=== PATIENT | male | born 1955 | race Caucasian/White ===

== ENCOUNTER 2024-08-22 19:17 | Emergency (ER) | payer MEDICARE, SELFPAY ==
[2024-08-22 19:36] VITALS: BP 161/87; PULSE 110; TEMP 36.7; O2SAT 93; BMI 28.8
--- NOTE | 2024-08-22 19:44 | CT_ITS ---
The [address] [address] Patient Name: FREDDY PANCHAL MRN: [id number] date: 1955 Sex: M Assigned Patient Location: ED.MAIN Current Patient Location: ED.MAIN Accession/Order Number: [id number] Exam Date: 08/22/2024 20:30 Report Date: 08/22/2024 21:44 At the request of: SIMIN STUBBS Procedure: CT lumbar spine wo con EXAM: CT lumbar spine wo con TECHNIQUE: Axial CT images were obtained through the lumbar spine along with sagittal and coronal reformatted images. Dose reduction techniques were achieved by using automated exposure control and/or adjustment of mA and/or kV according to patient size and/or use of iterative reconstruction technique. HISTORY: lumbar radiculopathy COMPARISON: None. FINDINGS: Bones: Foci of gas and heterogeneous lucency involving the superior half of the L5 vertebral body and inferior portion of the L4 vertebral body. No acute fracture. Alignment: The alignment is anatomic. No acute subluxation. Arthritic changes: Moderate degenerative endplate change at L5-S1. Mild degenerative endplate change throughout the remainder of the lumbar spine. Mild degenerative facet changes at L4-L5 and L5-S1. Disc spaces: No gross disc herniation given limitation of CT scan. Foci of gas within the L4-L5 disc space Soft tissues: Epidural soft tissue thickening within the anterior epidural space dorsal to the L3, L4 and L5 vertebrae with foci of gas within the soft tissue thickening.1 the paravertebral soft tissues are unremarkable. CT/CT lumbar spine wo con IMPRESSION: 1. Epidural soft tissue thickening and foci of gas within the anterior epidural space of the lower lumbar spine. Epidural abscess is not excluded. Pre and postcontrast MRI of lumbar spine is recommended for additional evaluation. 2. Foci of gas within the L4-L5 disc space and with foci of gas involving the inferior L4 endplate and superior L5 endplate. Discitis and osteomyelitis is possible. This can also be further evaluated with MRI. A critical result was communicated to Simin Stubbs at 08/22/2024 9:41 PM EDT by Jan Salamanca MD. Electronically authenticated by: JAN SALAMANCA Date: 08/22/2024 21:44
--- NOTE | 2024-08-22 19:46 | ED_ITS ---
HPI HPI - General Adult General Chief complaint: Back Pain/Injury Stated complaint: BACK PAIN Time Seen by Provider: 08/22/24 19:37 Source: patient Mode of arrival: Wheelchair Limitations: no limitations History of Present Illness HPI narrative: Patient is a 68-year-old male with a history of chronic back pain who presents to the emergency department after a spinal injection of steroids, he states he is continuing to have worsened pain and pain radiating down the back of his legs. He states he called his pain management doctor and was told to come to the emergency department for a morphine drip. He denies any fevers, vomiting, there has been no redness at the injection site. He reports most of his pain at the base of the spine, to the left and right of the spine above the hips. He states yesterday the pain was on the left and today it is worse on the right. He has no flank pain, abdominal pain or urinary symptoms. He is on Percocet and Belbuca chronically. No new falls or injuries. Related Data Home Medications ?Medication ?Instructions ?Recorded ?Confirmed amlodipine 2.5 mg tablet 2.5 mg PO DAILY 08/22/24 08/22/24 atorvastatin 40 mg tablet 40 mg PO DAILY 08/22/24 08/22/24 baclofen 10 mg oral granules in 10 mg PO DAILY 08/22/24 08/22/24 packet buprenorphine HCl 900 mcg buccal 900 mcg buccal .Q 12 08/22/24 08/22/24 film (Belbuca) famotidine 20 mg tablet 20 mg PO DAILY 08/22/24 08/22/24 hydroxyzine pamoate 25 mg capsule 25 mg PO BID PRN itching 08/22/24 08/22/24 lidocaine 5 % topical patch 1 patch topical Q24H 08/22/24 08/22/24 losartan 100 1 tab PO DAILY 08/22/24 08/22/24 mg-hydrochlorothiazide 12.5 mg tablet nitroglycerin 0.4 mg sublingual 0.4 mg sublingual Q5M PRN chest 08/22/24 08/22/24 tablet pain oxycodone-acetaminophen 5 mg-325 2 tab PO BID 08/22/24 08/22/24 mg tablet trazodone 50 mg tablet 50 mg PO DAILY 08/22/24 08/22/24 Allergies Allergy/AdvReac Type Severity Reaction Status Date / Time acetaminophen (From Tylenol) AdvReac sweating Verified 08/22/24 19:43 codeine AdvReac Nausea Verified 08/22/24 19:43 Opioid HPI Opioid Management Most Recent Opioid Data: Last MAR Pain Assessment 08/23/24 01:23 Review of Systems ROS Constitutional Denies: fever or chills Ears, nose, mouth, and throat Denies: throat pain or nasal congestion Respiratory Denies: shortness of breath Gastrointestinal Denies: nausea or vomiting Musculoskeletal Reports: back pain and extremity pain; Denies: neck pain Neurological Denies: numbness in extremities or weakness in extremities Hematologic/Lymphatic Denies: easy bruising or easy bleeding PFSH PFSH Social History Little interest or pleasure in doing things: not at all Feeling down, depressed, or hopeless: not at all Exam Narrative Exam Narrative: Gen.: Awake, alert, in no distress Head: Normocephalic, atraumatic ENT: Moist mucous membranes Respiratory: No respiratory distress Back: No bony point tenderness of the midline lumbar spine. No obvious deformity or step-off. No pain out of proportion on exam. Diffuse mild tenderness of the paraspinal muscles at the base of the right lumbar spine above the hip. No flank tenderness or CVA tenderness Extremities: Moves extremities equally, normal dorsiflexion and plantarflexion of the lower extremities with normal hip flexion bilaterally, positive straight leg raise with hip flexion on the right lower extremity. No decrease in sensation to the medial thighs Psych: Normal mood and affect Neuro: No focal neuro deficit Skin: Warm, dry, intact Constitutional Vital Signs, click to edit/add: Last Vital Signs Temp 98.0 F 08/22/24 19:36 Pulse 97 H 08/23/24 01:54 Resp 20 08/23/24 01:54 BP 179/99 H 08/23/24 01:54 Pulse Ox 96 08/23/24 01:54 O2 Del Method Nasal Cannula 08/23/24 01:54 O2 Flow Rate 2 08/23/24 01:54 Course Vital Signs Vital signs: Vital Signs Temperature 98.0 F 08/22/24 19:36 Pulse Rate 110 H 08/22/24 19:36 Respiratory Rate 18 08/22/24 19:36 Blood Pressure 161/87 H 08/22/24 19:36 Pulse Oximetry 93 L 08/22/24 19:36 Oxygen Delivery Method Room Air 08/22/24 19:36 Temperature 98.0 F 08/22/24 19:36 Pulse Rate 97 H 08/23/24 01:54 Respiratory Rate 20 08/23/24 01:54 Blood Pressure 179/99 H 08/23/24 01:54 Pulse Oximetry 96 08/23/24 01:54 Oxygen Delivery Method Nasal Cannula 08/23/24 01:54 Oxygen Delivery Flow Rate 2 08/23/24 01:54 Medical Decision Making MDM Narrative Medical decision making narrative: Patient was initially medicated with IV Dilaudid, Solu-Medrol, Norflex, Zofran. He reported no improvement in his pain and was given additional morphine and Toradol. He was not noted to have any focal neurodeficits in the ER. 2200: CT of the lumbar spine was ordered, the radiologist called and feels that the patient has findings suspicious for epidural abscess and discitis. MRI is recommended. We are not able to emergently get an MRI for the patient and we have no neurosurgery coverage at this facility. Patient and are aware agreeable to transfer to the [facility] [place]. [facility] transfer line was contacted, they do not have any beds available at [facility] but they do have neurosurgery coverage and bed availability at [place]. We are awaiting acceptance from this facility at this time. 2249: I spoke with Dr. Lawler for neurosurgery and he requested that the patient be sent to the emergency department at [facility] for evaluation. Patient was accepted by ER doctor, Dr. Johnson. Neurosurgery requested blood cultures and no antibiotics until the patient is evaluated. Patient with minimal leukocytosis, white blood cell count 12.5, no bandemia. Sed rate is greater than 130 and CRP is 22.6. Patient was found to have elevated glucose although he is not known to be diabetic, possibly reactive to recent steroids. Patient is hemodynamically stable at this time, pending transfer to emergency department at [facility]. Critical care time 35 minutes SUPERVISED APC VISIT, PHYSICIAN ATTESTATION: Based on the medical record the care appears appropriate. ? Medical Records Medical records reviewed: Yes I reviewed the patient's medical records Lab Data Lab results reviewed: Yes I reviewed the patient's lab results Labs: Lab Results 08/22/24 Range/Units 19:50 WBC 12.6 H (4.0-11.0) 10^3/uL RBC 4.45 L (4.70-6.10) 10^6/uL Hgb 14.3 (14.0-18.0) g/dL Hct 41.8 L (42.0-54.0) % MCV 93.9 (80.0-94.0) fL MCH 32.1 (25.9-34.0) pg MCHC 34.2 (29.9-35.2) g/dL RDW 13.0 (11.0-15.0) % Plt Count 41 L (150-450) 10^3/uL MPV 10.4 (9.5-13.5) fL Seg Neuts % (Manual) 95.0 H (43.0-75.0) Lymphocytes % (Manual) 2.0 L (20.5-60.0) % Monocytes % (Manual) 3.0 (1.7-12.0) % Eosinophils % (Manual) 0.0 L (0.9-7.0) % Basophils % (Manual) 0.0 L (0.2-2.0) % Neutrophils # (Manual) 11.97 H (1.4-6.5) 10^3/uL Lymphocytes # (Manual) 0.25 L (1.20-3.80) 10^3/uL Monocytes # (Manual) 0.37 (0.30-0.80) 10^3/uL Eosinophils # (Manual) 0.00 (0.00-0.70) 10^3/uL Basophils # (Manual) 0.00 (0.00-0.10) 10^3/uL ESR >130 H (<=20) mm/hr Sodium 132 L (136-145) mmol/L Potassium 4.5 (3.5-5.1) mmol/L Chloride 95 L (98-107) mmol/L Carbon Dioxide 29.0 (21.0-32.0) mmol/L Anion Gap 12.5 BUN 23.0 H (7.0-18.0) mg/dL Creatinine 1.26 (0.70-1.30) mg/dL Est GFR ( Amer) >60 (>=60 mL/min/1.73m^2) Est GFR (Non-Af Amer) 57 L (>=60 mL/min/1.73m^2) BUN/Creatinine Ratio 18.3 Glucose 297 H (74-106) mg/dL Lactate 1.3 (0.4-2.0) mmol/L Calcium 9.5 (8.5-10.1) mg/dL Total Bilirubin 0.7 (0.2-1.0) mg/dL AST 28 (15-37) U/L ALT 44 (16-63) U/L Alkaline Phosphatase 136 H (46-116) U/L C-Reactive Protein 22.67 H (<=0.50) mg/dL Total Protein 7.1 (6.4-8.2) g/dL Albumin 2.8 L (3.4-5.0) g/dL Globulin 4.3 g/dL Albumin/Globulin Ratio 0.[address] spine: Attestation: I have reviewed the pertinent imaging results. Radiologist's impression: ITS Impressions Lumbar Spine CT 08/22/24 19:44 IMPRESSION: 1. Epidural soft tissue thickening and foci of gas within the anterior epidural space of the lower lumbar spine. Epidural abscess is not excluded. Pre and postcontrast MRI of lumbar spine is recommended for additional evaluation. 2. Foci of gas within the L4-L5 disc space and with foci of gas involving the inferior L4 endplate and superior L5 endplate. Discitis and osteomyelitis is possible. This can also be further evaluated with MRI. A critical result was communicated to Esther Alvarez at 08/22/2024 9:41 PM EDT by Cory Salamanca MD. Electronically authenticated by: CORY SALAMANCA Date: 08/22/2024 21:44 Critical Care Time Critical Care Time Critical Care Time: Yes Total Critical Care Time: 35 Attestation: Critical care time 35 minutes for evaluation of possible epidural abscess, transfer to tertiary care Discharge Plan Discharge Chief Complaint: Back Pain/Injury Clinical Impression: Epidural abscess, Discitis Patient Disposition: General Acute Hospital Time of Disposition Decision: 22:51 Discharge Location: [facility] [address] Condition: Good Mode of Transportation: EMS Discharge Date/Time: 08/23/24 01:45
[2024-08-22] MEDS: HYDROMORPHONE HCL 1 MG/ML CARTRIDGE IV (19:59)
[2024-08-22] MEDS: METHYLPREDNISOLONE SOD SUCC PF 125 MG/2 ML VIAL IVP (19:59)
[2024-08-22] MEDS: ONDANSETRON PF 4 MG/2 ML VIAL IV (19:59)
[2024-08-22] MEDS: ORPHENADRINE 60 MG/ 2 ML VIAL IV (19:59)
[2024-08-22] MEDS: MORPHINE SULFATE 4 MG/ML VIAL IV (20:44)
[2024-08-22] MEDS: KETOROLAC TROMETHAMINE 30 MG/ML VIAL IVP (20:44)
[2024-08-22 22:14] LABS: Alanine Aminotransferase 44 U/L (16-63); Albumin Globulin Ratio 0.7; Albumin Level 2.8 g/dL (3.4-5.0); Alkaline Phosphatase 136 U/L (46-116); Anion Gap 12.5; Aspartate Amino Transferase 28 U/L (15-37); BUN Creatinine Ratio 18.3; Bilirubin Total 0.7 mg/dL (0.2-1.0); C Reactive Protein 22.67 mg/dL (<=0.50); Calcium 9.5 mg/dL (8.5-10.1); Chloride 95 mmol/L (98-107); Estimated GFR (African America >60 (>=60 mL/min/1.73m^2); Estimated GFR (Non-African Ame 57 (>=60 mL/min/1.73m^2); Globulin 4.3 g/dL; Glucose 297 mg/dL (74-106); Potassium 4.5 mmol/L (3.5-5.1); Sodium 132 mmol/L (136-145); Total Protein 7.1 g/dL (6.4-8.2)
[2024-08-22 22:17] LABS: Hematocrit 41.8 % (42.0-54.0); Hemoglobin 14.3 g/dL (14.0-18.0); Lactate/Lactic Acid 1.3 mmol/L (0.4-2.0); Mean Corpuscular HGB Conc 34.2 g/dL (29.9-35.2); Mean Corpuscular Hemoglobin 32.1 pg (25.9-34.0); Mean Corpuscular Volume 93.9 fL (80.0-94.0); Mean Platelet Volume 10.4 fL (9.5-13.5); Platelet Count 41 10^3/uL (150-450); Red Blood Count 4.45 10^6/uL (4.70-6.10); White Blood Count 12.6 10^3/uL (4.0-11.0)
[2024-08-22 22:35] LABS: Erythrocyte Sedimentation Rate >130 mm/hr (<=20)
--- NOTE | 2024-08-22 22:49 | PC.NURSE ---
Pt and family updated on pt transfer to [place]. Jennifer Akers family wishes to be called with update when pt is transferred. Number provided [phone]. Pt hand picker [phone] by [facility].
[2024-08-22 23:04] LABS: Lymphocytes Absolute Manual 0.25 10^3/uL (1.20-3.80); Monocytes Absolute Manual 0.37 10^3/uL (0.30-0.80); Segmented Neut Absolute Manual 11.97 10^3/uL (1.4-6.5)
--- NOTE | 2024-08-23 00:15 | PC.NURSE ---
Pt family Jennifer Akers updated on pt status. This nurse will pass along Ms. Akers's contact info to [facility] along with report to contact her when it is decided where and when pt will be admitted.
--- NOTE | 2024-08-23 00:40 | PC.NURSE ---
Provider ordered pain medication to help manage pt pain upon transfer. 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 Medication to be administered when EMS arrives for transport.
[2024-08-23] MEDS: MORPHINE SULFATE 4 MG/ML VIAL IV (01:23)
--- NOTE | 2024-08-23 01:53 | PC.NURSE ---
Report called to [facility]
[2024-08-23 01:54] VITALS: BP 179/99; PULSE 97; O2SAT 96
[2024-08-23 10:04] LABS: A. calcoaceticus-baumannii Cpx NOT DETECTED (NOT DETECTE); Bacteroides fragilis NOT DETECTED (NOT DETECTE); Enterococcus faecalis NOT DETECTED (NOT DETECTE); Enterococcus faecium NOT DETECTED (NOT DETECTE); Listeria monocytogenes NOT DETECTED (NOT DETECTE); Staphylococcus epidermidis NOT DETECTED (NOT DETECTE); Staphylococcus lugdunensis NOT DETECTED (NOT DETECTE); Staphylococcus spp. NOT DETECTED (NOT DETECTE); Streptococcus agalactiae NOT DETECTED (NOT DETECTE); Streptococcus pneumoniae NOT DETECTED (NOT DETECTE); Streptococcus pyogenes NOT DETECTED (NOT DETECTE); Streptococcus spp. NOT DETECTED (NOT DETECTE)
[2024-08-23 10:05] LABS: Candida albicans NOT DETECTED (NOT DETECTE); Candida auris NOT DETECTED (NOT DETECTE); Candida glabrata NOT DETECTED (NOT DETECTE); Candida krusei NOT DETECTED (NOT DETECTE); Candida parapsilosis NOT DETECTED (NOT DETECTE); Candida tropicalis NOT DETECTED (NOT DETECTE); Cryptococcus neoformans/gattii NOT DETECTED (NOT DETECTE); Enterobacter cloacae complex NOT DETECTED (NOT DETECTE); Haemophilus influenzae NOT DETECTED (NOT DETECTE); Klebsiella aerogenes NOT DETECTED (NOT DETECTE); Klebsiella pneumoniae group NOT DETECTED (NOT DETECTE); Neisseria meningitidis NOT DETECTED (NOT DETECTE); Proteus spp. NOT DETECTED (NOT DETECTE); Pseudomonas aeruginosa NOT DETECTED (NOT DETECTE); Salmonella spp. NOT DETECTED (NOT DETECTE); Serratia marcescens NOT DETECTED (NOT DETECTE); Stenotrophomonas maltophilia NOT DETECTED (NOT DETECTE)
[2024-08-23 11:24] LABS: CTX-M NOT DETECTED (NOT DETECTE); IMP NOT DETECTED (NOT DETECTE); KPC NOT DETECTED (NOT DETECTE); NDM NOT DETECTED (NOT DETECTE); OXA-48-like NOT DETECTED (NOT DETECTE); VIM NOT DETECTED (NOT DETECTE); mcr-1 NOT DETECTED (NOT DETECTE)
[2024-08-23 11:25] LABS: Source Blood
[2024-08-23 11:27] LABS: Enterobacterales DETECTED (NOT DETECTE)
--- NOTE | 2024-08-23 11:30 | PC.NURSE ---
This RN called [facility] ER, spoke with DOMINICK Kuo on the phone about positive blood cultures. Fax number received and faxed blood culture results to [facility]. This RN attempted to discuss what culture resulted as but the RN at [facility] hung up the phone on this RN. This RN was unable to discuss all results with DOMINICK Kuo.
== END 2024-08-23 01:45 | disposition short-term general hospital (02) ==
PROVIDERS: Physician Assistant; Emergency Provider Internal Medicine
DX: G06.2 Extradural and subdural abscess, unspecified (principal); M46.40 Discitis, unspecified, site unspecified
CPT/HCPCS: 36415; 72131; 80053; 83605; 85007; 85027; 85652; 86140; 87040; 87150; 87186; 96374; 96375; 99285; J1171; J1885; J2270; J2360; J2405; J2919

== ENCOUNTER 2024-09-18 17:18 | Emergency (ER) | payer MEDICARE, SELFPAY ==
--- OUTSIDE RECORDS SUMMARY | 2024-09-18 17:36 | XMS_ITS | CCD ---
Author Organization [facility] Care Team Providers Care Market Consultant Name Role Phone Leti Cespedes PA-C Primary Care Provider [phone] LETI CESPEDES Referring Unavailable LETI CESPEDES Primary Care Unavailable LETI CESPEDES Referring Unavailable LETI CESPEDES Primary Care Unavailable OSIRIS BANEGAS Attending Unavailable LETI CESPEDES Referring Unavailable LETI CESPEDES Primary Care Unavailable SIDRAOSIRIS MARTINES Referring Unavailable PCP, NOT IN SYSTEM Primary Care Unavailable SIDRAOSIRIS MARTINES Referring Unavailable PCP, NOT IN SYSTEM Primary Care Unavailable OSIRIS BANEGAS Attending Unavailable OSIRIS BANEGAS Referring Unavailable PCP, NOT IN SYSTEM Primary Care Unavailable Unavailable Primary Care Provider UnavailELVIA Jung Referring Unavailable PACO LYN Attending Unavailable PACO LYN Referring Unavailable PIO SHIELDS Admitting Unavailable GENA WILSON Attending Unavailable WILDA SAMANIEGO Consulting Unavailable ELIZABETH ZAVALA Consulting Unavailable EMILIO LYNNDERMMAXIMILIAN Consulting Unavailable CHONG ARVIZU Consulting Unavailable Allergies Allergy Classification Reported Allergen(s) Allergy Type Date of Onset Reaction(s) Facility (5 sources) Acetaminophen; Translations: [ACETAMINOPHEN] Drug Allergy 02-09-2019 Other (See Comments) [facility] (7 sources) Codeine; Translations: [CODEINE] Drug Allergy 02-09-2019 GI Disturbance, Rash [facility] Medications Current Medications Medication Drug Class(es) Dates Sig (Normalized) Sig (Original) Acetaminophen (1 source) Start: 08-23-2024 acetaminophen (TYLENOL) tablet 650 mg acetaminophen 325 mg / oxyCODONE hydrochloride 5 mg oral tablet (7 sources) Opioid Agonist Start: 08-30-2024 End: 09-01-2024 oxyCODONE-acetaminop hen (PERCOCET) 5-325 MG per tablet Indications: Epidural abscess Take 1 tablet by mouth every 6 hours as needed for Pain for up to 2 days. Max Daily Amount: 4 tablets 8 tablet 08/30/2024 09/01/2024 Active Start: 08-23-2024 Start: 08-23-2024 2 tablet, Oral , EVERY 4 HOURS PRN, Starting on Coco 08/23/24 at 2004, Until Discontinued, Pain Severe (7-10), Maximum dose of acetaminophen is 4000 mg from all sources in 24 hours. take 1 tablet by jerome th four times daily PERCOCET 5-325 mg per tablet Take 1 tablet by mouth 4 (four) times a day. 0 Active aspirin 81 mg delayed release oral tablet (4 sources) Platelet Aggregation Inhibitor, Nonsteroidal Anti-inflammatory Drug Start: 12-15-2023 take 1 tablet by mouth once daily aspirin 81 MG EC tablet Take 1 tablet by mouth daily 12/15/2023 Active buprenorphine 0.9 mg buccal film (7 sources) Partial Opioid Agonist Buprenorp chapo HCl (BELBUCA) [address] 900 mcg inside cheek 2 times daily. Max Daily Amount: 1,800 mcg Active buprenorphine HC l (BELBUCA) 300 mcg film Apply 3 Film (900 mcg total) to cheek in the morning and 3 Film (900 mcg total) before bedtime. 0 Active BELBUCA 900 mcg film 1 film to the gum Bucally every 12 hrs 0 Active buprenorphine HC l (BELBUCA) 300 mcg film Apply 300 mcg to cheek 2 (two) times a day. 0 Active carvedilol 6.25 mg oral tablet (2 sources) alpha-Adrenergic Halie, beta-Adrenergic Halie Start: 08-30-2024 take 1 tablet by mouth twice daily at mealtime carvedilol (COREG) 6.25 MG tablet Take 1 tablet by mouth 2 times daily (with meals) 60 tablet 3 08/30/2024 Active Start: 08-24-2024 take 6.25 mg by mout h twice daily at mealtime 6.25 mg, Oral, 2 TIMES DAILY WITH MEALS, First dose on Tue08/24/24 at 1700, Until Discontinued, Administer with food to minimize the risk of orthostatic hypotension cefTRIAXone (ROCEPHIN) 2,000 mg in sterile water 20 mL IV syringe (1 source) Start: 08-25-2024 take 100 mg intravenously every twenty-four hours 2,000 mg, IntraVENous, EVERY 24 HOURS, First dose on Tue08/25/24 at 1015, Until Discontinued, Antimicrobial Indications: Bone and Joint Infection, Bloodstream Infection, Administer as slow IV Push over 5 mins Reconstitute 2 g vials with 19.2 mL of designated diluent to produce a 100mg/mL solution 0.4 ml enoxaparin sodium 100 mg/ml prefilled syringe (1 source) Low Molecular Weight Heparin Start: 08-24-2024 inject 40 mg by subcutaneous injection once daily 40 mg, SubCUTAneous, DAILY, First dose on Tue08/24/24 at 0900, Until Discontinued, Indication of Use: Prophylaxis-DVT/PE , Administer by deep subCUTAneous injection with pt lying down. Alternate injection sites on abdominal wall. Do not rub site after injection. Check with provider prior to any invasive procedure., On hold since Tue08/25/2024 at 1609 until manually unheld furosemide 40 mg oral tablet (3 sources) Loop Diuretic Start: 08-30-2024 take 1 tablet by mouth once daily furosemide (LASIX) 40 MG tablet Take 1 tablet by mouth daily 60 tablet 3 08/30/2024 Active Start: 08-28-2024 take 40 mg by mouth once daily 40 mg, Oral, DAILY, First dose on Tue08/28/24 at 1000, Until Discontinued Start: 08-24-2024 End: 08-28-2024 40 mg, IntraVENous, DAILY, F irst dose on Tue08/24/24 at 1730, Until Discontinued Glucose (3 sources) Start: 08-24-2024 IntraVENous, a t 100 mL/hr, CONTINUOUS PRN, if blood glucose remains LESS THAN 70 mg/dL after 2 dextrose 10% intravenous boluses or administration of glucagon, Starting on Tue08/24/24 at 1707, If blood glucose fails to stabilize after 2 dextrose 10% intravenous boluses or glucagon administration, start dextrose 10% infusion at 100 mL/hour and repeat blood glucose at 30 and 60 minutes. If blood glucose is GREATER THAN 70 mg/dL after 60 minutes, discontinue dextrose 10% infusion. Start: 08-24-2024 dextrose bolus 10% 125 mL Start: 08-24-2024 16 g (4 tablet ), Oral, PRN, Starting on Tue08/24/24 at 1707, Until Discontinued, Low blood sugar, If blood glucose is LESS THAN 70 mg/dL and patient is alert and tolerating oral. Give 4 tablets (16g) Repeat blood glucose in 15 minutes. If blood glucose is LESS THAN 70 mg/dL, repeat treatment and recheck blood glucose in 15 minutes x 2. If blood glucose remains LESS THAN 70 mg/dL, notify provider. hydrOXYzine pamoate 25 mg oral capsule (4 sources) Antihistamine Start: 10-06-2023 take 1 capsule by mouth twice daily as needed hydrOXYzine pamoate (VISTARIL) 25 MG capsule Take 1 capsule by mouth 2 times daily as needed 10/06/2023 Active levoFLOXacin 750 mg oral tablet (1 source) Quinolone Antimicrobial Start: 08-30-2024 End: 10-11-2024 take 1 tablet by mouth once daily levoFLOXacin (LEVAQUIN) 750 MG tablet Take 1 tablet by mouth daily 42 tablet 08/30/2024 10/11/2024 Active LORazepam (1 source) Benzodiazepine Start: 08-23-2024 LORazepam (ATIVAN) tablet 1 mg 100 ml magnesium sulfate 10 mg/ml injection (1 source) Start: 08-23-2024 metoprolol tartrate 50 mg oral tablet (2 sources) beta-Adrenergic Halie Start: 12-15-2023 metoprolol tartrate (LOPRESSOR) 50 mg tablet Take 1 tablet (50 mg total) by mouth as needed (As instructed for CTA coronary test). 4 tablet 0 12/15/2023 Active nitroglycerin 0.4 mg sublingual tablet (2 sources) Nitrate Vasodilator Start: 12-15-2023 nitroglycerin (NITROSTAT) 0.4 MG SL tablet 1 under the tongue as needed for angina, may repeat q5mins for up three doses 100 tablet 11 12/15/2023 Active ondansetron (ZOFRAN-ODT) disintegrating tablet 4 mg (1 source) Start: 08-23-2024 ondansetron (ZOFRAN-ODT) disintegrating tablet 4 mg OZEMPIC 0.25 mg or 0.5 mg (2 mg/3 mL) pen injector (2 sources) Start: 11-30-2023 OZEMPIC 0.25 mg or 0.5 mg (2 mg/3 mL) pen injector Potassium Chloride (1 source) Start: 08-23-2024 potassium chloride (KLOR-CON M) extended release tablet 40 mEq Semaglutide (OZEMPIC, 1 MG/DOSE, SC) (2 sources) Semaglutide (OZEMPIC, 1 MG/DOSE, SC) Inject 1 mg into the skin once a week Active Completed/Discontinued Medications Medication Drug Class(es) Dates Sig (Normalized) Sig (Original) albuterol 0.83 mg/ml inhalation solution (1 source) beta2-Adrenergic Agonist Start: 08-26-2024 2.5 mg, Nebulization, EVERY 6 HOURS PRN, Starting on 08/26/24 at 1111, Until Discontinued, Wheezing, Shortness of Breath, Initiate RT Bronchodilator Protocol: No amitriptyline hydrochloride 50 mg oral tablet (2 sources) Tricyclic Antidepressant End: 12-15-2023 take 1 tablet by mouth once daily amitriptyline (ELAVIL) 50 mg tablet Take 1 tablet (50 mg total) by mouth nightly. 0 12/15/2023 Discontinued (Therapy completed) amLODIPine 2.5 mg oral tablet (5 sources) Dihydropyridine Calcium Channel Halie Start: 12-15-2023 End: 08-25-2024 take 1 tablet by mouth once daily amLODIPine (NORVASC) 2.5 MG tablet Take 1 tablet by mouth daily 12/15/2023 08/25/2024 Discontinued (LIST CLEANUP) End: 08-30-2024 take 1 tablet by mouth once daily amLODIPine (NORVASC) 10 MG tablet Take 1 tablet by mouth daily 08/30/2024 Discontinued (Stop Taking at Discharge) atorvastatin 20 mg oral tablet (6 sources) HMG-CoA Reductase Inhibitor Start: 08-25-2024 take 20 mg by mouth once daily 20 mg, Oral, NIGHTLY, First dose on Tue08/25/24 at 2100, Until Discontinued take 1 tablet by mouth once belia y atorvastatin (LIPITOR) 40 MG tablet Take 1 tablet by mouth daily Active baclofen 10 mg oral tablet (5 sources) gamma-Aminobutyric Acid-ergic Agonist Start: 08-28-2024 take 10 mg by mouth once daily 10 mg, Oral, Nightly, First dose on Tu08/28/24 at 2100, Until Discontinued benzocaine 140 mg/ml / butamben 20 mg/ml / tetracaine 20 mg/ml mucosal spray (1 source) Lillian Local Anesthetic, Standardized Chemical Allergen Start: 08-29-2024 End: 08-29-2024 PRN, Starting on Tue08/29/24 at 1300, Until Tue08/29/24 at 1300, Intra-procedur e(Cath) bisacodyl 10 mg rectal suppository (1 source) Stimulant Laxative Start: 08-27-2024 take 10 mg rectal route once daily as needed 10 mg, Rectal, DAILY PRN, Starting on Tue08/27/24 at 1813, Until Discontinued, Constipation ceFEPIme (MAXIPIME) 2,000 mg in sodium chloride 0.9 % 100 mL IVPB (mini-bag) (1 source) Start: 08-24-2024 End: 08-25-2024 2,000 mg, IntraVENous, at 25 mL/hr, Administer over 240 Minutes, EVERY 8 HOURS, First dose (after last reorder) on Tue08/24/24 at 1830, For 28 days cetirizine hydrochloride 10 mg oral tablet (4 sources) Histamine-1 Receptor Antagonist End: 08-25-2024 take 1 tablet by mouth once daily cetirizine (ZYRTEC) 10 MG tablet Take 1 tablet by mouth daily 08/25/2024 Discontinued (LIST CLEANUP) cyclobenzaprine hydrochloride 10 mg oral tablet (1 source) Muscle Relaxant Start: 08-24-2024 End: 08-28-2024 take 10 mg by mouth three times daily 10 mg, Oral, 3 TIMES DAILY, First dose on Tue08/24/24 at 0900, Until Discontinued diclofenac sodium 0.01 mg/mg topical gel (1 source) Nonsteroidal Anti-inflammatory Drug Start: 08-28-2024 4 g, Topical, 2 TIMES DAILY, First dose on Tue08/28/24 at 1200, Until Discontinued, Apply to affected areas. docusate sodium 100 mg oral capsule (1 source) Start: 08-28-2024 take 100 mg by mouth three times daily 100 mg, Oral, 3 TIMES DAILY, First dose on Tue08/28/24 at 1400, Until Discontinued Levxi-Hmeucwrmz-Vmagv- Caff (BELCOMP-PB RE) (1 source) End: 08-25-2024 Ergot-Pentobar w-Napoj-Tgfl (BELCOMP-PB RE) Place rectally 08/25/2024 Discontinued (LIST CLEANUP) famotidine 20 mg oral tablet (3 sources) Histamine-2 Receptor Antagonist End: 08-25-2024 take 1 tablet by mouth twice daily as needed famotidine (PEPCID) 20 MG tablet Take 1 tablet by mouth 2 times daily as needed 08/25/2024 Discontinued (LIST CLEANUP) 2 ml fentaNYL 0.05 mg/ml injection (1 source) Opioid Agonist Start: 08-29-2024 End: 08-29-2024 IntraVENous, PRN, Starting on Tue08/29/24 at 1302, Until Tue08/29/24 at 1302, Intra-op gabapentin 300 mg oral capsule (2 sources) Anti-epileptic Agent End: 12-15-2023 take 1 capsule by mouth three times daily gabapentin (NEURONTIN) 300 mg capsule Take 1 capsule (300 mg total) by mouth 3 (three) times a day. 0 12/15/2023 Discontinued (Therapy completed) gadoteridol (PROHANCE) injection 16 mL (1 source) Start: 08-23-2024 End: 08-23-2024 take 1 dose intravenously once 16 mL, IntraVENous, IMG ONCE PRN, 1 dose, Starting on Tue08/23/24 at 1038, Until Tue08/23/24 at 1122, Other glucagon (rdna) 1 mg injection (1 source) Antihypoglycemic Agent Start: 08-24-2024 1 mg, SubCUTAneous, PRN, Starting on Tue08/24/24 at 1707, Until Discontinued, Low blood sugar, Blood glucose LESS THAN 70 mg/dL and patient NOT ALERT or NPO and does not have IV access., After administration , attempt intravenous access and start dextrose 10% at 100 mL/hr. Repeat blood glucose in 15 minutes x 2 and notify provider. hydroCHLOROthiazide 12.5 mg / lisinopril 20 mg oral tablet (2 sources) Thiazide Diuretic, Angiotensin Converting Enzyme Inhibitor End: 12-15-2023 take 1 tablet by mouth once in the morning lisinopril-hyd roCHLOROthiazi de (PRINZIDE,ZEST ORETIC) 20-12.5 mg per tablet Take 1 tablet by mouth in the morning. 0 12/15/2023 Discontinued (Dose adjustment) take 1 tablet by jerome th once daily lisinopril-hydroCHLOROthiazide (PRINZIDE ,ZESTORETIC) 20-12.5 mg per tablet Take 1 tablet by mouth daily. 0 Active hydroCHLOROthiazide 12.5 mg / losartan potassium 100 mg oral tablet (4 sources) Thiazide Diuretic, Angiotensin 2 Receptor Halie End: 08-30-2024 take 1 tablet by mouth once daily losartan-hydroCHLOROthiazide (HYZAAR) 100-12.5 MG per tablet Take 1 tablet by mouth daily 08/30/2024 Discontinued (Stop Taking at Discharge) take 1 tablet by jerome th once in the morning losartan-hydroCHLOROthiazide (HYZAAR) 10 0-12.5 mg per tablet Take 1 tablet by mouth in the morning. 0 Active insulin glargine 100 unt/ml injectable solution (1 source) Insulin Analog Start: 08-24-2024 inject 13 [IU] by subcutaneous injection once daily 13 Units, SubCUTAneous, DAILY, First dose (after last modification) on Tue08/24/24 at 1730, Until Discontinued, Do not hold without physician order. insulin lispro 100 unt/ml injectable solution (1 source) Insulin Analog Start: 08-24-2024 0-8 Units, SubCUTAneous, 4 TIMES DAILY BEFORE MEALS & NIGHTLY, First dose on Tue08/24/24 at 2100, Until Discontinued, Medium Dose Corrective Algorithm Glucose: Dose: 70-179 No Insulin 180-249 2 Units 250-299 4 Units 300-349 6 Units Over 349 8 Units and notify physician Administer as soon as possible within 60 minutes of last blood glucose check iopamidol (ISOVUE-370) 76 % injection 75 mL (1 source) Start: 08-23-2024 End: 08-23-2024 take 1 dose intravenously once 75 mL, IntraVENous, IMG ONCE PRN, 1 dose, Starting on Tue08/23/24 at 0411, Until Tue08/23/24 at 0433, Other 1 ml ketorolac tromethamine 30 mg/ml cartridge (1 source) Nonsteroidal Anti-inflammatory Drug, Cyclooxygenase Inhibitor Start: 08-23-2024 End: 08-23-2024 30 mg, IntraVENous, EVERY 6 HOURS PRN, Starting on Tue08/23/24 at 1029, Until Coco 08/23/24 at 2004, Pain Severe (7-10), Do not administer for more than 5 days. lactulose 667 mg/ml oral solution (1 source) Osmotic Laxative Start: 08-28-2024 End: 08-28-2024 20 g, Oral, 2 TIMES DAILY, 2 doses, First dose on Tue08/28/24 at 1145, Last dose on Tue08/28/24 at 2100 lidocaine hydrochloride 20 mg/ml mucous membrane topical solution (6 sources) Antiarrhythmic, Amide Local Anesthetic Start: 08-29-2024 End: 08-29-2024 PRN, Starting on Tue08/29/24 at 1300, Until Tue08/29/24 at 1300, Intra-procedure(C ath) Start: 08-27-2024 apply 1 dose transde rmal route once daily, then apply 1 dose transdermal route every twelve hours 1 patch, TransDERmal, Administer over 12 Hours, DAILY, First dose on Tue08/27/24 at 1515, Apply patch to back. Patch may remain in place for up to 12 hours in any 24 hour period. Start: 11-30-2023 apply 1 dose transde rmal route once daily lidocaine (LIDODERM) 5 % Place 1 patch on the skin daily. 0 11/30/2023 Active lidocaine (LIDOD ERM) 5 % Place 3 patches onto the skin daily 12 hours on, 12 hours off. Active metFORMIN hydrochloride 1000 mg oral tablet (2 sources) Biguanide End: 12-15-2023 take 1 tablet by mouth in the morning, then take 1 tablet by mouth at mealtime metFORMIN (GLUCOPHAGE) 1000 mg tablet Take 1 tablet (1,000 mg total) by mouth in the morning and 1 tablet (1,000 mg total) in the evening. Take with meals. 0 12/15/2023 Discontinued (Therapy completed) 2 ml midazolam 1 mg/ml injection (1 source) Benzodiazepine Start: 08-29-2024 End: 08-29-2024 IntraVENous, PRN, Starting on Tue08/29/24 at 1302, Until Tue08/29/24 at 1306, Intra-procedure(Ca th) 1 ml morphine sulfate 2 mg/ml cartridge (2 sources) Opioid Agonist Start: 08-29-2024 2 mg, IntraVEN ous, EVERY 4 HOURS PRN, Starting on Tue08/29/24 at 1641, Until Discontinued, Allowed for higher pain score per patient request, breakthrough pain, If oral and IV narcotics ordered, use oral first and only use IV if oral is ineffective or cannot take oral. Do Not give oral and IV within 1 hour of each other unless specifically ordered. Start: 08-23-2024 End: 08-29-2024 2 mg, IntraVENous, EVERY 4 H OURS PRN, Starting on Coco 08/23/24 at 1029, Until 08/29/24 at 1643, Allowed for higher pain score per patient request, breakthrough pain, If oral and IV narcotics ordered, use oral first and only use IV if oral is ineffective or cannot take oral. Do Not give oral and IV within 1 hour of each other unless specifically ordered. omeprazole 20 mg delayed release oral capsule (2 sources) Proton Pump Inhibitor End: 08-30-2024 take 1 capsule by mouth once daily omeprazole (PRILOSEC) 20 MG delayed release capsule Take 1 capsule by mouth daily 08/30/2024 Discontinued (Stop Taking at Discharge) piperacillin-tazoba ctam (ZOSYN) 4,500 mg in sodium chloride 0.9 % 100 mL IVPB (mini-bag) (1 source) Start: 08-23-2024 End: 08-24-2024 4,500 mg, IntraVENous, EVERY 8 HOURS, First dose on Coco 08/23/24 at 0530, Until Discontinued, Antimicrobial Indications: Other, Bone and Joint Infection, Other Abx Indication: epidural absces polyethylene glycol 3350 [id number] mg powder for oral solution (1 source) Osmotic Laxative Start: 08-23-2024 17 g, Oral, D AILY PRN, Starting on Coco 08/23/24 at 0537, Until Discontinued, Constipation, First line therapy for constipation 5 ml sodium chloride 9 mg/ml injection (7 sources) Start: 08-23-2024 10 mL, IntraVE Nous, PRN, Starting on Coco 08/23/24 at 1038, Until Discontinued, Line Care Start: 08-23-2024 5-40 mL, Intra VENous, EVERY 12 HOURS SCHEDULED (2 times per day), First dose on Coco 08/23/24 at 0900, Until Discontinued, For Line Patency: Peripheral IV = 5 mL; Midline or Central Line = 10 mL/lumen. If following IV push medication, administer flush at same rate as the IV push. Flush volume is determined by type of infusion therapy being given. For non-viscous solutions use: Peripheral IV = 5 mL Midline or Central Line = 10 mL/lumen For viscous solutions (i.e. blood components, parenteral nutrition, contrast media, or after obtaining blood sample) use: Peripheral IV = 10 mL Midline or Central Line = 20 mL/lumen Start: 08-23-2024 Start: 08-23-2024 IntraVENous, a t 5-250 mL/hr, PRN, if patient receiving piggyback infusions and maintenance fluids are not ordered, Starting on Coco 08/23/24 at 0343, For piggyback infusion, administer at same rate as piggyback for a total of 25 mL. Enter 25 mL into dose field and piggyback rate into rate field of order. If piggyback is infusing at a rate less than 100 mL/hr, enter 25 mL into dose field and 100 mL/hr into rate field of order. Start: 08-23-2024 take 10 mL intraveno usly once as needed 10 mL, IntraVENous, PRN, Starting on Coco 08/23/24 at 0537, Until Discontinued, Line Care, After every IV line use thiamine 100 mg oral tablet (1 source) Start: 08-23-2024 take 100 mg by mouth once daily 100 mg, Oral, DAILY, First dose (after last modification) on Coco 08/23/24 at 0345, Until Discontinued tiZANidine 2 mg oral tablet (2 sources) Central alpha-2 Adrenergic Agonist End: 12-15-2023 take 1 tablet by mouth in the morning, then take 1 tablet by mouth at bedtime tiZANidine (ZANAFLEX) 2 mg tablet Take 1 tablet (2 mg total) by mouth in the morning and 1 tablet (2 mg total) before bedtime. 0 12/15/2023 Discontinued (Therapy completed) traZODone hydrochloride 50 mg oral tablet (6 sources) Serotonin Reuptake Inhibitor Start: 08-26-2024 take 50 mg by mouth once daily as needed 50 mg, Oral, NIGHTLY PRN, Starting on 08/26/24 at 0919, Until Discontinued, Sleep take 1 tablet by jerome th twice daily as needed traZODone (DESYREL) 50 MG tablet Take 1 tablet by mouth 2 times daily as needed Active take 1 tablet by mouth once belia y traZODone (DESYREL) 50 mg tablet Take 1 tablet (50 mg total) by mouth nightly. 0 Active vancomycin (VANCOCIN) 1,000 mg in sodium chloride 0.9 % 250 mL IVPB ([id number]) (1 source) Start: 08-23-2024 End: 08-24-2024 1,000 mg (11.3 mg/kg), IntraVENous, at 250 mL/hr, Administer over 60 Minutes, EVERY 12 HOURS, First dose on Coco 08/23/24 at 1800, Use 20mm (Blue) [id number] adapter. Preparation Instructions: Attach medication vial to one 20mm (Blue) [id number] adapter. Andrew fluid bag with adaptor, mix, and administer per order. vancomycin (VANCOCIN) 1,250 mg in sodium chloride 0.9 % 250 mL IVPB ([id number]) (1 source) Start: 08-23-2024 End: 08-23-2024 1,250 mg (14.1 mg/kg), IntraVENous, at 166.7 mL/hr, Administer over 90 Minutes, ONCE, On Coco 08/23/24 at 0530, For 1 dose, Use 20mm (Blue) [id number] adapter. Preparation Instructions: Attach medication vial to one 20mm (Blue) [id number] adapter. Andrew fluid bag with adaptor, mix, and administer per order. Problems Problem Classification Problem Date Documented Date Episodic/Chronic Alcohol-related disorders (3 sources) Alcohol dependence; Translations: [Alcohol dependence with withdrawal, unspecified] Onset: 4 08-24-2024 Chronic Cardiac dysrhythmias (2 sources) Tachycardia; Translations: [Tachycardia, unspecified] Onset: 4 08-23-2024 Episodic Congestive heart failure; nonhypertensive (2 sources) Acute congestive heart failure; Translations: [Heart failure, unspecified] Onset: 4 08-25-2024 Chronic Diseases of white blood cells (3 sources) Band neutrophil count above reference range; Translations: [Bandemia] Onset: 4 08-25-2024 Chronic Disorders of lipid metabolism (2 sources) Mixed hyperlipidemia; Translations: [Mixed hyperlipidemia] Onset: 4 12-14-2023 Chronic Heart valve disorders (2 sources) 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; 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] Onset: 4 08-28-2024 Chronic Nonspecific chest pain (4 sources) Chest discomfort; Translations: [Other chest pain] Onset: 4 12-15-2023 Episodic Other and ill-defined heart disease (1 source) Left ventricular hypertrophy; Translations: [Cardiomegaly] 12-14-2023 Chronic Other and ill-defined heart disease (1 source) Diastolic dysfunction; Translations: [Other ill-defined heart diseases] 12-14-2023 Chronic Other and ill-defined heart disease (1 source) Cardiomegaly; Translations: [Cardiomegaly] Onset: 4 Chronic Other and ill-defined heart disease (1 source) Other ill-defined heart diseases; Translations: [Other ill-defined heart diseases] Onset: 4 Chronic Other ANIMAL CARE TECHNICIAN infection and poliomyelitis (11 sources) Epidural abscess; Translations: [Extradural and subdural abscess, unspecified] Onset: 4 08-23-2024 Episodic Other lower respiratory disease (1 source) Other forms of dyspnea; Translations: [Other forms of dyspnea] Onset: 3 Episodic Other screening for suspected conditions (not mental disorders or infectious disease) (7 sources) Cardiovascular stress test abnormal; Translations: [Abnormal electrocardiogram [ECG] [EKG]] Onset: 4 12-14-2023 Episodic Septicemia (except in labor) (8 sources) Sepsis due to Gram negative bacteria ; Translations: [Gram-negative sepsis, unspecified] Onset: 4 08-24-2024 Episodic Spondylosis; intervertebral disc disorders; other back problems (4 sources) Other intervertebral disc displacement, lumbar region; Translations: [Lumbar discitis] Onset: 3 08-23-2024 Chronic Unclassified (1 source) New Patient Onset: 4 Results Test Name Value Interpretation Reference Range Facility US ABDOMEN LIMITED 10-31-2 024 US ABDOMEN LIMITED EXAMINATION: RIGHT UPPER QUADRANT ULTRASOUND 08/25/2024 7:07 pm COMPARISON: None HISTORY: ORDERING SYSTEM PROVIDED HISTORY: splenomegaly? cirrhosis? TECHNOLOGIST PROVIDED HISTORY: Splenomegaly? cirrhosis? Specify organ?->LIVER Specify organ?->SPLEEN FINDINGS: LIVER: The liver demonstrates increased echogenicity without evidence of intrahepatic biliary ductal dilatation. BILIARY SYSTEM: Gallbladder is unremarkable without evidence of pericholecystic fluid, wall thickening or stones. Negative sonographic Aparicio's sign. Common bile duct is within normal limits measuring 8 mm. RIGHT KIDNEY: The right kidney is grossly unremarkable without evidence of hydronephrosis. PANCREAS: Visualized portions of the pancreas are unremarkable. OTHER: No evidence of right upper quadrant ascites. IMPRESSION: Suspected hepatic steatosis. Interpreted by: Rod Abrams MD Signed by: Rod Abrams MD 09/06/24 Final result Normal [facility] Basic Metabolic Panelon 08-08 Anion gap [Moles/Vol] 9 mmol/L 9 - 16 mmol/L [facility] Calcium [Mass/Vol] 8.9 mg/dL 8.6 - 10. 4 mg/dL [facility] Chloride [Moles/Vol] 96 mmol/L Low 98 - 10 7 mmol/L [facility] CO2 [Moles/Vol] 24 mmol/L 20 - 31 mmol/L [facility] Creatinine [Mass/Vol] 0.8 mg/dL 0.70 - 1.20 mg/dL [facility] Est, Glom Filt Rate - PINF [facility] Comment on above: These results are not intended for use in patients <18 years of age. eGFR results are calculated without a race factor using the 2020 CKD-EPI equation. Careful clinical correlation is recommended, particularly when comparing to results calculated using previous equations. The CKD-EPI equation is less accurate in patients with extremes of muscle mass, extra-renal metabolism of creatine, excessive creatine ingestion, or following therapy that affects renal tubular secretion. Glucose [Mass/Vol] 173 mg/dL High 74 - 99 mg/dL [facility] Interpretation and review of laboratory results Abnormal [facility] Potassium [Moles/Vol] 4.0 mmol/L 3.7 - 5.3 mmol/L [facility] Sodium [Moles/Vol] 129 mmol/L Low 136 - 145 mmol/L [facility] Urea nitrogen [Mass/Vol] 15 mg/dL 8 - 23 mg/dL [facility] Basic Metabolic Profon 08-30 Anion gap [Moles/Vol] 9 mmol/L Normal 9-16 [facility] Comment on above: Performed By: #### C DP, BMP, MG, ADIA #### [facility] [address] [place] [phone] Vp Informatics: Aden Tran MD Calcium [Mass/Vol] 8.9 mg/dL Normal 8.6-10.4 [facility] Comment on above: Performed By: #### C DP, BMP, MG, ADIA #### [facility] [address] [place] [address] 64031 Vp Informatics: Aden Tran MD Chloride [Moles/Vol] 96 mmol/L Low 98-107 [facility] Comment on above: Performed By: #### C DP, BMP, MG, ADIA #### [facility] [address] [place] [address] [phone] Vp Informatics: Aden Tran MD CO2 [Moles/Vol] 24 mmol/L Normal 20-31 [facility] Comment on above: Performed By: #### C DP, BMP, MG, ADIA #### [facility] [address] [place] [address] [phone] Vp Informatics: Aden Tran MD Creatinine [Mass/Vol] 0.8 mg/dL Normal 0.70-1.20 [facility] Comment on above: Performed By: #### C DP, BMP, MG, ADIA #### [address] [address] Vp Informatics: Aden Tran MD GFR/1.73 sq M.predicted among non-blacks MDRD (S/P/Bld) [Vol rate/Area] mL/min/{1.73_m2} Normal >60 [facility] Comment on above: Result Comment: These results are not intended for use in patients <18 years of age. eGFR results are calculated without a race factor using the 2020 CKD-EPI equation. Careful clinical correlation is recommended, particularly when comparing to results calculated using previous equations. The CKD-EPI equation is less accurate in patients with extremes of muscle mass, extra-renal metabolism of creatine, excessive creatine ingestion, or following therapy that affects renal tubular secretion. Performed By: #### C DP, BMP, MG, ADIA #### [facility] [address] [place] [phone] Vp Informatics: Aden Tran MD Glucose [Mass/Vol] 173 mg/dL High 74-99 [facility] Comment on above: Performed By: #### C DP, BMP, MG, ADIA #### [facility] [address] [place] [phone] Vp Informatics: Aden Tran MD Potassium [Moles/Vol] 4.0 mmol/L Normal 3.7-5.3 [facility] Comment on above: Performed By: #### C DP, BMP, MG, ADIA #### [facility] [address] [place] [address] 51088 Vp Informatics: Aden Tran MD Sodium [Moles/Vol] 129 mmol/L Low 136-145 [facility] Comment on above: Performed By: #### C DP, BMP, MG, ADIA #### [facility] [address] [place] [address] Vp Informatics: Aden Tran MD Urea nitrogen [Mass/Vol] 15 mg/dL Normal 8-23 [facility] Comment on above: Performed By: #### C DP, BMP, MG, ADIA #### [facility] [address] [place] [address] Vp Informatics: Aden Tran MD CBC with Auto Differentialon 08-30-2024 Basophils (Bld) [#/Vol] 0.06 10*3/uL [facility] Basophils/100 WBC (Bld) 1 % 0 - 2 % [facility] Eosinophils (Bld) [#/Vol] 0.14 10*3/uL [facility] Eosinophils/100 WBC (Bld) 1 % 1 - 4 % [facility] Erythrocyte distribution width (RBC) [Ratio] 12.5 % 11.8 - 14.4 % [facility] Hematocrit (Bld) [Volume fraction] 34.4 % Low 40.7 - 50.3 % [facility] Hemoglobin (Bld) [Mass/Vol] 11.5 g/dL Low 13.0 - 17.0 g/dL [facility] Immature granulocytes (Bld) [#/Vol] 0.09 10*3/uL [facility] Immature granulocytes/100 WBC (Bld) 1 % High 0 [facility] Interpretation and review of laboratory results Abnormal [facility] Lymphocytes/100 WBC (Bld) 17 % Low 24 - 43 % [facility] Lymphocytes/100 WBC (Bld) 1.66 % [facility] MCH (RBC) [Entitic mass] 31.6 pg 25.2 - 33.5 pg [facility] MCHC (RBC) [Mass/Vol] 33.4 g/dL 28.4 - 34.8 g/dL [facility] MCV (RBC) [Entitic vol] 94.5 fL 82.6 - 102.9 fL [facility] Monocytes/100 WBC (Bld) 7 % 3 - 12 % [facility] Monocytes/100 WBC (Bld) 0.69 % [facility] Neutrophils/100 WBC (Bld) 73 % High 36 - 65 % [facility] Nucleated RBC/100 WBC (Bld) [Ratio] 0.0 % 0.0 per 100 WBC [facility] Platelet mean volume (Bld) [Entitic vol] 10.3 fL 8.1 - 13.5 fL [facility] Platelets (Bld) [#/Vol] 285 10*3/uL [facility] RBC (Bld) [#/Vol] 3.64 10*6/uL Low 4.21 - 5.7 7 m/uL [facility] Segmented neutrophils/100 WBC (Bld) 7.12 % [facility] WBC other (Bld) [#/Vol] 9.8 [facility] CBC with Diffon 08-30-2024 Abs. Basophil 0.06 k/uL Normal 0.00-0.20 [facility] Comment on above: Performed By: #### C DP, BMP, MG, ADIA #### [facility] [address] [place] [address] Vp Informatics: Aden Tran MD Abs.Imm.Granulocyte 0.09 k/uL Normal 0.00-0.30 [facility] Comment on above: Performed By: #### C DP, BMP, MG, ADIA #### [facility] [address] [place] [address] Vp Informatics: Aden Tran MD Abs.Neutrophil (Seg) 7.12 k/uL Normal 1.50-8.10 [facility] Comment on above: Performed By: #### C DP, BMP, MG, ADIA #### [facility] [address] [place] [address] Vp Informatics: Aden Tran MD Basophils/100 WBC (Bld) 1 % Normal 0-2 [facility] Comment on above: Performed By: #### C DP, BMP, MG, ADIA #### [facility] [address] [place] [address] Vp Informatics: Aden Tran MD Eosinophils (Bld) [#/Vol] 0.14 10*3/uL Normal 0.00-0.44 [facility] Comment on above: Performed By: #### C DP, BMP, MG, ADIA #### [facility] [address] [place] [address] 26576 Vp Informatics: Aden Tran MD Eosinophils/100 WBC (Bld) 1 % Normal 1-4 [facility] Comment on above: Performed By: #### C DP, BMP, MG, ADIA #### [facility] [address] [place] [address] 50916 Vp Informatics: Aden Tran MD Erythrocyte distribution width (RBC) [Ratio] 12.5 % Normal 11.8-14.4 [facility] Comment on above: Performed By: #### C DP, BMP, MG, ADIA #### [address] [address] Vp Informatics: Aden Tran MD Hematocrit (Bld) [Volume fraction] 34.4 % Low 40.7-50.3 [facility] Comment on above: Performed By: #### C DP, BMP, MG, ADIA #### [place] [address] Vp Informatics: Aden Tran MD Hemoglobin (Bld) [Mass/Vol] 11.5 g/dL Low 13.0-17.0 [facility] Comment on above: Performed By: #### C DP, BMP, MG, ADIA #### [address] [address] Vp Informatics: Aden Tran MD Immature granulocytes/100 WBC (Bld) 1 % High 0 [facility] Comment on above: Performed By: #### C DP, BMP, MG, ADIA #### [place] [address] Vp Informatics: Aden Tran MD Lymphocytes (Bld) [#/Vol] 1.66 10*3/uL Normal 1.10-3.70 [facility] Comment on above: Performed By: #### C DP, BMP, MG, ADIA #### [address] [address] Vp Informatics: Aden Tran MD Lymphocytes/100 WBC (Bld) 17 % Low 24-43 [facility] Comment on above: Performed By: #### C DP, BMP, MG, ADIA #### [address] [address] Vp Informatics: Aden Tran MD MCH (RBC) [Entitic mass] 31.6 pg Normal 25.2-33.5 [facility] Comment on above: Performed By: #### C DP, BMP, MG, ADIA #### [address] [address] Vp Informatics: Aden Tran MD MCHC (RBC) [Mass/Vol] 33.4 g/dL Normal 28.4-34.8 [facility] Comment on above: Performed By: #### C DP, BMP, MG, ADIA #### [place] [address] Vp Informatics: Aden Tran MD MCV (RBC) [Entitic vol] 94.5 fL Normal 82.6-102.9 [facility] Comment on above: Performed By: #### C DP, BMP, MG, ADIA #### [place] [address] Vp Informatics: Aden Tran MD Monocytes (Bld) [#/Vol] 0.69 10*3/uL Normal 0.10-1.20 [facility] Comment on above: Performed By: #### C DP, BMP, MG, ADIA #### [place] [address] Vp Informatics: Aden Tran MD Monocytes/100 WBC (Bld) 7 % Normal 3-12 [facility] Comment on above: Performed By: #### C DP, BMP, MG, ADIA #### [place] [address] Vp Informatics: Aden Tran MD Neutrophil (Seg) 73 % High 36-65 [facility] Comment on above: Performed By: #### C DP, BMP, MG, ADIA #### [place] [address] Vp Informatics: Aden Tran MD NRBC Automated 0.0 per 100 WBC Normal 0.0 [facility] Comment on above: Performed By: #### C DP, BMP, MG, ADIA #### [address] [address] Vp Informatics: Aden Tran MD Platelet mean volume (Bld) [Entitic vol] 10.3 fL Normal 8.1-13.5 [facility] Comment on above: Performed By: #### C DP, BMP, MG, ADIA #### [address] [address] Vp Informatics: Aden Tran MD Platelets (Bld) [#/Vol] 285 10*3/uL Normal 138-453 [facility] Comment on above: Performed By: #### C DP, BMP, MG, ADIA #### [facility] [address] [place] [address] Vp Informatics: Aden Tran MD RBC (Bld) [#/Vol] 3.64 10*6/uL Low 4.21-5.77 [facility] Comment on above: Performed By: #### C DP, BMP, MG, ADIA #### [address] [address] Vp Informatics: Aden Tran MD WBC (Bld) [#/Vol] 9.8 10*3/uL Normal 3.5-11.3 [facility] Comment on above: Performed By: #### C DP, BMP, MG, ADIA #### [address] [address] Vp Informatics: Aden Tran MD Glucose,Whole Bloodon 2023 Glucose [Mass/Vol] 146 mg/dL High 75-110 [facility] Magnesiumon 08-30-2024 Magnesium [Mass/Vol] 2.0 mg/dL 1.6 - 2 .4 mg/dL [facility] Magnesium [Mass/Vol] 2.0 mg/dL Normal 1.6-2.4 [facility] Comment on above: Performed By: #### C DP, BMP, MG, ADIA #### [facility] [address] [place] [address] [phone] Vp Informatics: Aden Tran MD No Panel Informationon 08-30 [facility] POC Glucose Fingerstickon Glucose [Mass/Vol] 146 mg/dL High 75 - 110 mg/dL [facility] Interpretation and review of laboratory results Abnormal [facility] Phosphoruson 08-30-2024 Phosphate [Mass/Vol] 2.8 mg/dL 2.5 - 4 .5 mg/dL [facility] Phosphorus, Inorg.on 024 Phosphorus, Inorg. 2.8 mg/dL Normal 2.5-4.5 [facility] Comment on above: Performed By: #### C DP, BMP, MG, ADIA #### [facility] [address] [place] [address] [phone] Vp Informatics: Aden Tran MD Basic Metabolic Panelon 08-08 Anion gap [Moles/Vol] 8 mmol/L Low 9 - 16 mmol/L [facility] Calcium [Mass/Vol] 8.4 mg/dL Low 8.6 - 10. 4 mg/dL [facility] Chloride [Moles/Vol] 98 mmol/L 98 - 10 7 mmol/L [facility] CO2 [Moles/Vol] 27 mmol/L 20 - 31 mmol/L [facility] Creatinine [Mass/Vol] 0.7 mg/dL 0.70 - 1.20 mg/dL [facility] Est, Glojennifer Torres Rate - PINF [facility] Comment on above: These results are not intended for use in patients <18 years of age. eGFR results are calculated without a race factor using the 2020 CKD-EPI equation. Careful clinical correlation is recommended, particularly when comparing to results calculated using previous equations. The CKD-EPI equation is less accurate in patients with extremes of muscle mass, extra-renal metabolism of creatine, excessive creatine ingestion, or following therapy that affects renal tubular secretion. Glucose [Mass/Vol] 147 mg/dL High 74 - 99 mg/dL [facility] Interpretation and review of laboratory results Abnormal [facility] Potassium [Moles/Vol] 4.3 mmol/L 3.7 - 5.3 mmol/L [facility] Sodium [Moles/Vol] 133 mmol/L Low 136 - 145 mmol/L [facility] Urea nitrogen [Mass/Vol] 19 mg/dL 8 - 23 mg/dL [facility] Basic Metabolic Profon 08-29 Anion gap [Moles/Vol] 8 mmol/L Low 9-16 [facility] Comment on above: Performed By: #### C DP, BMP, MG, ADIA ####[facility] [address] [place] [address] Lab Director: Aden Tran MD Calcium [Mass/Vol] 8.4 mg/dL Low 8.6-10.4 [facility] Comment on above: Performed By: #### C DP, BMP, MG, ADIA ####[facility] [address] [place], [place] [phone] Director: Aden Tran MD Chloride [Moles/Vol] 98 mmol/L Normal 98-107 [facility] Comment on above: Performed By: #### C DP, BMP, MG, ADIA ####[facility] [address] [place] [address] Lab Director: Aden Tran MD CO2 [Moles/Vol] 27 mmol/L Normal 20-31 [facility] Comment on above: Performed By: #### C DP, BMP, MG, ADIA ####[facility] [address] [place], [place] [id number])[phone] Director: Aden Tran MD Creatinine [Mass/Vol] 0.7 mg/dL Normal 0.70-1.20 [facility] Comment on above: Performed By: #### C DP, BMP, MG, ADIA ####[facility] [address] [place] [address] Lab Director: Aden Tran MD GFR/1.73 sq M.predicted among non-blacks MDRD (S/P/Bld) [Vol rate/Area] mL/min/{1.73_m2} Normal >60 [facility] Comment on above: Result Comment: These results are not intended for use in patients <18 years of age. eGFR results are calculated without a race factor using the 2020 CKD-EPI equation. Careful clinical correlation is recommended, particularly when comparing to results calculated using previous equations. The CKD-EPI equation is less accurate in patients with extremes of muscle mass, extra-renal metabolism of creatine, excessive creatine ingestion, or following therapy that affects renal tubular secretion. Performed By: #### C DP, BMP, MG, ADIA ####[facility] [address] [place], [place] [address])[phone] Director: Aden Tran MD Glucose [Mass/Vol] 147 mg/dL High 74-99 [facility] Comment on above: Performed By: #### C DP, BMP, MG, ADIA ####[facility] [address] [place] [address])[phone] Director: Aden Tran MD Potassium [Moles/Vol] 4.3 mmol/L Normal 3.7-5.3 [facility] Comment on above: Performed By: #### C DP, BMP, MG, ADIA ####[facility] [address] [place] [address] [phone] Director: Aden Tran MD Sodium [Moles/Vol] 133 mmol/L Low 136-145 [facility] Comment on above: Performed By: #### C DP, BMP, MG, ADIA ####[facility] [address] [place] [address] Lab Director: Aden Tran MD Urea nitrogen [Mass/Vol] 19 mg/dL Normal 8-23 [facility] Comment on above: Performed By: #### C DP, BMP, MG, ADIA ####[facility] [address] [place] [address])[phone] Director: Aden Tran MD CBC with Auto Differentialon 08-29-2024 Basophils (Bld) [#/Vol] 0.04 10*3/uL [facility] Basophils/100 WBC (Bld) 0 % 0 - 2 % [facility] Eosinophils (Bld) [#/Vol] 0.16 10*3/uL [facility] Eosinophils/100 WBC (Bld) 2 % 1 - 4 % [facility] Erythrocyte distribution width (RBC) [Ratio] 12.7 % 11.8 - 14.4 % [facility] Hematocrit (Bld) [Volume fraction] 34.8 % Low 40.7 - 50.3 % [facility] Hemoglobin (Bld) [Mass/Vol] 11.4 g/dL Low 13.0 - 17.0 g/dL [facility] Immature granulocytes (Bld) [#/Vol] 0.09 10*3/uL [facility] Immature granulocytes/100 WBC (Bld) 1 % High 0 [facility] Interpretation and review of laboratory results Abnormal [facility] Lymphocytes/100 WBC (Bld) 15 % Low 24 - 43 % [facility] Lymphocytes/100 WBC (Bld) 1.43 % [facility] MCH (RBC) [Entitic mass] 31.2 pg 25.2 - 33.5 pg [facility] MCHC (RBC) [Mass/Vol] 32.8 g/dL 28.4 - 34.8 g/dL [facility] MCV (RBC) [Entitic vol] 95.3 fL 82.6 - 102.9 fL [facility] Monocytes/100 WBC (Bld) 7 % 3 - 12 % [facility] Monocytes/100 WBC (Bld) 0.69 % [facility] Neutrophils/100 WBC (Bld) 75 % High 36 - 65 % [facility] Nucleated RBC/100 WBC (Bld) [Ratio] 0.0 % 0.0 per 100 WBC [facility] Platelet mean volume (Bld) [Entitic vol] 10.5 fL 8.1 - 13.5 fL [facility] Platelets (Bld) [#/Vol] 200 10*3/uL [facility] RBC (Bld) [#/Vol] 3.65 10*6/uL Low 4.21 - 5.7 7 m/uL [facility] Segmented neutrophils/100 WBC (Bld) 7.25 % [facility] WBC other (Bld) [#/Vol] 9.7 [facility] CBC with Diffon 08-29-2024 Abs. Basophil 0.04 k/uL Normal 0.00-0.20 [facility] Comment on above: Performed By: #### C DP, BMP, MG, ADIA ####[facility] [address] [place], [place] [address])[phone] Director: Aden Tran MD Abs.Imm.Granulocyte 0.09 k/uL Normal 0.00-0.30 [facility] Comment on above: Performed By: #### C DP, BMP, MG, ADIA ####[facility] [address] [place], [place] [address])[phone] Director: Aden Tran MD Abs.Neutrophil (Seg) 7.25 k/uL Normal 1.50-8.10 [facility] Comment on above: Performed By: #### C DP, BMP, MG, ADIA ####[facility] [address] [place], [place] [address])[phone] Director: Aden Tran MD Basophils/100 WBC (Bld) 0 % Normal 0-2 [facility] Comment on above: Performed By: #### C DP, BMP, MG, ADIA ####[facility] [address] [place], [place] [address])[phone] Director: Aden Tran MD Eosinophils (Bld) [#/Vol] 0.16 10*3/uL Normal 0.00-0.44 [facility] Comment on above: Performed By: #### C DP, BMP, MG, ADIA ####[facility] [address] [place], [place] [address])[phone] Director: Aden Tran MD Eosinophils/100 WBC (Bld) 2 % Normal 1-4 [facility] Comment on above: Performed By: #### C DP, BMP, MG, ADIA ####[facility] [address] [place], [place] [address])[phone] Director: Aden Tran MD Erythrocyte distribution width (RBC) [Ratio] 12.7 % Normal 11.8-14.4 [facility] Comment on above: Performed By: #### C DP, BMP, MG, ADIA ####[facility] [address] [place], [place] [address])[phone] Director: Aden Tran MD Hematocrit (Bld) [Volume fraction] 34.8 % Low 40.7-50.3 [facility] Comment on above: Performed By: #### C DP, BMP, MG, ADIA ####[facility] [address] [place], [place] [address])[phone] Director: Aden Tran MD Hemoglobin (Bld) [Mass/Vol] 11.4 g/dL Low 13.0-17.0 [facility] Comment on above: Performed By: #### C DP, BMP, MG, ADIA ####[facility] [address] [place] [address])[phone] Director: Aden Tran MD Immature granulocytes/100 WBC (Bld) 1 % High 0 [facility] Comment on above: Performed By: #### C DP, BMP, MG, ADIA ####[facility] [address] [place], [place] [address])[phone] Director: Aden Tran MD Lymphocytes (Bld) [#/Vol] 1.43 10*3/uL Normal 1.10-3.70 [facility] Comment on above: Performed By: #### C DP, BMP, MG, ADIA ####[facility] [address] [place], [place] [address])[phone] Director: Aden Tran MD Lymphocytes/100 WBC (Bld) 15 % Low 24-43 [facility] Comment on above: Performed By: #### C DP, BMP, MG, ADIA ####[facility] [address] [place], [place] [id number])[phone] Director: Aden Tran MD MCH (RBC) [Entitic mass] 31.2 pg Normal 25.2-33.5 [facility] Comment on above: Performed By: #### C DP, BMP, MG, ADIA ####[facility] [address] [place], [place] [address])[phone] Director: Aden Tran MD MCHC (RBC) [Mass/Vol] 32.8 g/dL Normal 28.4-34.8 [facility] Comment on above: Performed By: #### C DP, BMP, MG, ADIA ####[facility] [address] [place], [place] [address])[phone] Director: Aden Tran MD MCV (RBC) [Entitic vol] 95.3 fL Normal 82.6-102.9 [facility] Comment on above: Performed By: #### C DP, BMP, MG, ADIA ####[facility] [address] [place], [place] [address])[phone] Director: Aden Tran MD Monocytes (Bld) [#/Vol] 0.69 10*3/uL Normal 0.10-1.20 [facility] Comment on above: Performed By: #### C DP, BMP, MG, ADIA ####[facility] [address] [place], [place] [address])[phone] Director: Aden Tran MD Monocytes/100 WBC (Bld) 7 % Normal 3-12 [facility] Comment on above: Performed By: #### C DP, BMP, MG, ADIA ####[facility] [address] [place] [address] Lab Director: Aden Tran MD Neutrophil (Seg) 75 % High 36-65 [facility] Comment on above: Performed By: #### C DP, BMP, MG, ADIA ####[facility] [address] [place], [place] [phone] Director: Aden Tran MD NRBC Automated 0.0 per 100 WBC Normal 0.0 [facility] Comment on above: Performed By: #### C DP, BMP, MG, ADIA ####[facility] [address] [place], [place] [phone] Director: Aden Tran MD Platelet mean volume (Bld) [Entitic vol] 10.5 fL Normal 8.1-13.5 [facility] Comment on above: Performed By: #### C DP, BMP, MG, ADIA ####[facility] [address] [place] [address] Lab Director: Aden Tran MD Platelets (Bld) [#/Vol] 200 10*3/uL Normal 138-453 [facility] Comment on above: Performed By: #### C DP, BMP, MG, ADIA ####[facility] [address] [place] [address] Lab Director: Aden Tran MD RBC (Bld) [#/Vol] 3.65 10*6/uL Low 4.21-5.77 [facility] Comment on above: Performed By: #### C DP, BMP, MG, ADIA ####[facility] [address] [place] [address] Lab Director: Aden Tran MD WBC (Bld) [#/Vol] 9.7 10*3/uL Normal 3.5-11.3 [facility] Comment on above: Performed By: #### C DP, BMP, MG, ADIA ####[facility] [address] [place] [address] Lab Director: Aden Tran MD Cath hemo interfaceon 2023 Body surface area Derived from formula 2.1 m2 [facility] [employer] Glucose,Whole Bloodon 2023 Glucose [Mass/Vol] 133 mg/dL High 75-110 [facility] Glucose [Mass/Vol] 227 mg/dL High 75-110 [facility] Glucose [Mass/Vol] 126 mg/dL High 75-110 [facility] Glucose [Mass/Vol] 118 mg/dL High 75-110 [facility] Magnesiumon 08-29-2024 Magnesium [Mass/Vol] 2.1 mg/dL 1.6 - 2 .4 mg/dL [facility] Magnesium [Mass/Vol] 2.1 mg/dL Normal 1.6-2.4 [facility] Comment on above: Performed By: #### C DP, BMP, MG, ADIA ####[facility] [address] [place] [address] lab Director: Aden Tran MD No Panel Informationon 08-29 [facility] [employer] POC Glucose Fingerstickon Glucose [Mass/Vol] 133 mg/dL High 75 - 110 mg/dL [facility] [employer] Interpretation and review of laboratory results Abnormal [facility] [employer] Glucose [Mass/Vol] 227 mg/dL High 75 - 110 mg/dL [facility] [employer] Interpretation and review of laboratory results Abnormal [facility] [employer] Glucose [Mass/Vol] 126 mg/dL High 75 - 110 mg/dL [facility] Interpretation and review of laboratory results Abnormal [facility] [employer] Glucose [Mass/Vol] 118 mg/dL High 75 - 110 mg/dL [facility] [employer] Interpretation and review of laboratory results Abnormal [facility] [employer] Phosphoruson 08-29-2024 Phosphate [Mass/Vol] 3.0 mg/dL 2.5 - 4 .5 mg/dL [facility] Phosphorus, Inorg.on 10-23-2 024 Phosphorus, Inorg. 3.0 mg/dL Normal 2.5-4.5 [facility] Comment on above: Performed By: #### C DP, BMP, MG, ADIA ####[id number] [place] [address] lab Director: Aden Tran MD Basic Metabolic Panelon 08-08 Anion gap [Moles/Vol] 10 mmol/L 9 - 16 mmol/L [facility] Calcium [Mass/Vol] 8.5 mg/dL Low 8.6 - 10. 4 mg/dL [facility] Chloride [Moles/Vol] 95 mmol/L Low 98 - 10 7 mmol/L [facility] CO2 [Moles/Vol] 24 mmol/L 20 - 31 mmol/L [facility] Creatinine [Mass/Vol] 0.6 mg/dL Low 0.70 - 1.20 mg/dL [facility] [employer] Anton, See Torres Rate - PINF [facility] Comment on above: These results are not intended for use in patients <18 years of age. eGFR results are calculated without a race factor using the 2020 CKD-EPI equation. Careful clinical correlation is recommended, particularly when comparing to results calculated using previous equations. The CKD-EPI equation is less accurate in patients with extremes of muscle mass, extra-renal metabolism of creatine, excessive creatine ingestion, or following therapy that affects renal tubular secretion. Glucose [Mass/Vol] 143 mg/dL High 74 - 99 mg/dL [facility] Interpretation and review of laboratory results Abnormal [facility] Potassium [Moles/Vol] 3.5 mmol/L Low 3.7 - 5.3 mmol/L [facility] Comment on above: SPECIMEN SLIGHTLY HE MOLYZED, RESULTS MAY BE ADVERSELY AFFECTED. Sodium [Moles/Vol] 129 mmol/L Low 136 - 145 mmol/L [facility] Urea nitrogen [Mass/Vol] 22 mg/dL 8 - 23 mg/dL [facility] Basic Metabolic Profon 08-28 Anion gap [Moles/Vol] 10 mmol/L Normal 9-16 [facility] Comment on above: Performed By: #### C DP, BMP, MG, ADIA #### [facility] [address] [place] [address] [employer]: Aden Tran MD Calcium [Mass/Vol] 8.5 mg/dL Low 8.6-10.4 [facility] Comment on above: Performed By: #### C DP, BMP, MG, ADIA #### [address] [address] [employer]: Aden Tran MD Chloride [Moles/Vol] 95 mmol/L Low 98-107 [facility] Comment on above: Performed By: #### C DP, BMP, MG, ADIA #### [facility] [address] [place] [address] [employer]: Aden Tran MD CO2 [Moles/Vol] 24 mmol/L Normal 20-31 [facility] Comment on above: Performed By: #### C DP, BMP, MG, ADIA #### [address] [address] [employer]: Aden Tran MD Creatinine [Mass/Vol] 0.6 mg/dL Low 0.70-1.20 [facility] Comment on above: Performed By: #### C DP, BMP, MG, ADIA #### [address] [address] [employer]: Aden Tran MD GFR/1.73 sq M.predicted among non-blacks MDRD (S/P/Bld) [Vol rate/Area] mL/min/{1.73_m2} Normal >60 [facility] Comment on above: Result Comment: These results are not intended for use in patients <18 years of age. eGFR results are calculated without a race factor using the 2020 CKD-EPI equation. Careful clinical correlation is recommended, particularly when comparing to results calculated using previous equations. The CKD-EPI equation is less accurate in patients with extremes of muscle mass, extra-renal metabolism of creatine, excessive creatine ingestion, or following therapy that affects renal tubular secretion. Performed By: #### C DP, BMP, MG, ADIA #### [facility] [address] [place] [address] [employer]: Aden Tran MD Glucose [Mass/Vol] 143 mg/dL High 74-99 [facility] Comment on above: Performed By: #### C DP, BMP, MG, ADIA #### [facility] [address] [place] [address] [employer]: Aden Tran MD Potassium [Moles/Vol] 3.5 mmol/L Low 3.7-5.3 [facility] Comment on above: Result Comment: SPEC IMEN SLIGHTLY HEMOLYZED, RESULTS MAY BE ADVERSELY AFFECTED. Performed By: #### C DP, BMP, MG, ADIA #### [facility] [address] [place] [address] [employer]: Aden Tran MD Sodium [Moles/Vol] 129 mmol/L Low 136-145 [facility] Comment on above: Performed By: #### C DP, BMP, MG, ADIA #### [facility] [address] [place] [address] [employer]: Aden Tran MD Urea nitrogen [Mass/Vol] 22 mg/dL Normal 8-23 [facility] Comment on above: Performed By: #### C DP, BMP, MG, ADIA #### [facility] [address] [place] [address] [employer]: Aden Tran MD CBC with Auto Differentialon 08-28-2024 Basophils (Bld) [#/Vol] 0.06 10*3/uL [facility] [employer] Basophils/100 WBC (Bld) 1 % 0 - 2 % [facility] Eosinophils (Bld) [#/Vol] 0.15 10*3/uL [facility] [employer] Eosinophils/100 WBC (Bld) 2 % 1 - 4 % [facility] Erythrocyte distribution width (RBC) [Ratio] 13.2 % 11.8 - 14.4 % [facility] Hematocrit (Bld) [Volume fraction] 38.3 % Low 40.7 - 50.3 % [facility] Hemoglobin (Bld) [Mass/Vol] 12.1 g/dL Low 13.0 - 17.0 g/dL [facility] Immature granulocytes (Bld) [#/Vol] 0.08 10*3/uL [facility] Immature granulocytes/100 WBC (Bld) 1 % High 0 [facility] Interpretation and review of laboratory results Abnormal [facility] Lymphocytes/100 WBC (Bld) 19 % Low 24 - 43 % [facility] Lymphocytes/100 WBC (Bld) 1.71 % [facility] MCH (RBC) [Entitic mass] 31.3 pg 25.2 - 33.5 pg [facility] MCHC (RBC) [Mass/Vol] 31.6 g/dL 28.4 - 34.8 g/dL [facility] MCV (RBC) [Entitic vol] 99.2 fL 82.6 - 102.9 fL [facility] Monocytes/100 WBC (Bld) 8 % 3 - 12 % [facility] Monocytes/100 WBC (Bld) 0.78 % [facility] Neutrophils/100 WBC (Bld) 69 % High 36 - 65 % [facility] Nucleated RBC/100 WBC (Bld) [Ratio] 0.0 % 0.0 per 100 WBC [facility] Platelet mean volume (Bld) [Entitic vol] 10.8 fL 8.1 - 13.5 fL [facility] Platelets (Bld) [#/Vol] 143 10*3/uL [facility] RBC (Bld) [#/Vol] 3.86 10*6/uL Low 4.21 - 5.7 7 m/uL [facility] Segmented neutrophils/100 WBC (Bld) 6.46 % [facility] WBC other (Bld) [#/Vol] 9.2 [facility] CBC with Diffon 08-28-2024 Abs. Basophil 0.06 k/uL Normal 0.00-0.20 [facility] Comment on above: Performed By: #### C DP, BMP, MG, ADIA #### [facility] [address] [place] [address] [employer]: Aden Tran MD Abs.Imm.Granulocyte 0.08 k/uL Normal 0.00-0.30 [facility] Comment on above: Performed By: #### C DP, BMP, MG, ADIA #### [facility] [address] [place] [address] [employer]: Aden Tran MD Abs.Neutrophil (Seg) 6.46 k/uL Normal 1.50-8.10 [facility] Comment on above: Performed By: #### C DP, BMP, MG, ADIA #### [place] [address] [employer]: Aden Tran MD Basophils/100 WBC (Bld) 1 % Normal 0-2 [facility] Comment on above: Performed By: #### C DP, BMP, MG, ADIA #### [place] [address] [employer]: Aden Tran MD Eosinophils (Bld) [#/Vol] 0.15 10*3/uL Normal 0.00-0.44 [facility] Comment on above: Performed By: #### C DP, BMP, MG, ADIA #### [facility] [address] [place] [address] [employer]: dAen Tran MD Eosinophils/100 WBC (Bld) 2 % Normal 1-4 [facility] Comment on above: Performed By: #### C DP, BMP, MG, ADIA #### [facility] [address] [place] [address] [employer]: Aden Tran MD Erythrocyte distribution width (RBC) [Ratio] 13.2 % Normal 11.8-14.4 [facility] Comment on above: Performed By: #### C DP, BMP, MG, ADIA #### [address] [address] [employer]: Aden Tran MD Hematocrit (Bld) [Volume fraction] 38.3 % Low 40.7-50.3 [facility] Comment on above: Performed By: #### C DP, BMP, MG, ADIA #### [address] [address] [employer]: Aden Tran MD Hemoglobin (Bld) [Mass/Vol] 12.1 g/dL Low 13.0-17.0 [facility] Comment on above: Performed By: #### C DP, BMP, MG, ADIA #### [address] [address] [employer]: Aden Tran MD Immature granulocytes/100 WBC (Bld) 1 % High 0 [facility] Comment on above: Performed By: #### C DP, BMP, MG, ADIA #### [address] [address] [employer]: Aden Tran MD Lymphocytes (Bld) [#/Vol] 1.71 10*3/uL Normal 1.10-3.70 [facility] Comment on above: Performed By: #### C DP, BMP, MG, ADIA #### [address] [address] [employer]: Aden Tran MD Lymphocytes/100 WBC (Bld) 19 % Low 24-43 [facility] Comment on above: Performed By: #### C DP, BMP, MG, ADIA #### [address] [address] [employer]: Aden Tran MD MCH (RBC) [Entitic mass] 31.3 pg Normal 25.2-33.5 [facility] Comment on above: Performed By: #### C DP, BMP, MG, ADIA #### [place] [address] [employer]: Aden Tran MD MCHC (RBC) [Mass/Vol] 31.6 g/dL Normal 28.4-34.8 [facility] Comment on above: Performed By: #### C DP, BMP, MG, ADIA #### [place] [address] [employer]: Aden Tran MD MCV (RBC) [Entitic vol] 99.2 fL Normal 82.6-102.9 [facility] Comment on above: Performed By: #### C DP, BMP, MG, ADIA #### [place] [address] [employer]: Aden Tran MD Monocytes (Bld) [#/Vol] 0.78 10*3/uL Normal 0.10-1.20 [facility] Comment on above: Performed By: #### C DP, BMP, MG, ADIA #### [place] [address] [employer]: Aden Tran MD Monocytes/100 WBC (Bld) 8 % Normal 3-12 [facility] Comment on above: Performed By: #### C DP, BMP, MG, ADIA #### [place] [address] [employer]: Aden Tran MD Neutrophil (Seg) 69 % High 36-65 [facility] Comment on above: Performed By: #### C DP, BMP, MG, AIDA #### [address] [address] [employer]: Aden Tran MD NRBC Automated 0.0 per 100 WBC Normal 0.0 [facility] Comment on above: Performed By: #### C DP, BMP, MG, ADIA #### [facility] [address] [place] [address] [employer]: Aden Tran MD Platelet mean volume (Bld) [Entitic vol] 10.8 fL Normal 8.1-13.5 [facility] Comment on above: Performed By: #### C DP, BMP, MG, ADIA #### [facility] [address] [place] [address] [employer]: Aden Tran MD Platelets (Bld) [#/Vol] 143 10*3/uL Normal 138-453 [facility] Comment on above: Performed By: #### C DP, BMP, MG, ADIA #### [facility] [address] [place] [address] [employer]: Aden Tran MD RBC (Bld) [#/Vol] 3.86 10*6/uL Low 4.21-5.77 [facility] Comment on above: Performed By: #### C DP, BMP, MG, ADIA #### [address] [address] [employer]: Aden Tran MD WBC (Bld) [#/Vol] 9.2 10*3/uL Normal 3.5-11.3 [facility] Comment on above: Performed By: #### C DP, BMP, MG, ADIA #### [address] [address] [employer]: Aden Tran MD Glucose,Whole Bloodon 2023 Glucose [Mass/Vol] 122 mg/dL High 75-110 [facility] Glucose [Mass/Vol] 187 mg/dL High 75-110 [facility] Glucose [Mass/Vol] 201 mg/dL High 75-110 [facility] Glucose [Mass/Vol] 137 mg/dL High 75-110 [facility] Magnesiumon 08-28-2024 Magnesium [Mass/Vol] 2.3 mg/dL 1.6 - 2 .4 mg/dL [facility] Magnesium [Mass/Vol] 2.3 mg/dL Normal 1.6-2.4 [facility] Comment on above: Performed By: #### C DP, BMP, MG, ADIA #### [facility] [address] [place] [address] [employer]: Aden Tran MD No Panel Informationon 08-28 [facility] POC Glucose Fingerstickon Glucose [Mass/Vol] 122 mg/dL High 75 - 110 mg/dL [facility] Interpretation and review of laboratory results Abnormal [facility] Glucose [Mass/Vol] 187 mg/dL High 75 - 110 mg/dL [facility] Interpretation and review of laboratory results Abnormal [facility] Glucose [Mass/Vol] 201 mg/dL High 75 - 110 mg/dL [facility] Interpretation and review of laboratory results Abnormal [facility] Glucose [Mass/Vol] 137 mg/dL High 75 - 110 mg/dL [facility] Interpretation and review of laboratory results Abnormal [facility] Phosphoruson 08-28-2024 Phosphate [Mass/Vol] 3.1 mg/dL 2.5 - 4 .5 mg/dL [facility] Phosphorus, Inorg.on 024 Phosphorus, Inorg. 3.1 mg/dL Normal 2.5-4.5 [facility] Comment on above: Performed By: #### C DP, BMP, MG, ADIA #### [facility] [address] [place] [address] [employer]: Aden Tran MD Basic Metabolic Panelon 08-08 Anion gap [Moles/Vol] 11 mmol/L 9 - 16 mmol/L [facility] Calcium [Mass/Vol] 8.5 mg/dL Low 8.6 - 10. 4 mg/dL [facility] Chloride [Moles/Vol] 96 mmol/L Low 98 - 10 7 mmol/L [facility] CO2 [Moles/Vol] 25 mmol/L 20 - 31 mmol/L [facility] Creatinine [Mass/Vol] 0.7 mg/dL 0.70 - 1.20 mg/dL [facility] See [place] Rate - PINF [facility] [place] [facility] Comment on above: These results are not intended for use in patients <18 years of age. eGFR results are calculated without a race factor using the 2020 CKD-EPI equation. Careful clinical correlation is recommended, particularly when comparing to results calculated using previous equations. The CKD-EPI equation is less accurate in patients with extremes of muscle mass, extra-renal metabolism of creatine, excessive creatine ingestion, or following therapy that affects renal tubular secretion. Glucose [Mass/Vol] 200 mg/dL High 74 - 99 mg/dL [facility] Interpretation and review of laboratory results Abnormal [facility] Potassium [Moles/Vol] 3.4 mmol/L Low 3.7 - 5.3 mmol/L [facility] Comment on above: SPECIMEN SLIGHTLY HE MOLYZED, RESULTS MAY BE ADVERSELY AFFECTED. Sodium [Moles/Vol] 132 mmol/L Low 136 - 145 mmol/L [facility] Urea nitrogen [Mass/Vol] 26 mg/dL High 8 - 23 mg/dL [facility] Basic Metabolic Profon 08-27 Anion gap [Moles/Vol] 11 mmol/L Normal 9-16 [facility] Comment on above: Performed By: #### C DP, BMP, MG, ADIA #### [facility] [address] [place], [place] [id number] [employer]: Aden Tran MD Calcium [Mass/Vol] 8.5 mg/dL Low 8.6-10.4 [facility] Comment on above: Performed By: #### C DP, BMP, MG, ADIA #### [facility] [address] [place], [place] [phone] [employer]: Aden Tran MD Chloride [Moles/Vol] 96 mmol/L Low 98-107 [facility] Comment on above: Performed By: #### C DP, BMP, MG, ADIA #### [facility] [address] [place] [address] [employer]: Aden Tran MD CO2 [Moles/Vol] 25 mmol/L Normal 20-31 [facility] Comment on above: Performed By: #### C DP, BMP, MG, ADIA #### [facility] [address] [place] [address] [employer]: Aden Tran MD Creatinine [Mass/Vol] 0.7 mg/dL Normal 0.70-1.20 [facility] Comment on above: Performed By: #### C DP, BMP, MG, ADIA #### [address] [address] [employer]: Aden Tran MD GFR/1.73 sq M.predicted among non-blacks MDRD (S/P/Bld) [Vol rate/Area] mL/min/{1.73_m2} Normal >60 [facility] Comment on above: Result Comment: These results are not intended for use in patients <18 years of age. eGFR results are calculated without a race factor using the 2020 CKD-EPI equation. Careful clinical correlation is recommended, particularly when comparing to results calculated using previous equations. The CKD-EPI equation is less accurate in patients with extremes of muscle mass, extra-renal metabolism of creatine, excessive creatine ingestion, or following therapy that affects renal tubular secretion. Performed By: #### C DP, BMP, MG, ADIA #### [facility] [address] [place] [address] [employer]: Aden Tran MD Glucose [Mass/Vol] 200 mg/dL High 74-99 [facility] Comment on above: Performed By: #### C DP, BMP, MG, ADIA #### [facility] [address] [place] [address] [employer]: Aden Tran MD Potassium [Moles/Vol] 3.4 mmol/L Low 3.7-5.3 [facility] Comment on above: Result Comment: SPEC IMEN SLIGHTLY HEMOLYZED, RESULTS MAY BE ADVERSELY AFFECTED. Performed By: #### C DP, BMP, MG, ADIA #### [facility] [address] [place], [place] [phone] [employer]: Aden Tran MD Sodium [Moles/Vol] 132 mmol/L Low 136-145 [facility] Comment on above: Performed By: #### C DP, BMP, MG, ADIA #### [facility] [address] [place], [place] [phone] [employer]: Aden Tran MD Urea nitrogen [Mass/Vol] 26 mg/dL High 8-23 [facility] Comment on above: Performed By: #### C DP, BMP, MG, ADIA #### [facility] [address] [place], [place] [phone] [employer]: Aden Tran MD CBC with Auto Differentialon 08-27-2024 Basophils (Bld) [#/Vol] 0.05 10*3/uL [facility] Basophils/100 WBC (Bld) 0 % 0 - 2 % [facility] Eosinophils (Bld) [#/Vol] 0.14 10*3/uL [facility] Eosinophils/100 WBC (Bld) 1 % 1 - 4 % [facility] Erythrocyte distribution width (RBC) [Ratio] 13.1 % 11.8 - 14.4 % [facility] Hematocrit (Bld) [Volume fraction] 40.0 % Low 40.7 - 50.3 % [facility] Hemoglobin (Bld) [Mass/Vol] 13.0 g/dL 13.0 - 17.0 g/dL [facility] Immature granulocytes (Bld) [#/Vol] 0.11 10*3/uL [facility] Immature granulocytes/100 WBC (Bld) 1 % High 0 [facility] Interpretation and review of laboratory results Abnormal [facility] Lymphocytes/100 WBC (Bld) 13 % Low 24 - 43 % [facility] Lymphocytes/100 WBC (Bld) 1.44 % [facility] MCH (RBC) [Entitic mass] 31.8 pg 25.2 - 33.5 pg [facility] MCHC (RBC) [Mass/Vol] 32.5 g/dL 28.4 - 34.8 g/dL [facility] MCV (RBC) [Entitic vol] 97.8 fL 82.6 - 102.9 fL [facility] Monocytes/100 WBC (Bld) 8 % 3 - 12 % [facility] Monocytes/100 WBC (Bld) 0.87 % [facility] Neutrophils/100 WBC (Bld) 77 % High 36 - 65 % [facility] Nucleated RBC/100 WBC (Bld) [Ratio] 0.0 % 0.0 per 100 WBC [facility] Platelet mean volume (Bld) [Entitic vol] 11.1 fL 8.1 - 13.5 fL [facility] Platelets (Bld) [#/Vol] 122 10*3/uL Low [facility] RBC (Bld) [#/Vol] 4.09 10*6/uL Low 4.21 - 5.7 7 m/uL [facility] Segmented neutrophils/100 WBC (Bld) 8.62 % High [facility] WBC other (Bld) [#/Vol] 11.2 [facility] CBC with Diffon 08-27-2024 Abs. Basophil 0.05 k/uL Normal 0.00-0.20 [facility] Comment on above: Performed By: #### C DP, BMP, MG, ADIA #### [facility] [address] [place] [address] [employer]: Aden Tran MD Abs.Imm.Granulocyte 0.11 k/uL Normal 0.00-0.30 [facility] Comment on above: Performed By: #### C DP, BMP, MG, ADIA #### [facility] [address] [place], [place] [phone] [facility] Informatics: Aden Tran MD Abs.Neutrophil (Seg) 8.62 k/uL High 1.50-8.10 [facility] Comment on above: Performed By: #### C DP, BMP, MG, ADIA #### [facility] [address] [place] [phone] Vp Informatics: Aden Tran MD Basophils/100 WBC (Bld) 0 % Normal 0-2 [facility] Comment on above: Performed By: #### C DP, BMP, MG, ADIA #### [facility] [address] [place] [address] Vp Informatics: Aden Tran MD Eosinophils (Bld) [#/Vol] 0.14 10*3/uL Normal 0.00-0.44 [facility] Comment on above: Performed By: #### C DP, BMP, MG, ADIA #### [facility] [address] [place] [address] Vp Informatics: Aden Tran MD Eosinophils/100 WBC (Bld) 1 % Normal 1-4 [facility] Comment on above: Performed By: #### C DP, BMP, MG, ADIA #### [facility] [address] [place] [address] Vp Informatics: Aden Tran MD Erythrocyte distribution width (RBC) [Ratio] 13.1 % Normal 11.8-14.4 [facility] Comment on above: Performed By: #### C DP, BMP, MG, ADIA #### [facility] [address] [place] [address] Vp Informatics: Aden Tran MD Hematocrit (Bld) [Volume fraction] 40.0 % Low 40.7-50.3 [facility] Comment on above: Performed By: #### C DP, BMP, MG, ADIA #### [facility] [address] [place] [address] Vp Informatics: Aden Tran MD Hemoglobin (Bld) [Mass/Vol] 13.0 g/dL Normal 13.0-17.0 [facility] Comment on above: Performed By: #### C DP, BMP, MG, ADIA #### [address] [address] Vp Informatics: Aden Tran MD Immature granulocytes/100 WBC (Bld) 1 % High 0 [facility] Comment on above: Performed By: #### C DP, BMP, MG, ADIA #### [address] [address] Vp Informatics: Aden Tran MD Lymphocytes (Bld) [#/Vol] 1.44 10*3/uL Normal 1.10-3.70 [facility] Comment on above: Performed By: #### C DP, BMP, MG, ADIA #### [address] [address] Vp Informatics: Aden Tran MD Lymphocytes/100 WBC (Bld) 13 % Low 24-43 [facility] Comment on above: Performed By: #### C DP, BMP, MG, ADIA #### [address] [address] Vp Informatics: Aden Tran MD MCH (RBC) [Entitic mass] 31.8 pg Normal 25.2-33.5 [facility] Comment on above: Performed By: #### C DP, BMP, MG, ADIA #### [facility] [address] [place] [address] Vp Informatics: Aden Tran MD MCHC (RBC) [Mass/Vol] 32.5 g/dL Normal 28.4-34.8 [facility] Comment on above: Performed By: #### C DP, BMP, MG, ADIA #### [address] [address] Vp Informatics: Aden Tran MD MCV (RBC) [Entitic vol] 97.8 fL Normal 82.6-102.9 [facility] Comment on above: Performed By: #### C DP, BMP, MG, ADIA #### [address] [address] Vp Informatics: Aden Tran MD Monocytes (Bld) [#/Vol] 0.87 10*3/uL Normal 0.10-1.20 [facility] Comment on above: Performed By: #### C DP, BMP, MG, ADIA #### [address] [address] Vp Informatics: Aden Tran MD Monocytes/100 WBC (Bld) 8 % Normal 3-12 [facility] Comment on above: Performed By: #### C DP, BMP, MG, ADIA #### [address] [address] Vp Informatics: Aden Tran MD Neutrophil (Seg) 77 % High 36-65 [facility] Comment on above: Performed By: #### C DP, BMP, MG, ADIA #### [address] [address] Vp Informatics: Aden Tran MD NRBC Automated 0.0 per 100 WBC Normal 0.0 [facility] Comment on above: Performed By: #### C DP, BMP, MG, ADIA #### [facility] [address] [place] [address] Vp Informatics: Aden Tran MD Platelet mean volume (Bld) [Entitic vol] 11.1 fL Normal 8.1-13.5 [facility] Comment on above: Performed By: #### C DP, BMP, MG, ADIA #### [facility] [address] [place] [address] Vp Informatics: Aden Tran MD Platelets (Bld) [#/Vol] 122 10*3/uL Low 138-453 [facility] Comment on above: Performed By: #### C DP, BMP, MG, ADIA #### [facility] [address] [place] [address] Vp Informatics: Aden Tran MD RBC (Bld) [#/Vol] 4.09 10*6/uL Low 4.21-5.77 [facility] Comment on above: Performed By: #### C DP, BMP, MG, ADIA #### [facility] [address] [place] [address] Vp Informatics: Aden Tran MD WBC (Bld) [#/Vol] 11.2 10*3/uL Normal 3.5-11.3 [facility] Comment on above: Performed By: #### C DP, BMP, MG, ADIA #### [facility] [address] [place] [address] Vp Informatics: Aden Tran MD Cardiac echo study Procedure Ordered By: Tee Nielson on 08-27-2024 Body surface area Derived from formula 2.1 m2 [employer] Phone: EF 3D 66 % [employer] Phone: EF BP 56 % 55 - 100 % [employer] Phone: LV EDV 3D 117 mL Bon [employer] Work Phone: LV EDV A2C 36 mL [employer] Work Phone: LV EDV A4C 50 mL [employer] Work Phone: LV EDV Index 3D 56 mL/m2 [facility] [employer] Work Phone: LV EDV Index A2C 17 mL/m2 [facility] [employer] Work Phone: LV EDV Index A4C 24 mL/m2 [facility] [employer] Work Phone: LV Ejection Fraction A2C 51 % Bon Pem[employer] Work Phone: LV Ejection Fraction A4C 58 % [employer] Work Phone: LV ESV 3D 40 mL [employer] Work Phone: LV ESV A2C 18 mL [employer] Work Phone: LV ESV A4C 21 mL [employer] Work Phone: LV ESV Index 3D 19 mL/m2 [facility] [employer] Work Phone: LV ESV Index A2C 9 mL/m2 [facility] [employer] Work Phone: LV ESV Index A4C 10 mL/m2 [facility] [employer] Work Phone: LV Mass 3D 167.0 g Enrike Pembe [employer] Work Phone: LV Mass Index 3D 79.9 g/m2 [employer] Work Phone: Enrike Pembe [employer] Work Phone: Cardiac echo study Procedure on 08-27-2024 Left Ventricle: Normal left ventricular systolic function. EF 3D is 66%. Left ventricle size is normal. Normal wall motion. Aortic Valve: Trileaflet valve. Mild regurgitation. Mitral Valve: prominent calcification/mass on anterior leaflet, correlate clinically, consider [place] when indicated. Mild regurgitation. Image quality is good. Left Ventricle Normal left ventricular systolic function. EF 3D is 66%. Left ventricle size is normal. Normal wall motion. Right Ventricle Right ventricle size is normal. Normal systolic function. Right Atrium Right atrium size is normal. Mitral Valve prominent calcification/mass on anterior leaflet, correlate clinically, consider [place] when indicated. Mild regurgitation. Tricuspid Valve Trace regurgitation. Aortic Valve Trileaflet valve. Mild regurgitation. Pulmonic Valve Valve structure is normal. No regurgitation. Ascending Aorta Normal sized aortic root. Pericardium There is evidence of epicardial fat. No pericardial effusion. Study Details Image quality: good. The view(s) performed were parasternal, apical and subcostal. Color flow Doppler was performed. No contrast was given. Wall Scoring Baseline Score Index: 1.00 The left ventricular wall motion is normal. BS CV CPACS Radiology Study observation (narrative) [facility] [employer] Glucose,Whole Bloodon 2023 Glucose [Mass/Vol] 192 mg/dL High 75-110 [facility] Glucose [Mass/Vol] 161 mg/dL High 75-110 [facility] Glucose [Mass/Vol] 189 mg/dL High 75-110 [facility] Glucose [Mass/Vol] 201 mg/dL High 75-110 [facility] Inf Dis Interventionon 08-27 Intervention: De-escalation Normal [facility] Comment on above: Performed By: #### C DP, BMP, MG, ADIA #### [facility] [address] [place] [address] Vp Informatics: Aden Tran MD Infectious Disease Intervent ionon 08-27-2024 Intervention De-escalation [facility] Magnesiumon 08-27-2024 Magnesium [Mass/Vol] 2.1 mg/dL 1.6 - 2 .4 mg/dL [facility] Magnesium [Mass/Vol] 2.1 mg/dL Normal 1.6-2.4 [facility] Comment on above: Performed By: #### C DP, BMP, MG, ADIA #### [facility] [address] [place] [address] Vp Informatics: Aden Tran MD No Panel Informationon 08-27 [facility] POC Glucose Fingerstickon Glucose [Mass/Vol] 192 mg/dL High 75 - 110 mg/dL [facility] Interpretation and review of laboratory results Abnormal [facility] Glucose [Mass/Vol] 161 mg/dL High 75 - 110 mg/dL [facility] Interpretation and review of laboratory results Abnormal [facility] Glucose [Mass/Vol] 189 mg/dL High 75 - 110 mg/dL [facility] Interpretation and review of laboratory results Abnormal [facility] Glucose [Mass/Vol] 201 mg/dL High 75 - 110 mg/dL [facility] Interpretation and review of laboratory results Abnormal [facility] Phosphoruson 08-27-2024 Phosphate [Mass/Vol] 2.5 mg/dL 2.5 - 4 .5 mg/dL [facility] Phosphorus, Inorg.on 08-27- 024 Phosphorus, Inorg. 2.5 mg/dL Normal 2.5-4.5 [facility] Comment on above: Performed By: #### C DP, BMP, MG, ADIA #### [facility] [place] [id number] Vp Informatics: Aden Tran MD CBC with Auto Differentialon 08-26-2024 Basophils (Bld) [#/Vol] 0.04 10*3/uL [facility] Basophils/100 WBC (Bld) 0 % 0 - 2 % [facility] Eosinophils (Bld) [#/Vol] 0.09 10*3/uL [facility] Eosinophils/100 WBC (Bld) 1 % 1 - 4 % [facility] Erythrocyte distribution width (RBC) [Ratio] 13.7 % 11.8 - 14.4 % [facility] Hematocrit (Bld) [Volume fraction] 38.9 % Low 40.7 - 50.3 % [facility] Hemoglobin (Bld) [Mass/Vol] 12.3 g/dL Low 13.0 - 17.0 g/dL [facility] Immature granulocytes (Bld) [#/Vol] 0.11 10*3/uL [facility] Immature granulocytes/100 WBC (Bld) 1 % High 0 [facility] Interpretation and review of laboratory results Abnormal [facility] Lymphocytes/100 WBC (Bld) 10 % Low 24 - 43 % [facility] Lymphocytes/100 WBC (Bld) 1.29 % [facility] MCH (RBC) [Entitic mass] 31.6 pg 25.2 - 33.5 pg [facility] MCHC (RBC) [Mass/Vol] 31.6 g/dL 28.4 - 34.8 g/dL [facility] MCV (RBC) [Entitic vol] 100.0 fL 82.6 - 102.9 fL [facility] Monocytes/100 WBC (Bld) 9 % 3 - 12 % [facility] Monocytes/100 WBC (Bld) 1.15 % [facility] Neutrophils/100 WBC (Bld) 79 % High 36 - 65 % [facility] Nucleated RBC/100 WBC (Bld) [Ratio] 0.0 % 0.0 per 100 WBC [facility] Platelet mean volume (Bld) [Entitic vol] 11.4 fL 8.1 - 13.5 fL [facility] Platelets (Bld) [#/Vol] 76 10*3/uL Low [facility] RBC (Bld) [#/Vol] 3.89 10*6/uL Low 4.21 - 5.7 7 m/uL [facility] Segmented neutrophils/100 WBC (Bld) 10.62 % High [facility] WBC other (Bld) [#/Vol] 13.3 High [facility] CBC with Diffon 08-26-2024 Abs. Basophil 0.04 k/uL Normal 0.00-0.20 [facility] Comment on above: Performed By: #### C DP ####[facility] [address] [place] [address] Lab Director: Aden Tran MD Abs.Imm.Granulocyte 0.11 k/uL Normal 0.00-0.30 [facility] Comment on above: Performed By: #### C DP ####[facility] [address] [place] [address] Lab Director: Aden Tran MD Abs.Neutrophil (Seg) 10.62 k/uL High 1.50-8.10 [facility] Comment on above: Performed By: #### C DP ####[facility] [address] [place] [address] Lab Director: Aden Tran MD Basophils/100 WBC (Bld) 0 % Normal 0-2 [facility] Comment on above: Performed By: #### C DP ####[address] [address] Lab Director: Aden Tran MD Eosinophils (Bld) [#/Vol] 0.09 10*3/uL Normal 0.00-0.44 [facility] Comment on above: Performed By: #### C DP ####[address] [phone] Director: Aden Tran MD Eosinophils/100 WBC (Bld) 1 % Normal 1-4 [facility] Comment on above: Performed By: #### C DP ####[address] [address])[phone] Director: Aden Tran MD Erythrocyte distribution width (RBC) [Ratio] 13.7 % Normal 11.8-14.4 [facility] Comment on above: Performed By: #### C DP ####[address] [address] Lab Director: Aden Tran MD Hematocrit (Bld) [Volume fraction] 38.9 % Low 40.7-50.3 [facility] Comment on above: Performed By: #### C DP ####[address] [address])[phone] Director: Aden Tran MD Hemoglobin (Bld) [Mass/Vol] 12.3 g/dL Low 13.0-17.0 [facility] Comment on above: Performed By: #### C DP ####[address] [address] Lab Director: Aden Tran MD Immature granulocytes/100 WBC (Bld) 1 % High 0 [facility] Comment on above: Performed By: #### C DP ####[address] [address] Lab Director: Aden Tran MD Lymphocytes (Bld) [#/Vol] 1.29 10*3/uL Normal 1.10-3.70 [facility] Comment on above: Performed By: #### C DP ####[place], [place] [address])[phone] Director: Aden Tran MD Lymphocytes/100 WBC (Bld) 10 % Low 24-43 [facility] Comment on above: Performed By: #### C DP ####[place], [place] [address])[phone] Director: Aden Tran MD MCH (RBC) [Entitic mass] 31.6 pg Normal 25.2-33.5 [facility] Comment on above: Performed By: #### C DP ####[place], [place] [address])[phone] Director: Aden Tran MD MCHC (RBC) [Mass/Vol] 31.6 g/dL Normal 28.4-34.8 [facility] Comment on above: Performed By: #### C DP ####[place], [place] [address])[phone] Director: Aden Tran MD MCV (RBC) [Entitic vol] 100.0 fL Normal 82.6-102.9 [facility] Comment on above: Performed By: #### C DP ####[place], [place] [address])[phone] Director: Aden Tran MD Monocytes (Bld) [#/Vol] 1.15 10*3/uL Normal 0.10-1.20 [facility] Comment on above: Performed By: #### C DP ####[place], [place] [address])[phone] Director: Aden Tran MD Monocytes/100 WBC (Bld) 9 % Normal 3-12 [facility] Comment on above: Performed By: #### C DP ####[address] [phone] Director: Aden Tran MD Neutrophil (Seg) 79 % High 36-65 [facility] Comment on above: Performed By: #### C DP ####[address] [phone] Director: Aden Tran MD NRBC Automated 0.0 per 100 WBC Normal 0.0 [facility] Comment on above: Performed By: #### C DP ####[address] [phone] Director: Aden Tran MD Platelet mean volume (Bld) [Entitic vol] 11.4 fL Normal 8.1-13.5 [facility] Comment on above: Performed By: #### C DP ####[address] [phone] Director: Aden Tran MD Platelets (Bld) [#/Vol] 76 10*3/uL Low 138-453 [facility] Comment on above: Performed By: #### C DP ####[address] [phone] Director: Aden Tran MD RBC (Bld) [#/Vol] 3.89 10*6/uL Low 4.21-5.77 [facility] Comment on above: Performed By: #### C DP ####[address] [phone] Director: Aden Tran MD WBC (Bld) [#/Vol] 13.3 10*3/uL High 3.5-11.3 [facility] Comment on above: Performed By: #### C DP ####[facility] [address] [place] [address] [facility] Director: Aden Tran MD Glucose,Whole Bloodon 2023 Glucose [Mass/Vol] 169 mg/dL High 75-110 [facility] Glucose [Mass/Vol] 259 mg/dL High 75-110 [facility] Glucose [Mass/Vol] 154 mg/dL High 75-110 [facility] Glucose [Mass/Vol] 154 mg/dL High 75-110 [facility] MRI LUMBAR SPINE W WO CONTRA STon 08-26-2024 MRI LUMBAR SPINE W WO CONTRAST ADDENDUM: Prior studies are now available for comparison which included MRI lumbar spine without contrast dated 11/01/2023, and CT lumbar spine dated 08/22/2024. The findings in the impression is new when compared to the prior MRI. Multiple locules of air noted within the anterior epidural space from L3-S1 on prior CT, likely was postprocedural in nature. Electronically Signed by: MICHELLE DE SOUZA V on Sun Aug 26, 2024 10:52:36 PM EDT EXAMINATION: MRI OF THE LUMBAR SPINE WITHOUT AND WITH CONTRAST 08/23/2024 9:23 am TECHNIQUE: Multiplanar multisequence MRI of the lumbar spine was performed without and with the administration of intravenous contrast. COMPARISON: None. HISTORY: ORDERING SYSTEM PROVIDED HISTORY: Concern for epidural abscess, recent steroid injection to back TECHNOLOGIST PROVIDED HISTORY: Concern for epidural abscess, recent steroid injection to back Decision Support Exception - unselect if not a suspected or confirmed emergency medical condition->Emergenc y Medical Condition (MA) Reason for Exam: Concern for epidural abscess, recent steroid injection to back FINDINGS: BONES/ALIGNMENT: There is normal alignment of the spine. The vertebral body heights are maintained. The bone marrow signal appears unremarkable. SPINAL CORD: The conus terminates normally. SOFT TISSUES: No abnormal enhancement is seen of the lumbar spine. No paraspinal mass identified. L1-L2: There is no significant disc protrusion, spinal canal stenosis or neural foraminal narrowing. L2-L3: There is no significant disc protrusion, spinal canal stenosis or neural foraminal narrowing. L3-L4: There is no significant disc protrusion, spinal canal stenosis or neural foraminal narrowing. L4-L5: Within the ventral epidural space, there is a T1 and T2 heterogenous collection which is 6 mm in thickness causing more red spinal canal narrowing and crowding of the cauda equina nerve roots. Mild bilateral neural foraminal narrowing. This collection demonstrates heterogeneous enhancement. L5-S1: There is no significant disc protrusion, spinal canal stenosis or neural foraminal narrowing. IMPRESSION: A 6 mm thickness T1 and T2 heterogeneous lesion extending from superior endplate of the L4 to the inferior endplate of the L5 causing moderate spinal canal narrowing and crowding of the cauda equina roots without compression. The lesion demonstrate heterogenous enhancement. Differential diagnosis include granulation tissue or phlegmon. If clinical symptoms persists, one-week follow-up study can be obtained for further evaluation. Interpreted by: Michelle De Souza MD Signed by: Michelle De Souza MD 08/26/24 Edited Result - FINAL Normal [facility] POC Glucose Fingerstickon Glucose [Mass/Vol] 169 mg/dL High 75 - 110 mg/dL [facility] Interpretation and review of laboratory results Abnormal [facility] Glucose [Mass/Vol] 259 mg/dL High 75 - 110 mg/dL [facility] Interpretation and review of laboratory results Abnormal [facility] Glucose [Mass/Vol] 154 mg/dL High 75 - 110 mg/dL [facility] Interpretation and review of laboratory results Abnormal [facility] Glucose [Mass/Vol] 154 mg/dL High 75 - 110 mg/dL [facility] Interpretation and review of laboratory results Abnormal [facility] Basic Metab w/rfx MGon 08-25 Anion gap [Moles/Vol] 11 mmol/L Normal 9-16 [facility] Comment on above: Performed By: #### C DP, BMPX, GLYHGB ####[place] [id number] [place] [address] [facility] Director: Aden Tran MD Calcium [Mass/Vol] 8.6 mg/dL Normal 8.6-10.4 [facility] Comment on above: Performed By: #### C DP, BMPX, GLYHGB ####[facility] [address] [place] [address] Lab Director: Aden Tran MD Chloride [Moles/Vol] 100 mmol/L Normal 98-107 [facility] Comment on above: Performed By: #### C DP, BMPX, GLYHGB ####[facility] [address] [place] [address] Lab Director: Aden Tran MD CO2 [Moles/Vol] 26 mmol/L Normal 20-31 [facility] Comment on above: Performed By: #### C DP, BMPX, GLYHGB ####[address] [address] Lab Director: Aden Tran MD Creatinine [Mass/Vol] 0.6 mg/dL Low 0.70-1.20 [facility] Comment on above: Performed By: #### C DP, BMPX, GLYHGB ####[address] [address])[phone] Director: Aden Tran MD GFR/1.73 sq M.predicted among non-blacks MDRD (S/P/Bld) [Vol rate/Area] mL/min/{1.73_m2} Normal >60 [facility] Comment on above: Result Comment: These results are not intended for use in patients <18 years of age. eGFR results are calculated without a race factor using the 2020 CKD-EPI equation. Careful clinical correlation is recommended, particularly when comparing to results calculated using previous equations. The CKD-EPI equation is less accurate in patients with extremes of muscle mass, extra-renal metabolism of creatine, excessive creatine ingestion, or following therapy that affects renal tubular secretion. Performed By: #### C DP, BMPX, GLYHGB ####[facility] [address] [place] [address] Lab Director: Aden Tran MD Glucose [Mass/Vol] 178 mg/dL High 74-99 [facility] Comment on above: Performed By: #### C DP, BMPX, GLYHGB ####[facility] [address] [place] [address] Lab Director: Aden Tran MD Potassium [Moles/Vol] 3.9 mmol/L Normal 3.7-5.3 [facility] Comment on above: Performed By: #### C DP, BMPX, GLYHGB ####[facility] [address] [place] [address] lab Director: Aden Tran MD Sodium [Moles/Vol] 137 mmol/L Normal 136-145 [facility] Comment on above: Performed By: #### C DP, BMPX, GLYHGB ####[facility] [address] [place] [address] Lab Director: Aden Tran MD Urea nitrogen [Mass/Vol] 27 mg/dL High 8-23 [facility] Comment on above: Performed By: #### C DP, BMPX, GLYHGB ####[facility] [address] [place] [address] Lab Director: Aden Tran MD Basic Metabolic Panel w/ Ref adelso to MGon 08-25-2024 Anion gap [Moles/Vol] 11 mmol/L 9 - 16 mmol/L [facility] Calcium [Mass/Vol] 8.6 mg/dL 8.6 - 10. 4 mg/dL [facility] Chloride [Moles/Vol] 100 mmol/L 98 - 10 7 mmol/L [facility] CO2 [Moles/Vol] 26 mmol/L 20 - 31 mmol/L [facility] Creatinine [Mass/Vol] 0.6 mg/dL Low 0.70 - 1.20 mg/dL [facility] Est, Glom Filt Rate - PINF [facility] Comment on above: These results are not intended for use in patients <18 years of age. eGFR results are calculated without a race factor using the 2020 CKD-EPI equation. Careful clinical correlation is recommended, particularly when comparing to results calculated using previous equations. The CKD-EPI equation is less accurate in patients with extremes of muscle mass, extra-renal metabolism of creatine, excessive creatine ingestion, or following therapy that affects renal tubular secretion. Glucose [Mass/Vol] 178 mg/dL High 74 - 99 mg/dL [facility] Interpretation and review of laboratory results Abnormal [facility] Potassium [Moles/Vol] 3.9 mmol/L 3.7 - 5.3 mmol/L [facility] Sodium [Moles/Vol] 137 mmol/L 136 - 145 mmol/L [facility] Urea nitrogen [Mass/Vol] 27 mg/dL High 8 - 23 mg/dL [facility] CBC with Auto Differentialon 08-25-2024 Basophils (Bld) [#/Vol] 0.05 10*3/uL [facility] [facility] Bas[facility]/100 WBC (Bld) 0 % 0 - 2 % [facility] Eosinophils (Bld) [#/Vol] 0.03 10*3/uL [facility] Eosinophils/100 WBC (Bld) 0 % Low 1 - 4 % [facility] Erythrocyte distribution width (RBC) [Ratio] 13.8 % 11.8 - 14.4 % [facility] Hematocrit (Bld) [Volume fraction] 38.8 % Low 40.7 - 50.3 % [facility] Hemoglobin (Bld) [Mass/Vol] 12.8 g/dL Low 13.0 - 17.0 g/dL [facility] Immature granulocytes (Bld) [#/Vol] 0.10 10*3/uL [facility] Immature granulocytes/100 WBC (Bld) 1 % High 0 [facility] Interpretation and review of laboratory results Abnormal [facility] Lymphocytes/100 WBC (Bld) 8 % Low 24 - 43 % [facility] Lymphocytes/100 WBC (Bld) 1.01 % Low [facility] MCH (RBC) [Entitic mass] 31.9 pg 25.2 - 33.5 pg [facility] MCHC (RBC) [Mass/Vol] 33.0 g/dL 28.4 - 34.8 g/dL [facility] MCV (RBC) [Entitic vol] 96.8 fL 82.6 - 102.9 fL [facility] Monocytes/100 WBC (Bld) 9 % 3 - 12 % [facility] Monocytes/100 WBC (Bld) 1.13 % [facility] Neutrophils/100 WBC (Bld) 82 % High 36 - 65 % [facility] Nucleated RBC/100 WBC (Bld) [Ratio] 0.0 % 0.0 per 100 WBC [facility] Platelet mean volume (Bld) [Entitic vol] 11.3 fL 8.1 - 13.5 fL [facility] Platelets (Bld) [#/Vol] 57 10*3/uL Low [facility] RBC (Bld) [#/Vol] 4.01 10*6/uL Low 4.21 - 5.7 7 m/uL [facility] Segmented neutrophils/100 WBC (Bld) 10.25 % High [facility] WBC other (Bld) [#/Vol] 12.6 High [facility] CBC with Diffon 08-25-2024 Abs. Basophil 0.05 k/uL Normal 0.00-0.20 [facility] Comment on above: Performed By: #### C DP, BMPX, GLYHGB ####[facility] [address] [place] [address] Lab Director: Aden Tran MD Abs.Imm.Granulocyte 0.10 k/uL Normal 0.00-0.30 [facility] Comment on above: Performed By: #### C DP, BMPX, GLYHGB ####[facility] [address]75[address] [place] [address] Lab Director: Aden Tran MD Abs.Neutrophil (Seg) 10.25 k/uL High 1.50-8.10 [facility] Comment on above: Performed By: #### C DP, BMPX, GLYHGB ####[facility] [address]qv[address]lhniyor8885 [place] [address] Lab Director: Aden Tran MD Basophils/100 WBC (Bld) 0 % Normal 0-2 [facility] Comment on above: Performed By: #### C DP, BMPX, GLYHGB ####[facility] [address] [place] [address] Lab Director: Aden Tran MD Eosinophils (Bld) [#/Vol] 0.03 10*3/uL Normal 0.00-0.44 [facility] Comment on above: Performed By: #### C DP, BMPX, GLYHGB ####[facility] [address] [place] [address])[phone] Director: Aden Tran MD Eosinophils/100 WBC (Bld) 0 % Low 1-4 [facility] Comment on above: Performed By: #### C DP, BMPX, GLYHGB ####[facility] [address] [place] [address] Lab Director: Aden Tran MD Erythrocyte distribution width (RBC) [Ratio] 13.8 % Normal 11.8-14.4 [facility] Comment on above: Performed By: #### C DP, BMPX, GLYHGB ####[facility] [address] [place] [address] Lab Director: Aden Tran MD Hematocrit (Bld) [Volume fraction] 38.8 % Low 40.7-50.3 [facility] Comment on above: Performed By: #### C DP, BMPX, GLYHGB ####[facility] [address] [place] [address] Lab Director: Aden Tran MD Hemoglobin (Bld) [Mass/Vol] 12.8 g/dL Low 13.0-17.0 [facility] Comment on above: Performed By: #### C DP, BMPX, GLYHGB ####[facility] Ismolxgvxfjp5922 [place], [place] [address])[phone] Director: Aden Tran MD Immature granulocytes/100 WBC (Bld) 1 % High 0 [facility] Comment on above: Performed By: #### C DP, BMPX, GLYHGB ####[facility] [address] [place], [place] [address])[phone] Director: Aden Tran MD Lymphocytes (Bld) [#/Vol] 1.01 10*3/uL Low 1.10-3.70 [facility] Comment on above: Performed By: #### C DP, BMPX, GLYHGB ####[facility] [address] [place], [place] [address])[phone] Director: Aden Tran MD Lymphocytes/100 WBC (Bld) 8 % Low 24-43 [facility] Comment on above: Performed By: #### C DP, BMPX, GLYHGB ####[facility] [address]feam[address] [place], [place] [address])[phone] Director: Aden Tran MD MCH (RBC) [Entitic mass] 31.9 pg Normal 25.2-33.5 [facility] Comment on above: Performed By: #### C DP, BMPX, GLYHGB ####[facility] [address]sslacsn7[address] [place], [place] [address])[phone] Director: Aden Tran MD MCHC (RBC) [Mass/Vol] 33.0 g/dL Normal 28.4-34.8 [facility] Comment on above: Performed By: #### C DP, BMPX, GLYHGB ####[facility] [address] [place], [place] [address])[phone] Director: Aden Tran MD MCV (RBC) [Entitic vol] 96.8 fL Normal 82.6-102.9 [facility] Comment on above: Performed By: #### C DP, BMPX, GLYHGB ####[facility] [address]lems[address] [place] [address] Lab Director: Aden Tran MD Monocytes (Bld) [#/Vol] 1.13 10*3/uL Normal 0.10-1.20 [facility] Comment on above: Performed By: #### C DP, BMPX, GLYHGB ####[facility] [address] [place] [address] [phone] Director: Aden Tran MD Monocytes/100 WBC (Bld) 9 % Normal 3-12 [facility] Comment on above: Performed By: #### C DP, BMPX, GLYHGB ####[address] [address])[phone] Director: Aden Tran MD Neutrophil (Seg) 82 % High 36-65 [facility] Comment on above: Performed By: #### C DP, BMPX, GLYHGB ####[facility] [address] [place], [place] [address])[phone] Director: Aden Tran MD NRBC Automated 0.0 per 100 WBC Normal 0.0 [facility] Comment on above: Performed By: #### C DP, BMPX, GLYHGB ####[facility] [address] [place] [address]([facility])[phone] Director: Aden Tran MD Platelet mean volume (Bld) [Entitic vol] 11.3 fL Normal 8.1-13.5 [facility] Comment on above: Performed By: #### C DP, BMPX, GLYHGB ####[facility] [address]wh[address] [place] [address] Lab Director: Aden Tran MD Platelets (Bld) [#/Vol] 57 10*3/uL Low 138-453 [facility] Comment on above: Performed By: #### C DP, BMPX, GLYHGB ####[facility] [address]xefaue79[address] [place] [address] Lab Director: Aden Tran MD RBC (Bld) [#/Vol] 4.01 10*6/uL Low 4.21-5.77 [facility] Comment on above: Performed By: #### C DP, BMPX, GLYHGB ####[facility] Ofhtvuvasebr5050 [place], [place] [phone])[phone] Director: Aden Tran MD WBC (Bld) [#/Vol] 12.6 10*3/uL High 3.5-11.3 [facility] Comment on above: Performed By: #### C DP, BMPX, GLYHGB ####[facility] [address]64[address] [place], [place] [phone] Director: Aden Tran MD Cult,Aerobe/Anaerobeon 08-25 Cult,Aerobe/Anaerobe Specimen Description .SPINE Direct Exam NO NEUTROPHILS SEEN NO BACTERIA SEEN Culture KLEBSIELLA OXYTOCA RARE GROWTH Identification by MALDI-TOF No anaerobic organisms isolated at 5 days. Report Status FINAL 08/28/2024 SUSCEPTIBILITY Organism KLEBSIELLA OXYTOCA Method LETHA Ampicillin 16 RESISTANT Cefazolin <=4 SUSCEPTIBLE Ceftriaxone <=0.25 SUSCEPTIBLE ESBL NEGATIVE Gentamicin <=1 SUSCEPTIBLE Levofloxacin <=0.12 SUSCEPTIBLE Piperacillin/Tazoba ctam <=4 SUSCEPTIBLE Tobramycin <=1 SUSCEPTIBLE Trimethoprim/Sulfa <=20 SUSCEPTIBLE Susceptible [facility] Comment on above: Performed By: #### A ANC ####[facility] [address] [place] [address] [phone] Director: Aden Tran MD Cult,Bloodon 08-25-2024 Cult,Blood Specimen Description .BLOOD Special Requests LEFT AC 10ML Culture POSITIVE Blood Culture DIRECT GRAM STAIN FROM BOTTLE: GRAM NEGATIVE RODS KLEBSIELLA OXYTOCA Identification by MALDI-TOF For susceptibility, refer to previous culture. (NOTE) Direct Gram Stain from bottle result called to and read back by: DOMINICK Baker on 08/23/24 at 1409 Report Status FINAL 08/25/2024 Normal [facility] Comment on above: Performed By: #### B C ####[facility] [address] [place] [address] lab Director: Aden Tran MD Cult,Blood Specimen Description .BLOOD Special Requests RIGHT FOREARM 10ML Culture POSITIVE Blood Culture DIRECT GRAM STAIN FROM BOTTLE: GRAM NEGATIVE RODS Klebsiella oxytoca Detected: Methodology- Polymerase Chain Reaction (PCR) KLEBSIELLA OXYTOCA (NOTE) Direct Gram Stain from bottle result called to and read back by: DOMINICK Otoole on 08/23/24 at 12:35 Report Status FINAL 08/25/2024 SUSCEPTIBILITY Organism KLEBSIELLA OXYTOCA Method LETHA Ampicillin 16 RESISTANT Cefazolin <=4 SUSCEPTIBLE Ceftriaxone <=0.25 SUSCEPTIBLE ESBL NEGATIVE Gentamicin <=1 SUSCEPTIBLE Levofloxacin <=0.12 SUSCEPTIBLE Piperacillin/Tazoba ctam <=4 SUSCEPTIBLE Tobramycin <=1 SUSCEPTIBLE Trimethoprim/Sulfa <=20 SUSCEPTIBLE Susceptible [facility] Comment on above: Performed By: #### B C ####[facility] [place] [address] lab Director: Aden Tran MD Culture, Anaerobic and Aerob icon 08-25-2024 Interpretation and review of laboratory results Abnormal [employer]otec AMD Microorganism identified Cx Nom (Unsp spec) KLEBSIELLA OXYTOCA RARE GROWTH Identification by MALDI-TOF Abnormal Inotec AMD Microorganism identified Cx Nom (Unsp spec) No anaerobic organisms isolated at 5 days. [employer]otec AMD Microorganism or agent identified Nom (Unsp spec) NO NEUTROPHILS SEEN Inotec AMD Microorganism or agent identified Nom (Unsp spec) NO BACTERIA SEEN [facility] [place] [facility]jur Specimen Description .SPINE [employer] [facility] Culture, Blood 1on Interpretation and review of laboratory results Abnormal Inotec AMD Microorganism identified Cx Nom (Unsp spec) Positive Abnormal Inotec AMD Microorganism identified Cx Nom (Unsp spec) Negative Inotec AMD Microorganism identified Cx Nom (Unsp spec) KLEBSIELLA OXYTOCA Identification by MALDI-TOF For susceptibility, refer to previous culture. Abnormal Inotec AMD Microorganism identified Cx Nom (Unsp spec) (NOTE) Direct Gram Stain from bottle result called to and read back by: DOMINICK Baker on 08/23/24 at 1409 [facility] Service comment (Unsp spec) [Interp] LEFT AC 10ML [facility] Specimen Description .BLOOD [facility] Interpretation and review of laboratory results Abnormal [facility] Microorganism identified Cx Nom (Unsp spec) Positive Abnormal [facility] Microorganism identified Cx Nom (Unsp spec) Negative [facility] Microorganism identified Cx Nom (Unsp spec) Klebsiella oxytoca Detected: Methodology- Polymerase Chain Reaction (PCR) [facility] Microorganism identified Cx Nom (Unsp spec) KLEBSIELLA OXYTOCA Abnormal [facility] Microorganism identified Cx Nom (Unsp spec) (NOTE) Direct Gram Stain from bottle result called to and read back by: DOMINICK Otoole on 08/23/24 at 12:35 [facility] Service comment (Unsp spec) [Interp] RIGHT FOREARM 10ML [facility] Specimen Description .BLOOD [facility] EKG 12 Leadon 08-25-2024 Atrial Rate 91 BPM [facility] P [place] 3 degrees [facility] P-R Interval 164 ms [facility] Q-T Interval 360 ms [facility] QRS Duration 74 ms [facility] QTc Calculation (Bazett) 442 ms [facility] R [place] -23 degrees [facility] T [place] 32 degrees [facility] Ventricular Rate 91 BPM [facility] Normal sinus rhythm Moderate voltage criteria for LVH, may be normal variant Borderline ECG When compared with ECG of 23-AUG-2024 03:00, No significant change was found [facility]PN STV John Mera MD - 08/25/2024 Normal sinus rhythm Moderate voltage criteria for LVH, may be normal variant Borderline ECG When compared with ECG of 23-AUG-2024 03:00, No significant change was found [facility] Glucose,Whole Bloodon 2023 Glucose [Mass/Vol] 137 mg/dL High 75-110 [facility] Glucose [Mass/Vol] 192 mg/dL High 75-110 [facility] Glucose [Mass/Vol] 164 mg/dL High 75-110 [facility] Glucose [Mass/Vol] 182 mg/dL High 75-110 [facility] Hemoglobin A1Con 08-25-2024 Glucose [Mass/Vol] 177 mg/dL Normal [facility] Comment on above: Result Comment: The ADA and AACC recommend providing the estimated average glucose result to permit better patient understanding of their HBA1c result. Performed By: #### C DP, BMPX, GLYHGB ####[facility] [address] [place], [place] [id number] Lab Director: Aden Tran MD HbA1c (Bld) [Mass fraction] 7.8 % High 4.0-6.0 [facility] [employer] Comment on above: Performed By: #### C DP, BMPX, GLYHGB ####[facility] [address] [place] [id number] lab Director: Aden Tran MD Hemoglobin A1con 08-25-2024 Average glucose Estimated from glycated hemoglobin (Bld) [Mass/Vol] 177 mg/dL [facility] Comment on above: The ADA and AACC rec ommend providing the estimated average glucose result to permit better patient understanding of their HBA1c result. Interpretation and review of laboratory results Abnormal [facility] [employer] [facility] POC Glucose Fingerstickon Glucose [Mass/Vol] 137 mg/dL High 75 - 110 mg/dL [facility] Interpretation and review of laboratory results Abnormal [facility] Glucose [Mass/Vol] 192 mg/dL High 75 - 110 mg/dL [facility] Interpretation and review of laboratory results Abnormal [facility] Glucose [Mass/Vol] 164 mg/dL High 75 - 110 mg/dL [facility] Interpretation and review of laboratory results Abnormal [facility] Glucose [Mass/Vol] 182 mg/dL High 75 - 110 mg/dL [facility] Interpretation and review of laboratory results Abnormal [facility] Basic Metab w/rfx MGon 08-24 Anion gap [Moles/Vol] 10 mmol/L Normal 9-16 [facility] Comment on above: Performed By: #### P T, CDP, BMPX ####[facility] [address]myncn[address] [place] [address] Lab Director: Aden Tran MD Calcium [Mass/Vol] 8.6 mg/dL Normal 8.6-10.4 [facility] Comment on above: Performed By: #### P T, CDP, BMPX ####[facility] [address]cip[address] [place] [address] Lab Director: Aden Tran MD Chloride [Moles/Vol] 103 mmol/L Normal 98-107 [facility] Comment on above: Performed By: #### P T, CDP, BMPX ####[facility] [address] [place] [address] Lab Director: Aden Tran MD CO2 [Moles/Vol] 26 mmol/L Normal 20-31 [facility] Comment on above: Performed By: #### P T, CDP, BMPX ####[facility] [address]jsog4200 [place] [address] Lab Director: Aden Tran MD Creatinine [Mass/Vol] 0.8 mg/dL Normal 0.70-1.20 [facility] Comment on above: Performed By: #### P T, CDP, BMPX ####[facility] [address]oumlinldl4633 [place] [address] Lab Director: Aden Tran MD GFR/1.73 sq M.predicted among non-blacks MDRD (S/P/Bld) [Vol rate/Area] mL/min/{1.73_m2} Normal >60 [facility] Comment on above: Result Comment: These results are not intended for use in patients <18 years of age. eGFR results are calculated without a race factor using the 2020 CKD-EPI equation. Careful clinical correlation is recommended, particularly when comparing to results calculated using previous equations. The CKD-EPI equation is less accurate in patients with extremes of muscle mass, extra-renal metabolism of creatine, excessive creatine ingestion, or following therapy that affects renal tubular secretion. Performed By: #### P T, CDP, BMPX ####[facility] [address] [place], [place] [address])[phone] Director: Aden Tran MD Glucose [Mass/Vol] 257 mg/dL High 74-99 [facility] Comment on above: Performed By: #### P T, CDP, BMPX ####[facility] [address] [place], [place] [address])[phone] Director: Aden Tran MD Potassium [Moles/Vol] 4.7 mmol/L Normal 3.7-5.3 [facility] Comment on above: Performed By: #### P T, CDP, BMPX ####[facility] [address] [place], [place] [id number])[phone] Director: Aden Tran MD Sodium [Moles/Vol] 139 mmol/L Normal 136-145 [facility] Comment on above: Performed By: #### P T, CDP, BMPX ####[facility] [address] [place], [place] [id number])[phone] Director: Aden Tran MD Urea nitrogen [Mass/Vol] 29 mg/dL High 8-23 [facility] Comment on above: Performed By: #### P T, CDP, BMPX ####[facility] [address] [place], [place] [address])[phone] Director: Aden Tran MD Basic Metabolic Panel w/ Ref adelso to MGon 08-24-2024 Anion gap [Moles/Vol] 10 mmol/L 9 - 16 mmol/L [facility] Calcium [Mass/Vol] 8.6 mg/dL 8.6 - 10. 4 mg/dL [facility] Chloride [Moles/Vol] 103 mmol/L 98 - 10 7 mmol/L [facility] CO2 [Moles/Vol] 26 mmol/L 20 - 31 mmol/L [facility] Creatinine [Mass/Vol] 0.8 mg/dL 0.70 - 1.20 mg/dL [facility] See [place] Rate - PINF [facility] Comment on above: These results are not intended for use in patients <18 years of age. eGFR results are calculated without a race factor using the 2020 CKD-EPI equation. Careful clinical correlation is recommended, particularly when comparing to results calculated using previous equations. The CKD-EPI equation is less accurate in patients with extremes of muscle mass, extra-renal metabolism of creatine, excessive creatine ingestion, or following therapy that affects renal tubular secretion. Glucose [Mass/Vol] 257 mg/dL High 74 - 99 mg/dL [facility] Interpretation and review of laboratory results Abnormal [facility] Potassium [Moles/Vol] 4.7 mmol/L 3.7 - 5.3 mmol/L [facility] Sodium [Moles/Vol] 139 mmol/L 136 - 145 mmol/L [facility] Urea nitrogen [Mass/Vol] 29 mg/dL High 8 - 23 mg/dL [facility] CBC with Auto Differentialon 08-24-2024 Basophils (Bld) [#/Vol] 0.03 10*3/uL [facility] Basophils/100 WBC (Bld) 0 % 0 - 2 % [facility] Eosinophils (Bld) [#/Vol] [facility] Eosinophils/100 WBC (Bld) 0 % Low 1 - 4 % [facility] Erythrocyte distribution width (RBC) [Ratio] 13.7 % 11.8 - 14.4 % [facility] Hematocrit (Bld) [Volume fraction] 39.4 % Low 40.7 - 50.3 % [facility] Hemoglobin (Bld) [Mass/Vol] 13.3 g/dL 13.0 - 17.0 g/dL [facility] Immature granulocytes (Bld) [#/Vol] 0.19 10*3/uL [facility] Immature granulocytes/100 WBC (Bld) 1 % High 0 [facility] Interpretation and review of laboratory results Abnormal [facility] Lymphocytes/100 WBC (Bld) 6 % Low 24 - 43 % [facility] Lymphocytes/100 WBC (Bld) 0.92 % Low [facility] MCH (RBC) [Entitic mass] 31.7 pg 25.2 - 33.5 pg [facility] MCHC (RBC) [Mass/Vol] 33.8 g/dL 28.4 - 34.8 g/dL [facility] MCV (RBC) [Entitic vol] 93.8 fL 82.6 - 102.9 fL [facility] Monocytes/100 WBC (Bld) 6 % 3 - 12 % [facility] Monocytes/100 WBC (Bld) 0.85 % [facility] Neutrophils/100 WBC (Bld) 87 % High 36 - 65 % [facility] Nucleated RBC/100 WBC (Bld) [Ratio] 0.0 % 0.0 per 100 WBC [facility] Platelet mean volume (Bld) [Entitic vol] 11.5 fL 8.1 - 13.5 fL [facility] Platelets (Bld) [#/Vol] 54 10*3/uL Low [facility] RBC (Bld) [#/Vol] 4.20 10*6/uL Low 4.21 - 5.7 7 m/uL [facility] Segmented neutrophils/100 WBC (Bld) 13.52 % High [facility] WBC other (Bld) [#/Vol] 15.5 High [facility] CBC with Diffon 08-24-2024 Abs. Basophil 0.03 k/uL Normal 0.00-0.20 [facility] Comment on above: Performed By: #### P T, CDP, BMPX ####[facility] [address] [place] [address] [facility] Director: Aden Tran MD Abs. Eosinophil <0.03 Normal 0.00-0.44 [facility] Comment on above: Performed By: #### P T, CDP, BMPX ####[facility] [address]uelontldef3554 [place] [address] Lab Director: Aden Tran MD Abs.Imm.Granulocyte 0.19 k/uL Normal 0.00-0.30 [facility] Comment on above: Performed By: #### P T, CDP, BMPX ####[facility] [address] [place] [address])[phone] Director: Aden Tran MD Abs.Neutrophil (Seg) 13.52 k/uL High 1.50-8.10 [facility] Comment on above: Performed By: #### P T, CDP, BMPX ####[facility] [address]dtfcposyqnf4598 [place], [place] [address])[phone] Director: Aden Tran MD Basophils/100 WBC (Bld) 0 % Normal 0-2 [facility] Comment on above: Performed By: #### P T, CDP, BMPX ####[facility] [address] [place] [address])[phone] Director: Aden Tran MD Eosinophils/100 WBC (Bld) 0 % Low 1-4 [facility] Comment on above: Performed By: #### P T, CDP, BMPX ####[facility] [address]fgxrvqe29[address] [place], [place] [address])[phone] Director: Aden Tran MD Erythrocyte distribution width (RBC) [Ratio] 13.7 % Normal 11.8-14.4 [facility] Comment on above: Performed By: #### P T, CDP, BMPX ####[facility] [address]juovqhg1422 [place], [place] [address])[phone] Director: Aden Tran MD Hematocrit (Bld) [Volume fraction] 39.4 % Low 40.7-50.3 [facility] Comment on above: Performed By: #### P T, CDP, BMPX ####[facility] [address] [place], [place] [id number])[phone] Director: Aden Tran MD Hemoglobin (Bld) [Mass/Vol] 13.3 g/dL Normal 13.0-17.0 [facility] Comment on above: Performed By: #### P T, CDP, BMPX ####[facility] [address] [place] [address] [phone] Director: Aden Tran MD Immature granulocytes/100 WBC (Bld) 1 % High 0 [facility] Comment on above: Performed By: #### P T, CDP, BMPX ####[place], [place] [address])[phone] Director: Aden Tran MD Lymphocytes (Bld) [#/Vol] 0.92 10*3/uL Low 1.10-3.70 [facility] Comment on above: Performed By: #### P T, CDP, BMPX ####[place], [place] [address])[phone] Director: Aden Tran MD Lymphocytes/100 WBC (Bld) 6 % Low 24-43 [facility] Comment on above: Performed By: #### P T, CDP, BMPX ####[facility] [address] [place], [place] [address])[phone] Director: Aden Tran MD MCH (RBC) [Entitic mass] 31.7 pg Normal 25.2-33.5 [facility] Comment on above: Performed By: #### P T, CDP, BMPX ####[facility] [address] [place], [place] [address])[phone] Director: Aden Tran MD MCHC (RBC) [Mass/Vol] 33.8 g/dL Normal 28.4-34.8 [facility] Comment on above: Performed By: #### P T, CDP, BMPX ####[address] [phone] Director: Aden Tran MD MCV (RBC) [Entitic vol] 93.8 fL Normal 82.6-102.9 [facility] Comment on above: Performed By: #### P T, CDP, BMPX ####[address] [id number])[phone] Director: Aden Tran MD Monocytes (Bld) [#/Vol] 0.85 10*3/uL Normal 0.10-1.20 [facility] Comment on above: Performed By: #### P T, CDP, BMPX ####[address] [phone] Director: Aden Tran MD Monocytes/100 WBC (Bld) 6 % Normal 3-12 [facility] Comment on above: Performed By: #### P T, CDP, BMPX ####[address] [phone] Director: Aden Tran MD Neutrophil (Seg) 87 % High 36-65 [facility] Comment on above: Performed By: #### P T, CDP, BMPX ####[address] [phone] Director: Aden Tran MD NRBC Automated 0.0 per 100 WBC Normal 0.0 [facility] Comment on above: Performed By: #### P T, CDP, BMPX ####[address] [phone])[phone] Director: Aden Tran MD Platelet mean volume (Bld) [Entitic vol] 11.5 fL Normal 8.1-13.5 [facility] Comment on above: Performed By: #### P T, CDP, BMPX ####[address] [phone] Director: Aden Tran MD Platelets (Bld) [#/Vol] 54 10*3/uL Low 138-453 [facility] Comment on above: Performed By: #### P T, CDP, BMPX ####[facility] [address] [place] [address] Lab Director: Aden Tran MD RBC (Bld) [#/Vol] 4.20 10*6/uL Low 4.21-5.77 [facility] Comment on above: Performed By: #### P T, CDP, BMPX ####[facility] [address] [place] [address] Lab Director: Aden Tran MD WBC (Bld) [#/Vol] 15.5 10*3/uL High 3.5-11.3 [facility] Comment on above: Performed By: #### P T, CDP, BMPX ####[facility] [address] [place] [address] lab Director: Aden Tran MD EKG 12 LeadOrdered By: John Edmond on 08-24-2024 Atrial Rate 119 BPM [employer] Work Phone: P [place] 34 degrees [employer] Phone: P-R Interval 158 ms [employer] Phone: Q-T Interval 302 ms [employer] Work Phone: QRS Duration 76 ms [employer] Work Phone: QTc Calculation (Bazett) 424 ms [employer] Work Phone: R [place] -28 degrees [employer] Work Phone: T [place] 54 degrees [employer] Phone: Ventricular Rate 119 BPM [employer] Work Phone: [employer] Work Phone: EKG 12 Leadon 08-24-2024 Sinus tachycardia Minimal voltage criteria for LVH, may be normal variant Possible Anterior infarct , age undetermined Abnormal ECG No previous ECGs available [facility] John Kelley MD - 08/24/2024 Sinus tachycardia Minimal voltage criteria for LVH, may be normal variant Possible Anterior infarct , age undetermined Abnormal ECG No previous ECGs available [facility] [employer] Glucose,Whole Bloodon 2023 Glucose [Mass/Vol] 234 mg/dL High 75-110 [facility] Glucose [Mass/Vol] 238 mg/dL High 75-110 [facility] Glucose [Mass/Vol] 224 mg/dL High 75-110 [facility] POC Glucose Fingerstickon Glucose [Mass/Vol] 234 mg/dL High 75 - 110 mg/dL [facility] Interpretation and review of laboratory results Abnormal [facility] Glucose [Mass/Vol] 238 mg/dL High 75 - 110 mg/dL [facility] Interpretation and review of laboratory results Abnormal [facility] Glucose [Mass/Vol] 224 mg/dL High 75 - 110 mg/dL [facility] Interpretation and review of laboratory results Abnormal [facility] PTon 08-24-2024 INR Coag (PPP) [Relative time] 0.9 {INR} Normal [facility] Comment on above: Result Comment: Therapeutic Range: Moderate Anticoagulant Intensity: INR = 2.0-3.0 High Anticoagulant Intensity: INR = 2.5-3.5 Performed By: #### C DP, BMP, MG, ADIA #### [employer] [place], [place] [id number] [employer]: Aden Tran MD PT Coag (PPP) [Time] 11.8 s Normal 11.7-14.9 [facility] Comment on above: Performed By: #### C DP, BMP, MG, ADIA #### [employer] [address] [place] [address] [employer]: Aden Tran MD Portable XR Chest AP single viewon 08-24-2024 Improving pulmonary vascular congestion when compared to the prior exam [facility] EXAMINATION: ONE XRAY VIEW OF THE CHEST 08/24/2024 3:04 pm COMPARISON: 08/23/2024 HISTORY: ORDERING SYSTEM PROVIDED HISTORY: pulmonary edema TECHNOLOGIST PROVIDED HISTORY: pulmonary edema FINDINGS: Stable chronic elevation of the right hemidiaphragm.. Stable right basilar atelectasis.. Underlying pulmonary vascular congestion appears improved. No evidence of pneumothorax. No other significant changes are seen. [facility] Anjel Lopez MD - 08/24/2024 EXAMINATION: ONE XRAY VIEW OF THE CHEST 08/24/2024 3:04 pm COMPARISON: 08/23/2024 HISTORY: ORDERING SYSTEM PROVIDED HISTORY: pulmonary edema TECHNOLOGIST PROVIDED HISTORY: pulmonary edema FINDINGS: Stable chronic elevation of the right hemidiaphragm.. Stable right basilar atelectasis.. Underlying pulmonary vascular congestion appears improved. No evidence of pneumothorax. No other significant changes are seen. IMPRESSION: Improving pulmonary vascular congestion when compared to the prior exam [facility] Radiology Study observation (narrative) [facility] Portable XR Chest AP single viewOrdered By: Anjel Lopez on 08-24-2024 [facility] Work Phone: [employer] 08-24-2024 INR Coag (PPP) [Relative time] 0.9 {INR} [facility] Comment on above: Therapeutic Range: Moderate Anticoagulant Intensity: INR = 2.0-3.0 High Anticoagulant Intensity: INR = 2.5-3.5 PT Coag (PPP) [Time] 11.8 s [facility] XR CHEST PORTABLEon 08-24-20 24 XR CHEST PORTABLE EXAMINATION: ONE XRAY VIEW OF THE CHEST 08/24/2024 3:04 pm COMPARISON: 08/23/2024 HISTORY: ORDERING SYSTEM PROVIDED HISTORY: pulmonary edema TECHNOLOGIST PROVIDED HISTORY: pulmonary edema FINDINGS: Stable chronic elevation of the right hemidiaphragm.. Stable right basilar atelectasis.. Underlying pulmonary vascular congestion appears improved. No evidence of pneumothorax. No other significant changes are seen. IMPRESSION: Improving pulmonary vascular congestion when compared to the prior exam Interpreted by: Anjel Lopez MD Signed by: Anjel Lopez MD 08/24/24 Final result Normal [facility] APTTon 08-23-2024 aPTT Coag (Bld) [Time] 26.4 s [facility] Comment on above: IV Heparin Therapy Range: 66.0-92.0 sec aPTT Coag (Bld) [Time] 26.4 s Normal 23.0-36.5 [facility] Comment on above: Result Comment: IV Heparin Therapy Range: 66.0-92.0 sec Performed By: #### T SH, SED, CRP, EDTOX, PTT, LACDS, CDP, DIME, PT, CP, TROPI ####[address] [id number] Lab Director: Aden Tran MD Arterial Blood Gaseson 08-23 Hever Test INFORMATION NOT PROVIDED Normal [facility] Comment on above: Performed By: #### A BG, GLUO, WBK, WBNA, IOCAL, LACTIC, CVHH, WBCL ####[facility] [address] [place] [address] Lab Director: Aden Tran MD Body Temp. 37.0 Normal [facility] Comment on above: Performed By: #### A BG, GLUO, WBK, WBNA, IOCAL, LACTIC, CVHH, WBCL ####[facility] [address] [place] [address] Lab Director: Aden Tran MD Carboxy Hgb 0.0 % Normal 0-5 [facility] Comment on above: Result Comment: Reference Range: Non-Smokers 0-2% Average Smoker 2-4% Heavy Smoker <10% Performed By: #### A BG, GLUO, WBK, WBNA, IOCAL, LACTIC, CVHH, WBCL ####[facility] [address] [place] [address] Lab Director: Aden Tran MD FIO2 60 Normal [facility] Comment on above: Performed By: #### A BG, GLUO, WBK, WBNA, IOCAL, LACTIC, CVHH, WBCL ####[facility] [address] [place] [address] Lab Director: Aden Tran MD HCO3 (Bld) [Moles/Vol] 25.9 mmol/L Normal 22-27 [facility] Comment on above: Performed By: #### A BG, GLUO, WBK, WBNA, IOCAL, LACTIC, CVHH, WBCL ####[facility] [address] [place] [address] Lab Director: Aden Tran MD Oxygen (Bld) [Partial pressure] 211.0 mm[Hg] High 75-95 [facility] Comment on above: Performed By: #### A BG, GLUO, WBK, WBNA, IOCAL, LACTIC, CVHH, WBCL ####[facility] [address] [place] [address] Lab Director: Aden Tran MD Oxygen saturation in Blood 98.0 % Normal 94-100 [facility] Comment on above: Performed By: #### A BG, GLUO, WBK, WBNA, IOCAL, LACTIC, CVHH, WBCL ####[facility] [address] [place] [address] Lab Director: Aden Tran MD pCO2 41.2 mmHg Normal 32-45 [facility] Comment on above: Performed By: #### A BG, GLUO, WBK, WBNA, IOCAL, LACTIC, CVHH, WBCL ####[facility] [address] [place] [address] Lab Director: Aden Tran MD pH (Bld) 7.414 [pH] Normal 7.350-7.450 [facility] Comment on above: Performed By: #### A BG, GLUO, WBK, WBNA, IOCAL, LACTIC, CVHH, WBCL ####[facility] [address] [place] [address] Lab Director: Aden Tran MD Positive Base Excess 1.7 mmol/L Normal 0.0-2.0 [facility] Comment on above: Performed By: #### A BG, GLUO, WBK, WBNA, IOCAL, LACTIC, CVHH, WBCL ####[facility] [address] [place] [address] Lab Director: Aden Tran MD Basic Metab w/rfx MGon 08-23 Anion gap [Moles/Vol] 14 mmol/L Normal 9-16 [facility] Comment on above: Performed By: #### B MPX ####[facility] [address] [place], [place] [address])[phone] Director: Aden Tran MD Calcium [Mass/Vol] 8.3 mg/dL Low 8.6-10.4 [facility] Comment on above: Performed By: #### B MPX ####[facility] [address] [place], [place] [phone])[phone] Director: Aden Tran MD Chloride [Moles/Vol] 98 mmol/L Normal 98-107 [facility] Comment on above: Performed By: #### B MPX ####[facility] [address] [place], [place] [phone] Director: Aden Tran MD CO2 [Moles/Vol] 24 mmol/L Normal 20-31 [facility] Comment on above: Performed By: #### B MPX ####[facility] [address] [place] [address] Lab Director: Aden Tran MD Creatinine [Mass/Vol] 0.9 mg/dL Normal 0.70-1.20 [facility] Comment on above: Performed By: #### B MPX ####[address] [address])[phone] Director: Aden Tran MD GFR/1.73 sq M.predicted among non-blacks MDRD (S/P/Bld) [Vol rate/Area] mL/min/{1.73_m2} Normal >60 [facility] Comment on above: Result Comment: These results are not intended for use in patients <18 years of age. eGFR results are calculated without a race factor using the 2020 CKD-EPI equation. Careful clinical correlation is recommended, particularly when comparing to results calculated using previous equations. The CKD-EPI equation is less accurate in patients with extremes of muscle mass, extra-renal metabolism of creatine, excessive creatine ingestion, or following therapy that affects renal tubular secretion. Performed By: #### B MPX ####[address] [address])[phone] Director: Aden Tran MD Glucose [Mass/Vol] 307 mg/dL High 74-99 [facility] Comment on above: Performed By: #### B MPX ####[address] [address])[phone] Director: Aden Tran MD Potassium [Moles/Vol] 4.5 mmol/L Normal 3.7-5.3 [facility] Comment on above: Performed By: #### B MPX ####[facility] [address] [place] [address])[phone] Director: Aden Tran MD Sodium [Moles/Vol] 136 mmol/L Normal 136-145 [facility] Comment on above: Performed By: #### B MPX ####[facility] [address] [place] [address] Lab Director: Aden Tran MD Urea nitrogen [Mass/Vol] 27 mg/dL High 8-23 [facility] Comment on above: Performed By: #### B MPX ####[facility] [address] [place] [id number] [facility] Director: Aden Tran MD Basic Metabolic Panel w/ Ref adelso to MGon 08-23-2024 Anion gap [Moles/Vol] 14 mmol/L 9 - 16 mmol/L [facility] Calcium [Mass/Vol] 8.3 mg/dL Low 8.6 - 10. 4 mg/dL [facility] Chloride [Moles/Vol] 98 mmol/L 98 - 10 7 mmol/L [facility] CO2 [Moles/Vol] 24 mmol/L 20 - 31 mmol/L [facility] Creatinine [Mass/Vol] 0.9 mg/dL 0.70 - 1.20 mg/dL [facility] Gleam Est, See Torres Rate - PINF [facility] Comment on above: These results are not intended for use in patients <18 years of age. eGFR results are calculated without a race factor using the 2020 CKD-EPI equation. Careful clinical correlation is recommended, particularly when comparing to results calculated using previous equations. The CKD-EPI equation is less accurate in patients with extremes of muscle mass, extra-renal metabolism of creatine, excessive creatine ingestion, or following therapy that affects renal tubular secretion. Glucose [Mass/Vol] 307 mg/dL High 74 - 99 mg/dL [facility] Interpretation and review of laboratory results Abnormal [facility] Potassium [Moles/Vol] 4.5 mmol/L 3.7 - 5.3 mmol/L [facility] Sodium [Moles/Vol] 136 mmol/L 136 - 145 mmol/L [facility] [employer] Urea nitrogen [Mass/Vol] 27 mg/dL High 8 - 23 mg/dL [facility] Blood Gas, Arterialon 2023 Arterial patency Wrist artery --pre arterial puncture INFORMATION NOT PROVIDED [facility] Carboxyhemoglobin (Bld) [Mass fraction] 0.0 % 0 - 5 % [place] [employer] [facility] Comment on above: Reference Range: Non-Smokers 0-2% Average Smoker 2-4% Heavy Smoker <10% HCO3 (Bld) [Moles/Vol] 25.9 mmol/L 22 - 27 mmol/L [facility] Oxygen saturation in Blood 98.0 % 94 - 100 % [facility] Oxygen/Inspired gas Respiratory system --on ventilator 60 [facility] pCO2, Arterial 41.2 [place] s [facility] pH, Arterial 7.414 7.350 - 7.450 [facility] pO2, Arterial 211.0 High [facility] Positive Base Excess, Art 1.7 mmol/L 0.0 - 2.0 mmol/L [facility] C-Reactive Proteinon 024 CRP High sensitivity method [Mass/Vol] 412.0 mg/L High 0.0 - 5.0 mg/L [facility] Interpretation and review of laboratory results Abnormal [facility] CRP [Mass/Vol] 412.0 mg/L High 0.0-5.0 [facility] Comment on above: Performed By: #### T SH, SED, CRP, EDTOX, PTT, LACDS, CDP, DIME, PT, CP, TROPI ####[facility] [address] [place] [id number] [facility] Director: Aden Tran MD CBC with Auto Differentialon 08-23-2024 Basophils (Bld) [#/Vol] 0.00 10*3/uL [facility] Basophils/100 WBC (Bld) 0 % 0 - 2 % [facility] Eosinophils (Bld) [#/Vol] 0.00 10*3/uL [facility] Eosinophils/100 WBC (Bld) 0 % Low 1 - 4 % [facility] Erythrocyte distribution width (RBC) [Ratio] 13.2 % 11.8 - 14.4 % [facility] Hematocrit (Bld) [Volume fraction] 40.1 % Low 40.7 - 50.3 % [facility] Hemoglobin (Bld) [Mass/Vol] 13.5 g/dL 13.0 - 17.0 g/dL [facility] Immature granulocytes (Bld) [#/Vol] 0.12 10*3/uL [facility] Immature granulocytes/100 WBC (Bld) 1 % High 0 [facility] Interpretation and review of laboratory results Abnormal [facility] Lymphocytes/100 WBC (Bld) 6 % Low 24 - 44 % [facility] Lymphocytes/100 WBC (Bld) 0.73 % Low [facility] MCH (RBC) [Entitic mass] 31.9 pg 25.2 - 33.5 pg [facility] MCHC (RBC) [Mass/Vol] 33.7 g/dL 28.4 - 34.8 g/dL [facility] MCV (RBC) [Entitic vol] 94.8 fL 82.6 - 102.9 fL [facility] Monocytes/100 WBC (Bld) 3 % 1 - 7 % [facility] Monocytes/100 WBC (Bld) 0.36 % [facility] Morphology Avelino (Bld) [Interp] Normal [facility] Neutrophils/100 WBC (Bld) 90 % High 36 - 66 % [facility] Nucleated RBC/100 WBC (Bld) [Ratio] 0.0 % 0.0 per 100 WBC [facility] Platelet, Fluorescence 46 Low Rogelio n [facility] Platelets (Bld) [#/Vol] See Reflexed IPF Result [facility] Platelets reticulated/100 platelets Auto (Bld) 5.1 % 1.1 - 10.3 % [facility] RBC (Bld) [#/Vol] 4.23 10*6/uL 4.21 - 5.7 7 m/uL [facility] Segmented neutrophils/100 WBC (Bld) 10.89 % High [facility] WBC other (Bld) [#/Vol] 12.1 High [facility] CBC with Diffon 08-23-2024 Abs. Basophil 0.00 k/uL Normal 0.0-0.2 [facility] Comment on above: Performed By: #### T SH, SED, CRP, EDTOX, PTT, LACDS, CDP, DIME, PT, CP, TROPI ####[facility] [address] [place] [address])[phone] Director: Aden Tran MD Abs.Imm.Granulocyte 0.12 k/uL Normal 0.00-0.30 [facility] Comment on above: Performed By: #### T SH, SED, CRP, EDTOX, PTT, LACDS, CDP, DIME, PT, CP, TROPI ####[place], [place] [address])[phone] Director: Adne Tran MD Abs.Neutrophil (Seg) 10.89 k/uL High 1.8-7.7 [facility] Comment on above: Performed By: #### T SH, SED, CRP, EDTOX, PTT, LACDS, CDP, DIME, PT, CP, TROPI ####[place], [place] [address])[phone] Director: Aden Tran MD Basophils/100 WBC (Bld) 0 % Normal 0-2 [facility] Comment on above: Performed By: #### T SH, SED, CRP, EDTOX, PTT, LACDS, CDP, DIME, PT, CP, TROPI ####[place], [place] [address])[phone] Director: Aden Tran MD Eosinophils (Bld) [#/Vol] 0.00 10*3/uL Normal 0.0-0.4 [facility] Comment on above: Performed By: #### T SH, SED, CRP, EDTOX, PTT, LACDS, CDP, DIME, PT, CP, TROPI ####[facility] [address] [place], [place] [address])[phone] Director: Aden Tran MD Eosinophils/100 WBC (Bld) 0 % Low 1-4 [facility] Comment on above: Performed By: #### T SH, SED, CRP, EDTOX, PTT, LACDS, CDP, DIME, PT, CP, TROPI ####[address] [place] [address] Lab Director: Aden Tran MD Immature granulocytes/100 WBC (Bld) 1 % High 0 [facility] Comment on above: Performed By: #### T SH, SED, CRP, EDTOX, PTT, LACDS, CDP, DIME, PT, CP, TROPI ####[address] [address] Lab Director: Aden Tran MD Lymphocytes (Bld) [#/Vol] 0.73 10*3/uL Low 1.0-4.8 [facility] Comment on above: Performed By: #### T SH, SED, CRP, EDTOX, PTT, LACDS, CDP, DIME, PT, CP, TROPI ####[place], [place] [address])[phone] Director: Aden Tran MD Lymphocytes/100 WBC (Bld) 6 % Low 24-44 [facility] Comment on above: Performed By: #### T SH, SED, CRP, EDTOX, PTT, LACDS, CDP, DIME, PT, CP, TROPI ####[place] [address] Lab Director: Aden Tran MD Monocytes (Bld) [#/Vol] 0.36 10*3/uL Normal 0.1-0.8 [facility] Comment on above: Performed By: #### T SH, SED, CRP, EDTOX, PTT, LACDS, CDP, DIME, PT, CP, TROPI ####[address] [address] Lab Director: Aden Tran MD Monocytes/100 WBC (Bld) 3 % Normal 1-7 [facility] Comment on above: Performed By: #### T SH, SED, CRP, EDTOX, PTT, LACDS, CDP, DIME, PT, CP, TROPI ####[address] [address] Lab Director: Aden Tran MD Morphology Avelino (Bld) [Interp] Normal Normal [facility] Comment on above: Performed By: #### T SH, SED, CRP, EDTOX, PTT, LACDS, CDP, DIME, PT, CP, TROPI ####[address] [address] Lab Director: Aden Tran MD Neutrophil (Seg) 90 % High 36-66 [facility] Comment on above: Performed By: #### T SH, SED, CRP, EDTOX, PTT, LACDS, CDP, DIME, PT, CP, TROPI ####[address] [address] lab Director: Aden Tran MD Platelet, Fluoresc. 46 k/uL Low 138-453 [facility] Comment on above: Performed By: #### T SH, SED, CRP, EDTOX, PTT, LACDS, CDP, DIME, PT, CP, TROPI ####[address] [address] lab Director: Aden Tran MD PLT, Immature Fract. 5.1 % Normal 1.1-10.3 [facility] Comment on above: Performed By: #### T SH, SED, CRP, EDTOX, PTT, LACDS, CDP, DIME, PT, CP, TROPI ####[address] [address] Lab Director: Aden Tran MD Erythrocyte distribution width (RBC) [Ratio] 13.2 % Normal 11.8-14.4 [facility] Comment on above: Performed By: #### T SH, SED, CRP, EDTOX, PTT, LACDS, CDP, DIME, PT, CP, TROPI ####[address] [address] Lab Director: Aden Tran MD Hematocrit (Bld) [Volume fraction] 40.1 % Low 40.7-50.3 [facility] Comment on above: Performed By: #### T SH, SED, CRP, EDTOX, PTT, LACDS, CDP, DIME, PT, CP, TROPI ####[place] [id number] [facility] Director: Aden Tran MD Hemoglobin (Bld) [Mass/Vol] 13.5 g/dL Normal 13.0-17.0 [facility] Comment on above: Performed By: #### T SH, SED, CRP, EDTOX, PTT, LACDS, CDP, DIME, PT, CP, TROPI ####[place] [address] lab Director: Aden Tran MD MCH (RBC) [Entitic mass] 31.9 pg Normal 25.2-33.5 [facility] Comment on above: Performed By: #### T SH, SED, CRP, EDTOX, PTT, LACDS, CDP, DIME, PT, CP, TROPI ####[place] [address] lab Director: Aden Tran MD MCHC (RBC) [Mass/Vol] 33.7 g/dL Normal 28.4-34.8 [facility] Comment on above: Performed By: #### T SH, SED, CRP, EDTOX, PTT, LACDS, CDP, DIME, PT, CP, TROPI ####[facility] [address] [place] [address] Lab Director: Aden Tran MD MCV (RBC) [Entitic vol] 94.8 fL Normal 82.6-102.9 [facility] Comment on above: Performed By: #### T SH, SED, CRP, EDTOX, PTT, LACDS, CDP, DIME, PT, CP, TROPI ####[address] [place], [place] [id number])[phone] Director: Aden Tran MD NRBC Automated 0.0 per 100 WBC Normal 0.0 [facility] Comment on above: Performed By: #### T SH, SED, CRP, EDTOX, PTT, LACDS, CDP, DIME, PT, CP, TROPI ####[address] [place], [place] [address])[phone] Director: Aden Tran MD Platelet Count See Reflexed IPF Result Normal 138-453 [facility] Comment on above: Performed By: #### T SH, SED, CRP, EDTOX, PTT, LACDS, CDP, DIME, PT, CP, TROPI ####[address] [id number])[phone] Director: Aden Tran MD RBC (Bld) [#/Vol] 4.23 10*6/uL Normal 4.21-5.77 [facility] Comment on above: Performed By: #### T SH, SED, CRP, EDTOX, PTT, LACDS, CDP, DIME, PT, CP, TROPI ####[address] [address])[phone] Director: Aden Tran MD WBC (Bld) [#/Vol] 12.1 10*3/uL High 3.5-11.3 [facility] Comment on above: Performed By: #### T SH, SED, CRP, EDTOX, PTT, LACDS, CDP, DIME, PT, CP, TROPI ####[address] [place], [place] [address])[phone] Director: Aden Tran MD CT CHEST PULMONARY EMBOLISM W CONTRASTon 08-23-2024 CT CHEST PULMONARY EMBOLISM W CONTRAST EXAMINATION: CTA OF THE CHEST 08/23/2024 3:11 am TECHNIQUE: CTA of the chest was performed after the administration of intravenous contrast. Multiplanar reformatted images are provided for review. MIP images are provided for review. Automated exposure control, iterative reconstruction, and/or weight based adjustment of the mA/kV was utilized to reduce the radiation dose to as low as reasonably achievable. COMPARISON: None. HISTORY: ORDERING SYSTEM PROVIDED HISTORY: rule out PE TECHNOLOGIST PROVIDED HISTORY: rule out PE Additional Contrast?->1 FINDINGS: Pulmonary Arteries: Pulmonary arteries are adequately opacified for evaluation. No evidence of intraluminal filling defect to suggest pulmonary embolism. Main pulmonary artery is normal in caliber. Mediastinum: No evidence of mediastinal lymphadenopathy. The heart and pericardium demonstrate no acute abnormality. No evidence of thoracic aortic aneurysm or dissection. No evidence of pericardial effusion or pericardial thickening. Evidence of coronary artery calcifications noted. Lungs/pleura: Evidence of mild to moderate atelectasis, with or without mild infiltrates in the right pulmonary lower lobe. Minimal atelectasis at the base of right middle lobe. Minimal atelectasis at the posterior base of left pulmonary lower lobe. Mild pulmonary vascular congestion. No pleural effusion or pneumothorax. Upper Abdomen: No acute process in the visualized upper abdomen. No hiatal hernia. No pneumoperitoneum. Soft Tissues/Bones: No acute bone or soft tissue abnormality. Dsqw-va-khkkjvpz multilevel degenerative disc disease in the mid and lower portion of thoracic spine without spinal stenosis. IMPRESSION: 1. No evidence of pulmonary embolism or acute thoracic aortic abnormality. 2. Mild to moderate atelectasis, with or without mild infiltrates in the right pulmonary lower lobe. 3. Mild pulmonary vascular congestion. 4. Coronary artery calcifications. 5. Multilevel degenerative disc disease in the mid and lower portion of thoracic spine without spinal stenosis. Interpreted by: Ricki Estrella MD Signed by: Ricki Estrella MD 08/23/24 Final result Normal [facility] 1. No evidence of pulmonary embolism or acute thoracic aortic abnormality. 2. Mild to moderate atelectasis, with or without mild infiltrates in the right pulmonary lower lobe. 3. Mild pulmonary vascular congestion. 4. Coronary artery calcifications. 5. Multilevel degenerative disc disease in the mid and lower portion of thoracic spine without spinal stenosis. [facility] RIS CONSOLIDATED EXAMINATION: CTA OF THE CHEST 08/23/2024 3:11 am TECHNIQUE: CTA of the chest was performed after the administration of intravenous contrast. Multiplanar reformatted images are provided for review. MIP images are provided for review. Automated exposure control, iterative reconstruction, and/or weight based adjustment of the mA/kV was utilized to reduce the radiation dose to as low as reasonably achievable. COMPARISON: None. HISTORY: ORDERING SYSTEM PROVIDED HISTORY: rule out PE TECHNOLOGIST PROVIDED HISTORY: rule out PE Additional Contrast?->1 FINDINGS: Pulmonary Arteries: Pulmonary arteries are adequately opacified for evaluation. No evidence of intraluminal filling defect to suggest pulmonary embolism. Main pulmonary artery is normal in caliber. Mediastinum: No evidence of mediastinal lymphadenopathy. The heart and pericardium demonstrate no acute abnormality. No evidence of thoracic aortic aneurysm or dissection. No evidence of pericardial effusion or pericardial thickening. Evidence of coronary artery calcifications noted. Lungs/pleura: Evidence of mild to moderate atelectasis, with or without mild infiltrates in the right pulmonary lower lobe. Minimal atelectasis at the base of right middle lobe. Minimal atelectasis at the posterior base of left pulmonary lower lobe. Mild pulmonary vascular congestion. No pleural effusion or pneumothorax. Upper Abdomen: No acute process in the visualized upper abdomen. No hiatal hernia. No pneumoperitoneum. Soft Tissues/Bones: No acute bone or soft tissue abnormality. Ycbl-no-cwpfsyhy multilevel degenerative disc disease in the mid and lower portion of thoracic spine without spinal stenosis. [facility] RIS Ricki Lockwood MD - 08/23/2024 EXAMINATION: CTA OF THE CHEST 08/23/2024 3:11 am TECHNIQUE: CTA of the chest was performed after the administration of intravenous contrast. Multiplanar reformatted images are provided for review. MIP images are provided for review. Automated exposure control, iterative reconstruction, and/or weight based adjustment of the mA/kV was utilized to reduce the radiation dose to as low as reasonably achievable. COMPARISON: None. HISTORY: ORDERING SYSTEM PROVIDED HISTORY: rule out PE TECHNOLOGIST PROVIDED HISTORY: rule out PE Additional Contrast?->1 FINDINGS: Pulmonary Arteries: Pulmonary arteries are adequately opacified for evaluation. No evidence of intraluminal filling defect to suggest pulmonary embolism. Main pulmonary artery is normal in caliber. Mediastinum: No evidence of mediastinal lymphadenopathy. The heart and pericardium demonstrate no acute abnormality. No evidence of thoracic aortic aneurysm or dissection. No evidence of pericardial effusion or pericardial thickening. Evidence of coronary artery calcifications noted. Lungs/pleura: Evidence of mild to moderate atelectasis, with or without mild infiltrates in the right pulmonary lower lobe. Minimal atelectasis at the base of right middle lobe. Minimal atelectasis at the posterior base of left pulmonary lower lobe. Mild pulmonary vascular congestion. No pleural effusion or pneumothorax. Upper Abdomen: No acute process in the visualized upper abdomen. No hiatal hernia. No pneumoperitoneum. Soft Tissues/Bones: No acute bone or soft tissue abnormality. Oxqw-zw-jvrvancw multilevel degenerative disc disease in the mid and lower portion of thoracic spine without spinal stenosis. IMPRESSION: 1. No evidence of pulmonary embolism or acute thoracic aortic abnormality. 2. Mild to moderate atelectasis, with or without mild infiltrates in the right pulmonary lower lobe. 3. Mild pulmonary vascular congestion. 4. Coronary artery calcifications. 5. Multilevel degenerative disc disease in the mid and lower portion of thoracic spine without spinal stenosis. [facility] Radiology Study observation (narrative) [facility] CT CHEST PULMONARY EMBOLISM W CONTRASTOrdered By: Ricki Estrella on 08-23-2024 [facility] Work Phone: CV Hgb/Hcton 08-23-2024 Hematocrit (Bld) [Volume fraction] 35.8 % Low 40.7-50.3 [facility] Comment on above: Performed By: #### A BG, GLUO, WBK, WBNA, IOCAL, LACTIC, CVHH, WBCL ####[facility] [address] [place] [address] [id number] lab Director: Aden Tran MD Hemoglobin (Bld) [Mass/Vol] 11.6 g/dL Low 13.0-17.0 [facility] Comment on above: Performed By: #### A BG, GLUO, WBK, WBNA, IOCAL, LACTIC, CVHH, WBCL ####[facility] [address] [place], [place] [id number] Lab Director: Aden Tran MD Calcium, Ionicon 08-23-2024 Calcium [Moles/Vol] 1.21 mmol/L Normal 1.13-1.33 [facility] Comment on above: Performed By: #### A BG, GLUO, WBK, WBNA, IOCAL, LACTIC, CVHH, WBCL ####[address] [place], [place] [id number] Lab Director: Aden Tran MD Calcium, Ionizedon Calcium.ionized (Bld) [Moles/Vol] 1.21 mmol/L 1.13 - 1.33 mmol/L [facility] Chloride - Whole Blon 2023 Chloride [Moles/Vol] 105 mmol/L Normal 98-110 [facility] Comment on above: Performed By: #### A BG, GLUO, WBK, WBNA, IOCAL, LACTIC, CVHH, WBCL ####[address] [id number] Lab Director: Aden Tran MD Chloride, Whole Bloodon 08-07 Chloride [Moles/Vol] 105 mmol/L 98 - 11 0 mmol/L [facility] Comp Metabolic Profon 2023 Albumin [Mass/Vol] 3.4 g/dL Low 3.5-5.2 [facility] Comment on above: Performed By: #### T SH, SED, CRP, EDTOX, PTT, LACDS, CDP, DIME, PT, CP, TROPI ####[address] [id number] Lab Director: Aden Tran MD ALT [Catalytic activity/Vol] 34 U/L Normal 10-50 [facility] Comment on above: Performed By: #### T SH, SED, CRP, EDTOX, PTT, LACDS, CDP, DIME, PT, CP, TROPI ####[address] [id number] Lab Director: Aden Tran MD Anion gap [Moles/Vol] 13 mmol/L Normal 9-16 [facility] Comment on above: Performed By: #### T SH, SED, CRP, EDTOX, PTT, LACDS, CDP, DIME, PT, CP, TROPI ####[facility] [address] [place] [address] Lab Director: Aden Tran MD AST [Catalytic activity/Vol] 32 U/L Normal 10-50 [facility] Comment on above: Performed By: #### T SH, SED, CRP, EDTOX, PTT, LACDS, CDP, DIME, PT, CP, TROPI ####[facility] [address] [place] [address] Lab Director: Aden Tran MD Bilirubin [Mass/Vol] 0.6 mg/dL Normal 0.00-1.20 [facility] Comment on above: Performed By: #### T SH, SED, CRP, EDTOX, PTT, LACDS, CDP, DIME, PT, CP, TROPI ####[facility] [address] [place] [address] [id number] Lab Director: Aden Tran MD Calcium [Mass/Vol] 9.0 mg/dL Normal 8.6-10.4 [facility] Comment on above: Performed By: #### T SH, SED, CRP, EDTOX, PTT, LACDS, CDP, DIME, PT, CP, TROPI ####[facility] [address] [place] [address] Lab Director: Aden Tran MD Chloride [Moles/Vol] 95 mmol/L Low 98-107 [facility] Comment on above: Performed By: #### T SH, SED, CRP, EDTOX, PTT, LACDS, CDP, DIME, PT, CP, TROPI ####[facility] [address] [place] [address] Lab Director: Aden Tran MD CO2 [Moles/Vol] 24 mmol/L Normal 20-31 [facility] Comment on above: Performed By: #### T SH, SED, CRP, EDTOX, PTT, LACDS, CDP, DIME, PT, CP, TROPI ####[address] [address] Lab Director: Aden Tran MD Creatinine [Mass/Vol] 0.9 mg/dL Normal 0.70-1.20 [facility] Comment on above: Performed By: #### T SH, SED, CRP, EDTOX, PTT, LACDS, CDP, DIME, PT, CP, TROPI ####[address] [address] Lab Director: Aden Tran MD Glucose [Mass/Vol] 332 mg/dL High 74-99 [facility] Comment on above: Performed By: #### T SH, SED, CRP, EDTOX, PTT, LACDS, CDP, DIME, PT, CP, TROPI ####[address] [address] lab Director: Aden Tran MD Potassium [Moles/Vol] 5.1 mmol/L Normal 3.7-5.3 [facility] Comment on above: Performed By: #### T SH, SED, CRP, EDTOX, PTT, LACDS, CDP, DIME, PT, CP, TROPI ####[address] [address] Lab Director: Aden Tran MD Protein [Mass/Vol] 6.8 g/dL Normal 6.6-8.7 [facility] Comment on above: Performed By: #### T SH, SED, CRP, EDTOX, PTT, LACDS, CDP, DIME, PT, CP, TROPI ####[address] [address] Lab Director: Aden Tran MD Sodium [Moles/Vol] 132 mmol/L Low 136-145 [facility] Comment on above: Performed By: #### T SH, SED, CRP, EDTOX, PTT, LACDS, CDP, DIME, PT, CP, TROPI ####[address] [address] Lab Director: Aden Tran MD Urea nitrogen [Mass/Vol] 25 mg/dL High 8-23 [facility] Comment on above: Performed By: #### T SH, SED, CRP, EDTOX, PTT, LACDS, CDP, DIME, PT, CP, TROPI ####[facility] [place] [address] Lab Director: Aden Tran MD Albumin/Glob Ratio 1.0 Normal 1.0-2.5 [facility] Comment on above: Performed By: #### T SH, SED, CRP, EDTOX, PTT, LACDS, CDP, DIME, PT, CP, TROPI ####[address] [address] lab Director: Aden Tran MD Alkaline Phos 140 U/L High 40-129 [facility] Comment on above: Performed By: #### T SH, SED, CRP, EDTOX, PTT, LACDS, CDP, DIME, PT, CP, TROPI ####[address] [address] Lab Director: Aden Tran MD GFR/1.73 sq M.predicted among non-blacks MDRD (S/P/Bld) [Vol rate/Area] 89 mL/min/{1.73_m2} Normal >60 [facility] Comment on above: Result Comment: These results are not intended for use in patients <18 years of age. eGFR results are calculated without a race factor using the 2020 CKD-EPI equation. Careful clinical correlation is recommended, particularly when comparing to results calculated using previous equations. The CKD-EPI equation is less accurate in patients with extremes of muscle mass, extra-renal metabolism of creatine, excessive creatine ingestion, or following therapy that affects renal tubular secretion. Performed By: #### T SH, SED, CRP, EDTOX, PTT, LACDS, CDP, DIME, PT, CP, TROPI ####[address] [address] Lab Director: Aden Tran MD Comprehensive Metabolic Pane niels 08-23-2024 Albumin/Globulin [Mass ratio] 1.0 {ratio} 1.0 - 2.5 [facility] ALP [Catalytic activity/Vol] 140 U/L High 40 - 129 U/L [facility] Est, Glojennifer Filt Rate 89 - PINF [facility] Comment on above: These results are not intended for use in patients <18 years of age. eGFR results are calculated without a race factor using the 2020 CKD-EPI equation. Careful clinical correlation is recommended, particularly when comparing to results calculated using previous equations. The CKD-EPI equation is less accurate in patients with extremes of muscle mass, extra-renal metabolism of creatine, excessive creatine ingestion, or following therapy that affects renal tubular secretion. Interpretation and review of laboratory results Abnormal [facility] D-Dimer Teston 08-23-2024 D-Dimer Test 2.12 ug/mL FEU High 0.00-0.57 [facility] Comment on above: Result Comment: When combined with a low clinical probability, a D dimer value of <0.50 ug/mL FEU is considered negative for DVT and PE (negative predictive value of 98%, sensitivity of 97%). If this test is not being used to help rule out DVT and PE, then the following reference range should be utilized: 0.00 - 0.57 ug/mL FEU. The D-Dimer assay is intended for use as an aid in the diagnosis of venous thromboembolism (DVT and PE) and the results should be interpreted in conjunction with the patient's medical history, clinical presentation, and other findings. Elevated levels of D-dimer activity can be seen in any state of coagulation activation and is not recommended in patients with therapeutic dose anticoagulant therapy for >24 hours, fibrinolytic therapy within the previous 7 days, trauma or surgery within the previous 4 weeks, disseminated malignancies, aortic aneurysm, sepsis, severe infections, pneumonia, severe skin infections, liver cirrhosis, advanced age, coronary disease, diabetes, and . A very low percentage of patients with DVT may yield D-dimer results below the cutoff of 0.5 ug/mL FEU. This is known to be more prevalent in patients with distal DVT. Performed By: #### T SH, SED, CRP, EDTOX, PTT, LACDS, CDP, DIME, PT, CP, TROPI ####[facility] [place] [address] Lab Director: Aden Tran MD D-Dimer, Quantitativeon 08-07 Fibrin D-dimer FEU (PPP) [Mass/Vol] 2.12 High [facility] Comment on above: When combined with a low clinical probability, a D dimer value of <0.50 ug/mL FEU is considered negative for DVT and PE (negative predictive value of 98%, sensitivity of 97%). If this test is not being used to help rule out DVT and PE, then the following reference range should be utilized: 0.00 - 0.57 ug/mL FEU. The D-Dimer assay is intended for use as an aid in the diagnosis of venous thromboembolism (DVT and PE) and the results should be interpreted in conjunction with the patient's medical history, clinical presentation, and other findings. Elevated levels of D-dimer activity can be seen in any state of coagulation activation and is not recommended in patients with therapeutic dose anticoagulant therapy for >24 hours, fibrinolytic therapy within the previous 7 days, trauma or surgery within the previous 4 weeks, disseminated malignancies, aortic aneurysm, sepsis, severe infections, pneumonia, severe skin infections, liver cirrhosis, advanced age, coronary disease, diabetes, and . A very low percentage of patients with DVT may yield D-dimer results below the cutoff of 0.5 ug/mL FEU. This is known to be more prevalent in patients with distal DVT. Interpretation and review of laboratory results Abnormal [facility] Drug Scr, Abuse, Uron 2023 Cannabinoid(s),Ur Positive Abnormal [facility] Comment on above: Result Comment: Cuto ff: 50 ng/ml Performed By: #### U MICAO, UAX, ADRY ####[facility] [place] [address] lab Director: Aden Tran MD Interpretive Info Assay provides rapid clinical screening only. Presumptive positive results for Normal [facility] Comment on above: Result Comment: lega l purposes should be confirmed by another method. To request confirmation, please call the lab within 7 days of sample submission. Performed By: #### U MICAO, UAX, ADRY ####[facility] [address] [place] [address] Lab Director: Aden Tran MD Opiate(s), Ur Positive Abnormal [facility] Comment on above: Result Comment: Cuto ff: 300 ng/ml Performed By: #### U MICAO, UAX, ADRY ####[facility] [address] [place] [address] Lab Director: Aden Tran MD Oxycodone, Urine Positive Abnormal [facility] Comment on above: Result Comment: Cuto ff: 100 ng/ml Performed By: #### U MICAO, UAX, ADRY ####[facility] [address] [place] [address] Lab Director: Aden Tran MD Amphetamine(s),Ur Negative Normal [facility] Comment on above: Result Comment: Cuto ff: 1000 ng/mL Performed By: #### U MICAO, UAX, ADRY ####[facility] [address] [place] [address] Lab Director: Aden Tran MD Barbiturate(s),Ur Negative Normal NE[facility] Comment on above: Result Comment: Cuto ff: 200 ng/ml Performed By: #### U MICAO, UAX, ADRY ####[facility] [address] [place] [address] Lab Director: Aden Tran MD Benzodiazepine(s) Negative Normal [facility] Comment on above: Result Comment: Cuto ff: 200 ng/ml Performed By: #### U MICAO, UAX, ADRY ####[facility] [address] [place] [address] Lab Director: Aden Tran MD Cocaine Metabolite Negative Normal NEG [facility] Comment on above: Result Comment: Cuto ff: 300 ng/ml Performed By: #### U MICAO, UAX, ADRY ####[facility] [address] [place] [address] Lab Director: Aden Tran MD Fentanyl, Urine Negative Normal NEG [facility] Comment on above: Result Comment: Cuto ff: 5 ng/ml Performed By: #### U MICAO, UAX, ADRY ####[facility] [address] [place] [address] Lab Director: Aden Tran MD Methadone Ql (U) Negative Normal [facility] Comment on above: Result Comment: Cuto ff: 300 ng/ml Performed By: #### U MICAO, UAX, ADRY ####[facility] [address] [place] [address] Lab Director: Aden Tran MD Phencyclidine, Ur Negative Normal NEG [facility] Comment on above: Result Comment: Cuto ff: 25 ng/ml Performed By: #### U MICAO, UAX, ADRY ####[facility] [address] [place] [address] Lab Director: Aden Tran MD FLUORO FOR SURGICAL PROCEDUR ESon 08-23-2024 FLUORO FOR SURGICAL PROCEDURES Radiology exam is complete. No Radiologist dictation. Please follow up with ordering provider. Final result Normal [facility] Glucose, Whole Bloodon 08-23 Glucose [Mass/Vol] 247 mg/dL High 75 - 110 mg/dL [facility] Glucose,Whole Bloodon 2023 Glucose [Mass/Vol] 247 mg/dL High 75-110 [facility] Comment on above: Performed By: #### A BG, GLUO, WBK, WBNA, IOCAL, LACTIC, CVHH, WBCL ####[facility] [address] [place] [address] Lab Director: Aden Tran MD Glucose [Mass/Vol] 282 mg/dL High 75-110 [facility] Guidance-- during surgeryon 08-23-2024 Radiology exam is complete. No Radiologist dictation. Please follow up with ordering provider. [facility] RIS CONSOLIDATED Lactate, Sepsison 08-23-2024 Lactic Acid, Sepsis, Whole Blood 1.5 mmol/L 0.5 - 1.9 mmol/L [facility] Lactic Acid,Sep Wbld 1.5 mmol/L Normal 0.5-1.9 [facility] Comment on above: Performed By: #### T SH, SED, CRP, EDTOX, PTT, LACDS, CDP, DIME, PT, CP, TROPI ####[facility] [address] [place] [address] lab Director: Aden Tran MD Lactic Acid, Sepsis, Whole Blood 1.1 mmol/L 0.5 - 1.9 mmol/L [facility] Lactic Acid,Sep Wbld 1.1 mmol/L Normal 0.5-1.9 [facility] Comment on above: Performed By: #### L ACDS ####[facility] [address] [place] [id number] Lab Director: Aden Tran MD Lactic Acidon 08-23-2024 Lactic Acid, Whole Blood 1.7 mmol/L 0.7 - 2.1 mmol/L [facility] Lactic Acid,Whole Bl 1.7 mmol/L Normal 0.7-2.1 [facility] Comment on above: Performed By: #### A BG, GLUO, WBK, WBNA, IOCAL, LACTIC, CVHH, WBCL ####[facility] [address] [place] [id number] Lab Director: Aden Tran MD MR Lumbar spine WO and W con trast June 08-23-2024 Addendum by Michelle De Souza MD on 08/26/2024 10:52 PM EDT ADDENDUM: Prior studies are now available for comparison which included MRI lumbar spine without contrast dated 11/01/2023, and CT lumbar spine dated 08/22/2024. The findings in the impression is new when compared to the prior MRI. Multiple locules of air noted within the anterior epidural space from L3-S1 on prior CT, likely was postprocedural in nature. [facility] A 6 mm thickness T1 and T2 heterogeneous lesion extending from superior endplate of the L4 to the inferior endplate of the L5 causing moderate spinal canal narrowing and crowding of the cauda equina roots without compression. The lesion demonstrate heterogenous enhancement. Differential diagnosis include granulation tissue or phlegmon. If clinical symptoms persists, one-week follow-up study can be obtained for further evaluation. [facility] CONSOLIDATED EXAMINATION: MRI OF THE LUMBAR SPINE WITHOUT AND WITH CONTRAST 08/23/2024 9:23 am TECHNIQUE: Multiplanar multisequence MRI of the lumbar spine was performed without and with the administration of intravenous contrast. COMPARISON: None. HISTORY: ORDERING SYSTEM PROVIDED HISTORY: Concern for epidural abscess, recent steroid injection to back TECHNOLOGIST PROVIDED HISTORY: Concern for epidural abscess, recent steroid injection to back Decision Support Exception - unselect if not a suspected or confirmed emergency medical condition->Emergenc y Medical Condition (MA) Reason for Exam: Concern for epidural abscess, recent steroid injection to back FINDINGS: BONES/ALIGNMENT: There is normal alignment of the spine. The vertebral body heights are maintained. The bone marrow signal appears unremarkable. SPINAL CORD: The conus terminates normally. SOFT TISSUES: No abnormal enhancement is seen of the lumbar spine. No paraspinal mass identified. L1-L2: There is no significant disc protrusion, spinal canal stenosis or neural foraminal narrowing. L2-L3: There is no significant disc protrusion, spinal canal stenosis or neural foraminal narrowing. L3-L4: There is no significant disc protrusion, spinal canal stenosis or neural foraminal narrowing. L4-L5: Within the ventral epidural space, there is a T1 and T2 heterogenous collection which is 6 mm in thickness causing more red spinal canal narrowing and crowding of the cauda equina nerve roots. Mild bilateral neural foraminal narrowing. This collection demonstrates heterogeneous enhancement. L5-S1: There is no significant disc protrusion, spinal canal stenosis or neural foraminal narrowing. [facility] Michelle De Souza MD - 08/23/2024 EXAMINATION: MRI OF THE LUMBAR SPINE WITHOUT AND WITH CONTRAST 08/23/2024 9:23 am TECHNIQUE: Multiplanar multisequence MRI of the lumbar spine was performed without and with the administration of intravenous contrast. COMPARISON: None. HISTORY: ORDERING SYSTEM PROVIDED HISTORY: Concern for epidural abscess, recent steroid injection to back TECHNOLOGIST PROVIDED HISTORY: Concern for epidural abscess, recent steroid injection to back Decision Support Exception - unselect if not a suspected or confirmed emergency medical condition->Emergenc y Medical Condition (MA) Reason for Exam: Concern for epidural abscess, recent steroid injection to back FINDINGS: BONES/ALIGNMENT: There is normal alignment of the spine. The vertebral body heights are maintained. The bone marrow signal appears unremarkable. SPINAL CORD: The conus terminates normally. SOFT TISSUES: No abnormal enhancement is seen of the lumbar spine. No paraspinal mass identified. L1-L2: There is no significant disc protrusion, spinal canal stenosis or neural foraminal narrowing. L2-L3: There is no significant disc protrusion, spinal canal stenosis or neural foraminal narrowing. L3-L4: There is no significant disc protrusion, spinal canal stenosis or neural foraminal narrowing. L4-L5: Within the ventral epidural space, there is a T1 and T2 heterogenous collection which is 6 mm in thickness causing more red spinal canal narrowing and crowding of the cauda equina nerve roots. Mild bilateral neural foraminal narrowing. This collection demonstrates heterogeneous enhancement. L5-S1: There is no significant disc protrusion, spinal canal stenosis or neural foraminal narrowing. IMPRESSION: A 6 mm thickness T1 and T2 heterogeneous lesion extending from superior endplate of the L4 to the inferior endplate of the L5 causing moderate spinal canal narrowing and crowding of the cauda equina roots without compression. The lesion demonstrate heterogenous enhancement. Differential diagnosis include granulation tissue or phlegmon. If clinical symptoms persists, one-week follow-up study can be obtained for further evaluation. [facility] Study observation (narrative) [facility] MR Lumbar spine WO and W con trast IVOrdered By: Michelle De Souza on 08-23-2024 [facility] Work Phone: Microscopic Urinalysison Bacteria LM Ql (Urine sed) None None [facility] Casts LM.LPF (Urine sed) [#/Area] 0 TO 2 HYALINE Reference range defined for non-centrifuged specimen. [facility] Epithelial cells LM.HPF (Urine sed) [#/Area] None [facility] RBC LM.HPF (Urine sed) [#/Area] 0 TO 2 [facility] Comment on above: Reference range defi marcellus for non-centrifuged specimen. WBC LM.HPF (Urine sed) [#/Area] None [facility] No Panel Informationon 08-23 Interpretation and review of laboratory results Abnormal [facility] [place] [place] Open Heart H&Hon 08-23-2024 Hematocrit (Bld) [Volume fraction] 35.8 % Low 40.7 - 50.3 % [facility] Hemoglobin (Bld) [Mass/Vol] 11.6 g/dL Low [facility] POC Glucose Fingerstickon Glucose [Mass/Vol] 282 mg/dL High 75 - 110 mg/dL [facility] Interpretation and review of laboratory results Abnormal [facility] PTon 08-23-2024 INR Coag (PPP) [Relative time] 0.9 {INR} Normal [facility] Comment on above: Result Comment: Therapeutic Range: Moderate Anticoagulant Intensity: INR = 2.0-3.0 High Anticoagulant Intensity: INR = 2.5-3.5 Performed By: #### T SH, SED, CRP, EDTOX, PTT, LACDS, CDP, DIME, PT, CP, TROPI ####[facility] [address] [place], [place] [address] Lab Director: Aden Tran MD PT Coag (PPP) [Time] 12.3 s Normal 11.7-14.9 [facility] Comment on above: Performed By: #### T SH, SED, CRP, EDTOX, PTT, LACDS, CDP, DIME, PT, CP, TROPI ####[facility] [address] [place] [id number] Lab Director: Aden Tran MD Portable XR Chest AP single viewon 08-23-2024 Bilateral interstitial and ground-glass opacities are noted, which may be due to pulmonary edema or atypical infection. [facility] EXAMINATION: ONE XRAY VIEW OF THE CHEST 08/23/2024 3:21 am COMPARISON: None. HISTORY: ORDERING SYSTEM PROVIDED HISTORY: tachy TECHNOLOGIST PROVIDED HISTORY: tachy Reason for Exam: port upright FINDINGS: Shallow inflation. Cardiac silhouette enlargement. Bilateral interstitial and ground-glass opacities are noted. No pneumothorax or effusion. No acute osseous abnormality identified. [facility] Haroon Berg MD - 08/23/2024 EXAMINATION: ONE XRAY VIEW OF THE CHEST 08/23/2024 3:21 am COMPARISON: None. HISTORY: ORDERING SYSTEM PROVIDED HISTORY: tachy TECHNOLOGIST PROVIDED HISTORY: tachy Reason for Exam: port upright FINDINGS: Shallow inflation. Cardiac silhouette enlargement. Bilateral interstitial and ground-glass opacities are noted. No pneumothorax or effusion. No acute osseous abnormality identified. IMPRESSION: Bilateral interstitial and ground-glass opacities are noted, which may be due to pulmonary edema or atypical infection. [facility] Radiology Study observation (narrative) [facility] Portable XR Chest AP single viewOrdered By: Haroon Berg on 08-23-2024 [facility] Work Phone: Potassium - Whole Blon 08-23 Potassium [Moles/Vol] 4.2 mmol/L Normal 3.6-5.0 [facility] Comment on above: Performed By: #### A BG, GLUO, WBK, WBNA, IOCAL, LACTIC, CVHH, WBCL ####[facility] [address] [place] [address] lab Director: Aden Tran MD Potassium, Whole Bloodon Potassium [Moles/Vol] 4.2 mmol/L 3.6 - 5.0 mmol/L [facility] HospitalMetabi[facility] Protime-INRon 08-23-2024 INR Coag (PPP) [Relative time] 0.9 {INR} [facility] Comment on above: Therapeutic Range: Moderate Anticoagulant Intensity: INR = 2.0-3.0 High Anticoagulant Intensity: INR = 2.5-3.5 PT Coag (PPP) [Time] 12.3 s [facility] Sedimentation Rateon 024 ESR Photometric method (Bld) [Velocity] 79 High [facility] Interpretation and review of laboratory results Abnormal [facility] Sedimentation Rate 79 mm/Hr High 0-20 [facility] Comment on above: Performed By: #### T SH, SED, CRP, EDTOX, PTT, LACDS, CDP, DIME, PT, CP, TROPI ####[facility] [address] [place], [place] [id number] lab Director: Aden Tran MD Sodium - Whole Bloodon 08-23 Sodium [Moles/Vol] 140 mmol/L Normal 136-145 [facility] Comment on above: Performed By: #### A BG, GLUO, WBK, WBNA, IOCAL, LACTIC, CVHH, WBCL ####[facility] [address] [place] [address] lab Director: Aden Tran MD Sodium, Whole Bloodon 2023 Sodium [Moles/Vol] 140 mmol/L 136 - 145 mmol/L [facility] TOX SCR, BLD, EDon 4 Acetaminophen [Mass/Vol] ug/mL Low 10 - 30 ug/mL [facility] Ethanol percent <0.010 NINF - 0.010 % [facility] Ethanolamine [Mass/Vol] <10 NINF - 10 mg/dL [facility] Interpretation and review of laboratory results Abnormal [facility] Salicylates [Mass/Vol] mg/dL 0.0 - 10.0 mg/dL [facility] TSHon 08-23-2024 TSH Qn 0.42 m[IU]/L [facility] Thyroid Stim. Horm.on 2023 Thyroid Stim. Horm. 0.42 uIU/mL Normal 0.27-4.20 [facility] Comment on above: Performed By: #### T SH, SED, CRP, EDTOX, PTT, LACDS, CDP, DIME, PT, CP, TROPI ####[facility] [address] [place] [address] Lab Director: Aden Tran MD Tox Scr, Bld, EDon Acetaminophen [Mass/Vol] ug/mL Low 10-30 [facility] Comment on above: Performed By: #### T SH, SED, CRP, EDTOX, PTT, LACDS, CDP, DIME, PT, CP, TROPI ####[place], [place] [address])[phone] Director: Aden Tran MD Ethanol [Mass/Vol] mg/dL Normal <10 [facility] Comment on above: Performed By: #### T SH, SED, CRP, EDTOX, PTT, LACDS, CDP, DIME, PT, CP, TROPI ####[facility] [address] [place], [place] [address])[phone] Director: Aden Tran MD Ethanol percent <0.010 Normal <0.010 [facility] Comment on above: Performed By: #### T SH, SED, CRP, EDTOX, PTT, LACDS, CDP, DIME, PT, CP, TROPI ####[facility] [address] [place], [place] [address])[phone] Director: Aden Tran MD Salicylate <0.5 Normal 0.0-10.0 [facility] Comment on above: Performed By: #### T SH, SED, CRP, EDTOX, PTT, LACDS, CDP, DIME, PT, CP, TROPI ####[place] [address] [place], [place] [address])[phone] Director: Aden Tran MD Troponinon 08-23-2024 Troponin I.cardiac High sensitivity method [Mass/Vol] 9 ng/L 0 - 22 ng/L [facility] Comment on above: High Sensitivity Tro ponin values cannot be compared with other Troponin methodologies. Troponin, High Sens 9 ng/L Normal 0-22 [facility] Comment on above: Result Comment: High Sensitivity Troponin values cannot be compared with other Troponin methodologies. Performed By: #### T SH, SED, CRP, EDTOX, PTT, LACDS, CDP, DIME, PT, CP, TROPI ####[facility] [address] [place] [address] Lab Director: Aden Tarn MD UA w/Reflex Cultureon 2023 Bilirubin, SemiQt,Ur Negative Normal NEG [facility] Comment on above: Performed By: #### U MICAO, UAX, ADRY ####[address] [address] Lab Director: Aden Tran MD Blood, Urine Negative Normal NEG [facility] Comment on above: Performed By: #### U MICAO, UAX, ADRY ####[facility] [address] [place] [address] Lab Director: Aden Tran MD Clarity (U) Clear Normal CLEAR [facility] Comment on above: Performed By: #### U MICAO, UAX, ADRY ####[address] [address] Lab Director: Aden Tran MD Color (U) Yellow Normal YEL [facility] Comment on above: Performed By: #### U MICAO, UAX, ADRY ####[facility] [address] [place] [address] Lab Director: Aden Tran MD Glucose Ql (U) 3+ mg/dL Abnormal NEG [facility] Comment on above: Performed By: #### U MICAO, UAX, ADRY ####[facility] [address] [place] [address] Lab Director: Aedn Tran MD Ketones Ql (U) MODERATE Abnormal NEG [facility] Comment on above: Performed By: #### U MICAO, UAX, ADRY ####[facility] [address] [place] [address] Lab Director: Aden Tran MD Leukocyte esterase Test strip Ql (U) Negative Normal NEG [facility] Comment on above: Performed By: #### U MICAO, UAX, ADRY ####[facility] [address] [place] [address] Lab Director: Aden Tran MD Nitrite,Ur Negative Normal NEG [facility] Comment on above: Performed By: #### U MICAO, UAX, ADRY ####[facility] [address] [place] [address] Lab Director: Aden Tran MD PH,Ur 5.5 Normal 5.0-8.0 [facility] Comment on above: Performed By: #### U MICAO, UAX, ADRY ####[facility] [address] [place] [address] Lab Director: Aden Tran MD Protein Ql (U) 1+ mg/dL Abnormal NEG [facility] Comment on above: Performed By: #### U MICAO, UAX, ADRY ####[facility] [address] [place] [address] Lab Director: Aden Tran MD Spec. [place],Ur 1.033 High 1.005-1.030 [facility] Comment on above: Performed By: #### U MICAO, UAX, ADRY ####[facility] [address] [place] [address] Lab Director: Aden Tran MD Urobilinogen,Ur Normal Normal 0.0-1.0 [facility] Comment on above: Performed By: #### U MICAO, UAX, ADRY ####[facility] [address] [place], [place] [id number] Lab Director: Aden Tran MD Urinalysis with Reflex to Cu ltureon 08-23-2024 Bilirubin Ql (U) Negative NEGATIVE [facility] Clarity (U) Clear Clear [facility] Color (U) Yellow Yellow [facility] Glucose Test strip (U) [Mass/Vol] 3+ Abnormal NEGATIVE mg/dL [facility] Hemoglobin Auto test strip Ql (U) Negative NEGATIVE [facility] Interpretation and review of laboratory results Abnormal [facility] Ketones (U) [Mass/Vol] MODERATE Abnormal NEGAT FANTA mg/dL [facility] Leukocyte esterase Test strip Ql (U) Negative NEGATIVE [facility] Nitrite Ql (U) Negative NEGATIVE [place] [facility] pH (U) 5.5 [pH] 5.0 - 8.0 [facility] Protein (U) [Mass/Vol] 1+ Abnormal NEGAT FANTA mg/dL [facility] Specific gravity (U) [Rel density] 1.033 High 1.005 - 1.030 [facility] Urobilinogen Qn (U) Normal 0.0 - 1. 0 EU/dL [facility] Urinalysis,Microon 4 Bacteria None Normal NONE [facility] Comment on above: Performed By: #### U SUMANO UAX, ADRY ####[facility] [address] [place], [place] [id number] Lab Director: Aden Tran MD Casts 0 TO 2 HYALINE Normal 0-8 [facility] Comment on above: Result Comment: Refe rence range defined for non-centrifuged specimen. Performed By: #### U MICAO, UAX, ADRY ####[facility] [address] [place], [place] [id number] Lab Director: Aden Tran MD Epithelial cells LM Ql (Urine sed) None Normal 0-5 [facility] Comment on above: Performed By: #### U MICAO, UAX, ADRY ####[facility] [address] [place] [address] Lab Director: Aden Tran MD Urine RBC's 0 TO 2 Normal 0-4 [facility] Comment on above: Result Comment: Refe rence range defined for non-centrifuged specimen. Performed By: #### U MICAO, UAX, ADRY ####[facility] [address] [place], [place] [id number] lab Director: Aden Tran MD Urine WBC's None Normal 0-5 [facility] Comment on above: Performed By: #### U MICAO, UAX, ADRY ####[facility] [address] [place], [place] [id number] lab Director: Aden Tran MD Urine Drug Screenon 08-23-20 24 Amphetamines Ql (U) Negative NEGATIVE [facility] Comment on above: Cutoff: 1000 ng/mL Barbiturates Screen Ql (U) Negative NEGATIVE [facility] Comment on above: Cutoff: 200 ng/ml Benzodiazepines Ql (U) Negative NEGATIVE [facility] Comment on above: Cutoff: 200 ng/ml Cannabinoids Screen Ql (U) Positive Abnormal NEGATIVE [facility] Comment on above: Cutoff: 50 ng/ml Cocaine Ql (U) Negative NEGATIVE [place] [facility] Comment on above: Cutoff: 300 ng/ml fentaNYL Ql (U) Negative NEGATIVE [facility] Comment on above: Cutoff: 5 ng/ml Interpretation and review of laboratory results Abnormal [facility] Methadone Ql (U) Negative NEGATIVE [facility] Comment on above: Cutoff: 300 ng/ml Opiates Screen Ql (U) Positive Abnormal NEGATIVE [facility] Comment on above: Cutoff: 300 ng/ml oxyCODONE Ql (U) Positive Abnormal NEGATIVE [facility] Comment on above: Cutoff: 100 ng/ml Phencyclidine Ql (U) Negative NEGATIVE [facility] Comment on above: Cutoff: 25 ng/ml Test Information Assay provides rapid clinical screening only. Presumptive positive results for legal purposes should be confirmed by another method. To request confirmation, please call the lab within 7 days of sample submission. [facility] Vascular duplex lower extrem ity venous bilateralon 08-23-2024 No evidence of deep vein or superficial vein thrombosis in the right lower extremity. Vessels demonstrate normal compressibility, color filling, and phasic and spontaneous flow. No evidence of deep vein or superficial vein thrombosis in the left lower extremity. Vessels demonstrate normal compressibility, color filling, and phasic and spontaneous flow. Right Lower Venous No evidence of deep vein or superficial vein thrombosis. The common femoral, saphenofemoral junction, femoral, popliteal, posterior tibial, greater saphenous, and small saphenous veins were imaged in the transverse view and showed normal compressibility. The common femoral, popliteal, and femoral veins were imaged in the longitudinal view and showed normal color filling and normal phasic and spontaneous flow. Left Lower Venous No evidence of deep vein or superficial vein thrombosis. The common femoral, saphenofemoral junction, femoral, popliteal, posterior tibial, greater saphenous, and small saphenous veins were imaged in the transverse view and showed normal compressibility. The common femoral, popliteal, and femoral veins were imaged in the longitudinal view and showed normal color filling and normal phasic and spontaneous flow. Stopper Maker Details A faye scale, color Doppler imaging and spectral Doppler analysis ultrasound was performed. During the study longitudinal and transverse views were obtained. Pulsed wave doppler was performed. Overall the study quality was adequate. [facility] CV CPACS Radiology Study observation (narrative) [facility] Vascular duplex lower extrem ity venous bilateralOrdered By: Osiris Camp on 08-23-2024 [facility] Work Phone: XR CHEST PORTABLEon 08-23-20 24 XR CHEST PORTABLE EXAMINATION: ONE XRAY VIEW OF THE CHEST 08/23/2024 3:21 am COMPARISON: None. HISTORY: ORDERING SYSTEM PROVIDED HISTORY: tachy TECHNOLOGIST PROVIDED HISTORY: tachy Reason for Exam: port upright FINDINGS: Shallow inflation. Cardiac silhouette enlargement. Bilateral interstitial and ground-glass opacities are noted. No pneumothorax or effusion. No acute osseous abnormality identified. IMPRESSION: Bilateral interstitial and ground-glass opacities are noted, which may be due to pulmonary edema or atypical infection. Interpreted by: Haroon Berg MD Signed by: Haroon Berg MD 08/23/24 Final result Normal [facility] CREATININEon 01-18-2024 Creatinine [Mass/Vol] 0.85 mg/dL Normal 0.60-1.30 [facility] Comment on above: Result Comment: METH OD TRACEABLE TO IDMS STANDARD Performed By: #### C RT #### [facility] ([id number]) [address] [place] [address] eGFR (CKD-EPI) NON-RACE DEPENDENT >90 Normal >59 [facility] Comment on above: Result Comment: Reported eGFR is based on the CKD-EPI 2020 equation that does not use a race coefficient. Performed By: #### C RT #### [facility] ([id number]) [address], [address] [place] [address] MR LUMBAR SPINE WO CONTon MR LUMBAR SPINE WO CONT MR LUMBAR SPINE WO CONT HISTORY: A 67-year-old male with the history of the chronic low back pain. Disc herniation is suspected. TECHNIQUE: Multiplanar and multisequence MRI examination of the lumbar spine is performed. COMPARISON: Comparison is made with CT scan of the abdomen and pelvis of 03/24/2021 and MRI examination of the lumbar spine of 03/15/2019. FINDINGS: Vertebral heights are normal. There are diffuse degenerative changes in the lower thoracic and lumbar spine. There is no evidence of spondylolisthesis. No marrow signal abnormality seen to suggest acute bony pathology. Both sacroiliac joints are intact. No significant paravertebral soft tissue abnormality is identified. At T12-L1, there is no evidence of disc herniation, spinal stenosis or narrowing of the neural foramina. At L1-L2, there is a disc bulging with mild degree of spinal stenosis but neural foramina are patent. At L2-L3, there is no evidence of gunner disc herniation. Mild degree of central canal narrowing is seen. Neural foramina are patent. At L3-L4, there is a broad-based disc bulging with mild degree of spinal stenosis but neural foramina are patent. At L4-L5, there is a broad-based disc bulging causing mild degree of spinal stenosis but neural foramina are patent. At L5-S1, there is no evidence of disc herniation, spinal stenosis or narrowing of the neural foramina. Conus is seen at the level of T12-L1. No intrathecal signal abnormality is identified. 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 Associated disc bulging is seen at a few levels. Mild degree of spinal stenosis is seen at a few levels. Neural foramina are patent. * No evidence of spondylolisthesis. 3 Finalized by Edgar Santamaria MD on 11/01/2023 9:40 AM Normal [facility] Glucose Poct Glucometerson 0 06-25-2021 Glucose [Mass/Vol] 127 mg/dL Normal [facility] Comment on above: Result Comment: [facility] Glucose Reference Range is dependent on time and content of last meal. Glucose of more than 200 mg/dL in a nonstressed, ambulatory subject supports the diagnosis of Diabetes Mellitus. PERFORMED BY: [facility] [address] [place] [address] PATHOLOGIST PICKER OPERATOR TERESA SCHMIDT M.D. Performed By: #### G KAVIN #### Point of Care testing , Niels 06-25-2021 L Specimen: [id number] Received: 06/25/21 Status: GHISLAINE Armstrong Num: [id number] Spec Type: Surgical Subm Dr: Rodriguez Levin Jr, DO Tissues: A Stomach - Biopsy/Polyp (ANTRUM BX) Procedures: HE Stain/2, Gross/Micro L4 Patient Age/Sex Location Account Attending Physician Freddy Panchal/Jennifer [id number] Rodriguez Levin Jr, DO SPEC NUM: [id number] RECD: 06/25/21 STATUS: GHISLAINE ARMSTRONG NUM: [id number] ALLEGRA: 06/25/21- [facility] DR: Rodriguez Levin Jr, DO ENTERED: 06/25/21-[address]: SHANIQUA TYPE: Surgical DEPT: S ORDERED: HE Stain/2, Gross/Micro L4 ORDERED: HE Stain/2, Gross/Micro L4 Pathological Diagnosis Stomach, antrum, biopsy: - Mild chronic inactive gastritis - No morphologic evidence of H. pylori microorganisms Clinical Information GERD, epigastric pain, dyspepsia Gross Description Received in formalin labeled with the patient's name, number and antrum biopsy rule out H. pylori by IHC are 2 laguna tissue fragments, 0.3 cm each. Entirely submitted in one cassette labeled A1. (SM/JS) Microscopic Description Two glass slides with H E stained material have been examined. The microscopic findings support the above pathologic diagnosis. [id number] Specimen: [id number] Received: 06/25/21 Status: GHISLAINE Anna Num: [id number] Spec Type: Surgical Subm Dr: Rodriguez Levin Jr, DO Tissues: A Stomach - Biopsy/Polyp (ANTRUM BX) Procedures: HE Stain/2, Gross/Micro L4 Patient: Freddy Panchal [id number] (Continued) Signed (signatur e on file) Teresa Schmidt MD 06/26/21 1559 [facility] COVID-19 [facility] 06-23-2021 SARS-CoV-2 (COVID-19) RNA JOSH+probe Ql (Unsp spec) Negative Normal Negative [facility] Comment on above: Order Comment: Healt hcare Worker?: N Result Comment: Testing for SARS-CoV-2 by RT-PCR This test was developed and its performance characteristics determined by [employer]) and validated at the [facility]. This test has not been FDA cleared or approved. This test has been authorized by FDA under an Emergency Use Authorization (EUA). This test has been validated in accordance with the FDA's Guidance Document (Policy for Diagnostics Testing in Laboratories Certified to Perform High Complexity Testing under CLIA prior to Emergency Use Authorization for Coronavirus Disease-2019 during the Public Health Emergency) issued on February 07, 2020. This test is only authorized for the duration of time the declaration that circumstances exist justifying the authorization of the emergency use of in vitro diagnostic tests for detection of SARS-CoV-2 virus and/or diagnosis of COVID-19 infection under section 564(b)(1) of the Act, 21 U.S.C. 360bbb-3(b)(1), unless the authorization is terminated or revoked sooner. PERFORMED BY: [place] [address] PATHOLOGIST PICKER OPERATOR TERESA SCHMIDT M.D. Performed By: #### C OVID 19 [facility] #### [address] Vital Signs Date Time Vital Sign Value Performing Clinician Facility 08-30-2024 08:00-0400 Body temperature 98.01 [degF] Gonzalo Butt DO Work Phone: [facility] [place] [facility] 08-30-2024 08:00-0400 Diastolic blood pressure 94 mm[Hg] Gonzalo Filomena DO Work Phone: [facility] 08-30-2024 08:00-0400 Heart rate 83 /min Gonzalo Filomena DO Work Phone: [facility] 08-30-2024 08:00-0400 Respiratory rate 18 /min Gonzalo Butt DO Work Phone: [facility] 08-30-2024 08:00-0400 SaO2% (BldA) [Mass fraction] 95 % Gonzalo Butt DO Work Phone: [facility] [place] [facility] 08-30-2024 08:00-0400 Systolic blood pressure 143 mm[Hg] Gonzalo Butt DO Work Phone: [facility] [place] [facility] 08-29-2024 13:11-0400 Diastolic blood pressure 86 mm[Hg] Stvz 3 [facility] [place] [facility] 08-29-2024 13:11-0400 Heart rate 85 /min Stvz 3 [facility] 08-29-2024 13:11-0400 SaO2% (BldA) [Mass fraction] 99 % Stvz 3 [facility] 08-29-2024 13:11-0400 Systolic blood pressure 156 mm[Hg] Stvz 3 [facility] 08-27-2024 16:15-0400 Body height 180.3 cm Gonzalo Butt DO Work Phone: [facility] 08-27-2024 16:15-0400 Body mass index (BMI) [Ratio] 27.21 kg/m2 Gonzalo Butt DO Work Phone: [facility] 08-27-2024 16:15-0400 Body weight 88.45 kg Gonzalo Butt DO Work Phone: [facility] 08-23-2024 17:47-0400 Body temperature 37.0 Gonzalo Butt DO Work Phone: [facility] 12-15-2023 10:26-0500 Body height 177.8 cm Osiris Banegas MD Work Phone: [facility] 12-15-2023 10:26-0500 Body mass index (BMI) [Ratio] 28.98 kg/m2 Osiris Banegas MD Work Phone: [facility] 12-15-2023 10:26-0500 Body weight 91.63 kg Osiris Banegas MD Work Phone: [facility] 12-15-2023 10:26-0500 Diastolic blood pressure 70 mm[Hg] Osiris Banegas MD Work Phone: [facility] 12-15-2023 10:26-0500 Heart rate 88 /min Osiris Banegas MD Work Phone: [facility] 12-15-2023 10:26-0500 SaO2% (BldA) [Mass fraction] 95 % Osiris Banegas MD Work Phone: [facility] 12-15-2023 10:26-0500 Systolic blood pressure 130 mm[Hg] Osiris Banegas MD Work Phone: [facility] Encounters Encounter Date Encounter Type Care Provider Facility Start: 08-29-2024 End: 08-31-2024 Evaluation and management of inpatient [facility] Service Worker 3 [facility] Cardiac Cath/EP Lab Comment on above: Sepsis due to Klebsi belinda (HCC) (Primary Dx); Abscess in epidural space of lumbar spine Start: 08-23-2024 End: 08-30-2024 Evaluation and management of inpatient Gonzalo Butt DO Work Phone: [facility] Comment on above: Epidural abscess (Pr imary Dx); Tachycardia; Abscess in epidural space of lumbar spine; Acute congestive heart failure, unspecified heart failure type (HCC); Mitral valve mass Start: 01-23-2024 End: 01-24-2024 ambulatory [facility] Start: 01-18-2024 End: 01-19-2024 [facility] Start: 12-15-2023 Telephone encounter Alexandria Sargent RN [facility] Start: 12-15-2023 End: 12-15-2023 [facility] Start: 12-15-2023 End: 12-15-2023 Office outpatient visit 25 minutes Osiris Banegas MD Work Phone: [facility] Comment on above: Abnormal ECG during exercise stress test (Primary Dx); LVH (left ventricular hypertrophy); Diastolic dysfunction; Mixed hyperlipidemia; Positive cardiac stress test; Chest discomfort; Chest pain, unspecified type Start: 12-14-2023 Telephone encounter [facility] Start: 11-01-2023 End: 11-02-2023 ambulatory LETI CESPEDES [facility] Procedures Date Procedure Procedure Detail Performing Clinician Start: 08-30-2024 End: 08-30-2024 Basic metabolic panel calcium total Pio Shields DO Work Phone: Start: 08-29-2024 Glucose blood reagen t strip Gena Wilson MD Work Phone: Start: 08-29-2024 Glucose blood reagen t strip Gena Wilson MD Work Phone: Start: 08-29-2024 Echo transesophag r- t 2d w/prb img acquisj i&r Elvia Nicolas LABEL REWINDER - MAGNETIC TESTER Work Phone: Start: 08-29-2024 CATH HEMO INTERFACE Hem adalberto Lyn MD Work Phone: Start: 08-29-2024 Glucose blood reagen t strip Gena Wilson MD Work Phone: Start: 08-29-2024 Glucose blood reagen t strip Gena Wilson MD Work Phone: Start: 08-29-2024 Basic metabolic pane l calcium total Pio Shields DO Work Phone: Start: 08-28-2024 Glucose blood reagen t strip Gena Wilson MD Work Phone: Start: 08-28-2024 Glucose blood reagen t strip Gena Wilson MD Work Phone: Start: 08-28-2024 End: 08-28-2024 Basic metabolic panel calcium total Pio Shields DO Work Phone: Start: 08-27-2024 Glucose blood reagen t strip Gena Wilson MD Work Phone: Start: 08-27-2024 Glucose blood reagen t strip Pio Shields DO Work Phone: Start: 08-27-2024 Echo transthorc r-t 2d w/wo m-mode rec f-up/lmtd Paco Lyn MD Work Phone: Start: 08-27-2024 Glucose blood reagen t strip Pio Shields DO Work Phone: Start: 08-27-2024 End: 08-27-2024 Basic metabolic panel calcium total Pio Shields DO Work Phone: Start: 08-26-2024 Glucose blood reagen t strip Pio Shields DO Work Phone: Start: 08-26-2024 Glucose blood reagen t strip Pio Shields DO Work Phone: Start: 08-26-2024 Glucose blood reagen t strip Pio Shields DO Work Phone: Start: 08-26-2024 Glucose blood reagen t strip Pio Shields DO Work Phone: Start: 08-26-2024 Blood count complete auto&auto difrntl wbc Maynor PATRICIA-C Work Phone: Start: 08-25-2024 Glucose blood reagen t strip Catherine Guaman MD Work Phone: Start: 08-25-2024 Us abdominal real ti me w/image limited Catherine Guaman MD Work Phone: Start: 08-25-2024 Glucose blood reagen t strip Catherine Guaman MD Work Phone: Start: 08-25-2024 Glucose blood reagen t strip Catherine Guaman MD Work Phone: Start: 08-25-2024 BASIC METABOLIC PANE L W/ REFLEX TO MG FOR LOW K Maynor Redding PABlossomC Work Phone: Start: 08-25-2024 End: 08-25-2024 Hemoglobin glycosylated a1c Catherine Guaman MD Work Phone: Start: 08-24-2024 Glucose blood reagen t strip Catherine Guaman MD Work Phone: Start: 08-24-2024 INFECTIOUS DISEASE INTERVENTION Chong Arvizu MD Work Phone: Start: 08-24-2024 Radiologic exam ches t single view Catherine Guaman MD Work Phone: Start: 08-24-2024 Glucose blood reagen t strip Catherine Guaman MD Work Phone: Start: 08-24-2024 BASIC METABOLIC PANE L W/ REFLEX TO MG FOR LOW K Maynor Redding PA-C Work Phone: Start: 08-24-2024 Prothrombin time Isidro Redding PA-C Work Phone: Start: 08-23-2024 Cul prsmptv pthgnc organism scrn w/colony estimj Hipolito Dacosta MD Work Phone: Start: 08-23-2024 Glucose blood reagen t strip Catherine Guaman MD Work Phone: Start: 08-23-2024 Fluoroscopy during operation Wilda Tapastreetd DO Work Phone: Start: 08-23-2024 BLOOD GAS, ARTERIAL Kayli Burnham MD Work Phone: Start: 08-23-2024 Calcium ionized Hipolito Dacosta MD Work Phone: Start: 08-23-2024 CHLORIDE, WHOLE BLOOD S catarino Dacosta MD Work Phone: Start: 08-23-2024 OPEN HEART H&H Hipolito belcher MD Work Phone: Start: 08-23-2024 SODIUM, WHOLE BLOOD Kayli Burnham MD Work Phone: Start: 08-23-2024 End: 08-23-2024 Egan exc/evac ispi lesion oth/thn alberto xdrl lumbar Wilda Ahammad DO Work Phone: Start: 08-23-2024 Mri spinal canal lum bar w/o & w/contr matrl Sawyer Tompkins MD Work Phone: Start: 08-23-2024 Ecg routine ecg w/le ast 12 lds w/i&r Paulina Braga LABEL REWINDER - MAGNETIC TESTER Work Phone: Start: 08-23-2024 Glucose blood reagen t strip Hipolito Dacosta MD Work Phone: Start: 08-23-2024 Dup-scan xtr veins complete bilateral study Sawyer Tompkins MD Work Phone: Start: 08-23-2024 BASIC METABOLIC PANE L W/ REFLEX TO MG FOR LOW K Maynor Redding PABlossomC Work Phone: Start: 08-23-2024 LACTATE, SEPSIS Enio gandhi MD Work Phone: Start: 08-23-2024 Ct thorax w/contrast material Enio Lyn MD Work Phone: Start: 08-23-2024 Drug tst prsmv instr mnt chem analyzers pr date Enio yLn MD Work Phone: Start: 08-23-2024 Urinalysis microscop ic only Enio Lyn MD Work Phone: Start: 08-23-2024 Urnls dip stick/tabl et rgnt auto w/o microscopy Sawyer Tompkins MD Work Phone: Start: 08-23-2024 Radiologic exam ches t single view Gonzalo Butt Work Phone: Start: 08-23-2024 End: 08-23-2024 CULTURE, BLOOD 1 Enio Lyn MD Work Phone: Start: 08-23-2024 C-reactive protein Taylor Lyn MD Work Phone: Start: 08-23-2024 Comprehensive metabo lic panel Enio Lyn MD Work Phone: Start: 08-23-2024 LACTATE, SEPSIS Enio gandhi MD Work Phone: Start: 08-23-2024 TOX SCR, BLD, ED Enio Lyn MD Work Phone: Start: 08-23-2024 Ecg routine ecg w/le ast 12 lds i&r only Catherine Guaman MD Work Phone: Plan of Treatment Date Care Activity Detail Author Start: 12-15-2024 Adult BMI Screening Adult BMI Screening [facility] Start: 12-15-2024 Tobacco Screening Tobacco Screening [facility] Start: 11-25-2024 Hemoglobin A1c measurement A1C test (Diabetic or Prediabetic) [facility] Start: 11-01-2024 Adult BMI Screening Adult BMI Screening [facility] Start: 11-01-2024 Tobacco Screening Tobacco Screening [facility] Start: 10-15-2024 End: 10-15-2024 Patient encounter procedure 10/15/2024 11:30 AM EST Office Visit [facility] [address] [place] [address] [address] Floor, [address] [phone] Wilda Samaniego, [address] [facility] [address] [place] [phone] 8 week post op [facility] Comment on above: 8 week post op Start: 09-06-2024 End: 09-06-2024 Patient encounter procedure 09/06/2024 10:00 AM EDT Office Visit [address] - Ground Floor, [address] [phone] Evi Foster, LABEL REWINDER - MAGNETIC TESTER [address] [place] [address] [phone] ( staff message Paulina Braga APRN ) [facility] Comment on above: ( staff message Paulina Braga APRN ) Start: 07-08-2024 COVID-19 Vaccine ( season) COVID-19 Vaccine ( season) [facility] Start: 06-07-2024 Influenza vaccination Flu vaccine (#1) [facility] Start: 01-23-2024 End: 01-23-2024 Patient encounter procedure 01/23/2024 2:00 PM EDT Appointment [facility] [address] [place] [phone] Osiris Banegas MD [address] [place] [address] [facility] Start: 01-18-2024 End: 01-18-2024 Patient encounter procedure 01/18/2024 1:00 PM EDT Appointment [facility] [address] [place] [address] [facility] Start: 12-15-2023 End: 12-15-2024 CTA Heart and Coronary arteries WO and W contrast IV CT angiogram coronary arteries with or without scoring Imaging Routine Abnormal ECG during exercise stress test Chest pain, unspecified type Expected: 12/15/2023, Expires: 12/15/2024 [facility] Comment on above: Expected: 12/15/2023, Expires: Start: 12-15-2023 End: 12-15-2024 Echo complete W/O contrast Echo complete W/O contrast Echocardiography Routine Abnormal ECG during exercise stress test LVH (left ventricular hypertrophy) Diastolic dysfunction Chest discomfort Expected: 12/15/2023, Expires: 12/15/2024 [facility] Comment on above: Expected: 12/15/2023, Expires: Start: 12-15-2023 End: 12-15-2023 Patient encounter procedure 12/15/2023 10:30 AM EST Office Visit [facility] [address] [place] [address] Osiris Banegas MD [address] [place] [address] [facility] Start: 11-07-2023 Annual Wellness Visit (Medicare Advantage) Annual Wellness Visit (Medicare Advantage) [facility] Start: 09-17-2023 Administration of varicella zoster vaccine Zoster (Shingles) Vaccine (2 of 2) [facility] Start: 09-17-2023 Shingles vaccine (2 of 2) Shingles vaccine (2 of 2) [facility] Start: 07-08-2023 COVID-19 Vaccine ( season) COVID-19 Vaccine ( season) [facility] Start: 2020 Fall Risk Screening Fall Risk Screening [facility] Start: 2015 Respiratory Syncytial Virus (RSV) or age 60 yrs+ (1 - 1-dose 60+ series) Respiratory Syncytial Virus (RSV) or age 60 yrs+ (1 - 1-dose 60+ series) [facility] Start: 2000 Screening for malignant neoplasm of colon [facility] Start: 1974 DTaP,Tdap and Td Vaccines (1 - Tdap) DTaP,Tdap and Td Vaccines (1 - Tdap) [facility] Start: 1974 DTaP/Tdap/Td vaccine (1 - Tdap) DTaP/Tdap/Td vaccine (1 - Tdap) [facility] Start: 1973 Adult BMI Follow Up Plan Adult BMI Follow Up Plan [facility] Start: 1973 Hepatitis C screening Hepatitis C screen [facility] Start: 1967 Depression Screen Depression Screen [facility] Start: 1967 Depression Screening Depression Screening [facility] Start: 1965 Lipid panel Lipids [facility] Start: 1955 Medicare Annual Wellness Visit Medicare Annual Wellness Visit [facility] End: 09-05-2024 Basic metabolic 2000 panel - Serum or Plasma Basic Metabolic Panel Lab Routine Daily for 10 Occurrences starting 08/27/2024 until 09/05/2024, 4 completed [facility] Comment on above: Daily for 10 Occurrences starting 2023 until 09/05/2024, 4 completed End: 09-05-2024 CBC W Auto Differential panel - Blood CBC with Auto Differential Lab Routine Daily for 10 Days starting 08/27/2024 until 09/05/2024, 4 completed [facility] Comment on above: Daily for 10 Days starting 08/27/2024 un til 09/05/2024, 4 completed End: 12-15-2024 Creatinine includes GFR, serum Creatinine includes GFR, serum Lab Routine Abnormal ECG during exercise stress test 1 Occurrences starting 12/15/2023 until 12/15/2024 [facility] Comment on above: 1 Occurrences starting 12/15/2023 until 12/15/2024 Culture, Anaerobic a nd Aerobic Culture, Anaerobic and Aerobic Microbiology Routine Abscess in epidural space of lumbar spine Release Upon Ordering for 1 Occurrences starting 08/23/2024 [facility] Comment on above: Release Upon Ordering for 1 Occurrences starting 08/23/2024 Glucose [Mass/volume ] in Serum or Plasma [facility] Comment on above: 4X Daily (AC & HS) until discontinued st arting 08/24/2024 As Needed until disc ontinued starting 08/24/2024 Intermittent pulse oximetry Pulse Oximetry Spot Check Respiratory Care Routine As Needed until discontinued starting 08/23/2024 [facility] Comment on above: As Needed until discontinued starting End: 08-23-2024 Lipid panel Lipid Panel Lab Routine One Time for 1 Occurrences starting 08/23/2024 until 08/23/2024 [facility] Comment on above: One Time for 1 Occurrences starting 08/07 until 08/23/2024 End: 09-05-2024 Magnesium [Mass/volume] in Serum or Plasma Magnesium Lab Routine Daily for 10 Days starting 08/27/2024 until 09/05/2024, 4 completed [facility] Comment on above: Daily for 10 Days starting 08/27/2024 un til 09/05/2024, 4 completed Nasal Cannula Oxygen Nasal Cannu la Oxygen Respiratory Care Routine Daily until discontinued starting 08/25/2024 [facility] Comment on above: Daily until discontinued starting 2023 Oxygen therapy [[facility] Data Set] Initiate Oxygen Therapy Protocol Respiratory Care Routine As Needed until discontinued starting 08/23/2024 [facility] Comment on above: As Needed until discontinued starting End: 09-05-2024 Phosphate [Mass/volume] in Serum or Plasma Phosphorus Lab Routine Daily for 10 Days starting 08/27/2024 until 09/05/2024, 4 completed [facility] Comment on above: Daily for 10 Days starting 08/27/2024 un til 09/05/2024, 4 completed US Abdomen limited US ABDOMEN LI MITED Specify organ? LIVER, SPLEEN Imaging Routine 08/25/2024 7:10 PM EDT [facility] End: 08-28-2024 US Heart Transesophageal [facility] Comment on above: One Time for 1 Occurrences starting 08/08 until 08/28/2024 Immunizations Immunization Date Immunization Notes Care Provider Tung santoyo 07-23-2023 zoster vaccine, unspecified formulation Iman Mccarty [facility] Payers Date Payer Category Payer Medicare HU[employer] MEDICARE [place] [id number] 2021-Present [phone] [address] [address] [place] [address] [id number] 2021 Medicare [id number] 1955 Unknown [id number] 1955 Unknown [id number] 1955 Unknown [id number] 1955 Unknown [id number] 1955 Unknown [id number] 1955 Unknown [id number] 1955 Unknown [id number] 1955 Unknown [id number] 1955 Unknown [id number] Social History Date Type Detail Facility Start: 11-01-2023 Tobacco smoking status NHIS Ex-smoker [facility] History of tobacco use Current smoker [facility] Start: 11-01-2023 End: 08-25-2024 Tobacco use and exposure Smokeless tobacco non-user [facility] Start: 12-08-2023 End: 12-15-2023 Alcohol intake Current drinker of alcohol (finding) [facility] Start: 11-01-2023 End: 08-23-2024 History of Social function [facility] Start: 11-01-2023 End: 08-23-2024 Tobacco use panel [facility] Childcare Unknown [facility] Start: 11-01-2023 Tobacco Comment quit at age 16 [facility] Start: 02-09-2019 Alcohol Comment occassional [facility] Start: 1955 Sex Assigned At Not on file [facility] Start: 08-25-2024 Tobacco smoking status NHIS Never smoked tobacco [facility] NEGATED: Highlighted rowStart: NINF History of tobacco use Passive smoker [facility] Medical Equipment Procedure Code Equipment Code Equipment Origin al Text Equipment Identifier Dates Dev Fx 5mm Absorbatack 30 Tack Rpl [id number] - Sna - [id number] Start: 02-19-2019 Mesh Pariten Ds Rnd 15cm X1 Rpl [id number] - Sna - [id number] Start: 02-19-2019 Goals Date Patient Goal Desired Activity /State Personal health goal Comment on above: Formatting of this n ote might be different from the original. Newly established goal Formatting of this n ote might be different from the original. Evaluation of progress towards goal: 60 grams total carb for breakfast and 75 grams total carb for lunch Clinical Notes 12-14-2023 to 08-30-2024 Gena Wilson MD - 08/30/2024 12:03 PM Gena Hernandez MD - 08/29/2024 10:12 AM Chong Chamorro MD - 08/29/2024 9:52 AM Sony Toussaint PTA - 08/28/2024 2:00 PM EDTDischarge Instructions Note Date & Type Note Facility 08-30-2024 Hospital course Narrative Images from the original note were not included. [facility] Office: [phone] Davion Hernández DO, Rod Phillisp DO, Sukhwinder Jacobson DO, Allen Gleason DO, Elvira Thakur MD, Cookie Simon MD, Annamarie Lawler MD, Gena Wilson MD, Regan Walsh MD, Meaghan Cuello MD, Brianna Wray MD, Morales Santoyo DO, Felix Rothman MD, Justin Vargas MD, Arie Hernández DO, Zoë Tong MD, Ricardo Hooker DO, Suzy Price MD, Catherine Guaman MD, Lisette Daomn MD, Angel Jain MD, Sunny Porter MD, Adina Grant MD, Diallo Rodriguez MD, Sharla Pickering MD, Oren Freed MD, Hipolito Dacosta MD, Pio Shields DO, Samuel Ramirez MD, Shirley Morrow CNP, Lissa Ramey CNP, Pio Neville CNP, Nori Lamar DNP, Anny Andrews, PUMA, Kaya Gallegos CNP, Elizabeth Zavala CNP, Fiordaliza Head CNP, Abiola Hoff PA-C, Mallorie Mireles PA-C, Rosaline Alvarez CNP, Evelin Mcintosh CNP, Jackie Dorantes, PUMA, Amira Escobar, PUMA, Jazzy Leary, PUMA, Joanne Phillips, PUMA [facility] IN-PATIENT SERVICE [facility] Discharge Summary Patient ID: Freddy Panchal : 1955 ACCOUNT: [id number] Patient's PCP: No primary care provider on file. Admit Date: 08/23/2024 Discharge Date: 08/30/2024 Length of Stay: 7 Code Status: Full Code Admitting Physician: Pio Shields DO Discharge Physician: Gena Wilson MD Active Discharge Diagnoses: Hospital Problem Lists: Principal Problem: Epidural abscess Active Problems: Discitis of lumbar region Gram-neg septicemia (HCC) Alcohol dependence with withdrawal with complication (HCC) Abscess in epidural space of lumbar spine Bandemia CRP elevated Sepsis due to Klebsiella (HCC) Resolved Problems: * No resolved hospital problems. * Admission Condition: poor Discharged Condition: fair Hospital Stay: Hospital Course: Per chart 68-year-old male with past medical history of chronic back pain with regular steroid injections, COPD, type 2 diabetes, CAD initially presented to [facility] with complaints of worsening lower back pain. CT and MRI lumbar spine were done which showed concern for lumbar discitis with possible abscess at L4-L5. He was started on Vanco and Zosyn and was transferred to [facility] for neurosurgery evaluation. He underwent L4-L5 laminectomy on 08/23. Blood cultures grew Klebsiella. ID was consulted for antibiotic management, started patient on cefepime, transitioned to ceftriaxone after blood culture results. Cardiology was consulted for perioperative risk assessment, ordered transthoracic echo. During the admission patient was managed as follow Lumbar spine epidural abscess status postlaminectomy 08/23 Klebsiella bacteremia -S/p laminectomy on 08/23, neurosurgery signed off -ID following for antibiotic recommendations. -S/P OH 08/29. No vegetation noted -Culture from laminectomy also growing Klebsiella -PT OT following HFpEF -Not in exacerbation -Cardiology following -Echo showing EF 66%, MV with mass on anterior leaflet, possible healed vegetation. -On Lasix 40 mg switched from IV to oral Type 2 diabetes -A1c 7.8 08/2024 -On semaglutide at home -Lantus 13 units daily and sliding scale while inpatient COPD -Not in exacerbation -As needed albuterol Alcohol use disorder -Continue to monitor on CIWA Constipation Bowel regimen Her ID can be just charged on Levaquin 750 mg for 6 weeks and follow-up with Dr. Arvizu Patient will need also to follow-up with neurosurgery Med rec done Scripts added 30+ minutes spent Significant therapeutic interventions: TTE 08/27 Left Ventricle: Normal left ventricular systolic function. EF 3D is 66%. Left ventricle size is normal. Normal wall motion. Aortic Valve: Trileaflet valve. Mild regurgitation. Mitral Valve: prominent calcification/mass on anterior leaflet, correlate clinically, consider OH when indicated. Mild regurgitation. Image quality is good. OH Findings: Structures: LA: Normal ISAAIH: No thrombus RA: Normal RV: Normal LV: Normal in size with normal systolic function Estimated LVEF: 55% Aorta: Mild atheromatous disease arch Percardium: No pericardial effusion Septum: No intracardiac shunt via color Doppler. Valves: Mitral Valve: Structurally normal. The anterior leaflet has degenerative changes with calcified nodule at the tip. Mild regurgitation is identified. No obvious vegetations or thrombus seen. Aortic Valve: The aortic valve is trileaflet and opens adequately. No regurgitiation is identified. No obvious vegetations or thrombus seen. Tricuspid valve: Structurally normal. No regurgitation is identified. No obvious vegetations or thrombus seen. Pulmonary valve: Normal. No significant regurgitation. No obvious vegetations or thrombus seen. Impression: 1. A OH was performed without complications. 2. Normal Lv size with normal systolic function. Estimated LVEF 55% 3. No thrombus or valvular vegetations identified 4. Mitral valve calcification noted. Mild MR. Significant Diagnostic Studies: Labs / Micro: CBC: Lab Results Component Value Date/Time WBC 9.8 08/30/2024 07:12 AM RBC 3.64 08/30/2024 07:12 AM HGB 11.5 08/30/2024 07:12 AM HCT 34.4 08/30/2024 07:12 AM MCV 94.5 08/30/2024 07:12 AM MCH 31.6 08/30/2024 07:12 AM MCHC 33.4 08/30/2024 07:12 AM RDW 12.5 08/30/2024 07:12 AM PLT 285 08/30/2024 07:12 AM BMP: Lab Results Component Value Date/Time GLUCOSE 173 08/30/2024 07:12 AM NA 129 08/30/2024 07:12 AM K 4.0 08/30/2024 07:12 AM CL 96 08/30/2024 07:12 AM CO2 24 08/30/2024 07:12 AM ANIONGAP 9 08/30/2024 07:12 AM BUN 15 08/30/2024 07:12 AM CREATININE 0.8 08/30/2024 07:12 AM CALCIUM 8.9 08/30/2024 07:12 AM LABGLOM >90 08/30/2024 07:12 AM HFP: No components found for: AP , ALB , PROT , SGOT , SGPT , TBIL , DBILCALC CMP: Lab Results Component Value Date/Time GLUCOSE 173 08/30/2024 07:12 AM NA 129 08/30/2024 07:12 AM K 4.0 08/30/2024 07:12 AM CL 96 08/30/2024 07:12 AM CO2 24 08/30/2024 07:12 AM BUN 15 08/30/2024 07:12 AM CREATININE 0.8 08/30/2024 07:12 AM ANIONGAP 9 08/30/2024 07:12 AM ALKPHOS 140 08/23/2024 03:12 AM ALT 34 08/23/2024 03:12 AM AST 32 08/23/2024 03:12 AM BILITOT 0.6 08/23/2024 03:12 AM ALBUMIN 3.4 08/23/2024 03:12 AM LABGLOM >90 08/30/2024 07:12 AM CALCIUM 8.9 08/30/2024 07:12 AM PT/INR: Lab Results Component Value Date/Time PROTIME 11.8 08/24/2024 07:43 AM INR 0.9 08/24/2024 07:43 AM Radiology: US ABDOMEN LIMITED Specify organ? LIVER, SPLEEN Result Date: 08/25/2024 Suspected hepatic steatosis. XR CHEST PORTABLE Result Date: 08/24/2024 Improving pulmonary vascular congestion when compared to the prior exam Consultations: Consults: Final Specialist Recommendations/Findings: IP CONSULT TO NEUROSURGERY IP CONSULT TO SOCIAL WORK IP CONSULT TO HOSPITALIST IP CONSULT TO CARDIOLOGY IP CONSULT TO INFECTIOUS DISEASES The patient was seen and examined on day of discharge A&O X 3 CTAB NSR, NO MRG Soft abdomen , +BS No swelling and pulse palpable Back incision CDI Discharge plan: Disposition: Home Physician Follow Up: Chong Arvizu MD [address] [facility]. [address] [place] [address] Follow up Wilda Samaniego DO [address] [facility] [address] [facility] [id number] Follow up Requiring Further Evaluation/Follow Up POST HOSPITALIZATION/Incidental Findings: Activity: As tolerated Instructions to Patient: Discharge Medications: Medication List START taking these medications carvedilol 6.25 MG tablet Commonly known as: COREG Take 1 tablet by mouth 2 times daily (with meals) furosemide 40 MG tablet Commonly known as: LASIX Take 1 tablet by mouth daily levoFLOXacin 750 MG tablet Commonly known as: Levaquin Take 1 tablet by mouth daily CONTINUE taking these medications aspirin 81 MG EC tablet atorvastatin 40 MG tablet Commonly known as: LIPITOR baclofen 10 MG tablet Commonly known as: LIORESAL Belbuca 900 MCG Film Generic drug: Buprenorphine HCl hydrOXYzine pamoate 25 MG capsule Commonly known as: VISTARIL lidocaine 5 % Commonly known as: LIDODERM oxyCODONE-acetaminophen 5-325 MG per tablet Commonly known as: PERCOCET Take 1 tablet by mouth every 6 hours as needed for Pain for up to 2 days. Max Daily Amount: 4 tablets OZEMPIC (1 MG/DOSE) SC traZODone 50 MG tablet Commonly known as: DESYREL STOP taking these medications amLODIPine 10 MG tablet Commonly known as: NORVASC losartan-hydroCHLOROthiazide 100-12.5 MG per tablet Commonly known as: HYZAAR omeprazole 20 MG delayed release capsule Commonly known as: PRILOSEC Where to Get Your Medications These medications were sent to [facility] [id number] [address] [phone] - [phone] [place] [id number] carvedilol 6.25 MG tablet furosemide 40 MG tablet levoFLOXacin 750 MG tablet oxyCODONE-acetaminophen 5-325 MG per tablet No discharge procedures on file. Time Spent on discharge is 39 mins in patient examination, evaluation, counseling as well as medication reconciliation, prescriptions for required medications, discharge plan and follow up. Electronically signed by Gena Wilson MD 08/30/2024 12:[address] Angel primary care provider on file. for the opportunity to be involved in this patient's care. documented in this encounter [facility] 08-29-2024 History of Presen t illness Narrative Images from the original note were not included. [facility] Office: [phone] Davion Hernández DO, Rod Phillips DO, Sukhwinder Jacobson DO, Allen Gleason DO, Elvira Thakur MD, Cookie Simon MD, Annamarie Lawler MD, Gena Wilson MD, Regan Walsh MD, Meaghan Cuello MD, Brianna Wray MD, Morales Santoyo DO, Felix Rothman MD, Justin Vargas MD, Arie Hernández DO, Zoë Tong MD, Ricardo Hooker DO, Suzy Price MD, Catherine Guaman MD, Lisette Damon MD, Angel Jain MD, Sunny Porter MD, Adina Grant MD, Diallo Rodriguez MD, Sharla Pickering MD, Oren Frede MD, Hipolito Dacosta MD, Pio Shields DO, Samuel Ramirez MD, Shirley Morrow CNP, Lissa Ramey CNP, Pio Neville CNP, Nori Lamar DNP, Anny Andrews CNP, Kaya Gallegos CNP, Elizabeth Zavala CNP, Fiordaliza Head CNP, Abiola Hoff PA-C, Mallorie Mireles PA-C, Rosaline Alvarez CNP, Evelin Mcintosh CNP, Jackie Dorantes CNP, Amira Escobar CNP, Jazzy Leary CNP, Joanne Phillips, [facility] IN-PATIENT SERVICE [facility] Progress Note 08/29/2024 10:12 AM Name: Freddy Panchal Acct: [id number] Room: 0328/0328-02 Day: 6 Admit Date: 08/23/2024 2:54 AM PCP: No primary care provider on file. Code Status: Full Code Subjective: C/C: Chief Complaint Patient presents with Back Pain Interval History Status: not changed. Patient seen and examined at bedside, no acute events overnight. Pain controlled with pain medications Constipation resolved He is very frustrated as he is NPO for OH Patient vitals, labs and all providers notes were reviewed,from overnight shift and morning updates were noted and discussed with the nurse Brief History: Per chart 68-year-old male with past medical history of chronic back pain with regular steroid injections, COPD, type 2 diabetes, CAD initially presented to [facility] with complaints of worsening lower back pain. CT and MRI lumbar spine were done which showed concern for lumbar discitis with possible abscess at L4-L5. He was started on Vanco and Zosyn and was transferred to [facility] for neurosurgery evaluation. He underwent L4-L5 laminectomy on 08/23. Blood cultures grew Klebsiella. ID was consulted for antibiotic management, started patient on cefepime, transitioned to ceftriaxone after blood culture results. Cardiology was consulted for perioperative risk assessment, ordered transthoracic echo. Review of Systems: Review of Systems Constitutional: Positive for activity change and appetite change. Negative for chills, diaphoresis and fever. HENT: Negative for congestion. Eyes: Negative for visual disturbance. Respiratory: Negative for cough, chest tightness, shortness of breath and wheezing. Cardiovascular: Negative for chest pain, palpitations and leg swelling. Gastrointestinal: Negative for abdominal pain, blood in stool, diarrhea, nausea and vomiting. Genitourinary: Negative for difficulty urinating. Musculoskeletal: Positive for back pain. Neurological: Negative for dizziness, weakness, light-headedness, numbness and headaches. All other systems reviewed and are negative. Medications: Allergies: Allergies Allergen Reactions Codeine Rash Current Meds: Scheduled Meds: furosemide 40 mg Oral Daily docusate sodium 100 mg Oral TID diclofenac sodium 4 g Topical BID baclofen 10 mg Oral Nightly lidocaine 1 patch TransDERmal Daily cefTRIAXone (ROCEPHIN) IV 2,000 mg IntraVENous Q24H atorvastatin 20 mg Oral Nightly carvedilol 6.25 mg Oral BID WC insulin lispro 0-8 Units SubCUTAneous 4x Daily AC & HS insulin glargine 13 Units SubCUTAneous Daily sodium chloride flush 5-40 mL IntraVENous 2 times per day thiamine 100 mg Oral Daily sodium chloride flush 5-40 mL IntraVENous 2 times per day [Held by provider] enoxaparin 40 mg SubCUTAneous Daily Continuous Infusions: dextrose sodium chloride sodium chloride PRN Meds: bisacodyl, traZODone, albuterol, glucose, dextrose bolus OR dextrose bolus, glucagon (rDNA), dextrose, sodium chloride flush, sodium chloride, LORazepam OR LORazepam OR LORazepam OR LORazepam OR LORazepam OR LORazepam OR LORazepam OR LORazepam, sodium chloride flush, sodium chloride, potassium chloride OR potassium alternative oral replacement OR potassium chloride, magnesium sulfate, ondansetron OR ondansetron, polyethylene glycol, acetaminophen OR acetaminophen, morphine, sodium chloride flush, oxyCODONE-acetaminophen, oxyCODONE-acetaminophen Data: Past Medical History: has no past medical history on file. Social History: reports that he has never smoked. He has never been exposed to tobacco smoke. He has never used smokeless tobacco. Family History: History reviewed. No pertinent family history. Vitals: BP 132/80 Pulse 71 Temp 97.5 F (36.4 C) (Oral) Resp 18 Ht 1.803 m (5' 10.98 ) Wt 88.5 kg (195 lb) SpO2 93% BMI 27.21 kg/m Temp (24hrs), Av.8 F (36.6 C), Min:97.5 F (36.4 C), Max:98.1 F (36.7 C) Recent Labs 08/28/24 1138 08/28/24 1600 08/28/24202308/29/24 0751 POCGLU 201* 187* 122* 118* I/O (24Hr): Intake/Output Summary (Last 24 hours) at 08/29/2024 1012 Last data filed at 08/29/2024 0922 Gross per 24 hour Intake 20 ml Output 650 ml Net -630 ml Labs: Hematology: Recent Labs 08/27/24 0808 08/28/24 0703 08/29/24 0346 WBC 11.2 9.2 9.7 RBC 4.09* 3.86* 3.65* HGB 13.0 12.1* 11.4* HCT 40.0* 38.3* 34.8* MCV 97.8 99.2 95.3 MCH 31.8 31.3 31.2 MCHC 32.5 31.6 32.8 RDW 13.1 13.2 12.7 PLT 122* 143 200 MPV 11.1 10.8 10.5 Chemistry: Recent Labs 08/27/24 0808 08/28/24 0703 08/29/24 0346 NA 132* 129* 133* K 3.4* 3.5* 4.3 CL 96* 95* 98 CO2 27 GLUCOSE 200* 143* 147* BUN 19 CREATININE 0.7 0.6* 0.7 MG 2.1 2.3 2.1 ANIONGAP 11 10 8* LABGLOM >90 >90 >90 CALCIUM 8.5* 8.5* 8.4* PHOS 2.5 3.1 3.0 Recent Labs 08/27/24 2019 08/28/24 0734 08/28/24 1138 08/28/24 1600 08/28/24202308/29/24 0751 POCGLU 192* 137* 201* 187* 122* 118* ABG: Lab Results Component Value Date/Time PHART 7.414 08/23/2024 05:20 PM [id number] 41.2 08/23/2024 05:20 PM PO2ART 211.0 08/23/2024 05:20 PM [id number] 25.9 08/23/2024 05:20 PM PBEA 1.7 08/23/2024 05:20 PM C0AFFKYP 98.0 08/23/2024 05:20 PM FIO2 60 08/23/2024 05:20 PM Lab Results Component Value Date/Time SPECIAL LEFT AC 10ML 08/23/2024 03:14 AM Lab Results Component Value Date/Time CULTURE (A) 08/23/2024 07:12 PM KLEBSIELLA OXYTOCA RARE GROWTH Identification by MALDI-TOF CULTURE No anaerobic organisms isolated at 5 days. 08/23/2024 07:12 PM Radiology: MRI LUMBAR SPINE W WO CONTRAST Addendum Date: 08/26/2024 ADDENDUM: Prior studies are now available for comparison which included MRI lumbar spine without contrast dated 11/01/2023, and CT lumbar spine dated 08/22/2024. The findings in the impression is new when compared to the prior MRI. Multiple locules of air noted within the anterior epidural space from L3-S1 on prior CT, likely was postprocedural in nature. Result Date: 08/26/2024 A 6 mm thickness T1 and T2 heterogeneous lesion extending from superior endplate of the L4 to the inferior endplate of the L5 causing moderate spinal canal narrowing and crowding of the cauda equina roots without compression. The lesion demonstrate heterogenous enhancement. Differential diagnosis include granulation tissue or phlegmon. If clinical symptoms persists, one-week follow-up study can be obtained for further evaluation. US ABDOMEN LIMITED Specify organ? LIVER, SPLEEN Result Date: 08/25/2024 Suspected hepatic steatosis. XR CHEST PORTABLE Result Date: 08/24/2024 Improving pulmonary vascular congestion when compared to the prior exam CT CHEST PULMONARY EMBOLISM W CONTRAST Result Date: 08/23/2024 1. No evidence of pulmonary embolism or acute thoracic aortic abnormality. 2. Mild to moderate atelectasis, with or without mild infiltrates in the right pulmonary lower lobe. 3. Mild pulmonary vascular congestion. 4. Coronary artery calcifications. 5. Multilevel degenerative disc disease in the mid and lower portion of thoracic spine without spinal stenosis. XR CHEST PORTABLE Result Date: 08/23/2024 Bilateral interstitial and ground-glass opacities are noted, which may be due to pulmonary edema or atypical infection. Physical Examination: Physical Exam Vitals and nursing note reviewed. Constitutional: General: He is not in acute distress. HENT: Head: Normocephalic and atraumatic. Eyes: Conjunctiva/sclera: Conjunctivae normal. Pupils: Pupils are equal, round, and reactive to light. Cardiovascular: Rate and Rhythm: Normal rate and regular rhythm. Heart sounds: No murmur heard. Pulmonary: Effort: Pulmonary effort is normal. No accessory muscle usage or respiratory distress. Breath sounds: No stridor. No decreased breath sounds, wheezing, rhonchi or rales. Abdominal: General: Bowel sounds are normal. There is no distension. Palpations: Abdomen is soft. Abdomen is not rigid. Tenderness: There is no abdominal tenderness. There is no guarding. Musculoskeletal: General: No tenderness. Skin: General: Skin is warm and dry. Findings: No erythema, lesion or rash. Neurological: Mental Status: He is alert and oriented to person, place, and time. Cranial Nerves: No cranial nerve deficit. Motor: No seizure activity. Psychiatric: Speech: Speech normal. Behavior: Behavior normal. Behavior is cooperative. Assessment: Hospital Problems Last Modified POA * (Principal) Epidural abscess 08/23/2024 Yes Discitis of lumbar region 08/23/2024 Yes Gram-neg septicemia (HCC) 08/24/2024 Yes Alcohol dependence with withdrawal with complication (HCC) 08/24/2024 Yes Abscess in epidural space of lumbar spine 08/25/2024 Yes Bandemia 08/25/2024 Yes CRP elevated 08/25/2024 Yes Sepsis due to Klebsiella (HCC) 08/25/2024 Yes Plan: Lumbar spine epidural abscess status postlaminectomy 08/23 Klebsiella bacteremia -S/p laminectomy on 08/23, neurosurgery signed off -ID following for antibiotic recommendations. -Plan for OH today at 1 pm -Culture from laminectomy also growing Klebsiella -PT OT following HFpEF -Not in exacerbation -Cardiology following -Echo showing EF 66%, MV with mass on anterior leaflet, possible healed vegetation. -On Lasix 40 mg switched from IV to oral Type 2 diabetes -A1c 7.8 08/2024 -On semaglutide at home -Lantus 13 units daily and sliding scale while inpatient COPD -Not in exacerbation -As needed albuterol Alcohol use disorder -Continue to monitor on CIWA Constipation Bowel regimen Discharge planning: SNF versus home with home PT Gena Wilson MD 08/29/2024 10:12 AM Images from the original note were not included. [facility] - Progress Note Today's Date and Time: 08/29/2024, 10:44 AM Impression : Gram negative jaime bacteremia-Klebsiella oxytoca on blood cultures from 08/23/24 Concern for epidural abscess and discitis S/p L5-L5 laminectomy with no abscess found Spinal culture also growing Klebsiella oxytoca CRP elevation Leukocytosis Thrombocytopenia DM II with hyperglycemia Chronic back pain CAD COPD History of drug abuse Alcohol abuse with concern for acute alcohol withdrawal Recommendations: IV ceftriaxone continues based on culture and sensitivity Discontinued IV Vancomycin Will switch to Levaquin 750 mg po x 6 weeks at time of discharge Office f/up in [address] Arvizu for infection. Please call [phone] for appointment Medical Decision Making/Summary/Discussion:[address] Arvizu's recommendations Infection Control Recommendations [place] Precautions Antimicrobial Stewardship Recommendations Simplification of therapy Targeted therapy Coordination of Outpatient Care: Estimated Length of IV antimicrobials:TBD Patient will need Midline Catheter Insertion: TBD Patient will need PICC line Insertion:TBD Patient will need: Home IV , Infusion Center, SNF, LTAC: TBD Patient will need outpatient wound care: Chief complaint/reason for consultation: Gram negative jaime bacteremia-Klebsiella on blood cultures from 08/23/24 History of Present Illness: Freddy Panchal is a 68 y.o.-year-old male who was initially admitted on 08/23/2024. Patient seen at the request of Dr. Nazario Guaman INITIAL HISTORY: This patient has a history of chronic back pain for which he receives regular steroid injections. His last injection was given on 08/15/24. He also has a history of COPD, CAD, DM II, polysubstance abuse, but he denied any recent IV drug use. He presented to [facility] with complaints of worsening lower back pain that was radiating to his lower extremities. A CT lumbar spine and MRI showed concern for lumbar discitis with L4-L5 phlegmon. Labwork was significant for glucose 307, WBC 12.1-->15.5 with a left shift of 10.8-->13.5, low platelet at 54, CRP elevation of 412 and ESR of 79. He was transferred to [facility] for Neurosurgery evaluation on 08/22/24. IV Vancomycin and Zosyn was initiated. On 08/23/24, he underwent a L4-L5 laminectomy with Dr. Samaniego. Per Dr. Samaniego's surgical note, there was no intraspinal abscess, although there was some abnormal colored fat noted that was sent for culture and is growing Klebsiella. Blood cultures were positive for Klebsiella. ID was consulted. CTA Chest 08/23/24: 1. No evidence of pulmonary embolism or acute thoracic aortic abnormality. 2. Mild to moderate atelectasis, with or without mild infiltrates in the right pulmonary lower lobe. 3. Mild pulmonary vascular congestion. 4. Coronary artery calcifications. 5. Multilevel degenerative disc disease in the mid and lower portion of thoracic spine without spinal stenosis. CXR 08/23/24: Bilateral interstitial and ground-glass opacities are noted, which may be due to pulmonary edema or atypical infection MRI lumbar spine 08/23/24: A 6 mm thickness T1 and T2 heterogeneous lesion extending from superior endplate of the L4 to the inferior endplate of the L5 causing moderate spinal canal narrowing and crowding of the cauda equina roots without compression. The lesion demonstrate heterogenous enhancement. Differential diagnosis include granulation tissue or phlegmon. If clinical symptoms persists, one-week follow-up study can be obtained for further evaluation. US Abdomen 08/25/24: Suspected hepatic steatosis Cardiac Echo 08/27/24: 1.Left Ventricle: Normal left ventricular systolic function. EF 3D is 66%. Left ventricle size is normal. Normal wall motion. 2. Aortic Valve: Trileaflet valve. Mild regurgitation. 3. Mitral Valve: prominent calcification/mass on anterior leaflet, correlate clinically, consider OH when indicated. Mild regurgitation. CURRENT EVALUATION- DAILY INTERVAL CHANGES 08/29/2024 BP 132/80 Pulse 71 Temp 97.5 F (36.4 C) (Oral) Resp 18 Ht 1.803 m (5' 10.98 ) Wt 88.5 kg (195 lb) SpO2 93% BMI 27.21 kg/m Afebrile VS stable WBC continues to be stable; most recent 9.7 The patient continues to experience back pain below the surgical incision site. Today the patient mentions the lidocaine patch did not provide relief. The patient had 2 bowel movements yesterday. He denies fever, chills, night sweats, SOB, chest pain, cough, nausea, vomiting, or diarrhea. Patient's intermittent cough with blood coloring in sputum is improving. No gunner hemoptysis. Lovenox on hold. CTA on 08/23 showed no evidence of pulmonary embolism Patient has been NPO since midnight and is undergoing OH today to evaluate mitral valve disease. Will follow-up on results to see if there are any vegetations present. Preliminary results: No vegetations Patient has been able to walk with assistance of PT. Medications reviewed: Zosyn D/C on 08/24 Vancomycin D/C on 08/24 Cefepime D/C on 08/25 On ceftriaxone Plan to switch to po Levaquin at time of discharge. Blood and wound cultures show Klebsiella oxytoca sensitive to Ceftriaxone Ceftriaxone 2000 mg IV started on 08/25 We will continue to work with case management as treatment progresses for discharge planning. Patient continues to express desire to discharge home with home health. He says he has friends nearby that can support him. Both PT and OT recommend continued therapy after discharge. Labs, X rays reviewed: 08/29/2024 with independent review of X rays I have independently reviewed/ordered the following labs: CBC with Differential: Recent Labs 08/28/24 0703 08/29/24 0346 WBC 9.2 9.7 HGB 12.1* 11.4* HCT 38.3* 34.8* PLT 143 200 LYMPHOPCT 19* 15* MONOPCT 8 7 EOSPCT 2 2 BMP: Recent Labs 08/28/24 0703 08/29/24 0346 NA 129* 133* K 3.5* 4.3 CL 95* 98 CO2 24 27 BUN 22 19 CREATININE 0.6* 0.7 MG 2.3 2.1 Hepatic Function Panel: No results for input(s): LABALBU , BILIDIR , IBILI , BILITOT , ALKPHOS , ALT , AST in the last 72 hours. Invalid input(s): PROT No results for input(s): RPR in the last 72 hours. No results for input(s): HIV in the last 72 hours. No results for input(s): BC in the last 72 hours. Lab Results Component Value Date/Time BACTERIA None 08/23/2024 04:18 AM RBC 3.65 08/29/2024 03:46 AM WBC 9.7 08/29/2024 03:46 AM TURBIDITY Clear 08/23/2024 04:18 AM Lab Results Component Value Date/Time CREATININE 0.7 08/29/2024 03:46 AM GLUCOSE 147 08/29/2024 03:46 AM Cultures: Urine: Blood: 08/22/24: 2/2 Klebsiella Sputum : Wound: 08/23/24: L5-L6 surgical culture: Klebsiella MRSA Nares: Imaging: MRI lumbar spine 08/22/24 Review of Systems: Pertinent review of symptoms listed in Initial Evaluation and daily interval evaluations sections Physical Examination : Patient Vitals for the past 8 hrs: BP Temp Temp src Pulse Resp SpO2 08/29/24 0915 -- -- -- -- 18 -- 08/29/24 0909 132/80 -- -- 71 -- -- 08/29/24 0745 132/80 97.5 F (36.4 C) Oral 71 18 93 % 08/29/24 0551 -- -- -- -- 18 -- 08/29/24 0232 -- -- -- -- 16 -- General Appearance: Awake, alert, and in no apparent distress. Tremors noted Head: Normocephalic, no trauma Eyes: Pupils equal, round, reactive to light and accommodation; extraocular movements intact; sclera anicteric; conjunctivae pink. No embolic phenomena. ENT: Oropharynx clear, without erythema, exudate, or thrush. No tenderness of sinuses. Mouth/throat: mucosa pink and moist. No lesions. Dentition in good repair. Neck:Supple, without lymphadenopathy. Thyroid normal, No bruits. Pulmonary/Chest: Clear to auscultation, without wheezes, rales, or rhonchi. No dullness to percussion. Cardiovascular: Regular rate and rhythm without murmurs, rubs, or gallops. Abdomen: Soft, non tender. Bowel sounds normal. No organomegaly All four Extremities: No cyanosis, clubbing, edema, or effusions.Back pain Neurologic: No gross sensory or motor deficits. Skin: Warm and dry with good turgor.No signs of peripheral arterial or venous insufficiency. No ulcerations. No open wounds. I have personally reviewed the past medical history, past surgical history, medications, social history, and family history, and I have updated the database accordingly. Past Medical History: History reviewed. No pertinent past medical history. Past Surgical History: Past Surgical History: Procedure Laterality Date LUMBAR SPINE SURGERY 08/23/2024 LUMBAR LAMINECTOMY FOR ABCESS LUMBAR SPINE SURGERY N/A 08/23/2024 E2 LUMBAR LAMINECTOMY FOR ABCESS performed by Wilda Samaniego DO at [facility] OR Medications: furosemide 40 mg Oral Daily docusate sodium 100 mg Oral TID diclofenac sodium 4 g Topical BID Buprenorphine HCl 900 mcg Buccal BID baclofen 10 mg Oral Nightly lidocaine 1 patch TransDERmal Daily cefTRIAXone (ROCEPHIN) IV 2,000 mg IntraVENous Q24H atorvastatin 20 mg Oral Nightly carvedilol 6.25 mg Oral BID WC insulin lispro 0-8 Units SubCUTAneous 4x Daily AC & HS insulin glargine 13 Units SubCUTAneous Daily sodium chloride flush 5-40 mL IntraVENous 2 times per day thiamine 100 mg Oral Daily sodium chloride flush 5-40 mL IntraVENous 2 times per day [Held by provider] enoxaparin 40 mg SubCUTAneous Daily Social History: Social History Socioeconomic History Marital status: Spouse name: Not on file Number of children: Not on file Years of education: Not on file Highest education level: Not on file Occupational History Not on file Tobacco Use Smoking status: Never Passive exposure: Never Smokeless tobacco: Never Vaping Use Vaping status: Never Used Substance and Sexual Activity Alcohol use: Not on file Drug use: Not on file Sexual activity: Not on file Other Topics Concern Not on file Social History Narrative Not on file Social Determinants of Health Financial Resource Strain: Not on file Food Insecurity: Patient Unable To Answer (08/25/2024) Hunger Vital Sign Worried About Running Out of Food in the Last Year: Patient unable to answer Ran Out of Food in the Last Year: Patient unable to answer Transportation Needs: Patient Unable To Answer (08/25/2024) PRAPARE - Transportation Lack of Transportation (Medical): Patient unable to answer Lack of Transportation (Non-Medical): Patient unable to answer Physical Activity: Not on file Stress: Not on file Social Connections: Moderately Integrated (08/29/2024) Social Connections ([facility] HRSN) If for any reason you need help with day-to-day activities such as bathing, preparing meals, shopping, managing finances, etc., do you get the help you need?: Not on file Intimate Partner Violence: Not on file Housing Stability: Patient Unable To Answer (08/25/2024) Housing Stability Vital Sign Unable to Pay for Housing in the Last Year: Patient unable to answer Number of Times Moved in the Last Year: 0 Homeless in the Last Year: Patient unable to answer Family History: History reviewed. No pertinent family history. Allergies: Codeine Medical Decision Making-Imaging: MRI LUMBAR SPINE W WO CONTRAST Result Date: 08/23/2024 EXAMINATION: MRI OF THE LUMBAR SPINE WITHOUT AND WITH CONTRAST 08/23/2024 9:23 am TECHNIQUE: Multiplanar multisequence MRI of the lumbar spine was performed without and with the administration of intravenous contrast. COMPARISON: None. HISTORY: ORDERING SYSTEM PROVIDED HISTORY: Concern for epidural abscess, recent steroid injection to back TECHNOLOGIST PROVIDED HISTORY: Concern for epidural abscess, recent steroid injection to back Decision Support Exception - unselect if not a suspected or confirmed emergency medical condition->Emergency Medical Condition (MA) Reason for Exam: Concern for epidural abscess, recent steroid injection to back FINDINGS: BONES/ALIGNMENT: There is normal alignment of the spine. The vertebral body heights are maintained. The bone marrow signal appears unremarkable. SPINAL CORD: The conus terminates normally. SOFT TISSUES: No abnormal enhancement is seen of the lumbar spine. No paraspinal mass identified. L1-L2: There is no significant disc protrusion, spinal canal stenosis or neural foraminal narrowing. L2-L3: There is no significant disc protrusion, spinal canal stenosis or neural foraminal narrowing. L3-L4: There is no significant disc protrusion, spinal canal stenosis or neural foraminal narrowing. L4-L5: Within the ventral epidural space, there is a T1 and T2 heterogenous collection which is 6 mm in thickness causing more red spinal canal narrowing and crowding of the cauda equina nerve roots. Mild bilateral neural foraminal narrowing. This collection demonstrates heterogeneous enhancement. L5-S1: There is no significant disc protrusion, spinal canal stenosis or neural foraminal narrowing. A 6 mm thickness T1 and T2 heterogeneous lesion extending from superior endplate of the L4 to the inferior endplate of the L5 causing moderate spinal canal narrowing and crowding of the cauda equina roots without compression. The lesion demonstrate heterogenous enhancement. Differential diagnosis include granulation tissue or phlegmon. If clinical symptoms persists, one-week follow-up study can be obtained for further evaluation. FLUORO FOR SURGICAL PROCEDURES Result Date: 08/23/2024 Radiology exam is complete. No Radiologist dictation. Please follow up with ordering provider. Vascular duplex lower extremity venous bilateral Result Date: 08/23/2024 No evidence of deep vein or superficial vein thrombosis in the right lower extremity. Vessels demonstrate normal compressibility, color filling, and phasic and spontaneous flow. No evidence of deep vein or superficial vein thrombosis in the left lower extremity. Vessels demonstrate normal compressibility, color filling, and phasic and spontaneous flow. CT CHEST PULMONARY EMBOLISM W CONTRAST Result Date: 08/23/2024 EXAMINATION: CTA OF THE CHEST 08/23/2024 3:11 am TECHNIQUE: CTA of the chest was performed after the administration of intravenous contrast. Multiplanar reformatted images are provided for review. MIP images are provided for review. Automated exposure control, iterative reconstruction, and/or weight based adjustment of the mA/kV was utilized to reduce the radiation dose to as low as reasonably achievable. COMPARISON: None. HISTORY: ORDERING SYSTEM PROVIDED HISTORY: rule out PE TECHNOLOGIST PROVIDED HISTORY: rule out PE Additional Contrast?->1 FINDINGS: Pulmonary Arteries: Pulmonary arteries are adequately opacified for evaluation. No evidence of intraluminal filling defect to suggest pulmonary embolism. Main pulmonary artery is normal in caliber. Mediastinum: No evidence of mediastinal lymphadenopathy. The heart and pericardium demonstrate no acute abnormality. No evidence of thoracic aortic aneurysm or dissection. No evidence of pericardial effusion or pericardial thickening. Evidence of coronary artery calcifications noted. Lungs/pleura: Evidence of mild to moderate atelectasis, with or without mild infiltrates in the right pulmonary lower lobe. Minimal atelectasis at the base of right middle lobe. Minimal atelectasis at the posterior base of left pulmonary lower lobe. Mild pulmonary vascular congestion. No pleural effusion or pneumothorax. Upper Abdomen: No acute process in the visualized upper abdomen. No hiatal hernia. No pneumoperitoneum. Soft Tissues/Bones: No acute bone or soft tissue abnormality. [id number] multilevel degenerative disc disease in the mid and lower portion of thoracic spine without spinal stenosis. 1. No evidence of pulmonary embolism or acute thoracic aortic abnormality. 2. Mild to moderate atelectasis, with or without mild infiltrates in the right pulmonary lower lobe. 3. Mild pulmonary vascular congestion. 4. Coronary artery calcifications. 5. Multilevel degenerative disc disease in the mid and lower portion of thoracic spine without spinal stenosis. XR CHEST PORTABLE Result Date: 08/23/2024 EXAMINATION: ONE XRAY VIEW OF THE CHEST 08/23/2024 3:21 am COMPARISON: None. HISTORY: ORDERING SYSTEM PROVIDED HISTORY: tachy TECHNOLOGIST PROVIDED HISTORY: tachy Reason for Exam: port upright FINDINGS: Shallow inflation. Cardiac silhouette enlargement. Bilateral interstitial and ground-glass opacities are noted. No pneumothorax or effusion. No acute osseous abnormality identified. Bilateral interstitial and ground-glass opacities are noted, which may be due to pulmonary edema or atypical infection. Medical Decision [id number]: Results Procedure Component Value Units Date/Time Infectious Disease Intervention [[id number]] Collected: 08/24/24 1800 Order Status: Completed Updated: 08/27/24 0754 Intervention De-escalation Culture, Anaerobic and Aerobic [[id number]] (Abnormal) (Susceptibility) Collected: 08/23/24 191 Order Status: Completed Specimen: Spine Updated: 08/28/24 0737 Specimen Description .SPINE Direct Exam NO NEUTROPHILS SEEN NO BACTERIA SEEN Culture KLEBSIELLA OXYTOCA RARE GROWTH Identification by MALDI-TOF No anaerobic organisms isolated at 5 days. Susceptibility Klebsiella oxytoca BACTERIAL SUSCEPTIBILITY PANEL LETHA ampicillin 16 Resistant ceFAZolin <=4 Sensitive cefTRIAXone <=0.25 Sensitive Confirmatory Extended Spectrum Beta-Lactamase NEGATIVE Sensitive gentamicin <=1 Sensitive levofloxacin <=0.12 Sensitive piperacillin-tazobactam <=4 Sensitive tobramycin <=1 Sensitive trimethoprim-sulfamethoxazole <=20 Sensitive Culture, Anaerobic and Aerobic [[id number]] Collected: 08/23/241803 Order Status: No result Specimen: Swab from Spine Culture, Blood 1 [[id number]] (Abnormal) Collected: 08/23/24313 Order Status: Completed Specimen: Blood Updated: 08/25/24818 Specimen Description .BLOOD Special Requests LEFT AC 10ML Culture POSITIVE Blood Culture DIRECT GRAM STAIN FROM BOTTLE: GRAM NEGATIVE RODS KLEBSIELLA OXYTOCA Identification by MALDI-TOF For susceptibility, refer to previous culture. (NOTE) Direct Gram Stain from bottle result called to and read back by: DOMINICK Baker on 08/23/24 at 1409 Culture, Blood 1 [[id number]] (Abnormal) (Susceptibility) Collected: 08/23/24312 Order Status: Completed Specimen: Blood Updated: 08/25/24818 Specimen Description .BLOOD Special Requests RIGHT FOREARM 10ML Culture POSITIVE Blood Culture DIRECT GRAM STAIN FROM BOTTLE: GRAM NEGATIVE RODS Klebsiella oxytoca Detected: Methodology- Polymerase Chain Reaction (PCR) KLEBSIELLA OXYTOCA (NOTE) Direct Gram Stain from bottle result called to and read back by: DOMINICK Otoole on 08/23/24 at 12:35 Susceptibility Klebsiella oxytoca BACTERIAL SUSCEPTIBILITY PANEL LETHA ampicillin 16 Resistant ceFAZolin <=4 Sensitive cefTRIAXone <=0.25 Sensitive Confirmatory Extended Spectrum Beta-Lactamase NEGATIVE Sensitive gentamicin <=1 Sensitive levofloxacin <=0.12 Sensitive piperacillin-tazobactam <=4 Sensitive tobramycin <=1 Sensitive trimethoprim-sulfamethoxazole <=20 Sensitive Thank you for allowing us to participate in the care of this patient. Please call with questions. RODNEY Granger-3 08/29/2024 Office: ATTESTATION: I have discussed the case, including pertinent history and exam findings with the medical office coordinator. I have evaluated the History, physical findings and pictures of the patient and the serrano elements of the encounter have been performed by me. I have reviewed the laboratory data, other diagnostic studies and discussed them with the medical office coordinator. I have updated the medical record where necessary. I agree with the assessment, plan and orders as documented by the medical office coordinator and I have modified them as necessary. Elements of Medical Decision Making: Note: I have independently performed the steps listed below as part of the medical decision making and evaluation. Examined and discussed with patient. Gram-negative septicemia 08/23/2024 Klebsiella septicemia 08/23/2024 Concern for epidural abscess and discitis Status post L4-L5 laminectomy with no abscess found Tissue culture from the spine with growth of Klebsiella CRP elevation Leukocytosis Thrombocytopenia Diabetes mellitus type 2 with hyperglycemia Chronic back pain Coronary artery disease COPD History of drug abuse Alcohol abuse Labs, medications, radiologic studies were reviewed with personal review of films Radiologic studies Lab work Cultures Klebsiella in blood Klebsiella in tissue culture from the spine Large amounts of data were reviewed Patient with a history of chronic back pain for which she receives regular steroid injections Received last dose on 08/15/2024 Subsequently presented to [facility] ER with worsening lower back pain with radiation to his lower extremities CT scan and MRI of the spine showed concern for lumbar discitis with L4-L5 phlegmon Patient had associated elevation of CRP and ESR as well has leukocytosis Transferred to [facility] on 08/22/2024 Patient underwent L4-L5 laminectomy on 08/23/2024. No abscess was found but there was some abnormal fatty tissue that was cultured and is growing Klebsiella Blood cultures are also growing Klebsiella Discussed with nursing Staff, turnaround planner Dr Guaman's service Infection Control and Prevention measures reviewed Toyah precaution All prior entries were reviewed Neurosurgical and IM notes reviewed Administer medications as ordered Ceftriaxone 2 g IV every 24 hours Plan Levaquin at discharge Monitor culture data and modified as necessary Prognosis: Guarded Discharge planning reviewed Follow up as outpatient. Chong Arvizu MD 08/29/2024 Physical Therapy Facility/Department: [facility] RENAL//MED SURG Physical Therapy Daily Treatment Note Name: Freddy Panchal : 1955 Date of Service: 08/28/2024 Discharge Recommendations: Patient would benefit from continued therapy after discharge PT Equipment Recommendations Equipment Needed: Yes Mobility Devices: Walker Walker: Rolling Patient Diagnosis(es): The primary encounter diagnosis was Epidural abscess. Diagnoses of Tachycardia, Abscess in epidural space of lumbar spine, Acute congestive heart failure, unspecified heart failure type (HCC), and Mitral valve mass were also pertinent to this visit. Past Medical History: has no past medical history on file. Past Surgical History: has a past surgical history that includes Lumbar spine surgery (08/23/2024) and Lumbar spine surgery (N/A, 08/23/2024). Assessment Body Structures, Functions, Activity Limitations Requiring Skilled Therapeutic Intervention: Decreased functional mobility ;Decreased tolerance to work activity;Decreased strength;Decreased endurance;Decreased balance;Increased pain Assessment: Pt presents with pain w/movement but able to complete STS's from EOB with SBA, ambulated 300 ft and 150 ft X1 SBA using RW, negotiated 10 steps with reciprocal gait pattern using B h-rails. Pt will benefit from continued therapy following d/c facilitating return to functional IND. Specific Instructions for Next Treatment: Progress activity and encourage out of bed activity Therapy Prognosis: Good Decision Making: Medium Complexity Clinical Presentation: evolved Activity Tolerance Activity Tolerance: Patient tolerated evaluation without incident;Patient limited by pain;Patient limited by endurance;Other (comment) Activity Tolerance Comments: Pt was able to participate in PT POC and in agreement with goals Plan Physical Therapy Plan General Plan: 6-7 times per week Specific Instructions for Next Treatment: Progress activity and encourage out of bed activity Current Treatment Recommendations: Strengthening, Balance training, Functional mobility training, Transfer training, Endurance training, Gait training, Stair training, Neuromuscular re-education, Home exercise program, Safety education & training, Therapeutic activities Safety Devices Type of Devices: Patient at risk for falls, Gait belt, Nurse notified, Call light within reach, Chair alarm in place, Left in chair Restraints Restraints Initially in Place: No Restrictions Restrictions/Precautions Restrictions/Precautions: Seizure, Fall Risk, Up as Tolerated Required Braces or Orthoses?: No Position Activity Restriction Spinal Precautions: No Bending, No Lifting, No Twisting Other position/activity restrictions: Up with assist, LUMBAR LAMINECTOMY FOR ABCESS on 08/23/24 Subjective General Patient assessed for rehabilitation services?: Yes Response To Previous Treatment: Patient with no complaints from previous session. Family / Caregiver Present: Yes Follows Commands: Within Functional Limits Other (Comment): Pt is awake and alert in agreement with PT intervention., Okay per RN General Comment Comments: Pt report independent at baseline without AD, Subjective Subjective: Pt report 8/10 back pain upon completion of PT intervention. Social/Functional History Social/Functional History Lives With: Alone Type of Home: House Home Layout: Two level, Bed/Bath upstairs, Able to Live on Main level with bedroom/bathroom Home Access: Stairs to enter with rails Entrance Stairs - Number of Steps: 2 + 2 RADHA back of house Bathroom Shower/Tub: Tub/Shower unit Bathroom Toilet: Standard Bathroom Equipment: None Bathroom Accessibility: Accessible Home Equipment: None, Walker - Rolling, Cane Has the patient had two or more falls in the past year or any fall with injury in the past year?: Yes (recent fall due to neuropathy at bilateral LE's) Receives Help From: Family, Friend(s) (Pt report good family and friend support) ADL Assistance: Independent Homemaking Assistance: Independent Homemaking Responsibilities: Yes Meal Prep Responsibility: Primary Laundry Responsibility: Primary Cleaning Responsibility: Primary Bill Paying/Finance Responsibility: Primary Shopping Responsibility: Primary Dependent Care Responsibility: Primary Health Care Management: Primary Ambulation Assistance: Independent Transfer Assistance: Independent 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, 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 Additional Comments: Pt report independence at baseline without AD, used if needed Cognition Orientation Overall Orientation Status: Within Normal Limits Orientation Level: Oriented X4 Cognition Overall Cognitive Status: WNL Objective Temp: 98.4 F (36.9 C) Pulse: 78 Respirations: 16 SpO2: 93 % O2 Device: None (Room air) BP: 121/74 MAP (Calculated): 90 BP Location: Left upper arm Bed mobility Supine to Sit: Supervision Sit to Supine: Supervision Scooting: Supervision Transfers Sit to Stand: Stand by assistance Stand to Sit: Stand by assistance Ambulation Surface: Level tile Device: Rolling Walker Assistance: Stand by assistance Quality of Gait: Slow/steady pace, no LOB noted, safe use of RW Gait Deviations: Slow Miriam;Decreased step length Distance: 300 ft X1 and 150 ft X1 Stairs/Curb Stairs?: Yes Stairs # Steps : 10 Stairs Height: 6 Rails: Bilateral Device: No Device Assistance: Stand by assistance Comment: reciprocal gait pattern ascending, non reciprocal descending, no LOB noted Wheelchair Activities Wheelchair Parts Management: No Propulsion: No Balance Posture: Good Sitting - Static: Good Sitting - Dynamic: Good Standing - Static: Good Standing - Dynamic: Good Comments: balance assessed with RW AM-[facility] - Mobility AM-[facility] Basic Mobility - Inpatient How much help is needed turning from your back to your side while in a flat bed without using bedrails?: None How much help is needed moving from lying on your back to sitting on the side of a flat bed without using bedrails?: None How much help is needed moving to and from a bed to a chair?: None How much help is needed standing up from a chair using your arms?: A Little How much help is needed walking in hospital room?: A Little How much help is needed climbing 3-5 steps with a railing?: A Little AM-[facility] Inpatient Mobility Raw Score : 21 [facility] T-Scale Score : 50.25 Mobility Inpatient CMS 0-100% Score: 28.97 Mobility Inpatient [facility] G-Code Modifier : CJ Goals Short Term Goals Time Frame for Short Term Goals: 14 visits Short Term Goal 1: Pt to ambulate 200 ft mod I with least AD Short Term Goal 2: Pt to transfer from alternate surface heights with Mod I demonstrating safety with AD Short Term Goal 3: Pt to ascend/descend 4 steps with Mod I and rigth railing Short Term Goal 4: Pt to be provided verbal, written and practical instruction in bilateral LE ROM exercises to improve general strength and activity tolerance. Patient Goals Patient Goals : To return home Education Patient Education Education Given To: Patient Education Provided: Role of Therapy;Plan of Care;Precautions;Transfer Training;Equipment;Fall Prevention Strategies Education Method: Verbal Barriers to Learning: None Education Outcome: Verbalized understanding;Continued education needed Therapy Time Individual Concurrent Group Co-treatment Time In 1300 Time Out 1315 Minutes 15 SONY MCKINNON PTA Occupational Therapy Facility/Department: [facility] RENAL//MED SURG Daily Treatment Note Patient Name: Freddy Panchal : 1955 Date of Service: 08/28/2024 Discharge Recommendations Discharge Recommendations: Patient would benefit from continued therapy after discharge OT Equipment Recommendations ADL Assistive Devices: Shower Chair with back;Pot Puller;Sock-Aid Hard;Toileting - Standard Commode Assessment Performance deficits / Impairments: Decreased functional mobility ;Decreased ADL status;Decreased endurance;Decreased balance;Decreased safe awareness;Decreased cognition;Decreased high-level IADLs Prognosis: Good Activity Tolerance Activity Tolerance: Patient Tolerated treatment well;Patient limited by pain Activity Tolerance Comments: pt was ed for techs to avoid spinal pain, pt needs increased time to complete tasks and initiate d/t pain. Safety Devices Type of Devices: Patient at risk for falls;Gait belt;Nurse notified;Call light within reach;Chair alarm in place;Left in chair Restrictions/Precautions Restrictions/Precautions Restrictions/Precautions: Seizure;Fall Risk;Up as Tolerated Position Activity Restriction Spinal Precautions: No Bending;No Lifting;No Twisting Other position/activity restrictions: Up with assist, LUMBAR LAMINECTOMY FOR ABCESS on 08/23/24 Subjective General Patient assessed for rehabilitation services?: Yes Family / Caregiver Present: No General Comment Comments: RN ok'd OT tx this date. Pt pleasant, cooperative, and agreeable to therapy throughout entire session. Pt reporting 9/10 pain in back during session; engaging in functional activities and repositioned for best comfort, applyed ice pack at the end of session. Objective Orientation Overall Orientation Status: Within Normal Limits Orientation Level: Oriented X4 Cognition Overall Cognitive Status: WNL Arousal/Alertness: Appears intact Following Commands: Follows multistep commands with increased time;Follows multistep commands with repitition Attention Span: Appears intact Memory: Appears intact Safety Judgement: Decreased awareness of need for assistance;Decreased awareness of need for safety Problem Solving: Decreased awareness of errors;Assistance required to generate solutions Insights: Decreased awareness of deficits Initiation: Requires cues for some Sequencing: Requires cues for some Activities of Daily Living Grooming: Stand by assistance Grooming Skilled Clinical Factors: pt sat in recliner for oral care and face washing with increased time to complete, needs cues to initiate tasks d/t pain UE Bathing Skilled Clinical Factors: pt sat in recliner for UE bathing LE Bathing: Contact guard assistance LE Bathing Skilled Clinical Factors: pt stood at and [facility] for loren/buttocks care LE Dressing: Minimal assistance LE Dressing Skilled Clinical Factors: pt able to bring LLE into figure four tech to thread brief and requires MIN A for LLE to thread brief, pt was ed for use of avionics electronics technician to assist to maintain spinal precautions Toileting: Contact guard assistance Toileting Skilled Clinical Factors: pt transfers BSC near by with CGA and RW, cues for grab bar use, voided only this date. Additional Comments: pt was ed for use of BSC/toilet with nursing vs using purewhick, to promote increased mobility distances as pt is planned to d/c home ind, pt verbalized understanding Balance Balance Sitting: Without support Standing: High guard (CGA for functional mobility, CGA-SBA for dynamic/static standing, CGA for STS. Pt demos ability to to posteriotly reach without LOB. total time ~10 mins) Transfers/Mobility Bed mobility Supine to Sit: Stand by assistance Scooting: Stand by assistance Bed Mobility Comments: HOB elevated high, log roll tech applied, inc effort to come to sitting. In recliner at the end of session Transfers Sit to stand: Contact guard assistance Stand to sit: Contact guard assistance Transfer Comments: with RW, cue for hand placements and controlled decent Toilet Transfers Toilet - Technique: Ambulating Equipment Used: Standard bedside commode Toilet Transfer: Contact guard assistance Toilet Transfers Comments: with RW Functional Mobility: Contact guard assistance Functional Mobility Skilled Clinical Factors: functional mobility with CGA for short distance from bed to recliner to BSC and back to recliner with slow pace, cues for safety with RW management and avoiding abandoning, cues for safe hand placement, fair carryover. Patient Education Patient Education Education Given To: Patient Education Provided: Plan of Care;ADL Adaptive Strategies;Transfer Training;Energy Conservation;Fall Prevention Strategies;Equipment Education Provided Comments: ed on use of avionics electronics technician for lower body dressing Education Method: Demonstration;Verbal Barriers to Learning: None Education Outcome: Continued education needed;Verbalized understanding Goals Short Term Goals Time Frame for Short Term Goals: By discharge, pt will Short Term Goal 1: demo UB ADLs Independently. Short Term Goal 2: demo LB ADLs with SBA, adaptive techniques PRN. Short Term Goal 3: demo functional transfers/mobility with SUP, LRAD PRN for engagement in ADLs. Short Term Goal 4: demo dynamic standing during functional activities for 6+ mins with SUP, LRAD PRN. Short Term Goal 5: demo use of 2 EC/WS techniques throughout entire session independently with no vc's. Plan Occupational Therapy Plan Times Per Week: 4x/wk Current Treatment Recommendations: Balance training, Functional mobility training, Endurance training, Safety education & training, Pain management, Patient/Caregiver education & training, Equipment evaluation, education, & procurement, Self-Care / ADL, Home management training AM-PAC Daily Activities Inpatient AM-PAC Daily Activity - Inpatient How much help is needed for putting on and taking off regular lower body clothing?: A Lot How much help is needed for bathing (which includes washing, rinsing, drying)?: A Little How much help is needed for toileting (which includes using toilet, bedpan, or urinal)?: A Little How much help is needed for putting on and taking off regular upper body clothing?: None How much help is needed for taking care of personal grooming?: A Little How much help for eating meals?: None AM-PAC Inpatient Daily Activity Raw Score: 19 AM-PAC Inpatient ADL T-Scale Score : 40.22 ADL Inpatient CMS 0-100% Score: 42.8 ADL Inpatient CMS G-Code Modifier : CK Minutes OT Individual Minutes Time In: 0933 Time Out: 1018 Minutes: 45 Time Code Minutes Timed Code Treatment Minutes: 38 Minutes Pt refused suppository. Images from the original note were not included. [facility] Office: [phone] Davion Hernández DO, Rod Phillips DO, Sukhwinder Jacobson DO, Allen Gleason DO, Elvira Thakur MD, Cookie Simon MD, Annamarie Lawler MD, Gena Wilson MD, Regan Walsh MD, Meaghan Cuello MD, Brianna Wray MD, Mroales Santoyo DO, Felix Rothman MD, Justin Vargas MD, Arie Hernández DO, Zoë Tong MD, Ricardo Hooker DO, Suzy Price MD, Catherine Guaman MD, Lisette Damon MD, Angel Jain MD, Sunny Porter MD, Adina Grant MD, Diallo Rodriguez MD, Sharla Pickering MD, Oren Freed MD, Hipolito Dacosta MD, Pio Shields DO, Samuel Ramirez MD, Shirley Morrow, MAGNETIC TESTER, Lissa Ramey MAGNETIC TESTER, Pio Neville, MAGNETIC TESTER, Nori Lamar, EKATERINA, Anny Andrews, MAGNETIC TESTER, Kaya Gallegos, MAGNETIC TESTER, Elizabeth Zavala, MAGNETIC TESTER, Fiordaliza Head MAGNETIC TESTER, Abiola Hoff PA-C, Mallorie Mireles PA-C, Rosaline Alvarez, MAGNETIC TESTER, Evelin Mcintosh, MAGNETIC TESTER, Jackie Dorantes, MAGNETIC TESTER, Amira Escobar, MAGNETIC TESTER, Jazzy Leary, MAGNETIC TESTER, Jaonne Phillips, MAGNETIC TESTER [facility] IN-PATIENT SERVICE [facility] Progress Note 08/28/2024 4:36 PM Name: Freddy Panchal Acct: [id number] Room: [address] [place] [address] Day: 5 Admit Date: 08/23/2024 2:54 AM PCP: No primary care provider on file. Code Status: Full Code Subjective: C/C: Chief Complaint Patient presents with Back Pain Interval History Status: not changed. Patient seen and examined at bedside, no acute events overnight. Pain controlled with pain medications Constipated Patient vitals, labs and all providers notes were reviewed,from overnight shift and morning updates were noted and discussed with the nurse Brief History: Per chart 68-year-old male with past medical history of chronic back pain with regular steroid injections, COPD, type 2 diabetes, CAD initially presented to [facility] with complaints of worsening lower back pain. CT and MRI lumbar spine were done which showed concern for lumbar discitis with possible abscess at L4-L5. He was started on Vanco and Zosyn and was transferred to [facility] for neurosurgery evaluation. He underwent L4-L5 laminectomy on 08/23. Blood cultures grew Klebsiella. ID was consulted for antibiotic management, started patient on cefepime, transitioned to ceftriaxone after blood culture results. Cardiology was consulted for perioperative risk assessment, ordered transthoracic echo. Review of Systems: Review of Systems Constitutional: Positive for activity change and appetite change. Negative for chills, diaphoresis and fever. HENT: Negative for congestion. Eyes: Negative for visual disturbance. Respiratory: Negative for cough, chest tightness, shortness of breath and wheezing. Cardiovascular: Negative for chest pain, palpitations and leg swelling. Gastrointestinal: Positive for constipation. Negative for abdominal pain, blood in stool, diarrhea, nausea and vomiting. Genitourinary: Negative for difficulty urinating. Musculoskeletal: Positive for back pain. Neurological: Negative for dizziness, weakness, light-headedness, numbness and headaches. All other systems reviewed and are negative. Medications: Allergies: Allergies Allergen Reactions Codeine Rash Current Meds: Scheduled Meds: furosemide 40 mg Oral Daily docusate sodium 100 mg Oral TID lactulose 20 g Oral BID diclofenac sodium 4 g Topical BID lidocaine 1 patch TransDERmal Daily cefTRIAXone (ROCEPHIN) IV 2,000 mg IntraVENous Q24H atorvastatin 20 mg Oral Nightly cyclobenzaprine 10 mg Oral TID carvedilol 6.25 mg Oral BID WC insulin lispro 0-8 Units SubCUTAneous 4x Daily AC & HS insulin glargine 13 Units SubCUTAneous Daily sodium chloride flush 5-40 mL IntraVENous 2 times per day thiamine 100 mg Oral Daily sodium chloride flush 5-40 mL IntraVENous 2 times per day [Held by provider] enoxaparin 40 mg SubCUTAneous Daily Continuous Infusions: dextrose sodium chloride sodium chloride PRN Meds: bisacodyl, traZODone, albuterol, glucose, dextrose bolus OR dextrose bolus, glucagon (rDNA), dextrose, sodium chloride flush, sodium chloride, LORazepam OR LORazepam OR LORazepam OR LORazepam OR LORazepam OR LORazepam OR LORazepam OR LORazepam, sodium chloride flush, sodium chloride, potassium chloride OR potassium alternative oral replacement OR potassium chloride, magnesium sulfate, ondansetron OR ondansetron, polyethylene glycol, acetaminophen OR acetaminophen, morphine, sodium chloride flush, oxyCODONE-acetaminophen, oxyCODONE-acetaminophen Data: Past Medical History: has no past medical history on file. Social History: reports that he has never smoked. He has never been exposed to tobacco smoke. He has never used smokeless tobacco. Family History: History reviewed. No pertinent family history. Vitals: BP 130/80 Pulse 85 Temp 97.9 F (36.6 C) Resp 18 Ht 1.803 m (5' 10.98 ) Wt 88.5 kg (195 lb) SpO2 93% BMI 27.21 kg/m Temp (24hrs), Av.9 F (36.6 C), Min:97.4 F (36.3 C), Max:98.4 F (36.9 C) Recent Labs 08/27/24201808/28/24 0734 08/28/24 1138 08/28/24 1600 POCGLU 192* 137* 201* 187* I/O (24Hr): Intake/Output Summary (Last 24 hours) at 08/28/2024 1636 Last data filed at 08/28/2024 0641 Gross per 24 hour Intake -- Output 800 ml Net -800 ml Labs: Hematology: Recent Labs 08/26/24 0458 08/27/24 0808 08/28/24 0703 WBC 13.3* 11.2 9.2 RBC 3.89* 4.09* 3.86* HGB 12.3* 13.0 12.1* HCT 38.9* 40.0* 38.3* MCV 100.0 97.8 99.2 MCH 31.6 31.8 31.3 MCHC 31.6 32.5 31.6 RDW 13.7 13.1 13.2 PLT 76* 122* 143 MPV 11.4 11.1 10.8 Chemistry: Recent Labs 08/27/24 0808 08/28/24 0703 NA 132* 129* K 3.4* 3.5* CL 96* 95* CO2 25 24 GLUCOSE 200* 143* BUN 26* 22 CREATININE 0.7 0.6* MG 2.1 2.3 ANIONGAP 11 10 LABGLOM >90 >90 CALCIUM 8.5* 8.5* PHOS 2.5 3.1 Recent Labs 08/27/24 1114 08/27/24 1646 08/27/24201808/28/24 0734 08/28/24 1138 08/28/24 1600 POCGLU 189* 161* 192* 137* 201* 187* ABG: Lab Results Component Value Date/Time PHART 7.414 08/23/2024 05:20 PM MBT9ZPP 41.2 08/23/2024 05:20 PM PO2ART 211.0 08/23/2024 05:20 PM TFN8FFS 25.9 08/23/2024 05:20 PM PBEA 1.7 08/23/2024 05:20 PM U9HYRZBX 98.0 08/23/2024 05:20 PM FIO2 60 08/23/2024 05:20 PM Lab Results Component Value Date/Time SPECIAL LEFT AC 10ML 08/23/2024 03:14 AM Lab Results Component Value Date/Time CULTURE (A) 08/23/2024 07:12 PM KLEBSIELLA OXYTOCA RARE GROWTH Identification by MALDI-TOF CULTURE No anaerobic organisms isolated at 5 days. 08/23/2024 07:12 PM Radiology: MRI LUMBAR SPINE W WO CONTRAST Addendum Date: 08/26/2024 ADDENDUM: Prior studies are now available for comparison which included MRI lumbar spine without contrast dated 11/01/2023, and CT lumbar spine dated 08/22/2024. The findings in the impression is new when compared to the prior MRI. Multiple locules of air noted within the anterior epidural space from L3-S1 on prior CT, likely was postprocedural in nature. Result Date: 08/26/2024 A 6 mm thickness T1 and T2 heterogeneous lesion extending from superior endplate of the L4 to the inferior endplate of the L5 causing moderate spinal canal narrowing and crowding of the cauda equina roots without compression. The lesion demonstrate heterogenous enhancement. Differential diagnosis include granulation tissue or phlegmon. If clinical symptoms persists, one-week follow-up study can be obtained for further evaluation. US ABDOMEN LIMITED Specify organ? LIVER, SPLEEN Result Date: 08/25/2024 Suspected hepatic steatosis. XR CHEST PORTABLE Result Date: 08/24/2024 Improving pulmonary vascular congestion when compared to the prior exam CT CHEST PULMONARY EMBOLISM W CONTRAST Result Date: 08/23/2024 1. No evidence of pulmonary embolism or acute thoracic aortic abnormality. 2. Mild to moderate atelectasis, with or without mild infiltrates in the right pulmonary lower lobe. 3. Mild pulmonary vascular congestion. 4. Coronary artery calcifications. 5. Multilevel degenerative disc disease in the mid and lower portion of thoracic spine without spinal stenosis. XR CHEST PORTABLE Result Date: 08/23/2024 Bilateral interstitial and ground-glass opacities are noted, which may be due to pulmonary edema or atypical infection. Physical Examination: Physical Exam Vitals and nursing note reviewed. Constitutional: General: He is not in acute distress. HENT: Head: Normocephalic and atraumatic. Eyes: Conjunctiva/sclera: Conjunctivae normal. Pupils: Pupils are equal, round, and reactive to light. Cardiovascular: Rate and Rhythm: Normal rate and regular rhythm. Heart sounds: No murmur heard. Pulmonary: Effort: Pulmonary effort is normal. No accessory muscle usage or respiratory distress. Breath sounds: No stridor. No decreased breath sounds, wheezing, rhonchi or rales. Abdominal: General: Bowel sounds are normal. There is no distension. Palpations: Abdomen is soft. Abdomen is not rigid. Tenderness: There is no abdominal tenderness. There is no guarding. Musculoskeletal: General: No tenderness. Skin: General: Skin is warm and dry. Findings: No erythema, lesion or rash. Neurological: Mental Status: He is alert and oriented to person, place, and time. Cranial Nerves: No cranial nerve deficit. Motor: No seizure activity. Psychiatric: Speech: Speech normal. Behavior: Behavior normal. Behavior is cooperative. Assessment: Hospital Problems Last Modified POA * (Principal) Epidural abscess 08/23/2024 Yes Discitis of lumbar region 08/23/2024 Yes Gram-neg septicemia (HCC) 08/24/2024 Yes Alcohol dependence with withdrawal with complication (HCC) 08/24/2024 Yes Abscess in epidural space of lumbar spine 08/25/2024 Yes Bandemia 08/25/2024 Yes CRP elevated 08/25/2024 Yes Sepsis due to Klebsiella ([facility]) 08/25/2024 Yes Plan: Lumbar spine epidural abscess status postlaminectomy 08/23 Klebsiella bacteremia -S/p laminectomy on 08/23, neurosurgery signed off -ID following for antibiotic recommendations. -Plan for OH tomorrow. -Culture from laminectomy also growing Klebsiella -PT OT following HFpEF -Not in exacerbation -Cardiology following -Echo showing EF 66%, MV with mass on anterior leaflet, possible healed vegetation. -On Lasix 40 mg IV daily Type 2 diabetes -A1c 7.8 08/2024 -On semaglutide at home -Lantus 13 units daily and sliding scale while inpatient COPD -Not in exacerbation -As needed albuterol Alcohol use disorder -Continue to monitor on CIWA Constipation Bowel regimen Discharge planning: SNF versus home with home PT Gena Wilson MD 08/28/2024 4:36 PM Images from the original note were not included. [facility] - Progress Note Today's Date and Time: 08/28/2024, 10:44 AM Impression : Gram negative jaime bacteremia-Klebsiella oxytoca on blood cultures from 08/23/24 Concern for epidural abscess and discitis S/p L5-L5 laminectomy with no abscess found Spinal culture also growing Klebsiella oxytoca CRP elevation Leukocytosis Thrombocytopenia DM II with hyperglycemia Chronic back pain CAD COPD History of drug abuse Alcohol abuse with concern for acute alcohol withdrawal Recommendations: IV ceftriaxone continues based on culture and sensitivity Discontinued IV Vancomycin Will switch to Levaquin 750 mg po x 6 weeks at time of discharge Office f/up in [address] Arvizu for infection. Please call [phone] for appointment Medical Decision Making/Summary/Discussion:2023 Infection Control Recommendations [place]ah Precautions Antimicrobial Stewardship Recommendations Simplification of therapy Targeted therapy Coordination of Outpatient Care: Estimated Length of IV antimicrobials:TBD Patient will need Midline Catheter Insertion: TBD Patient will need PICC line Insertion:TBD Patient will need: Home IV , Infusion Center, SNF, LTAC: TBD Patient will need outpatient wound care: Chief complaint/reason for consultation: Gram negative jaime bacteremia-Klebsiella on blood cultures from 08/23/24 History of Present Illness: Freddy Panchal is a 68 y.o.-year-old male who was initially admitted on 08/23/2024. Patient seen at the request of Dr. Nazario Guaman INITIAL HISTORY: This patient has a history of chronic back pain for which he receives regular steroid injections. His last injection was given on 08/15/24. He also has a history of COPD, CAD, DM II, polysubstance abuse, but he denied any recent IV drug use. He presented to [facility] with complaints of worsening lower back pain that was radiating to his lower extremities. A CT lumbar spine and MRI showed concern for lumbar discitis with L4-L5 phlegmon. Labwork was significant for glucose 307, WBC 12.1-->15.5 with a left shift of 10.8-->13.5, low platelet at 54, CRP elevation of 412 and ESR of 79. He was transferred to [facility] for Neurosurgery evaluation on 08/22/24. IV Vancomycin and Zosyn was initiated. On 08/23/24, he underwent a L4-L5 laminectomy with Dr. Samaniego. Per Dr. Samaniego's surgical note, there was no intraspinal abscess, although there was some abnormal colored fat noted that was sent for culture and is growing Klebsiella. Blood cultures were positive for Klebsiella. ID was consulted. CTA Chest 08/23/24: 1. No evidence of pulmonary embolism or acute thoracic aortic abnormality. 2. Mild to moderate atelectasis, with or without mild infiltrates in the right pulmonary lower lobe. 3. Mild pulmonary vascular congestion. 4. Coronary artery calcifications. 5. Multilevel degenerative disc disease in the mid and lower portion of thoracic spine without spinal stenosis. CXR 08/23/24: Bilateral interstitial and ground-glass opacities are noted, which may be due to pulmonary edema or atypical infection MRI lumbar spine 08/23/24: A 6 mm thickness T1 and T2 heterogeneous lesion extending from superior endplate of the L4 to the inferior endplate of the L5 causing moderate spinal canal narrowing and crowding of the cauda equina roots without compression. The lesion demonstrate heterogenous enhancement. Differential diagnosis include granulation tissue or phlegmon. If clinical symptoms persists, one-week follow-up study can be obtained for further evaluation. US Abdomen 08/25/24: Suspected hepatic steatosis Cardiac Echo 08/27/24: 1.Left Ventricle: Normal left ventricular systolic function. EF 3D is 66%. Left ventricle size is normal. Normal wall motion. 2. Aortic Valve: Trileaflet valve. Mild regurgitation. 3. Mitral Valve: prominent calcification/mass on anterior leaflet, correlate clinically, consider OH when indicated. Mild regurgitation. CURRENT EVALUATION- DAILY INTERVAL CHANGES 08/28/2024 BP 121/74 Pulse 78 Temp 98.4 F (36.9 C) Resp 16 Ht 1.803 m (5' 10.98 ) Wt 88.5 kg (195 lb) SpO2 93% BMI 27.21 kg/m Afebrile VS stable The patient is on room air WBC continues to be down trending; most recent 9.2 He continues to experience back pain below the surgical incision site which improves with lidocaine patch Incision site looks fine. No erythema, no drainage, no fluctuance Patient denies fever, chills, night sweats, chest pain, difficulty breathing, SOB, dysuria. Patient's intermitted mucous with blood coloring in sputum is improving. No gunner hemoptysis. Lovenox on hold. CTA on 08/23 showed no evidence of pulmonary embolism Patient has been able to walk with assistance of PT. Medications reviewed: Zosyn D/C on 08/24 Vancomycin D/C on 08/24 Cefepime D/C on 08/25 On ceftriaxone Plan to switch to po Levaquin at time of discharge. Blood and wound cultures show Klebsiella oxytoca sensitive to Ceftriaxone Ceftriaxone 2000 mg IV started on 08/25 We will continue to work with case management as treatment progresses for discharge planning. Patient has expressed preference for discharge to home. Labs, X rays reviewed: 08/28/2024 with independent review of X rays I have independently reviewed/ordered the following labs: CBC with Differential: Recent Labs 08/27/24 0808 08/28/24 0703 WBC 11.2 9.2 HGB 13.0 12.1* HCT 40.0* 38.3* PLT 122* 143 LYMPHOPCT 13* 19* MONOPCT 8 8 EOSPCT 1 2 BMP: Recent Labs 08/27/24 0808 08/28/24 0703 NA 132* 129* K 3.4* 3.5* CL 96* 95* CO2 25 24 BUN 26* 22 CREATININE 0.7 0.6* MG 2.1 2.3 Hepatic Function Panel: No results for input(s): LABALBU , BILIDIR , IBILI , BILITOT , ALKPHOS , ALT , AST in the last 72 hours. Invalid input(s): PROT No results for input(s): RPR in the last 72 hours. No results for input(s): HIV in the last 72 hours. No results for input(s): BC in the last 72 hours. Lab Results Component Value Date/Time BACTERIA None 08/23/2024 04:18 AM RBC 3.86 08/28/2024 07:03 AM WBC 9.2 08/28/2024 07:03 AM TURBIDITY Clear 08/23/2024 04:18 AM Lab Results Component Value Date/Time CREATININE 0.6 08/28/2024 07:03 AM GLUCOSE 143 08/28/2024 07:03 AM Cultures: Urine: Blood: 08/22/24: 2/2 Klebsiella Sputum : Wound: 08/23/24: L5-L6 surgical culture: Klebsiella MRSA Nares: Imaging: MRI lumbar spine 08/22/24 Review of Systems: Pertinent review of symptoms listed in Initial Evaluation and daily interval evaluations sections Physical Examination : Patient Vitals for the past 8 hrs: BP Temp Pulse Resp SpO2 08/28/24 0914 -- -- -- 16 -- 08/28/24 0732 121/74 98.4 F (36.9 C) 78 18 93 % 08/28/24 0717 -- -- -- 16 -- General Appearance: Awake, alert, and in no apparent distress. Tremors noted Head: Normocephalic, no trauma Eyes: Pupils equal, round, reactive to light and accommodation; extraocular movements intact; sclera anicteric; conjunctivae pink. No embolic phenomena. ENT: Oropharynx clear, without erythema, exudate, or thrush. No tenderness of sinuses. Mouth/throat: mucosa pink and moist. No lesions. Dentition in good repair. Neck:Supple, without lymphadenopathy. Thyroid normal, No bruits. Pulmonary/Chest: Clear to auscultation, without wheezes, rales, or rhonchi. No dullness to percussion. Cardiovascular: Regular rate and rhythm without murmurs, rubs, or gallops. Abdomen: Soft, non tender. Bowel sounds normal. No organomegaly All four Extremities: No cyanosis, clubbing, edema, or effusions.Back pain Neurologic: No gross sensory or motor deficits. Skin: Warm and dry with good turgor.No signs of peripheral arterial or venous insufficiency. No ulcerations. No open wounds. I have personally reviewed the past medical history, past surgical history, medications, social history, and family history, and I have updated the database accordingly. Past Medical History: History reviewed. No pertinent past medical history. Past Surgical History: Past Surgical History: Procedure Laterality Date LUMBAR SPINE SURGERY 08/23/2024 LUMBAR LAMINECTOMY FOR ABCESS LUMBAR SPINE SURGERY N/A 08/23/2024 E2 LUMBAR LAMINECTOMY FOR ABCESS performed by Wilda Samaniego DO at [facility] OR Medications: furosemide 40 mg Oral Daily lidocaine 1 patch TransDERmal Daily cefTRIAXone (ROCEPHIN) IV 2,000 mg IntraVENous Q24H atorvastatin 20 mg Oral Nightly cyclobenzaprine 10 mg Oral TID carvedilol 6.25 mg Oral BID WC insulin lispro 0-8 Units SubCUTAneous 4x Daily AC & HS insulin glargine 13 Units SubCUTAneous Daily sodium chloride flush 5-40 mL IntraVENous 2 times per day thiamine 100 mg Oral Daily sodium chloride flush 5-40 mL IntraVENous 2 times per day [Held by provider] enoxaparin 40 mg SubCUTAneous Daily Social History: Social History Socioeconomic History Marital status: Spouse name: Not on file Number of children: Not on file Years of education: Not on file Highest education level: Not on file Occupational History Not on file Tobacco Use Smoking status: Never Passive exposure: Never Smokeless tobacco: Never Vaping Use Vaping status: Never Used Substance and Sexual Activity Alcohol use: Not on file Drug use: Not on file Sexual activity: Not on file Other Topics Concern Not on file Social History Narrative Not on file Social Determinants of Health Financial Resource Strain: Not on file Food Insecurity: Patient Unable To Answer (08/25/2024) Hunger Vital Sign Worried About Running Out of Food in the Last Year: Patient unable to answer Ran Out of Food in the Last Year: Patient unable to answer Transportation Needs: Patient Unable To Answer (08/25/2024) PRAPARE - Transportation Lack of Transportation (Medical): Patient unable to answer Lack of Transportation (Non-Medical): Patient unable to answer Physical Activity: Not on file Stress: Not on file Social Connections: Moderately Integrated (08/28/2024) Social Connections ([facility] HRSN) If for any reason you need help with day-to-day activities such as bathing, preparing meals, shopping, managing finances, etc., do you get the help you need?: Not on file Intimate Partner Violence: Not on file Housing Stability: Patient Unable To Answer (08/25/2024) Housing Stability Vital Sign Unable to Pay for Housing in the Last Year: Patient unable to answer Number of Times Moved in the Last Year: 0 Homeless in the Last Year: Patient unable to answer Family History: History reviewed. No pertinent family history. Allergies: Codeine Medical Decision Making-Imaging: MRI LUMBAR SPINE W WO CONTRAST Result Date: 08/23/2024 EXAMINATION: MRI OF THE LUMBAR SPINE WITHOUT AND WITH CONTRAST 08/23/2024 9:23 am TECHNIQUE: Multiplanar multisequence MRI of the lumbar spine was performed without and with the administration of intravenous contrast. COMPARISON: None. HISTORY: ORDERING SYSTEM PROVIDED HISTORY: Concern for epidural abscess, recent steroid injection to back TECHNOLOGIST PROVIDED HISTORY: Concern for epidural abscess, recent steroid injection to back Decision Support Exception - unselect if not a suspected or confirmed emergency medical condition->Emergency Medical Condition (MA) Reason for Exam: Concern for epidural abscess, recent steroid injection to back FINDINGS: BONES/ALIGNMENT: There is normal alignment of the spine. The vertebral body heights are maintained. The bone marrow signal appears unremarkable. SPINAL CORD: The conus terminates normally. SOFT TISSUES: No abnormal enhancement is seen of the lumbar spine. No paraspinal mass identified. L1-L2: There is no significant disc protrusion, spinal canal stenosis or neural foraminal narrowing. L2-L3: There is no significant disc protrusion, spinal canal stenosis or neural foraminal narrowing. L3-L4: There is no significant disc protrusion, spinal canal stenosis or neural foraminal narrowing. L4-L5: Within the ventral epidural space, there is a T1 and T2 heterogenous collection which is 6 mm in thickness causing more red spinal canal narrowing and crowding of the cauda equina nerve roots. Mild bilateral neural foraminal narrowing. This collection demonstrates heterogeneous enhancement. L5-S1: There is no significant disc protrusion, spinal canal stenosis or neural foraminal narrowing. A 6 mm thickness T1 and T2 heterogeneous lesion extending from superior endplate of the L4 to the inferior endplate of the L5 causing moderate spinal canal narrowing and crowding of the cauda equina roots without compression. The lesion demonstrate heterogenous enhancement. Differential diagnosis include granulation tissue or phlegmon. If clinical symptoms persists, one-week follow-up study can be obtained for further evaluation. FLUORO FOR SURGICAL PROCEDURES Result Date: 08/23/2024 Radiology exam is complete. No Radiologist dictation. Please follow up with ordering provider. Vascular duplex lower extremity venous bilateral Result Date: 08/23/2024 No evidence of deep vein or superficial vein thrombosis in the right lower extremity. Vessels demonstrate normal compressibility, color filling, and phasic and spontaneous flow. No evidence of deep vein or superficial vein thrombosis in the left lower extremity. Vessels demonstrate normal compressibility, color filling, and phasic and spontaneous flow. CT CHEST PULMONARY EMBOLISM W CONTRAST Result Date: 08/23/2024 EXAMINATION: CTA OF THE CHEST 08/23/2024 3:11 am TECHNIQUE: CTA of the chest was performed after the administration of intravenous contrast. Multiplanar reformatted images are provided for review. MIP images are provided for review. Automated exposure control, iterative reconstruction, and/or weight based adjustment of the mA/kV was utilized to reduce the radiation dose to as low as reasonably achievable. COMPARISON: None. HISTORY: ORDERING SYSTEM PROVIDED HISTORY: rule out PE TECHNOLOGIST PROVIDED HISTORY: rule out PE Additional Contrast?->1 FINDINGS: Pulmonary Arteries: Pulmonary arteries are adequately opacified for evaluation. No evidence of intraluminal filling defect to suggest pulmonary embolism. Main pulmonary artery is normal in caliber. Mediastinum: No evidence of mediastinal lymphadenopathy. The heart and pericardium demonstrate no acute abnormality. No evidence of thoracic aortic aneurysm or dissection. No evidence of pericardial effusion or pericardial thickening. Evidence of coronary artery calcifications noted. Lungs/pleura: Evidence of mild to moderate atelectasis, with or without mild infiltrates in the right pulmonary lower lobe. Minimal atelectasis at the base of right middle lobe. Minimal atelectasis at the posterior base of left pulmonary lower lobe. Mild pulmonary vascular congestion. No pleural effusion or pneumothorax. Upper Abdomen: No acute process in the visualized upper abdomen. No hiatal hernia. No pneumoperitoneum. Soft Tissues/Bones: No acute bone or soft tissue abnormality. Zhiy-so-dyeywnzg multilevel degenerative disc disease in the mid and lower portion of thoracic spine without spinal stenosis. 1. No evidence of pulmonary embolism or acute thoracic aortic abnormality. 2. Mild to moderate atelectasis, with or without mild infiltrates in the right pulmonary lower lobe. 3. Mild pulmonary vascular congestion. 4. Coronary artery calcifications. 5. Multilevel degenerative disc disease in the mid and lower portion of thoracic spine without spinal stenosis. XR CHEST PORTABLE Result Date: 08/23/2024 EXAMINATION: ONE XRAY VIEW OF THE CHEST 08/23/2024 3:21 am COMPARISON: None. HISTORY: ORDERING SYSTEM PROVIDED HISTORY: tachy TECHNOLOGIST PROVIDED HISTORY: tachy Reason for Exam: port upright FINDINGS: Shallow inflation. Cardiac silhouette enlargement. Bilateral interstitial and ground-glass opacities are noted. No pneumothorax or effusion. No acute osseous abnormality identified. Bilateral interstitial and ground-glass opacities are noted, which may be due to pulmonary edema or atypical infection. Medical Decision Ltlzot-Sinjkozr-Afgmu: Results Procedure Component Value Units Date/Time Infectious Disease Intervention [[id number]] Collected: 08/24/24 1800 Order Status: Completed Updated: 08/27/24 0754 Intervention De-escalation Culture, Anaerobic and Aerobic [[id number]] (Abnormal) (Susceptibility) Collected: 08/23/24 1912 Order Status: Completed Specimen: Spine Updated: 08/28/24 0737 Specimen Description .SPINE Direct Exam NO NEUTROPHILS SEEN NO BACTERIA SEEN Culture KLEBSIELLA OXYTOCA RARE GROWTH Identification by MALDI-TOF No anaerobic organisms isolated at 5 days. Susceptibility Klebsiella oxytoca BACTERIAL SUSCEPTIBILITY PANEL LETHA ampicillin 16 Resistant ceFAZolin <=4 Sensitive cefTRIAXone <=0.25 Sensitive Confirmatory Extended Spectrum Beta-Lactamase NEGATIVE Sensitive gentamicin <=1 Sensitive levofloxacin <=0.12 Sensitive piperacillin-tazobactam <=4 Sensitive tobramycin <=1 Sensitive trimethoprim-sulfamethoxazole <=20 Sensitive Culture, Anaerobic and Aerobic [[id number]] Collected: 08/23/24 1804 Order Status: No result Specimen: Swab from Spine Culture, Blood 1 [[id number]] (Abnormal) Collected: 08/23/24313 Order Status: Completed Specimen: Blood Updated: 08/25/24818 Specimen Description .BLOOD Special Requests LEFT AC 10ML Culture POSITIVE Blood Culture DIRECT GRAM STAIN FROM BOTTLE: GRAM NEGATIVE RODS KLEBSIELLA OXYTOCA Identification by MALDI-TOF For susceptibility, refer to previous culture. (NOTE) Direct Gram Stain from bottle result called to and read back by: DOMINICK Baker on 08/23/24 at 1409 Culture, Blood 1 [[id number]] (Abnormal) (Susceptibility) Collected: 08/23/24312 Order Status: Completed Specimen: Blood Updated: 08/25/24818 Specimen Description .BLOOD Special Requests RIGHT FOREARM 10ML Culture POSITIVE Blood Culture DIRECT GRAM STAIN FROM BOTTLE: GRAM NEGATIVE RODS Klebsiella oxytoca Detected: Methodology- Polymerase Chain Reaction (PCR) KLEBSIELLA OXYTOCA (NOTE) Direct Gram Stain from bottle result called to and read back by: DOMINICK Otoole on 08/23/24 at 12:35 Susceptibility Klebsiella oxytoca BACTERIAL SUSCEPTIBILITY PANEL LETHA ampicillin 16 Resistant ceFAZolin <=4 Sensitive cefTRIAXone <=0.25 Sensitive Confirmatory Extended Spectrum Beta-Lactamase NEGATIVE Sensitive gentamicin <=1 Sensitive levofloxacin <=0.12 Sensitive piperacillin-tazobactam <=4 Sensitive tobramycin <=1 Sensitive trimethoprim-sulfamethoxazole <=20 Sensitive Thank you for allowing us to participate in the care of this patient. Please call with questions. Yuri Marrufo, OMS-3 08/28/2024 Office: ATTESTATION: I have discussed the case, including pertinent history and exam findings with the medical office coordinator. I have evaluated the History, physical findings and pictures of the patient and the serrano elements of the encounter have been performed by me. I have reviewed the laboratory data, other diagnostic studies and discussed them with the medical office coordinator. I have updated the medical record where necessary. I agree with the assessment, plan and orders as documented by the medical office coordinator and I have modified them as necessary. Elements of Medical Decision Making: Note: I have independently performed the steps listed below as part of the medical decision making and evaluation. Examined and discussed with patient. Gram-negative septicemia 08/23/2024 Klebsiella septicemia 08/23/2024 Concern for epidural abscess and discitis Status post L4-L5 laminectomy with no abscess found Tissue culture from the spine with growth of Klebsiella CRP elevation Leukocytosis Thrombocytopenia Diabetes mellitus type 2 with hyperglycemia Chronic back pain Coronary artery disease COPD History of drug abuse Alcohol abuse Labs, medications, radiologic studies were reviewed with personal review of films Radiologic studies Lab work Cultures Klebsiella in blood Klebsiella in tissue culture from the spine Large amounts of data were reviewed Patient with a history of chronic back pain for which she receives regular steroid injections Received last dose on 08/15/2024 Subsequently presented to [facility] ER with worsening lower back pain with radiation to his lower extremities CT scan and MRI of the spine showed concern for lumbar discitis with L4-L5 phlegmon Patient had associated elevation of CRP and ESR as well has leukocytosis Transferred to [facility] on 08/22/2024 Patient underwent L4-L5 laminectomy on 08/23/2024. No abscess was found but there was some abnormal fatty tissue that was cultured and is growing Klebsiella Blood cultures are also growing Klebsiella Discussed with nursing Staff, turnaround planner Dr Guaman's service Infection Control and Prevention measures reviewed Toyah precaution All prior entries were reviewed Neurosurgical and IM notes reviewed Administer medications as ordered Ceftriaxone 2 g IV every 24 hours Plan Levaquin at discharge Monitor culture data and modified as necessary Prognosis: Guarded Discharge planning reviewed Follow up as outpatient. Chong Arvizu MD 08/28/2024 Images from the original note were not included. Cardiology Progress Note Date: 08/28/2024 Patient name: Freddy Panchal Date of admission: 08/23/2024 2:54 AM Date of : 1955 PCP: No primary care provider on file. Reason for Admission: Epidural abscess, encephalopathy Subjective: No acute events overnight, patient is currently alert, sitting in bed. SR on telemetry, normotensive, on RA. Denies CP, pressure, SOB. Scheduled Meds: lidocaine 1 patch TransDERmal Daily cefTRIAXone (ROCEPHIN) IV 2,000 mg IntraVENous Q24H atorvastatin 20 mg Oral Nightly cyclobenzaprine 10 mg Oral TID carvedilol 6.25 mg Oral BID WC insulin lispro 0-8 Units SubCUTAneous 4x Daily AC & HS insulin glargine 13 Units SubCUTAneous Daily furosemide 40 mg IntraVENous Daily sodium chloride flush 5-40 mL IntraVENous 2 times per day thiamine 100 mg Oral Daily sodium chloride flush 5-40 mL IntraVENous 2 times per day [Held by provider] enoxaparin 40 mg SubCUTAneous Daily Continuous Infusions: dextrose sodium chloride sodium chloride Labs: CBC: Recent Labs 08/26/24 0458 08/27/24 0808 08/28/24 0703 WBC 13.3* 11.2 9.2 HGB 12.3* 13.0 12.1* PLT 76* 122* 143 BMP: Recent Labs 08/27/24 0808 08/28/24 0703 NA 132* 129* K 3.4* 3.5* CL 96* 95* CO2 25 24 BUN 26* 22 CREATININE 0.7 0.6* GLUCOSE 200* 143* Hepatic: No results for input(s): AST , ALT , BILITOT , ALKPHOS in the last 72 hours. Invalid input(s): ALB Troponin: No results for input(s): TROPONINI in the last 72 hours. BNP: No results for input(s): BNP in the last 72 hours. Lipids: No results for input(s): CHOL , HDL in the last 72 hours. Invalid input(s): LDLCALCU INR: No results for input(s): INR in the last 72 hours. Objective: Vitals: BP 121/74 Pulse 78 Temp 98.4 F (36.9 C) Resp 16 Ht 1.803 m (5' 10.98 ) Wt 88.5 kg (195 lb) SpO2 93% BMI 27.21 kg/m General appearance: Drowsy, arousable, in no distress HEENT: Head: Normocephalic, no lesions, without obvious abnormality Neck: no JVD Lungs: clear to auscultation bilaterally, no basilar rales, no wheezing. Scattered rhonchi noted Heart: regular rate and rhythm, S1, S2 normal, no murmur, click, rub or gallop Abdomen: soft, non-tender; bowel sounds normal Extremities: Trace pedal edema Neurologic: Not performed Cardiac testing: EKG: normal sinus rhythm. LVH. Echocardiogram in january 2024: Left Ventricle: Systolic function is normal with an ejection fraction of 65-70%. Left ventricle is small. There is mild increased wall thickness/hypertrophy. Systolic function is normal with an ejection fraction of 65-70%. No obvious regional wall motion abnormalities. Lateral E' is 9.19 cm/s. Medial E' is 5.80 cm/s. Stress test in 10/2023 The stress ECG was positive. Stress ECG: Blood pressure demonstrated a hypertensive response to stress Stress ECG: the patient's exercise capacity was moderately impaired for their age. The patient reached stage 2 of the protocol after exercising for 4 min 0 sec Impression: Gram-negative septicemia Toxic metabolic encephalopathy Alcohol dependence with withdrawals Heart failure with preserved ejection fraction Epidural abscess/discitis of lumbar region s/p lumbar laminectomy History of drug and alcohol abuse Thrombocytopenia History of abnormal stress test in October 2023 Plan: Continue IV antibiotics per ID Management of ROMAIN Transition to oral lasix Continue Coreg Continue statin echocardiogram reviewed with Dr. Lyn- EF 66%, MV with mass on anterior leaflet, possible healed vegetation. Plan for [place] tomorrow. NPO 0000 Not on any antiplatelets due to severe thrombocytopenia Patient will eventually need coronary angiography once acute issues are resolved Will continue to follow along Elvia Nicolas, JOSEY - PUMA [facility] [place] Images from the original note were not included. [facility] Office: [phone] Davion Hernández DO, Rod Phillips DO, Sukhwinder Jacobson DO, Allen Gleason DO, Elvira Thakur MD, Cookie Simon MD, Annamarie Lawler MD, Gena Wilson MD, Regan Walsh MD, Meaghan Cuello MD, Brianna Wray MD, Morales Santoyo DO, Felix Rothman MD, Justin Vargas MD, Arie Hernández DO, Zoë Tong MD, Ricardo Hooker DO, Suzy Price MD, Catherine Guaman MD, Lisette Damon MD, Angel Jain MD, Sunny Porter MD, Adina Grant MD, Diallo Rodriguez MD, Sharla Pickering MD, Oren Freed MD, Hipolito Dacosta MD, Pio Shields DO, Samuel Ramirez MD, Shirley Morrow CNP, Lissa Ramey CNP, Poi Neville CNP, Nori Lamar DNP, Anny Andrews CNP, Kaya Gallegos CNP, Elizabeth Zavala CNP, Fiordaliza Head CNP, Abiola Hoff PA-C, Mallorie Mireles PA-C, Rosaline Alvarez CNP, Evelin Mcintosh CNP, Jackie Dorantes CNP, Amira Escobar CNP, Jazzy Leary CNP, Joanne Phillips CNP [facility] IN-PATIENT SERVICE [facility] Progress Note 08/27/2024 11:29 AM Name: Freddy Panchal Acct: [id number] Room: [id number]/[id number]-[facility] Day: 4 Admit Date: 08/23/2024 2:54 AM PCP: No primary care provider on file. Code Status: Full Code Subjective: C/C: Chief Complaint Patient presents with Back Pain Patient seen on follow-up this morning. He notes he is worsened back pain this morning. Denies any other issues. Denies coughing up any blood-tinged sputum overnight. Brief History: 68-year-old male with past medical history of chronic back pain with regular steroid injections, COPD, type 2 diabetes, CAD initially presented to [facility] with complaints of worsening lower back pain. CT and MRI lumbar spine were done which showed concern for lumbar discitis with possible abscess at L4-L5. He was started on Vanco and Zosyn and was transferred to [facility] for neurosurgery evaluation. He underwent L4-L5 laminectomy on 08/23. Blood cultures grew Klebsiella. ID was consulted for antibiotic management, started patient on cefepime, transitioned to ceftriaxone after blood culture results. Cardiology was consulted for perioperative risk assessment, ordered transthoracic echo. Medications: Allergies: Allergies Allergen Reactions Codeine Rash Current Meds: Scheduled Meds: cefTRIAXone (ROCEPHIN) IV 2,000 mg IntraVENous Q24H atorvastatin 20 mg Oral Nightly cyclobenzaprine 10 mg Oral TID carvedilol 6.25 mg Oral BID WC insulin lispro 0-8 Units SubCUTAneous 4x Daily AC & HS insulin glargine 13 Units SubCUTAneous Daily furosemide 40 mg IntraVENous Daily sodium chloride flush 5-40 mL IntraVENous 2 times per day thiamine 100 mg Oral Daily sodium chloride flush 5-40 mL IntraVENous 2 times per day [Held by provider] enoxaparin 40 mg SubCUTAneous Daily Continuous Infusions: dextrose sodium chloride sodium chloride PRN Meds: traZODone, albuterol, glucose, dextrose bolus OR dextrose bolus, glucagon (rDNA), dextrose, sodium chloride flush, sodium chloride, LORazepam OR LORazepam OR LORazepam OR LORazepam OR LORazepam OR LORazepam OR LORazepam OR LORazepam, sodium chloride flush, sodium chloride, potassium chloride OR potassium alternative oral replacement OR potassium chloride, magnesium sulfate, ondansetron OR ondansetron, polyethylene glycol, acetaminophen OR acetaminophen, morphine, sodium chloride flush, oxyCODONE-acetaminophen, oxyCODONE-acetaminophen Data: Past Medical History: has no past medical history on file. Social History: reports that he has never smoked. He has never been exposed to tobacco smoke. He has never used smokeless tobacco. Family History: History reviewed. No pertinent family history. Vitals: BP 98/64 Pulse 85 Temp 98.3 F (36.8 C) (Oral) Resp 17 Ht 1.803 m (5' 11 ) Wt 88.5 kg (195 lb) SpO2 92% BMI 27.20 kg/m Temp (24hrs), Av.2 F (36.8 C), Min:97.9 F (36.6 C), Max:98.3 F (36.8 C) Recent Labs 08/26/24 1616 08/26/24195108/27/24 0744 08/27/24 1114 POCGLU 259* 169* 201* 189* I/O (24Hr): Intake/Output Summary (Last 24 hours) at 08/27/2024 1129 Last data filed at 08/27/2024 0630 Gross per 24 hour Intake 500 ml Output 1150 ml Net -650 ml Labs: Hematology: Recent Labs 08/25/24 0705 08/26/24 0458 08/27/24 0808 WBC 12.6* 13.3* 11.2 RBC 4.01* 3.89* 4.09* HGB 12.8* 12.3* 13.0 HCT 38.8* 38.9* 40.0* MCV 96.8 100.0 97.8 MCH 31.9 31.6 31.8 MCHC 33.0 31.6 32.5 RDW 13.8 13.7 13.1 PLT 57* 76* 122* MPV 11.3 11.4 11.1 Chemistry: Recent Labs 08/25/24 0708/27/24 0808 NA 137 132* K 3.9 3.4* CL 100 96* CO2 26 25 GLUCOSE 178* 200* BUN 27* 26* CREATININE 0.6* 0.7 MG -- 2.1 ANIONGAP 11 11 LABGLOM >90 >90 CALCIUM 8.6 8.5* PHOS -- 2.5 Recent Labs 08/25/24 0705 08/25/24 0740 08/26/24 0750 08/26/24 1201 08/26/24 1616 08/26/24 1952 08/27/24 0744 08/27/24 1114 LABA1C 7.8* -- -- -- -- -- -- -- POCGLU -- < > 154* 154* 259* 169* 201* 189* < > = values in this interval not displayed. ABG: Lab Results Component Value Date/Time PHART 7.414 08/23/2024 05:20 PM DAK6MVF 41.2 08/23/2024 05:20 PM PO2ART 211.0 08/23/2024 05:20 PM PGN6TRS 25.9 08/23/2024 05:20 PM PBEA 1.7 08/23/2024 05:20 PM [id number] 98.0 08/23/2024 05:20 PM FIO2 60 08/23/2024 05:20 PM Lab Results Component Value Date/Time SPECIAL LEFT AC 10ML 08/23/2024 03:14 AM Lab Results Component Value Date/Time CULTURE (A) 08/23/2024 07:12 PM KLEBSIELLA OXYTOCA RARE GROWTH Identification by MALDI-TOF CULTURE No anaerobic organisms isolated at 4 days. 08/23/2024 07:12 PM Radiology: US ABDOMEN LIMITED Specify organ? LIVER, SPLEEN Result Date: 08/25/2024 Suspected hepatic steatosis. XR CHEST PORTABLE Result Date: 08/24/2024 Improving pulmonary vascular congestion when compared to the prior exam MRI LUMBAR SPINE W WO CONTRAST Result Date: 08/23/2024 A 6 mm thickness T1 and T2 heterogeneous lesion extending from superior endplate of the L4 to the inferior endplate of the L5 causing moderate spinal canal narrowing and crowding of the cauda equina roots without compression. The lesion demonstrate heterogenous enhancement. Differential diagnosis include granulation tissue or phlegmon. If clinical symptoms persists, one-week follow-up study can be obtained for further evaluation. CT CHEST PULMONARY EMBOLISM W CONTRAST Result Date: 08/23/2024 1. No evidence of pulmonary embolism or acute thoracic aortic abnormality. 2. Mild to moderate atelectasis, with or without mild infiltrates in the right pulmonary lower lobe. 3. Mild pulmonary vascular congestion. 4. Coronary artery calcifications. 5. Multilevel degenerative disc disease in the mid and lower portion of thoracic spine without spinal stenosis. XR CHEST PORTABLE Result Date: 08/23/2024 Bilateral interstitial and ground-glass opacities are noted, which may be due to pulmonary edema or atypical infection. Physical Examination: General: Alert and oriented, no acute distress Neurologic: Awake, alert, and oriented X3, no focal weakness Lungs: Clear to auscultation, no wheezing, non-labored respiration Heart: Normal rate, regular rhythm, no murmur, gallop or edema Abdomen: Soft, non-tender, non-distended, normal bowel sounds Musculoskeletal: Normal strength, no swelling Assessment: Hospital Problems Last Modified POA * (Principal) Epidural abscess 08/23/2024 Yes Discitis of lumbar region 08/23/2024 Yes Gram-neg septicemia (HCC) 08/24/2024 Yes Alcohol dependence with withdrawal with complication (HCC) 08/24/2024 Yes Abscess in epidural space of lumbar spine 08/25/2024 Yes Bandemia 08/25/2024 Yes CRP elevated 08/25/2024 Yes Sepsis due to Klebsiella ([facility]) 08/25/2024 Yes Plan: Lumbar spine epidural abscess status postlaminectomy 08/23 Klebsiella bacteremia -S/p laminectomy on 08/23, neurosurgery signed off -ID following for antibiotic recommendations, currently on ceftriaxone for Klebsiella in blood culture -Culture from laminectomy also growing Klebsiella -PT OT following HFpEF -Not in exacerbation -Cardiology following -Echo pending -On Lasix 40 mg IV daily Type 2 diabetes -A1c 7.8 08/2024 -On semaglutide at home -Lantus 13 units daily and sliding scale while inpatient COPD -Not in exacerbation -As needed albuterol Alcohol use disorder -Continue to monitor on CIWA Discharge planning: SNF versus home with home PT Pio Shields DO 08/27/2024 11:29 AM Images from the original note were not included. [facility] - Progress Note Today's Date and Time: 08/27/2024, 10:44 AM Impression : Gram negative jaime bacteremia-Klebsiella oxytoca on blood cultures from 08/23/24 Concern for epidural abscess and discitis S/p L5-L5 laminectomy with no abscess found Spinal culture also growing Klebsiella oxytoca CRP elevation Leukocytosis Thrombocytopenia DM II with hyperglycemia Chronic back pain CAD COPD History of drug abuse Alcohol abuse with concern for acute alcohol withdrawal Recommendations: IV ceftriaxone continues based on culture and sensitivity Discontinued IV Vancomycin Will switch to Levaquin 750 mg po x 6 weeks at time of discharge Office f/up in [address] Arvizu for infection. Please call [phone] for appointment Medical Decision Making/Summary/Discussion:[address] Arvizu's recommendations Infection Control Recommendations [place] Precautions Antimicrobial Stewardship Recommendations Simplification of therapy Targeted therapy Coordination of Outpatient Care: Estimated Length of IV antimicrobials:TBD Patient will need Midline Catheter Insertion: TBD Patient will need PICC line Insertion:TBD Patient will need: Home IV , Infusion Center, SNF, LTAC: TBD Patient will need outpatient wound care: Chief complaint/reason for consultation: Gram negative jaime bacteremia-Klebsiella on blood cultures from 08/23/24 History of Present Illness: Freddy Panchal is a 68 y.o.-year-old male who was initially admitted on 08/23/2024. Patient seen at the request of Dr. Nazario Guaman INITIAL HISTORY: This patient has a history of chronic back pain for which he receives regular steroid injections. His last injection was given on 08/15/24. He also has a history of COPD, CAD, DM II, polysubstance abuse, but he denied any recent IV drug use. He presented to [facility] ED with complaints of worsening lower back pain that was radiating to his lower extremities. A CT lumbar spine and MRI showed concern for lumbar discitis with L4-L5 phlegmon. Labwork was significant for glucose 307, WBC 12.1-->15.5 with a left shift of 10.8-->13.5, low platelet at 54, CRP elevation of 412 and ESR of 79. He was transferred to [facility] for Neurosurgery evaluation on 08/22/24. IV Vancomycin and Zosyn was initiated. On 08/23/24, he underwent a L4-L5 laminectomy with Dr. Samaniego. Per Dr. Samaniego's surgical note, there was no intraspinal abscess, although there was some abnormal colored fat noted that was sent for culture and is growing Klebsiella. Blood cultures were positive for Klebsiella. ID was consulted. CTA Chest 08/23/24: 1. No evidence of pulmonary embolism or acute thoracic aortic abnormality. 2. Mild to moderate atelectasis, with or without mild infiltrates in the right pulmonary lower lobe. 3. Mild pulmonary vascular congestion. 4. Coronary artery calcifications. 5. Multilevel degenerative disc disease in the mid and lower portion of thoracic spine without spinal stenosis. CXR 08/23/24: Bilateral interstitial and ground-glass opacities are noted, which may be due to pulmonary edema or atypical infection MRI lumbar spine 08/23/24: A 6 mm thickness T1 and T2 heterogeneous lesion extending from superior endplate of the L4 to the inferior endplate of the L5 causing moderate spinal canal narrowing and crowding of the cauda equina roots without compression. The lesion demonstrate heterogenous enhancement. Differential diagnosis include granulation tissue or phlegmon. If clinical symptoms persists, one-week follow-up study can be obtained for further evaluation. US Abdomen 08/25/24: Suspected hepatic steatosis CURRENT EVALUATION- DAILY INTERVAL CHANGES 08/27/2024 BP 126/68 Pulse 89 Temp 97.9 F (36.6 C) (Oral) Resp 17 Ht 1.803 m (5' 11 ) Wt 88.5 kg (195 lb) SpO2 93% BMI 27.20 kg/m Afebrile Vital signs stable The patient is on room air WBC down trending; most recent 11.2 He is experiencing back pain below the surgical incision site Incision site looks fine. No erythema, no drainage, no fluctuance Patient denies fever, chills, night sweats, chest pain, difficulty breathing, SOB, dysuria. Patient is complaining of intermitted mucous with blood coloring in sputum. No gunner hemoptysis. Lovenox on hold. Medications reviewed: Zosyn D/C on 08/24 Vancomycin D/C on 08/24 Cefepime D/C on 08/25 On ceftriaxone Plan to switch to po Levaquin at time of discharge. Blood and wound cultures show Klebsiella oxytoca sensitivity to Ceftriaxone Ceftriaxone 2000 mg IV started on 08/25 Patient expects discharge to home and will work with case management as treatment progresses Labs, X rays reviewed: 08/27/2024 with independent review of X rays I have independently reviewed/ordered the following labs: CBC with Differential: Recent Labs 08/26/24 0458 08/27/24 0808 WBC 13.3* 11.2 HGB 12.3* 13.0 HCT 38.9* 40.0* PLT 76* 122* LYMPHOPCT 10* 13* MONOPCT 9 8 EOSPCT 1 1 BMP: Recent Labs 08/25/24 0705 08/27/24 0808 NA 137 132* K 3.9 3.4* CL 100 96* CO2 26 25 BUN 27* 26* CREATININE 0.6* 0.7 MG -- 2.1 Hepatic Function Panel: No results for input(s): LABALBU , BILIDIR , IBILI , BILITOT , ALKPHOS , ALT , AST in the last 72 hours. Invalid input(s): PROT No results for input(s): RPR in the last 72 hours. No results for input(s): HIV in the last 72 hours. No results for input(s): BC in the last 72 hours. Lab Results Component Value Date/Time BACTERIA None 08/23/2024 04:18 AM RBC 4.09 08/27/2024 08:08 AM WBC 11.2 08/27/2024 08:08 AM TURBIDITY Clear 08/23/2024 04:18 AM Lab Results Component Value Date/Time CREATININE 0.7 08/27/2024 08:08 AM GLUCOSE 200 08/27/2024 08:08 AM Cultures: Urine: Blood: 08/22/24: 2/2 Klebsiella Sputum : Wound: 08/23/24: L5-L6 surgical culture: Klebsiella MRSA Nares: Imaging: MRI lumbar spine 08/22/24 Review of Systems: Pertinent review of symptoms listed in Initial Evaluation and daily interval evaluations sections Physical Examination : Patient Vitals for the past 8 hrs: BP Temp Temp src Pulse Resp SpO2 08/27/24 0834 126/68 97.9 F (36.6 C) Oral 89 17 93 % General Appearance: Awake, alert, and in no apparent distress. Tremors noted Head: Normocephalic, no trauma Eyes: Pupils equal, round, reactive to light and accommodation; extraocular movements intact; sclera anicteric; conjunctivae pink. No embolic phenomena. ENT: Oropharynx clear, without erythema, exudate, or thrush. No tenderness of sinuses. Mouth/throat: mucosa pink and moist. No lesions. Dentition in good repair. Neck:Supple, without lymphadenopathy. Thyroid normal, No bruits. Pulmonary/Chest: Clear to auscultation, without wheezes, rales, or rhonchi. No dullness to percussion. Cardiovascular: Regular rate and rhythm without murmurs, rubs, or gallops. Abdomen: Soft, non tender. Bowel sounds normal. No organomegaly All four Extremities: No cyanosis, clubbing, edema, or effusions.Back pain Neurologic: No gross sensory or motor deficits. Skin: Warm and dry with good turgor.No signs of peripheral arterial or venous insufficiency. No ulcerations. No open wounds. I have personally reviewed the past medical history, past surgical history, medications, social history, and family history, and I have updated the database accordingly. Past Medical History: History reviewed. No pertinent past medical history. Past Surgical History: Past Surgical History: Procedure Laterality Date LUMBAR SPINE SURGERY 08/23/2024 LUMBAR LAMINECTOMY FOR ABCESS LUMBAR SPINE SURGERY N/A 08/23/2024 E2 LUMBAR LAMINECTOMY FOR ABCESS performed by Wilda Samaniego DO at [facility] OR Medications: cefTRIAXone (ROCEPHIN) IV 2,000 mg IntraVENous Q24H atorvastatin 20 mg Oral Nightly cyclobenzaprine 10 mg Oral TID carvedilol 6.25 mg Oral BID WC insulin lispro 0-8 Units SubCUTAneous 4x Daily AC & HS insulin glargine 13 Units SubCUTAneous Daily furosemide 40 mg IntraVENous Daily sodium chloride flush 5-40 mL IntraVENous 2 times per day thiamine 100 mg Oral Daily sodium chloride flush 5-40 mL IntraVENous 2 times per day [Held by provider] enoxaparin 40 mg SubCUTAneous Daily Social History: Social History Socioeconomic History Marital status: Spouse name: Not on file Number of children: Not on file Years of education: Not on file Highest education level: Not on file Occupational History Not on file Tobacco Use Smoking status: Never Passive exposure: Never Smokeless tobacco: Never Vaping Use Vaping status: Never Used Substance and Sexual Activity Alcohol use: Not on file Drug use: Not on file Sexual activity: Not on file Other Topics Concern Not on file Social History Narrative Not on file Social Determinants of Health Financial Resource Strain: Not on file Food Insecurity: Patient Unable To Answer (08/25/2024) Hunger Vital Sign Worried About Running Out of Food in the Last Year: Patient unable to answer Ran Out of Food in the Last Year: Patient unable to answer Transportation Needs: Patient Unable To Answer (08/25/2024) PRAPARE - Transportation Lack of Transportation (Medical): Patient unable to answer Lack of Transportation (Non-Medical): Patient unable to answer Physical Activity: Not on file Stress: Not on file Social Connections: Moderately Integrated (08/27/2024) Social Connections ([facility] HRSN) If for any reason you need help with day-to-day activities such as bathing, preparing meals, shopping, managing finances, etc., do you get the help you need?: Not on file Intimate Partner Violence: Not on file Housing Stability: Patient Unable To Answer (08/25/2024) Housing Stability Vital Sign Unable to Pay for Housing in the Last Year: Patient unable to answer Number of Times Moved in the Last Year: 0 Homeless in the Last Year: Patient unable to answer Family History: History reviewed. No pertinent family history. Allergies: Codeine Medical Decision Making-Imaging: MRI LUMBAR SPINE W WO CONTRAST Result Date: 08/23/2024 EXAMINATION: MRI OF THE LUMBAR SPINE WITHOUT AND WITH CONTRAST 08/23/2024 9:23 am TECHNIQUE: Multiplanar multisequence MRI of the lumbar spine was performed without and with the administration of intravenous contrast. COMPARISON: None. HISTORY: ORDERING SYSTEM PROVIDED HISTORY: Concern for epidural abscess, recent steroid injection to back TECHNOLOGIST PROVIDED HISTORY: Concern for epidural abscess, recent steroid injection to back Decision Support Exception - unselect if not a suspected or confirmed emergency medical condition->Emergency Medical Condition (MA) Reason for Exam: Concern for epidural abscess, recent steroid injection to back FINDINGS: BONES/ALIGNMENT: There is normal alignment of the spine. The vertebral body heights are maintained. The bone marrow signal appears unremarkable. SPINAL CORD: The conus terminates normally. SOFT TISSUES: No abnormal enhancement is seen of the lumbar spine. No paraspinal mass identified. L1-L2: There is no significant disc protrusion, spinal canal stenosis or neural foraminal narrowing. L2-L3: There is no significant disc protrusion, spinal canal stenosis or neural foraminal narrowing. L3-L4: There is no significant disc protrusion, spinal canal stenosis or neural foraminal narrowing. L4-L5: Within the ventral epidural space, there is a T1 and T2 heterogenous collection which is 6 mm in thickness causing more red spinal canal narrowing and crowding of the cauda equina nerve roots. Mild bilateral neural foraminal narrowing. This collection demonstrates heterogeneous enhancement. L5-S1: There is no significant disc protrusion, spinal canal stenosis or neural foraminal narrowing. A 6 mm thickness T1 and T2 heterogeneous lesion extending from superior endplate of the L4 to the inferior endplate of the L5 causing moderate spinal canal narrowing and crowding of the cauda equina roots without compression. The lesion demonstrate heterogenous enhancement. Differential diagnosis include granulation tissue or phlegmon. If clinical symptoms persists, one-week follow-up study can be obtained for further evaluation. FLUORO FOR SURGICAL PROCEDURES Result Date: 08/23/2024 Radiology exam is complete. No Radiologist dictation. Please follow up with ordering provider. Vascular duplex lower extremity venous bilateral Result Date: 08/23/2024 No evidence of deep vein or superficial vein thrombosis in the right lower extremity. Vessels demonstrate normal compressibility, color filling, and phasic and spontaneous flow. No evidence of deep vein or superficial vein thrombosis in the left lower extremity. Vessels demonstrate normal compressibility, color filling, and phasic and spontaneous flow. CT CHEST PULMONARY EMBOLISM W CONTRAST Result Date: 08/23/2024 EXAMINATION: CTA OF THE CHEST 08/23/2024 3:11 am TECHNIQUE: CTA of the chest was performed after the administration of intravenous contrast. Multiplanar reformatted images are provided for review. MIP images are provided for review. Automated exposure control, iterative reconstruction, and/or weight based adjustment of the mA/kV was utilized to reduce the radiation dose to as low as reasonably achievable. COMPARISON: None. HISTORY: ORDERING SYSTEM PROVIDED HISTORY: rule out PE TECHNOLOGIST PROVIDED HISTORY: rule out PE Additional Contrast?->1 FINDINGS: Pulmonary Arteries: Pulmonary arteries are adequately opacified for evaluation. No evidence of intraluminal filling defect to suggest pulmonary embolism. Main pulmonary artery is normal in caliber. Mediastinum: No evidence of mediastinal lymphadenopathy. The heart and pericardium demonstrate no acute abnormality. No evidence of thoracic aortic aneurysm or dissection. No evidence of pericardial effusion or pericardial thickening. Evidence of coronary artery calcifications noted. Lungs/pleura: Evidence of mild to moderate atelectasis, with or without mild infiltrates in the right pulmonary lower lobe. Minimal atelectasis at the base of right middle lobe. Minimal atelectasis at the posterior base of left pulmonary lower lobe. Mild pulmonary vascular congestion. No pleural effusion or pneumothorax. Upper Abdomen: No acute process in the visualized upper abdomen. No hiatal hernia. No pneumoperitoneum. Soft Tissues/Bones: No acute bone or soft tissue abnormality. [id number] multilevel degenerative disc disease in the mid and lower portion of thoracic spine without spinal stenosis. 1. No evidence of pulmonary embolism or acute thoracic aortic abnormality. 2. Mild to moderate atelectasis, with or without mild infiltrates in the right pulmonary lower lobe. 3. Mild pulmonary vascular congestion. 4. Coronary artery calcifications. 5. Multilevel degenerative disc disease in the mid and lower portion of thoracic spine without spinal stenosis. XR CHEST PORTABLE Result Date: 08/23/2024 EXAMINATION: ONE XRAY VIEW OF THE CHEST 08/23/2024 3:21 am COMPARISON: None. HISTORY: ORDERING SYSTEM PROVIDED HISTORY: tachy TECHNOLOGIST PROVIDED HISTORY: tachy Reason for Exam: port upright FINDINGS: Shallow inflation. Cardiac silhouette enlargement. Bilateral interstitial and ground-glass opacities are noted. No pneumothorax or effusion. No acute osseous abnormality identified. Bilateral interstitial and ground-glass opacities are noted, which may be due to pulmonary edema or atypical infection. Medical Decision [id number]: Results Procedure Component Value Units Date/Time Infectious Disease Intervention [[id number]] Collected: 08/24/241799 Order Status: Completed Updated: 08/27/24753 Intervention De-escalation Culture, Anaerobic and Aerobic [[id number]] (Abnormal) (Susceptibility) Collected: 08/23/241911 Order Status: Completed Specimen: Spine Updated: 08/27/2446 Specimen Description .SPINE Direct Exam NO NEUTROPHILS SEEN NO BACTERIA SEEN Culture KLEBSIELLA OXYTOCA RARE GROWTH Identification by MALDI-TOF No anaerobic organisms isolated at 4 days. Susceptibility Klebsiella oxytoca BACTERIAL SUSCEPTIBILITY PANEL LETHA (Preliminary) ampicillin 16 Resistant ceFAZolin <=4 Sensitive cefTRIAXone <=0.25 Sensitive Confirmatory Extended Spectrum Beta-Lactamase NEGATIVE Sensitive gentamicin <=1 Sensitive levofloxacin <=0.12 Sensitive piperacillin-tazobactam <=4 Sensitive tobramycin <=1 Sensitive trimethoprim-sulfamethoxazole <=20 Sensitive Culture, Anaerobic and Aerobic [[id number]] Collected: 08/23/241803 Order Status: No result Specimen: Swab from Spine Culture, Blood 1 [[id number]] (Abnormal) Collected: 08/23/24313 Order Status: Completed Specimen: Blood Updated: 08/25/24818 Specimen Description .BLOOD Special Requests LEFT AC 10ML Culture POSITIVE Blood Culture DIRECT GRAM STAIN FROM BOTTLE: GRAM NEGATIVE RODS KLEBSIELLA OXYTOCA Identification by MALDI-TOF For susceptibility, refer to previous culture. (NOTE) Direct Gram Stain from bottle result called to and read back by: DOMINICK Baker on 08/23/24 at 1409 Culture, Blood 1 [[id number]] (Abnormal) (Susceptibility) Collected: 08/23/24 031 Order Status: Completed Specimen: Blood Updated: 08/25/24818 Specimen Description .BLOOD Special Requests RIGHT FOREARM 10ML Culture POSITIVE Blood Culture DIRECT GRAM STAIN FROM BOTTLE: GRAM NEGATIVE RODS Klebsiella oxytoca Detected: Methodology- Polymerase Chain Reaction (PCR) KLEBSIELLA OXYTOCA (NOTE) Direct Gram Stain from bottle result called to and read back by: DOMINICK Otoole on 08/23/24 at 12:35 Susceptibility Klebsiella oxytoca BACTERIAL SUSCEPTIBILITY PANEL LETHA ampicillin 16 Resistant ceFAZolin <=4 Sensitive cefTRIAXone <=0.25 Sensitive Confirmatory Extended Spectrum Beta-Lactamase NEGATIVE Sensitive gentamicin <=1 Sensitive levofloxacin <=0.12 Sensitive piperacillin-tazobactam <=4 Sensitive tobramycin <=1 Sensitive trimethoprim-sulfamethoxazole <=20 Sensitive Thank you for allowing us to participate in the care of this patient. Please call with questions. Yuri Marrufo, OMS-3 ATTESTATION: I have discussed the case, including pertinent history and exam findings with the medical office coordinator. I have evaluated the History, physical findings and pictures of the patient and the serrano elements of the encounter have been performed by me. I have reviewed the laboratory data, other diagnostic studies and discussed them with the medical office coordinator. I have updated the medical record where necessary. I agree with the assessment, plan and orders as documented by the medical office coordinator and I have modified them as necessary. Elements of Medical Decision Making: Note: I have independently performed the steps listed below as part of the medical decision making and evaluation. Examined and discussed with patient. Gram-negative septicemia 08/23/2024 Klebsiella septicemia 08/23/2024 Concern for epidural abscess and discitis Status post L4-L5 laminectomy with no abscess found Tissue culture from the spine with growth of Klebsiella CRP elevation Leukocytosis Thrombocytopenia Diabetes mellitus type 2 with hyperglycemia Chronic back pain Coronary artery disease COPD History of drug abuse Alcohol abuse Labs, medications, radiologic studies were reviewed with personal review of films Radiologic studies Lab work Cultures Klebsiella in blood Klebsiella in tissue culture from the spine Large amounts of data were reviewed Patient with a history of chronic back pain for which she receives regular steroid injections Received last dose on 08/15/2024 Subsequently presented to [facility] ER with worsening lower back pain with radiation to his lower extremities CT scan and MRI of the spine showed concern for lumbar discitis with L4-L5 phlegmon Patient had associated elevation of CRP and ESR as well has leukocytosis Transferred to [facility] on 08/22/2024 Patient underwent L4-L5 laminectomy on 08/23/2024. No abscess was found but there was some abnormal fatty tissue that was cultured and is growing Klebsiella Blood cultures are also growing Klebsiella Discussed with nursing Staff, turnaround planner Dr Guaman's service Infection Control and Prevention measures reviewed [place]ah precaution All prior entries were reviewed Neurosurgical and IM notes reviewed Administer medications as ordered Ceftriaxone 2 g IV every 24 hours Plan Levaquin at discharge Monitor culture data and modified as necessary Prognosis: Guarded Discharge planning reviewed Follow up as outpatient. Chong Arvizu MD 08/27/2024 Office: Physical Therapy Facility/Department: [facility] RENAL//MED SURG Physical Therapy Daily Treatment Note Name: Freddy Panchal : 1955 Date of Service: 08/26/2024 Discharge Recommendations: Patient would benefit from continued therapy after discharge PT Equipment Recommendations Equipment Needed: Yes Mobility Devices: Walker Walker: Rolling Patient Diagnosis(es): The primary encounter diagnosis was Epidural abscess. Diagnoses of Tachycardia, Abscess in epidural space of lumbar spine, and Acute congestive heart failure, unspecified heart failure type (HCC) were also pertinent to this visit. Past Medical History: has no past medical history on file. Past Surgical History: has a past surgical history that includes Lumbar spine surgery (08/23/2024) and Lumbar spine surgery (N/A, 08/23/2024). Assessment Body Structures, Functions, Activity Limitations Requiring Skilled Therapeutic Intervention: Decreased functional mobility ;Decreased tolerance to work activity;Decreased strength;Decreased endurance;Decreased balance;Increased pain Assessment: Pt presents with pain w/movement but able to complete STS's from EOB with CGA, ambulated 45 ft and 60 ft X1 CGA using RW, negotiated 10 steps with reciprocal gait pattern using B h-rails. Pt will benefit from continued therapy following d/c facilitating return to functional IND. Specific Instructions for Next Treatment: Progress activity and encourage out of bed activity Therapy Prognosis: Good Decision Making: Medium Complexity Clinical Presentation: evolved Activity Tolerance Activity Tolerance: Patient tolerated evaluation without incident;Patient limited by pain;Patient limited by endurance;Other (comment) Activity Tolerance Comments: Pt was able to participate in PT POC and in agreement with goals Plan Physical Therapy Plan General Plan: 6-7 times per week Specific Instructions for Next Treatment: Progress activity and encourage out of bed activity Current Treatment Recommendations: Strengthening, Balance training, Functional mobility training, Transfer training, Endurance training, Gait training, Stair training, Neuromuscular re-education, Home exercise program, Safety education & training, Therapeutic activities Safety Devices Type of Devices: Patient at risk for falls, Gait belt, Nurse notified, Call light within reach, Chair alarm in place, Left in chair Restraints Restraints Initially in Place: No Restrictions Restrictions/Precautions Restrictions/Precautions: Seizure, Fall Risk Required Braces or Orthoses?: No Position Activity Restriction Other position/activity restrictions: Up with assist, LUMBAR LAMINECTOMY FOR ABCESS on 08/23/24 Subjective General Response To Previous Treatment: Patient with no complaints from previous session. Family / Caregiver Present: Yes Follows Commands: Within Functional Limits Other (Comment): Pt is awake and alert in agreement with PT intervention., Okay per RN General Comment Comments: Pt report independent at baseline without AD, Subjective Subjective: Pt report 10/10 back pain upon completion of PT intervention Social/Functional History Social/Functional History Lives With: Alone Type of Home: House Home Layout: Two level, Bed/Bath upstairs, Able to Live on Main level with bedroom/bathroom Home Access: Stairs to enter with rails Entrance Stairs - Number of Steps: 2 + 2 RAHDA back of house Bathroom Shower/Tub: Tub/Shower unit Bathroom Toilet: Standard Bathroom Equipment: None Bathroom Accessibility: Accessible Home Equipment: None, Walker - Rolling, Cane Has the patient had two or more falls in the past year or any fall with injury in the past year?: Yes (recent fall due to neuropathy at bilateral LE's) Receives Help From: Family, Friend(s) (Pt report good family and friend support) ADL Assistance: Independent Homemaking Assistance: Independent Homemaking Responsibilities: Yes Meal Prep Responsibility: Primary Laundry Responsibility: Primary Cleaning Responsibility: Primary Bill Paying/Finance Responsibility: Primary Shopping Responsibility: Primary Dependent Care Responsibility: Primary Health Care Management: Primary Ambulation Assistance: Independent Transfer Assistance: Independent 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, 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 Additional Comments: Pt report independence at baseline without AD, used if needed Cognition Orientation Overall Orientation Status: Within Normal Limits Orientation Level: Oriented X4 Cognition Overall Cognitive Status: WNL Objective Temp: 98.3 F (36.8 C) Pulse: 99 Respirations: 15 SpO2: 95 % O2 Device: None (Room air) BP: 116/79 MAP (Calculated): 91 BP Location: Left upper arm Bed mobility Supine to Sit: Stand by assistance Sit to Supine: Stand by assistance Scooting: Stand by assistance Transfers Sit to Stand: Contact guard assistance Stand to Sit: Contact guard assistance Ambulation Surface: Level tile Device: Rolling Walker Assistance: Contact guard assistance Quality of Gait: Pt demo slow guarded gait with RW Gait Deviations: Slow Miriam;Decreased step length Distance: 45ft X1 Comments: Pt educated on safety and use of RW with good return demo More Ambulation?: Yes Ambulation 2 Surface - 2: level tile Device 2: Rolling Walker Assistance 2: Contact guard assistance Gait Deviations: Decreased step length;Slow Miriam Distance: 60 ft X1 Comments: Pt ambulated from stairwell back to his room after negotaiting stairs. [facility] for [facility] stairs. Stairs/Curb Stairs?: Yes Stairs # Steps : 10 Stairs Height: 6 Rails: Bilateral Device: No Device Assistance: Contact guard assistance Comment: reciprocal gait pattern, no LOB noted Wheelchair Activities Wheelchair Parts Management: No Propulsion: No Balance Posture: Good Sitting - Static: Good Sitting - Dynamic: Good Standing - Static: Good Standing - Dynamic: Good Comments: balance assessed with RW Functional Reach Test Fall Risk (Score of <10 inches is fall risk): No AM-PAC - Mobility AM-PAC Basic Mobility - Inpatient How much help is needed turning from your back to your side while in a flat bed without using bedrails?: A Little How much help is needed moving from lying on your back to sitting on the side of a flat bed without using bedrails?: A Little How much help is needed moving to and from a bed to a chair?: A Little How much help is needed standing up from a chair using your arms?: A Little How much help is needed walking in hospital room?: A Little How much help is needed climbing 3-5 steps with a railing?: A Little AM-PAC Inpatient Mobility Raw Score : 18 AM-PAC Inpatient T-Scale Score : 43.63 Mobility Inpatient CMS 0-100% Score: 46.58 Mobility Inpatient CMS G-Code Modifier : CK Goals Short Term Goals Time Frame for Short Term Goals: 14 visits Short Term Goal 1: Pt to ambulate 200 ft mod I with least AD Short Term Goal 2: Pt to transfer from alternate surface heights with Mod I demonstrating safety with AD Short Term Goal 3: Pt to ascend/descend 4 steps with Mod I and rigth railing Short Term Goal 4: Pt to be provided verbal, written and practical instruction in bilateral LE ROM exercises to improve general strength and activity tolerance. Patient Goals Patient Goals : To return home Education Patient Education Education Given To: Patient Education Provided: Role of Therapy;Plan of Care;Precautions;Transfer Training;Equipment;Fall Prevention Strategies Education Method: Verbal Barriers to Learning: None Education Outcome: Verbalized understanding;Continued education needed Therapy Time Individual Concurrent Group Co-treatment Time In 1245 Time Out 1315 Minutes 30 SONY MCKINNON PTA Images from the original note were not included. [facility] Office: [phone] Davion Hernández DO, Rod Phillips DO, Sukhwinder Jacobson DO, Allen Gleason DO, Elvira Thakur MD, Cookie Simon MD, Annamarie Lawler MD, Gena Wilson MD, Regan Walsh MD, Meaghan Cuello MD, Brianna Wray MD, Morales Santoyo DO, Felix Rothman MD, Justin Vargas MD, Arie Hernández DO, Zoë Tong MD, Ricardo Hooker DO, Suzy Price MD, Catherine Guaman MD, Lisette Damon MD, Angel Jain MD, Sunny Porter MD, Adina Grant MD, Diallo Rodriguez MD, Sharla Pickering MD, Oren Freed MD, Hipolito Dacosta MD, Pio Shields DO, Samuel Ramirez MD, Shirley Morrow, MAGNETIC TESTER, Lissa Ramey, MAGNETIC TESTER, Pio Neville, MAGNETIC TESTER, Nori Lamar DNP, Anny Andrews, MAGNETIC TESTER, Kaya Gallegos, MAGNETIC TESTER, Elizabeth Zavala MAGNETIC TESTER, Fiordaliza Head MAGNETIC TESTER, Abiola Hoff, PABlossomC, CHRISTIAN HannahC, Rosaline Alvarez CNP, Evelin Mcintosh CNP, Jackie Dorantes CNP, Amira Escobar, MAGNETIC TESTER, Jazzy Leary, MAGNETIC TESTER, Joanne Phillips, MAGNETIC TESTER [facility] IN-PATIENT SERVICE [facility] Progress Note 08/26/2024 11:05 AM Name: Freddy Panchal Acct: [id number] Room: 0328/0328-02 Day: 3 Admit Date: 08/23/2024 2:54 AM PCP: No primary care provider on file. Code Status: Full Code Subjective: C/C: Chief Complaint Patient presents with Back Pain Patient seen on follow-up this morning. He notes that he continues to have back pain. He also notes that he has been intermittently coughing up small amounts of blood tinged frothy sputum since he has been admitted. Denies any shortness of breath or gunner blood being coughed up. Brief History: 68-year-old male with past medical history of chronic back pain with regular steroid injections, COPD, type 2 diabetes, CAD initially presented to [facility] with complaints of worsening lower back pain. CT and MRI lumbar spine were done which showed concern for lumbar discitis with possible abscess at L4-L5. He was started on Vanco and Zosyn and was transferred to [facility] for neurosurgery evaluation. He underwent L4-L5 laminectomy on 08/23. Blood cultures grew Klebsiella. ID was consulted for antibiotic management, started patient on cefepime, transitioned to ceftriaxone after blood culture results. Cardiology was consulted for perioperative risk assessment, ordered transthoracic echo. Medications: Allergies: Allergies Allergen Reactions Codeine Rash Current Meds: Scheduled Meds: cefTRIAXone (ROCEPHIN) IV 2,000 mg IntraVENous Q24H atorvastatin 20 mg Oral Nightly cyclobenzaprine 10 mg Oral TID carvedilol 6.25 mg Oral BID WC insulin lispro 0-8 Units SubCUTAneous 4x Daily AC & HS insulin glargine 13 Units SubCUTAneous Daily furosemide 40 mg IntraVENous Daily sodium chloride flush 5-40 mL IntraVENous 2 times per day thiamine 100 mg Oral Daily sodium chloride flush 5-40 mL IntraVENous 2 times per day [Held by provider] enoxaparin 40 mg SubCUTAneous Daily Continuous Infusions: dextrose sodium chloride sodium chloride PRN Meds: traZODone, glucose, dextrose bolus OR dextrose bolus, glucagon (rDNA), dextrose, sodium chloride flush, sodium chloride, LORazepam OR LORazepam OR LORazepam OR LORazepam OR LORazepam OR LORazepam OR LORazepam OR LORazepam, sodium chloride flush, sodium chloride, potassium chloride OR potassium alternative oral replacement OR potassium chloride, magnesium sulfate, ondansetron OR ondansetron, polyethylene glycol, acetaminophen OR acetaminophen, morphine, sodium chloride flush, oxyCODONE-acetaminophen, oxyCODONE-acetaminophen Data: Past Medical History: has no past medical history on file. Social History: reports that he has never smoked. He has never been exposed to tobacco smoke. He has never used smokeless tobacco. Family History: History reviewed. No pertinent family history. Vitals: BP 114/83 Pulse 89 Temp 98.3 F (36.8 C) Resp 18 Ht 1.803 m (5' 11 ) Wt 88.5 kg (195 lb) SpO2 91% BMI 27.20 kg/m Temp (24hrs), Av.4 F (36.9 C), Min:98.1 F (36.7 C), Max:98.7 F (37.1 C) Recent Labs 08/25/24 1151 08/25/24 1626 08/25/24 2043 08/26/24 0750 POCGLU 164* 192* 137* 154* I/O (24Hr): Intake/Output Summary (Last 24 hours) at 08/26/2024 1105 Last data filed at 08/25/2024 1628 Gross per 24 hour Intake 500 ml Output -- Net 500 ml Labs: Hematology: Recent Labs 08/24/24 0743 08/25/24 0705 08/26/24 0458 WBC 15.5* 12.6* 13.3* RBC 4.20* 4.01* 3.89* HGB 13.3 12.8* 12.3* HCT 39.4* 38.8* 38.9* MCV 93.8 96.8 100.0 MCH 31.7 31.9 31.6 MCHC 33.8 33.0 31.6 RDW 13.7 13.8 13.7 PLT 54* 57* 76* MPV 11.5 11.3 11.4 INR 0.9 -- -- Chemistry: Recent Labs 08/23/24 1720 08/24/24 0743 08/25/24 0705 NA 140 139 137 K 4.2 4.7 3.9 CL -- 103 100 CO2 -- 26 26 GLUCOSE -- 257* 178* BUN -- 29* 27* CREATININE -- 0.8 0.6* ANIONGAP -- 10 11 LABGLOM -- >90 >90 CALCIUM -- 8.6 8.6 CAION 1.21 -- -- LACTACIDWB 1.7 -- -- Recent Labs 08/24/24 2015 08/25/24 0705 08/25/24 0740 08/25/24 1151 08/25/24 1626 08/25/24 2043 08/26/24 0750 LABA1C -- 7.8* -- -- -- -- -- POCGLU 234* -- 182* 164* 192* 137* 154* ABG: Lab Results Component Value Date/Time PHART 7.414 08/23/2024 05:20 PM [id number] 41.2 08/23/2024 05:20 PM PO2ART 211.0 08/23/2024 05:20 PM QCE0ERF 25.9 08/23/2024 05:20 PM PBEA 1.7 08/23/2024 05:20 PM [id number] 98.0 08/23/2024 05:20 PM FIO2 60 08/23/2024 05:20 PM Lab Results Component Value Date/Time SPECIAL LEFT AC 10ML 08/23/2024 03:14 AM Lab Results Component Value Date/Time CULTURE (A) 08/23/2024 07:12 PM KLEBSIELLA OXYTOCA RARE GROWTH Identification by MALDI-TOF CULTURE No anaerobic organisms isolated at 3 days. 08/23/2024 07:12 PM Radiology: US ABDOMEN LIMITED Specify organ? LIVER, SPLEEN Result Date: 08/25/2024 Suspected hepatic steatosis. XR CHEST PORTABLE Result Date: 08/24/2024 Improving pulmonary vascular congestion when compared to the prior exam MRI LUMBAR SPINE W WO CONTRAST Result Date: 08/23/2024 A 6 mm thickness T1 and T2 heterogeneous lesion extending from superior endplate of the L4 to the inferior endplate of the L5 causing moderate spinal canal narrowing and crowding of the cauda equina roots without compression. The lesion demonstrate heterogenous enhancement. Differential diagnosis include granulation tissue or phlegmon. If clinical symptoms persists, one-week follow-up study can be obtained for further evaluation. CT CHEST PULMONARY EMBOLISM W CONTRAST Result Date: 08/23/2024 1. No evidence of pulmonary embolism or acute thoracic aortic abnormality. 2. Mild to moderate atelectasis, with or without mild infiltrates in the right pulmonary lower lobe. 3. Mild pulmonary vascular congestion. 4. Coronary artery calcifications. 5. Multilevel degenerative disc disease in the mid and lower portion of thoracic spine without spinal stenosis. XR CHEST PORTABLE Result Date: 08/23/2024 Bilateral interstitial and ground-glass opacities are noted, which may be due to pulmonary edema or atypical infection. Physical Examination: General: Alert and oriented, no acute distress Neurologic: Awake, alert, and oriented X3, no focal weakness Lungs: Clear to auscultation, no wheezing, non-labored respiration Heart: Normal rate, regular rhythm, no murmur, gallop or edema Abdomen: Soft, non-tender, non-distended, normal bowel sounds Musculoskeletal: Normal strength, no swelling Assessment: Hospital Problems Last Modified POA * (Principal) Epidural abscess 08/23/2024 Yes Discitis of lumbar region 08/23/2024 Yes Gram-neg septicemia (HCC) 08/24/2024 Yes Alcohol dependence with withdrawal with complication (HCC) 08/24/2024 Yes Abscess in epidural space of lumbar spine 08/25/2024 Yes Bandemia 08/25/2024 Yes CRP elevated 08/25/2024 Yes Sepsis due to Klebsiella (HCC) 08/25/2024 Yes Plan: Lumbar spine epidural abscess status postlaminectomy 08/23 Klebsiella bacteremia -S/p laminectomy on 08/23, neurosurgery signed off -ID following for antibiotic recommendations, currently on ceftriaxone for Klebsiella in blood culture -Culture from laminectomy also growing Klebsiella -PT OT following HFpEF -Not in exacerbation -Cardiology following -Echo pending -On Lasix 40 mg IV daily Type 2 diabetes -A1c 7.8 08/2024 -On semaglutide at home -Lantus 13 units daily and sliding scale while inpatient COPD -Not in exacerbation -As needed albuterol Alcohol use disorder -Continue to monitor on CIWA Pio Shields DO 08/26/2024 11:05 AM Images from the original note were not included. [facility] Office: [phone] Davion Hernández DO, Rod Phillips DO, Sukhwinder Jacobson DO, Allen Gleason DO, Elvira Thakur MD, Cookie Simon MD, Annamarie Lawler MD, Gena Wilson MD, Regan Walsh MD, Meaghan Cuello MD, Brianna Wray MD, Morales Santoyo DO, Felix Rothman MD, Justin Vargas MD, Arie Hernández DO, oZë Tong MD, Ricardo Hooker DO, Suzy Price MD, Catherine Guaman MD, Lisette Damon MD, Angel Jain MD, Sunny Porter MD, Adina Grant MD, Diallo Rodriguez MD, Sharla Pickering MD, Oren Freed MD, Hipolito Dacosta MD, Pio Shields DO, Samuel Ramirez MD, Shirley Morrow CNP, Lissa Ramey CNP, Pio Neville CNP, Nori Lamar DNP, Anny Andrews CNP, Kaya Gallegos CNP, Elizabeth Zavala CNP, Fiordaliza Head CNP, Abiola Hoff PA-C, Mallorie Mireles PA-C, Rosaline Alvraez CNP, Evelin Mcintosh CNP, Jackie Dorantes CNP, Amira Escobar CNP, Jazzy Leary CNP, Joanne Phillips, PUMA [facility] IN-PATIENT SERVICE [facility] Progress Note 08/25/2024 3:13 PM Name: Freddy Panchal Acct: [id number] Room: [address] [place] [address] Day: 2 Admit Date: 08/23/2024 2:54 AM PCP: No primary care provider on file. Code Status: Full Code Subjective: C/C: Chief Complaint Patient presents with Back Pain Interval History Status: not changed. Tachypnea improved He is sleeping comfortably No distress noted Platelet count is stable Brief History: Freddy Panchal is a 68 y.o. male with PMHx of DM 2, COPD, BPH, alcohol abuse, HTN and HLD per EMR who presents with Back Pain and is admitted to the hospital for the management of Epidural abscess. Patient was transferred from [facility] for neurosurgery evaluation after CT lumbar spine showed concern for epidural abscess and patient complained of worsening chronic back pain with radiation to bilateral lower extremities. Patient had a injection in the low lumbar back on 08/15/2024. Of note, patient has no active home medications on file. On chart review, patient was seen on 12/15/2023 with [facility] cardiology after having an abnormal stress test on 10/2023. Patient was planned to have a CT angiogram coronary arteries but appears to not have been completed. Documentation notes patient was on metformin 1000 mg daily, Hyzaar 100-12.5 mg daily, Norvasc 2.5 mg daily and Pepcid 20 mg daily. Patient also notes he drinks four 12 ounce beers daily. In the ED, patient initially tachycardic up to 127 and hypertensive up to 167/97. Vital signs improved and are all WNL this morning. On BMP glucose was elevated at 307. CRP was elevated at 412 and ESR 79. Alcohol level was unremarkable. LFTs were largely unremarkable. CBC showed a elevated WBC of 12.1. D-dimer was also elevated at 2.12. UA was unremarkable. UDS was positive for cannabinoid, oxycodone and opiates. CXR showed bilateral interstitial and groundglass opacities, possibly due to pulmonary edema or atypical infection. CT PE showed no evidence of PE mild infiltrates in the right pulmonary lower lobe. Mild pulmonary vascular congestion, coronary artery calcifications. Neurosurgery is following. Patient started on vancomycin and Zosyn. MRI lumbar spine ordered. CIWA protocol initiated and cardiology was consulted for risk stratification for possible surgery Review of Systems: Constitutional: negative for chills, fevers, sweats + pain and tachypnea Medications: Allergies: Allergies Allergen Reactions Codeine Rash Current Meds: Scheduled Meds: cefTRIAXone (ROCEPHIN) IV 2,000 mg IntraVENous Q24H atorvastatin 20 mg Oral Nightly cyclobenzaprine 10 mg Oral TID carvedilol 6.25 mg Oral BID WC insulin lispro 0-8 Units SubCUTAneous 4x Daily AC & HS insulin glargine 13 Units SubCUTAneous Daily furosemide 40 mg IntraVENous Daily sodium chloride flush 5-40 mL IntraVENous 2 times per day thiamine 100 mg Oral Daily sodium chloride flush 5-40 mL IntraVENous 2 times per day enoxaparin 40 mg SubCUTAneous Daily Continuous Infusions: dextrose sodium chloride sodium chloride PRN Meds: glucose, dextrose bolus OR dextrose bolus, glucagon (rDNA), dextrose, sodium chloride flush, sodium chloride, LORazepam OR LORazepam OR LORazepam OR LORazepam OR LORazepam OR LORazepam OR LORazepam OR LORazepam, sodium chloride flush, sodium chloride, potassium chloride OR potassium alternative oral replacement OR potassium chloride, magnesium sulfate, ondansetron OR ondansetron, polyethylene glycol, acetaminophen OR acetaminophen, morphine, sodium chloride flush, oxyCODONE-acetaminophen, oxyCODONE-acetaminophen Data: Past Medical History: has no past medical history on file. Social History: reports that he has never smoked. He has never been exposed to tobacco smoke. He has never used smokeless tobacco. Family History: History reviewed. No pertinent family history. Vitals: BP 123/81 Pulse 87 Temp 98.1 F (36.7 C) Resp 20 Ht 1.803 m (5' 11 ) Wt 88.5 kg (195 lb) SpO2 98% BMI 27.20 kg/m Temp (24hrs), Av.5 F (36.9 C), Min:97.9 F (36.6 C), Max:99.1 F (37.3 C) Recent Labs 08/24/24 1617 08/24/24201408/25/24 0740 08/25/24 1151 POCGLU 238* 234* 182* 164* I/O (24Hr): Intake/Output Summary (Last 24 hours) at 08/25/2024 1513 Last data filed at 08/24/2024 1801 Gross per 24 hour Intake -- Output 750 ml Net -750 ml Labs: Hematology: Recent Labs 08/23/2431108/23/24171908/24/24 0743 08/25/24 0705 WBC 12.1* -- 15.5* 12.6* RBC 4.23 -- 4.20* 4.01* HGB 13.5 11.6* 13.3 12.8* HCT 40.1* 35.8* 39.4* 38.8* MCV 94.8 -- 93.8 96.8 MCH 31.9 -- 31.7 31.9 MCHC 33.7 -- 33.8 33.0 RDW 13.2 -- 13.7 13.8 PLT See Reflexed IPF Result -- 54* 57* MPV -- -- 11.5 11.3 SEDRATE 79* -- -- -- CRP 412.0* -- -- -- INR 0.9 -- 0.9 -- DDIMER 2.12* -- -- -- Chemistry: Recent Labs 08/23/2431108/23/2454108/23/24171908/24/24 0743 08/25/24 0705 NA 132* 136 140 139 137 K 5.1 4.5 4.2 4.7 3.9 CL 95* 98 -- 103 100 CO2 24 -- 26 GLUCOSE 332* 307* -- 257* 178* BUN 25* 27* -- 29* 27* CREATININE 0.9 0.9 -- 0.8 0.6* ANIONGAP 13 14 -- 10 11 LABGLOM 89 >90 -- >90 >90 CALCIUM 9.0 8.3* -- 8.6 8.6 CAION -- -- 1.21 -- -- TROPHS 9 -- -- -- -- LACTACIDWB -- -- 1.7 -- -- Recent Labs 08/23/24 0312 08/23/24 0841 08/23/24 1720 08/23/24 1910 08/24/24 1617 08/24/24201408/25/24 0740 08/25/24 1151 TSH 0.42 -- -- -- -- -- -- -- AST 32 -- -- -- -- -- -- -- ALT 34 -- -- -- -- -- -- -- ALKPHOS 140* -- -- -- -- -- -- -- BILITOT 0.6 -- -- -- -- -- -- -- POCGLU -- < > 247* 224* 238* 234* 182* 164* < > = values in this interval not displayed. ABG: Lab Results Component Value Date/Time PHART 7.414 08/23/2024 05:20 PM [id number] 41.2 08/23/2024 05:20 PM PO2ART 211.0 08/23/2024 05:20 PM AED8RMR 25.9 08/23/2024 05:20 PM PBEA 1.7 08/23/2024 05:20 PM [id number] 98.0 08/23/2024 05:20 PM FIO2 60 08/23/2024 05:20 PM Lab Results Component Value Date/Time SPECIAL LEFT AC 10ML 08/23/2024 03:14 AM Lab Results Component Value Date/Time CULTURE (A) 08/23/2024 07:12 PM KLEBSIELLA OXYTOCA RARE GROWTH Identification by MALDI-TOF CULTURE No anaerobic organisms isolated at 2 days. 08/23/2024 07:12 PM Radiology: MRI LUMBAR SPINE W WO CONTRAST Result Date: 08/23/2024 A 6 mm thickness T1 and T2 heterogeneous lesion extending from superior endplate of the L4 to the inferior endplate of the L5 causing moderate spinal canal narrowing and crowding of the cauda equina roots without compression. The lesion demonstrate heterogenous enhancement. Differential diagnosis include granulation tissue or phlegmon. If clinical symptoms persists, one-week follow-up study can be obtained for further evaluation. CT CHEST PULMONARY EMBOLISM W CONTRAST Result Date: 08/23/2024 1. No evidence of pulmonary embolism or acute thoracic aortic abnormality. 2. Mild to moderate atelectasis, with or without mild infiltrates in the right pulmonary lower lobe. 3. Mild pulmonary vascular congestion. 4. Coronary artery calcifications. 5. Multilevel degenerative disc disease in the mid and lower portion of thoracic spine without spinal stenosis. XR CHEST PORTABLE Result Date: 08/23/2024 Bilateral interstitial and ground-glass opacities are noted, which may be due to pulmonary edema or atypical infection. Physical Examination: General appearance: alert, cooperative and no distress Mental Status: oriented to person, place and time and normal affect Lungs: reduced breath sounds in the bases Heart: regular rate and rhythm, no murmur Abdomen: soft, nontender, nondistended, normal bowel sounds, no masses, hepatomegaly, splenomegaly Extremities: mild edema tenderness in the calves Skin: no gross lesions, rashes, induration Assessment: Hospital Problems Last Modified POA * (Principal) Epidural abscess 08/23/2024 Yes Discitis of lumbar region 08/23/2024 Yes Gram-neg septicemia (HCC) 08/24/2024 Yes Alcohol dependence with withdrawal with complication (HCC) 08/24/2024 Yes Sepsis with gram negative rods in blood cultures : Klebsiella Epidural abscess with klebsiella CHF CAD with positive pre op stress test S/p laminectomy at l4-l5 Urinary incontinence Thrombocytopenia Plan: Continue lasix for another day US abd to evaluate thrombocytopenia At high risk of deterioration based on his sepsis ? Endocarditis not ruled out : persistent blood cultures + Catherine Guaman MD 08/25/2024 3:[address] Guaman messaged via perfect serve informed patient had coughed up a small amount of bloody sputum ,message read called freelance copywriter and updated Images from the original note were not included. Cardiology Progress Note Date: 08/25/2024 Patient name: Freddy Panchal Date of admission: 08/23/2024 2:54 AM Date of : 1955 PCP: No primary care provider on file. Reason for Admission: Epidural abscess, encephalopathy Subjective: No acute events overnight, patient is currently sedated/drowsy, in no apparent distress, blood pressure and heart rate better controlled, on 4 L nasal cannula oxygen Scheduled Meds: cefTRIAXone (ROCEPHIN) IV 2,000 mg IntraVENous Q24H cyclobenzaprine 10 mg Oral TID carvedilol 6.25 mg Oral BID WC insulin lispro 0-8 Units SubCUTAneous 4x Daily AC & HS insulin glargine 13 Units SubCUTAneous Daily furosemide 40 mg IntraVENous Daily sodium chloride flush 5-40 mL IntraVENous 2 times per day thiamine 100 mg Oral Daily sodium chloride flush 5-40 mL IntraVENous 2 times per day enoxaparin 40 mg SubCUTAneous Daily Continuous Infusions: dextrose sodium chloride sodium chloride Labs: CBC: Recent Labs 08/23/2431108/23/24171908/24/24 0743 08/25/24 0705 WBC 12.1* -- 15.5* 12.6* HGB 13.5 11.6* 13.3 12.8* PLT See Reflexed IPF Result -- 54* 57* BMP: Recent Labs 08/23/24 0542 08/23/24171908/24/24 0743 08/25/24 0705 NA 136 140 139 137 K 4.5 4.2 4.7 3.9 CL 98 -- 103 100 CO2 24 -- 26 26 BUN 27* -- 29* 27* CREATININE 0.9 -- 0.8 0.6* GLUCOSE 307* -- 257* 178* Hepatic: Recent Labs 08/23/24311 AST 32 ALT 34 BILITOT 0.6 ALKPHOS 140* Troponin: No results for input(s): TROPONINI in the last 72 hours. BNP: No results for input(s): BNP in the last 72 hours. Lipids: No results for input(s): CHOL , HDL in the last 72 hours. Invalid input(s): LDLCALCU INR: Recent Labs 08/23/2431108/24/2443 INR 0.9 0.9 Objective: Vitals: BP (!) 142/88 Pulse 89 Temp 97.9 F (36.6 C) (Oral) Resp 20 Ht 1.803 m (5' 11 ) Wt 88.5 kg (195 lb) SpO2 95% BMI 27.20 kg/m General appearance: Drowsy, arousable, in no distress HEENT: Head: Normocephalic, no lesions, without obvious abnormality Neck: no JVD Lungs: clear to auscultation bilaterally, no basilar rales, no wheezing. Scattered rhonchi noted Heart: regular rate and rhythm, S1, S2 normal, no murmur, click, rub or gallop Abdomen: soft, non-tender; bowel sounds normal Extremities: Trace pedal edema Neurologic: Not performed Cardiac testing: EKG: normal sinus rhythm. LVH. Echocardiogram in january 2024: Left Ventricle: Systolic function is normal with an ejection fraction of 65-70%. Left ventricle is small. There is mild increased wall thickness/hypertrophy. Systolic function is normal with an ejection fraction of 65-70%. No obvious regional wall motion abnormalities. Lateral E' is 9.19 cm/s. Medial E' is 5.80 cm/s. Stress test in 10/2023 The stress ECG was positive. Stress ECG: Blood pressure demonstrated a hypertensive response to stress Stress ECG: the patient's exercise capacity was moderately impaired for their age. The patient reached stage 2 of the protocol after exercising for 4 min 0 sec Impression: Gram-negative septicemia Toxic metabolic encephalopathy Alcohol dependence with withdrawals Heart failure with preserved ejection fraction Epidural abscess/discitis of lumbar region s/p lumbar laminectomy History of drug and alcohol abuse Thrombocytopenia History of abnormal stress test in October 2023 Plan: Continue IV antibiotics per ID Management of [place] IV lasix 40 mg qd for another 24 hours Continue Coreg Add statin Limited echocardiogram Not on any antiplatelets due to severe thrombocytopenia Patient will eventually need coronary angiography once acute issues are resolved Will continue to follow along Paco Lyn MD [facility] [place] Images from the original note were not included. 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 Post L5 laminectomy with no abscess followed 08/23 Bandemia 12-15-12 Diabetes type 2 COPD Elevated CRP 42 History of drug use and alcohol abuse Concern for delirium tremens on CIWA protocol 10-year-old Other: Discussion / summary of stay / plan of care/ Recommendations: HENCE: 08/25 stop cefepime and start ceftriaxone 2 g a day Chest x-ray 08/24 improving pulmonary congestion Infection Control Recommendations Toyah Precautions Antimicrobial Stewardship Recommendations Simplification of therapy Targeted therapy History of Present Illness: Initial history: Freddy Panchal is a 68 y.o.-year-old male Interval changes 08/25/2024 Patient Vitals for the past 8 hrs: BP Temp Temp src Pulse Resp SpO2 08/25/24 0738 (!) 142/88 97.9 F (36.6 C) Oral 89 20 95 % 08/25/24 0352 (!) 142/87 -- -- (!) 102 -- 94 % 08/25 Chest x-ray improving pulmonary congestion MRI of the lumbar spine 08/23- heterogeneous lesion from the superior endplate of L2 until the L5-possible phlegmon Laminectomy 08/23 yielding 2 Klebsiella sensitive to ceftriaxone No fever, still on nasal cannula oxygen There is a concern of delirium tremens, patient having tremors, on CIIL protocol. Summary of relevant labs: Labs: WBC 12 Micro: Procedures Cardiology Imaging: CT chest 08/23 no PE and no convincing infiltrates I have personally reviewed the past medical history, past surgical history, medications, social history, and family history, and I haveupdated the database accordingly. Allergies: Codeine Review of Systems: Review of Systems Constitutional: Negative for activity change. HENT: Negative for congestion. Eyes: Negative for discharge. Respiratory: Negative for apnea. Cardiovascular: Negative for chest pain. Gastrointestinal: Negative for abdominal distention. Endocrine: Negative for cold intolerance. Genitourinary: Negative for dysuria. Musculoskeletal: Negative for arthralgias. Skin: Negative for color change. Allergic/Immunologic: Negative for immunocompromised state. Neurological: Negative for dizziness. Hematological: Negative for adenopathy. Psychiatric/Behavioral: Negative for agitation. Physical Examination : Physical Exam Constitutional: General: He is not in acute distress. Appearance: Normal appearance. HENT: Head: Normocephalic and atraumatic. Nose: Nose normal. Mouth/Throat: Mouth: Mucous membranes are moist. Eyes: General: No scleral icterus. Conjunctiva/sclera: Conjunctivae normal. Cardiovascular: Rate and Rhythm: Normal rate and regular rhythm. Heart sounds: No murmur heard. No gallop. Pulmonary: Effort: No respiratory distress. Breath sounds: No wheezing. Abdominal: General: There is no distension. Tenderness: There is no abdominal tenderness. Musculoskeletal: General: No swelling or deformity. Cervical back: Neck supple. No rigidity. Skin: Coloration: Skin is not jaundiced. Findings: No bruising. Neurological: Mental Status: He is alert and oriented to person, place, and time. Cranial Nerves: No cranial nerve deficit. Psychiatric: Mood and Affect: Mood normal. Thought Content: Thought content normal. Past Medical History: History reviewed. No pertinent past medical history. Past Surgical History: Past Surgical History: Procedure Laterality Date LUMBAR SPINE SURGERY 08/23/2024 LUMBAR LAMINECTOMY FOR ABCESS LUMBAR SPINE SURGERY N/A 08/23/2024 E2 LUMBAR LAMINECTOMY FOR ABCESS performed by Wilda Samaniego DO at [facility] OR Medications: cyclobenzaprine 10 mg Oral TID carvedilol 6.25 mg Oral BID WC insulin lispro 0-8 Units SubCUTAneous 4x Daily AC & HS insulin glargine 13 Units SubCUTAneous Daily furosemide 40 mg IntraVENous Daily cefepime 2,000 mg IntraVENous Q8H sodium chloride flush 5-40 mL IntraVENous 2 times per day thiamine 100 mg Oral Daily sodium chloride flush 5-40 mL IntraVENous 2 times per day enoxaparin 40 mg SubCUTAneous Daily Social History: Social History Socioeconomic History Marital status: Spouse name: Not on file Number of children: Not on file Years of education: Not on file Highest education level: Not on file Occupational History Not on file Tobacco Use Smoking status: Not on file Smokeless tobacco: Not on file Substance and Sexual Activity Alcohol use: Not on file Drug use: Not on file Sexual activity: Not on file Other Topics Concern Not on file Social History Narrative Not on file Social Determinants of Health Financial Resource Strain: Not on file Food Insecurity: No Food Insecurity (12/15/2023) Received from [facility] Hunger Screening Within the past 12 months we worried whether our food would run out before we got money to buy more.: Never True Within the past 12 months the food we bought just didn't last and we didn't have money to get more.: Never True Transportation Needs: Not on file Physical Activity: Not on file Stress: Not on file Social Connections: Moderately Integrated (08/25/2024) Social Connections ([facility] HRSN) If for any reason you need help with day-to-day activities such as bathing, preparing meals, shopping, managing finances, etc., do you get the help you need?: Not on file Intimate Partner Violence: Not on file Housing Stability: Not on file Family History: No family history on file. Medical Decision Making: I have independently reviewed/ordered the following labs: CBC with Differential: Recent Labs 08/24/24 0743 08/25/24 0705 WBC 15.5* 12.6* HGB 13.3 12.8* HCT 39.4* 38.8* PLT 54* 57* LYMPHOPCT 6* 8* MONOPCT 6 9 EOSPCT 0* 0* BMP: Recent Labs 08/24/24 0743 08/25/24 0705 NA 139 137 K 4.7 3.9 CL 103 100 CO2 26 26 BUN 29* 27* CREATININE 0.8 0.6* Hepatic Function Panel: Recent Labs 08/23/24 0312 BILITOT 0.6 ALKPHOS 140* ALT 34 AST 32 No results for input(s): RPR in the last 72 hours. No results for input(s): HIV in the last 72 hours. No results for input(s): BC in the last 72 hours. Lab Results Component Value Date/Time CREATININE 0.6 08/25/2024 07:05 AM GLUCOSE 178 08/25/2024 07:05 AM Detailed results: Thank you for allowing us to participate in the care of this patient.Please call with questions. This note is created with the assistance of a speech recognition program. While intending to generate adocument that actually reflects the content of the visit, the document can still have some errors including those of syntax and sound a like substitutions which may escape proof reading. It such instances, actual meaningcan be extrapolated by contextual diversion. Lupe Boone MD Office: Perfect serve / office [phone] Dr. Guaman informed of deterioration score of 54 via perfect serve message read Images from the original note were not included. [facility] Office: [phone] Davion Hernández DO, Rod Phillips DO, Sukhwinder Jacobson DO, Allen Gleason DO, Elvira Thakur MD, Cookie Simon MD, Annamarie Lawler MD, Gena Wilson MD, Regan Walsh MD, Meaghan Cuello MD, Brianna Wray MD, Morales Santoyo DO, Felix Rothman MD, Justin Vargas MD, Arie Hernández DO, Zoë Tong MD, Ricardo Hooker DO, Suzy Price MD, Catherine Guaman MD, Lisette Damon MD, Angel Jain MD, Sunny Porter MD, Adina Grant MD, Diallo Rodriguez MD, Sharla Pickering MD, Oren Freed MD, Hipolito Dacosta MD, Pio Shields DO, Samuel Ramirez MD, Shirley Morrow CNP, Lissa Ramey CNP, Pio Neville CNP, Nori Lamar DNP, Anny Andrews CNP, Kaya Gallegos CNP, Elizabeth Zavala CNP, Fiordaliza Head CNP, Abiola Hoff PA-C, CHRISTIAN HannahC, Rosaline Alvarez CNP, Evelin Mcintosh CNP, Jackie Dorantes CNP, Amira Escobar CNP, Jazzy Leary CNP, Joanne Phillips, [facility] IN-PATIENT SERVICE [facility] Progress Note 08/24/2024 5:51 PM Name: Freddy Panchal Acct: [id number] Room: [id number] IP Day: 1 Admit Date: 08/23/2024 2:54 AM PCP: No primary care provider on file. Code Status: Full Code Subjective: C/C: Chief Complaint Patient presents with Back Pain Interval History Status: not changed. Tachypnea and pain noted Brief History: Freddy Panchal is a 68 y.o. male with PMHx of DM 2, COPD, BPH, alcohol abuse, HTN and HLD per EMR who presents with Back Pain and is admitted to the hospital for the management of Epidural abscess. Patient was transferred from [facility] for neurosurgery evaluation after CT lumbar spine showed concern for epidural abscess and patient complained of worsening chronic back pain with radiation to bilateral lower extremities. Patient had a injection in the low lumbar back on 08/15/2024. Of note, patient has no active home medications on file. On chart review, patient was seen on 12/15/2023 with [facility] cardiology after having an abnormal stress test on 10/2023. Patient was planned to have a CT angiogram coronary arteries but appears to not have been completed. Documentation notes patient was on metformin 1000 mg daily, Hyzaar 100-12.5 mg daily, Norvasc 2.5 mg daily and Pepcid 20 mg daily. Patient also notes he drinks four 12 ounce beers daily. In the ED, patient initially tachycardic up to 127 and hypertensive up to 167/97. Vital signs improved and are all WNL this morning. On BMP glucose was elevated at 307. CRP was elevated at 412 and ESR 79. Alcohol level was unremarkable. LFTs were largely unremarkable. CBC showed a elevated WBC of 12.1. D-dimer was also elevated at 2.12. UA was unremarkable. UDS was positive for cannabinoid, oxycodone and opiates. CXR showed bilateral interstitial and groundglass opacities, possibly due to pulmonary edema or atypical infection. CT PE showed no evidence of PE mild infiltrates in the right pulmonary lower lobe. Mild pulmonary vascular congestion, coronary artery calcifications. Neurosurgery is following. Patient started on vancomycin and Zosyn. MRI lumbar spine ordered. CIWA protocol initiated and cardiology was consulted for risk stratification for possible surgery Review of Systems: Constitutional: negative for chills, fevers, sweats + pain and tachypnea Medications: Allergies: Allergies Allergen Reactions Codeine Rash Current Meds: Scheduled Meds: cyclobenzaprine 10 mg Oral TID carvedilol 6.25 mg Oral BID WC insulin lispro 0-8 Units SubCUTAneous 4x Daily AC & HS insulin glargine 13 Units SubCUTAneous Daily furosemide 40 mg IntraVENous Daily sodium chloride flush 5-40 mL IntraVENous 2 times per day thiamine 100 mg Oral Daily sodium chloride flush 5-40 mL IntraVENous 2 times per day piperacillin-tazobactam 4,500 mg IntraVENous Q8H enoxaparin 40 mg SubCUTAneous Daily Continuous Infusions: dextrose sodium chloride sodium chloride PRN Meds: glucose, dextrose bolus OR dextrose bolus, glucagon (rDNA), dextrose, sodium chloride flush, sodium chloride, LORazepam OR LORazepam OR LORazepam OR LORazepam OR LORazepam OR LORazepam OR LORazepam OR LORazepam, sodium chloride flush, sodium chloride, potassium chloride OR potassium alternative oral replacement OR potassium chloride, magnesium sulfate, ondansetron OR ondansetron, polyethylene glycol, acetaminophen OR acetaminophen, morphine, sodium chloride flush, oxyCODONE-acetaminophen, oxyCODONE-acetaminophen Data: Past Medical History: has no past medical history on file. Social History: Family History: No family history on file. Vitals: BP 136/86 Pulse 94 Temp 99.1 F (37.3 C) (Axillary) Resp 20 Ht 1.803 m (5' 11 ) Wt 88.5 kg (195 lb) SpO2 93% BMI 27.20 kg/m Temp (24hrs), Av.3 F (36.8 C), Min:97.4 F (36.3 C), Max:99.6 F (37.6 C) Recent Labs 08/23/24 0841 08/23/24 1720 08/23/24 1910 08/24/24 1617 POCGLU 282* 247* 224* 238* I/O (24Hr): Intake/Output Summary (Last 24 hours) at 08/24/2024 1751 Last data filed at 08/23/2024 1945 Gross per 24 hour Intake 360 ml Output 275 ml Net 85 ml Labs: Hematology: Recent Labs 08/23/24 0312 10171908/24/24 0743 WBC 12.1* -- 15.5* RBC 4.23 -- 4.20* HGB 13.5 11.6* 13.3 HCT 40.1* 35.8* 39.4* MCV 94.8 -- 93.8 MCH 31.9 -- 31.7 MCHC 33.7 -- 33.8 RDW 13.2 -- 13.7 PLT See Reflexed IPF Result -- 54* MPV -- -- 11.5 SEDRATE 79* -- -- CRP 412.0* -- -- INR 0.9 -- 0.9 DDIMER 2.12* -- -- Chemistry: Recent Labs 08/23/2431108/23/2454108/23/24171908/24/24 0743 NA 132* 136 140 139 K 5.1 4.5 4.2 4.7 CL 95* 98 -- 103 CO2 -- 26 GLUCOSE 332* 307* -- 257* BUN 25* 27* -- 29* CREATININE 0.9 0.9 -- 0.8 ANIONGAP -- 10 LABGLOM 89 >90 -- >90 CALCIUM 9.0 8.3* -- 8.6 CAION -- -- 1.21 -- TROPHS 9 -- -- -- LACTACIDWB -- -- 1.7 -- Recent Labs 08/23/2431108/23/24 0841 08/23/24171908/23/24 19108/24/24 1617 TSH 0.42 -- -- -- -- AST 32 -- -- -- -- ALT 34 -- -- -- -- ALKPHOS 140* -- -- -- -- BILITOT 0.6 -- -- -- -- POCGLU -- 282* 247* 224* 238* ABG: Lab Results Component Value Date/Time PHART 7.414 08/23/2024 05:20 PM [id number] 41.2 08/23/2024 05:20 PM PO2ART 211.0 08/23/2024 05:20 PM [id number] 25.9 08/23/2024 05:20 PM PBEA 1.7 08/23/2024 05:20 PM [id number] 98.0 08/23/2024 05:20 PM FIO2 60 08/23/2024 05:20 PM Lab Results Component Value Date/Time SPECIAL LEFT AC 10ML 08/23/2024 03:14 AM Lab Results Component Value Date/Time CULTURE (A) 08/23/2024 07:12 PM KLEBSIELLA OXYTOCA RARE GROWTH Identification by MALDI-TOF Radiology: MRI LUMBAR SPINE W WO CONTRAST Result Date: 08/23/2024 A 6 mm thickness T1 and T2 heterogeneous lesion extending from superior endplate of the L4 to the inferior endplate of the L5 causing moderate spinal canal narrowing and crowding of the cauda equina roots without compression. The lesion demonstrate heterogenous enhancement. Differential diagnosis include granulation tissue or phlegmon. If clinical symptoms persists, one-week follow-up study can be obtained for further evaluation. CT CHEST PULMONARY EMBOLISM W CONTRAST Result Date: 08/23/2024 1. No evidence of pulmonary embolism or acute thoracic aortic abnormality. 2. Mild to moderate atelectasis, with or without mild infiltrates in the right pulmonary lower lobe. 3. Mild pulmonary vascular congestion. 4. Coronary artery calcifications. 5. Multilevel degenerative disc disease in the mid and lower portion of thoracic spine without spinal stenosis. XR CHEST PORTABLE Result Date: 08/23/2024 Bilateral interstitial and ground-glass opacities are noted, which may be due to pulmonary edema or atypical infection. Physical Examination: General appearance: alert, cooperative and no distress Mental Status: oriented to person, place and time and normal affect Lungs: clear to auscultation bilaterally, normal effort Heart: regular rate and rhythm, no murmur Abdomen: soft, nontender, nondistended, normal bowel sounds, no masses, hepatomegaly, splenomegaly Extremities: no edema, redness, tenderness in the calves Skin: no gross lesions, rashes, induration Assessment: Hospital Problems Last Modified POA * (Principal) Epidural abscess 08/23/2024 Yes Discitis of lumbar region 08/23/2024 Yes Sepsis with gram negative rods in blood cultures : Klebsiella Epidural abscess with klebsiella CHF CAD with positive pre op stress test S/p laminectomy at l4-l5 Urinary incontinence Plan: Cxr Lasix 40 mg I.v Monitor pain and take aspiration precautions Catherine Guaman MD 08/24/2024 5:51 PM Images from the original note were not included. [facility] Office: [phone] Davion Hernández DO, Rod Phillips DO, Sukhwinder Jacobson DO, Allen Gleason DO, Elvira Thakur MD, Cookie Simon MD, Annamarie Lawler MD, Gena Wilson MD, Regan Walsh MD, Meagahn Cuello MD, Brianna Wray MD, Morales Santoyo DO, Felix Rothman MD, Justin Vargas MD, Arie Hernández DO, Zoë Tong MD, Ricardo Hooker DO, Suzy Price MD, Catherine Guaman MD, Lisette Damon MD, Angel Jain MD, Sunny Porter MD, Adina Grant MD, Diallo Rodriguez MD, Sharla Pickering MD, Oren Freed MD, Hipolito Dacosta MD, Pio Shields DO, Samuel Ramirez MD, Shirley Morrow CNP, Lissa Ramey CNP, Pio Neville CNP, Nori Lamar DNP, Anny Andrews CNP, Kaay Gallegos CNP, Elizabeth Zavala CNP, Fiordaliza Head CNP, Abiola Hoff, PA-C, Mallorie Mireles, PA-C, Rosaline Alvarez CNP, Evelin Mcintosh CNP, Jackie Dorantes CNP, Amira Escobar CNP, Jazzy Leary CNP, Joanne Phillpis, [facility] IN-PATIENT SERVICE [facility] Progress Note 08/24/2024 5:12 PM Name: Freddy Panchal Acct: [id number] Room: [id number] Day: 1 Admit Date: 08/23/2024 2:54 AM PCP: No primary care provider on file. Code Status: Full Code Subjective: C/C: Chief Complaint Patient presents with Back Pain Interval History Status: not changed. Tachypnea and pain noted Brief History: Freddy Panchal is a 68 y.o. male with PMHx of DM 2, COPD, BPH, alcohol abuse, HTN and HLD per EMR who presents with Back Pain and is admitted to the hospital for the management of Epidural abscess. Patient was transferred from [facility] for neurosurgery evaluation after CT lumbar spine showed concern for epidural abscess and patient complained of worsening chronic back pain with radiation to bilateral lower extremities. Patient had a injection in the low lumbar back on 08/15/2024. Of note, patient has no active home medications on file. On chart review, patient was seen on 12/15/2023 with [facility] cardiology after having an abnormal stress test on 10/2023. Patient was planned to have a CT angiogram coronary arteries but appears to not have been completed. Documentation notes patient was on metformin 1000 mg daily, Hyzaar 100-12.5 mg daily, Norvasc 2.5 mg daily and Pepcid 20 mg daily. Patient also notes he drinks four 12 ounce beers daily. In the ED, patient initially tachycardic up to 127 and hypertensive up to 167/97. Vital signs improved and are all WNL this morning. On BMP glucose was elevated at 307. CRP was elevated at 412 and ESR 79. Alcohol level was unremarkable. LFTs were largely unremarkable. CBC showed a elevated WBC of 12.1. D-dimer was also elevated at 2.12. UA was unremarkable. UDS was positive for cannabinoid, oxycodone and opiates. CXR showed bilateral interstitial and groundglass opacities, possibly due to pulmonary edema or atypical infection. CT PE showed no evidence of PE mild infiltrates in the right pulmonary lower lobe. Mild pulmonary vascular congestion, coronary artery calcifications. Neurosurgery is following. Patient started on vancomycin and Zosyn. MRI lumbar spine ordered. CIWA protocol initiated and cardiology was consulted for risk stratification for possible surgery Review of Systems: Constitutional: negative for chills, fevers, sweats + pain and tachypnea Medications: Allergies: Allergies Allergen Reactions Codeine Rash Current Meds: Scheduled Meds: cyclobenzaprine 10 mg Oral TID carvedilol 6.25 mg Oral BID WC insulin lispro 0-8 Units SubCUTAneous 4x Daily AC & HS insulin glargine 13 Units SubCUTAneous Daily furosemide 40 mg IntraVENous Daily sodium chloride flush 5-40 mL IntraVENous 2 times per day thiamine 100 mg Oral Daily sodium chloride flush 5-40 mL IntraVENous 2 times per day piperacillin-tazobactam 4,500 mg IntraVENous Q8H enoxaparin 40 mg SubCUTAneous Daily Continuous Infusions: dextrose sodium chloride sodium chloride PRN Meds: glucose, dextrose bolus OR dextrose bolus, glucagon (rDNA), dextrose, sodium chloride flush, sodium chloride, LORazepam OR LORazepam OR LORazepam OR LORazepam OR LORazepam OR LORazepam OR LORazepam OR LORazepam, sodium chloride flush, sodium chloride, potassium chloride OR potassium alternative oral replacement OR potassium chloride, magnesium sulfate, ondansetron OR ondansetron, polyethylene glycol, acetaminophen OR acetaminophen, morphine, sodium chloride flush, oxyCODONE-acetaminophen, oxyCODONE-acetaminophen Data: Past Medical History: has no past medical history on file. Social History: Family History: No family history on file. Vitals: BP 136/86 Pulse 94 Temp 99.1 F (37.3 C) (Axillary) Resp 20 Ht 1.803 m (5' 11 ) Wt 88.5 kg (195 lb) SpO2 93% BMI 27.20 kg/m Temp (24hrs), Av.3 F (36.8 C), Min:97.4 F (36.3 C), Max:99.6 F (37.6 C) Recent Labs 08/23/24 0841 08/23/24 1720 08/23/24 1910 08/24/24 1617 POCGLU 282* 247* 224* 238* I/O (24Hr): Intake/Output Summary (Last 24 hours) at 08/24/2024 1712 Last data filed at 08/23/2024 1945 Gross per 24 hour Intake 760 ml Output 675 ml Net 85 ml Labs: Hematology: Recent Labs 08/23/24 0312 08/23/24 1720 08/24/24 0743 WBC 12.1* -- 15.5* RBC 4.23 -- 4.20* HGB 13.5 11.6* 13.3 HCT 40.1* 35.8* 39.4* MCV 94.8 -- 93.8 MCH 31.9 -- 31.7 MCHC 33.7 -- 33.8 RDW 13.2 -- 13.7 PLT See Reflexed IPF Result -- 54* MPV -- -- 11.5 SEDRATE 79* -- -- CRP 412.0* -- -- INR 0.9 -- 0.9 DDIMER 2.12* -- -- Chemistry: Recent Labs 08/23/2431108/23/24 0542 08/23/24 17208/24/24 0743 NA 132* 136 140 139 K 5.1 4.5 4.2 4.7 CL 95* 98 -- 103 CO2 -- 26 GLUCOSE 332* 307* -- 257* BUN 25* 27* -- 29* CREATININE 0.9 0.9 -- 0.8 ANIONGAP -- 10 LABGLOM 89 >90 -- >90 CALCIUM 9.0 8.3* -- 8.6 CAION -- -- 1.21 -- TROPHS 9 -- -- -- LACTACIDWB -- -- 1.7 -- Recent Labs 08/23/2431108/23/24 0841 08/23/24 1720 08/23/24 1910 08/24/24 1617 TSH 0.42 -- -- -- -- AST 32 -- -- -- -- ALT 34 -- -- -- -- ALKPHOS 140* -- -- -- -- BILITOT 0.6 -- -- -- -- POCGLU -- 282* 247* 224* 238* ABG: Lab Results Component Value Date/Time PHART 7.414 08/23/2024 05:20 PM [id number] 41.2 08/23/2024 05:20 PM PO2ART 211.0 08/23/2024 05:20 PM [id number] 25.9 08/23/2024 05:20 PM PBEA 1.7 08/23/2024 05:20 PM [id number] 98.0 08/23/2024 05:20 PM FIO2 60 08/23/2024 05:20 PM Lab Results Component Value Date/Time SPECIAL LEFT AC 10ML 08/23/2024 03:14 AM Lab Results Component Value Date/Time CULTURE (A) 08/23/2024 07:12 PM KLEBSIELLA OXYTOCA RARE GROWTH Identification by MALDI-TOF Radiology: MRI LUMBAR SPINE W WO CONTRAST Result Date: 08/23/2024 A 6 mm thickness T1 and T2 heterogeneous lesion extending from superior endplate of the L4 to the inferior endplate of the L5 causing moderate spinal canal narrowing and crowding of the cauda equina roots without compression. The lesion demonstrate heterogenous enhancement. Differential diagnosis include granulation tissue or phlegmon. If clinical symptoms persists, one-week follow-up study can be obtained for further evaluation. CT CHEST PULMONARY EMBOLISM W CONTRAST Result Date: 08/23/2024 1. No evidence of pulmonary embolism or acute thoracic aortic abnormality. 2. Mild to moderate atelectasis, with or without mild infiltrates in the right pulmonary lower lobe. 3. Mild pulmonary vascular congestion. 4. Coronary artery calcifications. 5. Multilevel degenerative disc disease in the mid and lower portion of thoracic spine without spinal stenosis. XR CHEST PORTABLE Result Date: 08/23/2024 Bilateral interstitial and ground-glass opacities are noted, which may be due to pulmonary edema or atypical infection. Physical Examination: General appearance: alert, cooperative and no distress Mental Status: oriented to person, place and time and normal affect Lungs: clear to auscultation bilaterally, normal effort Heart: regular rate and rhythm, no murmur Abdomen: soft, nontender, nondistended, normal bowel sounds, no masses, hepatomegaly, splenomegaly Extremities: no edema, redness, tenderness in the calves Skin: no gross lesions, rashes, induration Assessment: Hospital Problems Last Modified POA * (Principal) Epidural abscess 08/23/2024 Yes Discitis of lumbar region 08/23/2024 Yes Sepsis with gram negative rods in blood cultures : Klebsiella Epidural abscess with klebsiella CHF CAD with positive pre op stress test S/p laminectomy at l4-l5 Plan: Cxr Lasix 40 mg I.v Monitor pain and take aspiration precautions Catherine Guaman MD 08/24/2024 5:12 PM Images from the original note were not included. ATTESTATION: I have discussed the case, including pertinent history and exam findings with the LABEL REWINDER. I have evaluated the History, physical findings and pictures of the patient and the serrano elements of the encounter have been performed by me. I have reviewed the laboratory data, other diagnostic studies and discussed them with the LABEL REWINDER. I have updated the medical record where necessary. I agree with the assessment, plan and orders as documented by the LABEL REWINDER. In addition diagnostic and decision making elements, performed by the Attending Physician, are included in the Diagnostic and Decision Making Section of the text. Elements of Medical Decision Making: Note: I have independently performed the steps listed below as part of the medical decision making and evaluation. Examined and discussed with patient. Gram-negative septicemia 08/23/2024 Klebsiella septicemia 08/23/2024 Concern for epidural abscess and discitis Status post L4-L5 laminectomy with no abscess found Tissue culture from the spine with growth of Klebsiella CRP elevation Leukocytosis Thrombocytopenia Diabetes mellitus type 2 with hyperglycemia Chronic back pain Coronary artery disease COPD History of drug abuse Alcohol abuse Labs, medications, radiologic studies were reviewed with personal review of films Radiologic studies Lab work Cultures Klebsiella in blood Klebsiella in tissue culture from the spine Large amounts of data were reviewed Patient with a history of chronic back pain for which she receives regular steroid injections Received last dose on 08/15/2024 Subsequently presented to [facility] ER with worsening lower back pain with radiation to his lower extremities CT scan and MRI of the spine showed concern for lumbar discitis with L4-L5 phlegmon Patient had associated elevation of CRP and ESR as well has leukocytosis Transferred to [facility] on 08/22/2024 Patient underwent L4-L5 laminectomy on 08/23/2024. No abscess was found but there was some abnormal fatty tissue that was cultured and is growing Klebsiella Blood cultures are also growing Klebsiella Discussed with nursing Staff, turnaround planner Dr Guaman's service Infection Control and Prevention measures reviewed Toyah precaution All prior entries were reviewed Neurosurgical and IM notes reviewed Administer medications as ordered Cefepime 2 g IV every 8 hours Monitor culture data and modified as necessary Prognosis: Guarded Discharge planning reviewed Follow up as outpatient. Chong Arvizu MD 08/24/2024 [facility] - Initial Consult Note Today's Date and Time: 08/24/2024, 12:30 PM Impression : Gram negative jaime bacteremia-Klebsiella on blood cultures from 08/23/24 Concern for epidural abscess and discitis S/p L5-L5 laminectomy with no abscess found Spinal culture also growing Klebsiella CRP elevation Leukocytosis Thrombocytopenia DM II with hyperglycemia Chronic back pain CAD COPD History of drug abuse Alcohol abuse with concern for acute alcohol withdrawal Recommendations: IV cefepime continues pending finalized culture and sensitivity Discontinue IV Vancomycin Medical Decision Making/Summary/Discussion:2023 Infection Control Recommendations Toyah Precautions Antimicrobial Stewardship Recommendations Simplification of therapy Targeted therapy Coordination of Outpatient Care: Estimated Length of IV antimicrobials:TBD Patient will need Midline Catheter Insertion: TBD Patient will need PICC line Insertion:TBD Patient will need: Home IV , Infusion Center, SNF, LTAC: TBD Patient will need outpatient wound care: Chief complaint/reason for consultation: Gram negative jaime bacteremia-Klebsiella on blood cultures from 08/23/24 History of Present Illness: Freddy Panchal is a 68 y.o.-year-old male who was initially admitted on 08/23/2024. Patient seen at the request of Dr. Nazario Guaman INITIAL HISTORY: This patient has a history of chronic back pain for which he receives regular steroid injections. His last injection was given on 08/15/24. He also has a history of COPD, CAD, DM II, polysubstance abuse, but he denied any recent IV drug use. He presented to [facility] ED with complaints of worsening lower back pain that was radiating to his lower extremities. A CT lumbar spine and MRI showed concern for lumbar discitis with L4-L5 phlegmon. Labwork was significant for glucose 307, WBC 12.1-->15.5 with a left shift of 10.8-->13.5, low platelet at 54, CRP elevation of 412 and ESR of 79. He was transferred to [facility] for Neurosurgery evaluation on 08/22/24. IV Vancomycin and Zosyn was initiated. On 08/23/24, he underwent a L4-L5 laminectomy with Dr. Samaniego. Per Dr. Samaniego's surgical note, there was no findings of intraspinal abscess, although there was some abnormal colored fat noted that was sent for culture and is growing Klebsiella. Blood cultures were positive for Klebsiella. ID was consulted. CTA Chest 08/23/24: 1. No evidence of pulmonary embolism or acute thoracic aortic abnormality. 2. Mild to moderate atelectasis, with or without mild infiltrates in the right pulmonary lower lobe. 3. Mild pulmonary vascular congestion. 4. Coronary artery calcifications. 5. Multilevel degenerative disc disease in the mid and lower portion of thoracic spine without spinal stenosis. CXR 08/23/24: Bilateral interstitial and ground-glass opacities are noted, which may be due to pulmonary edema or atypical infection MRI lumbar spine 08/23/24: A 6 mm thickness T1 and T2 heterogeneous lesion extending from superior endplate of the L4 to the inferior endplate of the L5 causing moderate spinal canal narrowing and crowding of the cauda equina roots without compression. The lesion demonstrate heterogenous enhancement. Differential diagnosis include granulation tissue or phlegmon. If clinical symptoms persists, one-week follow-up study can be obtained for further evaluation. CURRENT EVALUATION- DAILY INTERVAL CHANGES 08/24/2024 BP (!) 156/99 Pulse 91 Temp 97.8 F (36.6 C) (Oral) Resp 22 Ht 1.803 m (5' 11 ) Wt 88.5 kg (195 lb) SpO2 97% BMI 27.20 kg/m Afebrile Vital signs stable HTN The patient is on 4 L NC He has been having tremors and is being treated for acute alcohol withdrawal. He is still experiencing some back pain. His ex-significant other is at bedside. IV Vancomycin was stopped. IV Zosyn continues. Finalized blood and wound cultures with sensitivity are pending. No other acute issues per RN Labs, X rays reviewed: 08/24/2024 with independent review of X rays I have independently reviewed/ordered the following labs: CBC with Differential: Recent Labs 08/23/2431108/23/24171908/24/24 0743 WBC 12.1* -- 15.5* HGB 13.5 11.6* 13.3 HCT 40.1* 35.8* 39.4* PLT See Reflexed IPF Result -- 54* LYMPHOPCT 6* -- 6* MONOPCT 3 -- 6 EOSPCT 0* -- 0* BMP: Recent Labs 08/23/24 0542 08/23/24 1720 08/24/24 0743 NA 136 140 139 K 4.5 4.2 4.7 CL 98 -- 103 CO2 24 -- 26 BUN 27* -- 29* CREATININE 0.9 -- 0.8 Hepatic Function Panel: Recent Labs 08/23/24311 BILITOT 0.6 ALKPHOS 140* ALT 34 AST 32 No results for input(s): RPR in the last 72 hours. No results for input(s): HIV in the last 72 hours. No results for input(s): BC in the last 72 hours. Lab Results Component Value Date/Time BACTERIA None 08/23/2024 04:18 AM RBC 4.20 08/24/2024 07:43 AM WBC 15.5 08/24/2024 07:43 AM TURBIDITY Clear 08/23/2024 04:18 AM Lab Results Component Value Date/Time CREATININE 0.8 08/24/2024 07:43 AM GLUCOSE 257 08/24/2024 07:43 AM Cultures: Urine: Blood: 08/22/24: 2/2 Klebsiella Sputum : Wound: 08/23/24: L5-L6 surgical culture: Klebsiella MRSA Nares: Imaging: MRI lumbar spine 08/22/24 Review of Systems: Pertinent review of symptoms listed in Initial Evaluation and daily interval evaluations sections Physical Examination : Patient Vitals for the past 8 hrs: BP Temp Temp src Pulse Resp SpO2 08/24/24 1141 (!) 156/99 97.8 F (36.6 C) Oral 91 22 97 % 08/24/24 0818 (!) 151/95 97.9 F (36.6 C) Oral 97 22 93 % 08/24/24 0603 -- -- -- -- 18 -- 08/24/24 0445 (!) 152/92 -- -- -- -- -- General Appearance: Awake, alert, and in no apparent distress. Tremors noted Head: Normocephalic, no trauma Eyes: Pupils equal, round, reactive to light and accommodation; extraocular movements intact; sclera anicteric; conjunctivae pink. No embolic phenomena. ENT: Oropharynx clear, without erythema, exudate, or thrush. No tenderness of sinuses. Mouth/throat: mucosa pink and moist. No lesions. Dentition in good repair. Neck:Supple, without lymphadenopathy. Thyroid normal, No bruits. Pulmonary/Chest: Clear to auscultation, without wheezes, rales, or rhonchi. No dullness to percussion. Cardiovascular: Regular rate and rhythm without murmurs, rubs, or gallops. Abdomen: Soft, non tender. Bowel sounds normal. No organomegaly All four Extremities: No cyanosis, clubbing, edema, or effusions.Back pain Neurologic: No gross sensory or motor deficits. Skin: Warm and dry with good turgor.No signs of peripheral arterial or venous insufficiency. No ulcerations. No open wounds. I have personally reviewed the past medical history, past surgical history, medications, social history, and family history, and I have updated the database accordingly. Past Medical History: History reviewed. No pertinent past medical history. Past Surgical History: Past Surgical History: Procedure Laterality Date LUMBAR SPINE SURGERY 08/23/2024 LUMBAR LAMINECTOMY FOR ABCESS Medications: cyclobenzaprine 10 mg Oral TID sodium chloride flush 5-40 mL IntraVENous 2 times per day thiamine 100 mg Oral Daily sodium chloride flush 5-40 mL IntraVENous 2 times per day piperacillin-tazobactam 4,500 mg IntraVENous Q8H vancomycin 1,000 mg IntraVENous Q12H vancomycin (VANCOCIN) intermittent dosing (placeholder) Other RX Placeholder enoxaparin 40 mg SubCUTAneous Daily Social History: Social History Socioeconomic History Marital status: Spouse name: Not on file Number of children: Not on file Years of education: Not on file Highest education level: Not on file Occupational History Not on file Tobacco Use Smoking status: Not on file Smokeless tobacco: Not on file Substance and Sexual Activity Alcohol use: Not on file Drug use: Not on file Sexual activity: Not on file Other Topics Concern Not on file Social History Narrative Not on file Social Determinants of Health Financial Resource Strain: Not on file Food Insecurity: No Food Insecurity (12/15/2023) Received from [facility] Hunger Screening Within the past 12 months we worried whether our food would run out before we got money to buy more.: Never True Within the past 12 months the food we bought just didn't last and we didn't have money to get more.: Never True Transportation Needs: Not on file Physical Activity: Not on file Stress: Not on file Social Connections: Moderately Integrated (08/24/2024) Social Connections ([facility] HRSN) If for any reason you need help with day-to-day activities such as bathing, preparing meals, shopping, managing finances, etc., do you get the help you need?: Not on file Intimate Partner Violence: Not on file Housing Stability: Not on file Family History: No family history on file. Allergies: Codeine Medical Decision Making-Imaging: MRI LUMBAR SPINE W WO CONTRAST Result Date: 08/23/2024 EXAMINATION: MRI OF THE LUMBAR SPINE WITHOUT AND WITH CONTRAST 08/23/2024 9:23 am TECHNIQUE: Multiplanar multisequence MRI of the lumbar spine was performed without and with the administration of intravenous contrast. COMPARISON: None. HISTORY: ORDERING SYSTEM PROVIDED HISTORY: Concern for epidural abscess, recent steroid injection to back TECHNOLOGIST PROVIDED HISTORY: Concern for epidural abscess, recent steroid injection to back Decision Support Exception - unselect if not a suspected or confirmed emergency medical condition->Emergency Medical Condition (MA) Reason for Exam: Concern for epidural abscess, recent steroid injection to back FINDINGS: BONES/ALIGNMENT: There is normal alignment of the spine. The vertebral body heights are maintained. The bone marrow signal appears unremarkable. SPINAL CORD: The conus terminates normally. SOFT TISSUES: No abnormal enhancement is seen of the lumbar spine. No paraspinal mass identified. L1-L2: There is no significant disc protrusion, spinal canal stenosis or neural foraminal narrowing. L2-L3: There is no significant disc protrusion, spinal canal stenosis or neural foraminal narrowing. L3-L4: There is no significant disc protrusion, spinal canal stenosis or neural foraminal narrowing. L4-L5: Within the ventral epidural space, there is a T1 and T2 heterogenous collection which is 6 mm in thickness causing more red spinal canal narrowing and crowding of the cauda equina nerve roots. Mild bilateral neural foraminal narrowing. This collection demonstrates heterogeneous enhancement. L5-S1: There is no significant disc protrusion, spinal canal stenosis or neural foraminal narrowing. A 6 mm thickness T1 and T2 heterogeneous lesion extending from superior endplate of the L4 to the inferior endplate of the L5 causing moderate spinal canal narrowing and crowding of the cauda equina roots without compression. The lesion demonstrate heterogenous enhancement. Differential diagnosis include granulation tissue or phlegmon. If clinical symptoms persists, one-week follow-up study can be obtained for further evaluation. FLUORO FOR SURGICAL PROCEDURES Result Date: 08/23/2024 Radiology exam is complete. No Radiologist dictation. Please follow up with ordering provider. Vascular duplex lower extremity venous bilateral Result Date: 08/23/2024 No evidence of deep vein or superficial vein thrombosis in the right lower extremity. Vessels demonstrate normal compressibility, color filling, and phasic and spontaneous flow. No evidence of deep vein or superficial vein thrombosis in the left lower extremity. Vessels demonstrate normal compressibility, color filling, and phasic and spontaneous flow. CT CHEST PULMONARY EMBOLISM W CONTRAST Result Date: 08/23/2024 EXAMINATION: CTA OF THE CHEST 08/23/2024 3:11 am TECHNIQUE: CTA of the chest was performed after the administration of intravenous contrast. Multiplanar reformatted images are provided for review. MIP images are provided for review. Automated exposure control, iterative reconstruction, and/or weight based adjustment of the mA/kV was utilized to reduce the radiation dose to as low as reasonably achievable. COMPARISON: None. HISTORY: ORDERING SYSTEM PROVIDED HISTORY: rule out PE TECHNOLOGIST PROVIDED HISTORY: rule out PE Additional Contrast?->1 FINDINGS: Pulmonary Arteries: Pulmonary arteries are adequately opacified for evaluation. No evidence of intraluminal filling defect to suggest pulmonary embolism. Main pulmonary artery is normal in caliber. Mediastinum: No evidence of mediastinal lymphadenopathy. The heart and pericardium demonstrate no acute abnormality. No evidence of thoracic aortic aneurysm or dissection. No evidence of pericardial effusion or pericardial thickening. Evidence of coronary artery calcifications noted. Lungs/pleura: Evidence of mild to moderate atelectasis, with or without mild infiltrates in the right pulmonary lower lobe. Minimal atelectasis at the base of right middle lobe. Minimal atelectasis at the posterior base of left pulmonary lower lobe. Mild pulmonary vascular congestion. No pleural effusion or pneumothorax. Upper Abdomen: No acute process in the visualized upper abdomen. No hiatal hernia. No pneumoperitoneum. Soft Tissues/Bones: No acute bone or soft tissue abnormality. [id number] multilevel degenerative disc disease in the mid and lower portion of thoracic spine without spinal stenosis. 1. No evidence of pulmonary embolism or acute thoracic aortic abnormality. 2. Mild to moderate atelectasis, with or without mild infiltrates in the right pulmonary lower lobe. 3. Mild pulmonary vascular congestion. 4. Coronary artery calcifications. 5. Multilevel degenerative disc disease in the mid and lower portion of thoracic spine without spinal stenosis. XR CHEST PORTABLE Result Date: 08/23/2024 EXAMINATION: ONE XRAY VIEW OF THE CHEST 08/23/2024 3:21 am COMPARISON: None. HISTORY: ORDERING SYSTEM PROVIDED HISTORY: tachy TECHNOLOGIST PROVIDED HISTORY: tachy Reason for Exam: port upright FINDINGS: Shallow inflation. Cardiac silhouette enlargement. Bilateral interstitial and ground-glass opacities are noted. No pneumothorax or effusion. No acute osseous abnormality identified. Bilateral interstitial and ground-glass opacities are noted, which may be due to pulmonary edema or atypical infection. Medical Decision [id number]: Results Procedure Component Value Units Date/Time Culture, Anaerobic and Aerobic [[id number]] Collected: 08/23/24 191 Order Status: Completed Specimen: Spine Updated: 08/24/24 1120 Specimen Description .SPINE Direct Exam NO NEUTROPHILS SEEN NO BACTERIA SEEN Culture CULTURE IN PROGRESS Culture, Anaerobic and Aerobic [[id number]] Collected: 08/23/24 180 Order Status: No result Specimen: Swab from Spine Culture, Blood 1 [[id number]] (Abnormal) Collected: 08/23/24313 Order Status: Completed Specimen: Blood Updated: 08/24/24 0931 Specimen Description .BLOOD Special Requests LEFT AC 10ML Culture POSITIVE Blood Culture DIRECT GRAM STAIN FROM BOTTLE: GRAM NEGATIVE RODS KLEBSIELLA OXYTOCA Identification by MALDI-TOF (NOTE) Direct Gram Stain from bottle result called to and read back by: DOMINICK Baker on 08/23/24 at 1409 Culture, Blood 1 [[id number]] (Abnormal) Collected: 08/23/24312 Order Status: Completed Specimen: Blood Updated: 08/23/24 1356 Specimen Description .BLOOD Special Requests RIGHT FOREARM 10ML Culture POSITIVE Blood Culture DIRECT GRAM STAIN FROM BOTTLE: GRAM NEGATIVE RODS Klebsiella oxytoca Detected: Methodology- Polymerase Chain Reaction (PCR) (NOTE) Direct Gram Stain from bottle result called to and read back by: DOMINICK Otoole on 08/23/24 at 12:35 Medical Decision Making-Other: Note: Thank you for allowing us to participate in the care of this patient. Please call with questions. Natalee Thomas APRN - MAGNETIC TESTER Pager: - Office: Occupational Therapy Occupational Therapy Initial Evaluation Facility/Department: [facility] RENAL//MED SURG Patient Name: Freddy Panchal : 1955 Date of Service: 08/24/2024 Discharge Recommendations Discharge Recommendations: Patient would benefit from continued therapy after discharge OT Equipment Recommendations Equipment Needed: Yes Mobility Devices: ADL Assistive Devices ADL Assistive Devices: Shower Chair with back, Pot Puller, Sock-Aid Hard Chief Complaint Patient presents with Back Pain Past Medical History: has no past medical history on file. Past Surgical History: has a past surgical history that includes Lumbar spine surgery (08/23/2024). Assessment Performance deficits / Impairments: Decreased functional mobility ;Decreased ADL status;Decreased endurance;Decreased balance;Decreased safe awareness;Decreased cognition;Decreased high-level IADLs Assessment: Pt independent in ADL/IADLs prior to admission. Pt would continue to benefit from OT services to address deficits listed above and improve overall functional performance prior to discharge. Prognosis: Good Decision Making: Medium Complexity REQUIRES OT FOLLOW-UP: Yes Activity Tolerance Activity Tolerance: Patient limited by pain Safety Devices Type of Devices: Patient at risk for falls;Gait belt;Nurse notified;Call light within reach;Chair alarm in place;Left in chair Restraints Restraints Initially in Place: No Restrictions/Precautions Restrictions/Precautions Restrictions/Precautions: Seizure;Fall Risk Required Braces or Orthoses?: No Position Activity Restriction Other position/activity restrictions: Up with assist, LUMBAR LAMINECTOMY FOR ABCESS on 08/23/24 Subjective General Patient assessed for rehabilitation services?: Yes Family / Caregiver Present: No General Comment Comments: RN ok'd OT eval this date. Pt pleasant, cooperative, and agreeable to therapy throughout entire session. Pt reporting 9/10 pain in back during session; engaging in functional activities and repositioned for best comfort. Home Setup/Prior Level of Function Social/Functional History Lives With: Alone Type of Home: House Home Layout: Two level;Bed/Bath upstairs;Able to Live on Main level with bedroom/bathroom Home Access: Stairs to enter with rails Entrance Stairs - Number of Steps: 2 + 2 RADHA back of house Bathroom Shower/Tub: Tub/Shower unit Bathroom Toilet: Standard Bathroom Equipment: None Bathroom Accessibility: Accessible Home Equipment: None;Walker - Rolling;Cane Has the patient had two or more falls in the past year or any fall with injury in the past year?: Yes (recent fall due to neuropathy at bilateral LE's) Receives Help From: Family;Friend(s) (Pt report good family and friend support) ADL Assistance: Independent Homemaking Assistance: Independent Homemaking Responsibilities: Yes Meal Prep Responsibility: Primary Laundry Responsibility: Primary Cleaning Responsibility: Primary Bill Paying/Finance Responsibility: Primary Shopping Responsibility: Primary Dependent Care Responsibility: Primary Health Care Management: Primary Ambulation Assistance: Independent Transfer Assistance: Independent 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, 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 Additional Comments: Pt report independence at baseline without AD, used if needed Vision/Hearing Vision Vision: Impaired Vision Exceptions: Wears glasses for distance Hearing Hearing: Within functional limits BUE Assessment Gross Assessment AROM: Within functional limits Strength: Within functional limits Coordination: Within functional limits Tone: Normal Sensation: Impaired (Pt reporting neuropathy in BLEs during session this date) Hand Dominance: Right Objective Orientation Overall Orientation Status: Impaired Orientation Level: Oriented to place;Oriented to time;Oriented to person;Disoriented to situation Cognition Overall Cognitive Status: Exceptions Arousal/Alertness: Appropriate responses to stimuli Following Commands: Follows multistep commands with increased time;Follows multistep commands with repitition Attention Span: Attends with cues to redirect Safety Judgement: Decreased awareness of need for assistance;Decreased awareness of need for safety Problem Solving: Decreased awareness of errors;Assistance required to generate solutions Insights: Decreased awareness of deficits Initiation: Requires cues for some Sequencing: Requires cues for some Activities of Daily Living Feeding: Independent;Based on clinical judgement Grooming: Stand by assistance;Based on clinical judgement UE Bathing: Stand by assistance;Based on clinical judgement LE Bathing: Based on clinical judgement;Minimal assistance UE Dressing: Stand by assistance;Based on clinical judgement LE Dressing: Maximum assistance LE Dressing Skilled Clinical Factors: Pt sitting unsupported EOB to don B socks with Max A d/t decreased functional reach and back pain Toileting: Based on clinical judgement;Minimal assistance Balance Balance Sitting: Without support (unsupported sitting during functional activities with SBA. Pt sitting for ~10 mins) Standing: High guard (static/dynamic standing during functional activities with CGA and use of RW. Pt standing for ~4 mins) Transfers/Mobility Bed mobility Rolling to Left: Stand by assistance Supine to Sit: Contact guard assistance Sit to Supine: (Pt ended session seated in recliner) Scooting: Stand by assistance Bed Mobility Comments: HOB flat, log roll technique utilized Transfers Sit to stand: Minimal assistance Stand to sit: Minimal assistance Transfer Comments: with use of RW. vc 's for proper hand placement during transfers. Functional Mobility: Contact guard assistance Functional Mobility Skilled Clinical Factors: Pt engaging in functional mobility household distances with CGA and use of RW. Pt requiring verbal cues for walker management. Patient Education Patient Education Education Given To: Patient Education Provided: Role of Therapy;Plan of Care;ADL Adaptive Strategies;Transfer Training;Energy Conservation;Fall Prevention Strategies Education Method: Demonstration;Verbal Barriers to Learning: Cognition Education Outcome: Verbalized understanding;Demonstrated understanding;Continued education needed Goals Short Term Goals Time Frame for Short Term Goals: By discharge, pt will Short Term Goal 1: demo UB ADLs Independently. Short Term Goal 2: demo LB ADLs with SBA, adaptive techniques PRN. Short Term Goal 3: demo functional transfers/mobility with SUP, LRAD PRN for engagement in ADLs. Short Term Goal 4: demo dynamic standing during functional activities for 6+ mins with SUP, LRAD PRN. Short Term Goal 5: demo use of 2 EC/WS techniques throughout entire session independently with no vc's. Plan Occupational Therapy Plan Times Per Week: 4x/wk Current Treatment Recommendations: Balance training, Functional mobility training, Endurance training, Safety education & training, Pain management, Patient/Caregiver education & training, Equipment evaluation, education, & procurement, Self-Care / ADL, Home management training AM-PAC Daily Activities Inpatient AM-PAC Daily Activity - Inpatient How much help is needed for putting on and taking off regular lower body clothing?: A Lot How much help is needed for bathing (which includes washing, rinsing, drying)?: A Little How much help is needed for toileting (which includes using toilet, bedpan, or urinal)?: A Little How much help is needed for putting on and taking off regular upper body clothing?: A Little How much help is needed for taking care of personal grooming?: A Little How much help for eating meals?: None AM-PAC Inpatient Daily Activity Raw Score: 18 AM-PAC Inpatient ADL T-Scale Score : 38.66 ADL Inpatient CMS 0-100% Score: 46.65 ADL Inpatient CMS G-Code Modifier : CK Minutes OT Individual Minutes Time In: 922 Time Out: 954 Minutes: 32 Time Code Minutes Timed Code Treatment Minutes: 23 Minutes Co-eval with PT Physical Therapy Facility/Department: [facility] RENAL//MED SURG Physical Therapy Initial Assessment Name: Freddy Panchal : 1955 Date of Service: 08/24/2024 Chief Complaint Patient presents with Back Pain 68 y.o. male who presents with concerns for epidural abscess. POD #1 s/p L3-L5 lumbar laminectomy for abscess activity as tolerated Discharge Recommendations: Patient would benefit from continued therapy after discharge PT Equipment Recommendations Equipment Needed: Yes Mobility Devices: Walker Patient Diagnosis(es): The primary encounter diagnosis was Epidural abscess. Diagnoses of Tachycardia and Abscess in epidural space of lumbar spine were also pertinent to this visit. Past Medical History: has no past medical history on file. Past Surgical History: has a past surgical history that includes Lumbar spine surgery (08/23/2024). Assessment Body Structures, Functions, Activity Limitations Requiring Skilled Therapeutic Intervention: Decreased functional mobility ;Decreased tolerance to work activity;Decreased strength;Decreased endurance;Decreased balance;Increased pain Assessment: Pt presente with post op pain, deficits in gait and activity with increaed fall risl Pt will continue to benefit from PT intervention to progress functional abilty and mobility needed to regain prior level of safety and function Specific Instructions for Next Treatment: Progress activity and encourage out of bed activity Therapy Prognosis: Good Decision Making: Medium Complexity Clinical Presentation: evolved Requires PT Follow-Up: Yes Activity Tolerance Activity Tolerance: Patient tolerated evaluation without incident;Patient limited by pain;Patient limited by endurance;Other (comment) (Pt with intermittent lethergy during intervention) Activity Tolerance Comments: Pt was able to participate in PT POC and in agreement with goals Plan Physical Therapy Plan General Plan: 6-7 times per week Specific Instructions for Next Treatment: Progress activity and encourage out of bed activity Current Treatment Recommendations: Strengthening, Balance training, Functional mobility training, Transfer training, Endurance training, Gait training, Stair training, Neuromuscular re-education, Home exercise program, Safety education & training, Therapeutic activities Safety Devices Type of Devices: Patient at risk for falls, Gait belt, Nurse notified, Call light within reach, Chair alarm in place, Left in chair Restraints Restraints Initially in Place: No Restrictions Restrictions/Precautions Restrictions/Precautions: Seizure, Fall Risk Required Braces or Orthoses?: No Position Activity Restriction Other position/activity restrictions: Up with assist, LUMBAR LAMINECTOMY FOR ABCESS on 08/23/24 Subjective General Chart Reviewed: Yes Patient assessed for rehabilitation services?: Yes Additional Pertinent Hx: 68 y.o. male who presents with concerns for epidural abscess. POD #1 s/p L3-L5 lumbar laminectomy for abscess Response To Previous Treatment: Patient with no complaints from previous session. Family / Caregiver Present: No Follows Commands: Within Functional Limits Other (Comment): Pt is awake and alert in agreement with PT intervention., Okay per RN General Comment Comments: Pt report independent at baseline without AD, Subjective Subjective: Pt report 10 back pain upon completion of PT intervention Social/Functional History Social/Functional History Lives With: Alone Type of Home: House Home Layout: Two level, Bed/Bath upstairs, Able to Live on Main level with bedroom/bathroom Home Access: Stairs to enter with rails Entrance Stairs - Number of Steps: 2 + 2 RADHA back of house Bathroom Shower/Tub: Tub/Shower unit Bathroom Toilet: Standard Bathroom Equipment: None Bathroom Accessibility: Accessible Home Equipment: None, Walker - Rolling, Cane Has the patient had two or more falls in the past year or any fall with injury in the past year?: Yes (recent fall due to neuropathy at bilateral LE's) Receives Help From: Family, Friend(s) (Pt report good family and friend support) ADL Assistance: Independent Homemaking Assistance: Independent Homemaking Responsibilities: Yes Meal Prep Responsibility: Primary Laundry Responsibility: Primary Cleaning Responsibility: Primary Bill Paying/Finance Responsibility: Primary Shopping Responsibility: Primary Dependent Care Responsibility: Primary Health Care Management: Primary Ambulation Assistance: Independent Transfer Assistance: Independent 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 slow processing due to lethargic state Objective Temp: 97.8 F (36.6 C) Pulse: 91 Heart Rate Source: Monitor Respirations: 22 SpO2: 97 % O2 Device: Nasal cannula BP: (!) 156/99 MAP (Calculated): 118 BP Location: Left upper arm BP Method: Manual Observation/Palpation Posture: Good Observation: Pt demonstrate erect sitting and standing posure with midline symmetry Gross Assessment AROM: Within functional limits PROM: Within functional limits Strength: Within functional limits Coordination: Within functional limits Tone: Normal Sensation: Intact AROM RLE (degrees) RLE AROM: WNL RLE General AROM: no structural limitations or contractures noted AROM LLE (degrees) LLE AROM : WNL LLE General AROM: no structural limitations or contractures noted AROM RUE (degrees) RUE AROM : WNL AROM LUE (degrees) LUE AROM : WNL Strength RLE Strength RLE: WFL Strength LLE Strength LLE: WFL Strength RUE Strength RUE: WFL Strength LUE Strength LUE: WFL Strength Other Other: Pt demonstrates general weakness and deconditioning, rest breaks needed Balance Sitting: Without support (unsupported sitting during functional activities with SBA. Pt sitting for ~10 mins) Standing: High guard (static/dynamic standing during functional activities with CGA and use of RW. Pt standing for ~4 mins) Bed mobility Rolling to Left: Stand by assistance Supine to Sit: Contact guard assistance Sit to Supine: Contact guard assistance Scooting: Stand by assistance Transfers Sit to Stand: Contact guard assistance Stand to Sit: Contact guard assistance Bed to Chair: Contact guard assistance Ambulation Surface: Level tile Device: Rolling Walker Other Apparatus: O2 Assistance: Contact guard assistance Quality of Gait: Pt demo slow guarded gait with RW Gait Deviations: Slow Miriam;Decreased step length Distance: ~15 ft RW, CGA Comments: Pt educated on safety and use of RW with good return demo More Ambulation?: No Stairs/Curb Stairs?: No Wheelchair Activities Wheelchair Parts Management: No Propulsion: No Balance Posture: Good Sitting - Static: Good Sitting - Dynamic: Good Standing - Static: Good Standing - Dynamic: Good Comments: balance assessed with RW Functional Reach Test Fall Risk (Score of <10 inches is fall risk): Yes Exercise Treatment: Pt provided verbal. written and practical instruction in bilateral LE ROM /strengthening exercises to prevent functional strength decline. AM-PAC Basic Mobility - Inpatient How much help is needed turning from your back to your side while in a flat bed without using bedrails?: A Little How much help is needed moving from lying on your back to sitting on the side of a flat bed without using bedrails?: A Little How much help is needed moving to and from a bed to a chair?: A Little How much help is needed standing up from a chair using your arms?: A Little How much help is needed walking in hospital room?: A Little How much help is needed climbing 3-5 steps with a railing?: A Little AM-PAC Inpatient Mobility Raw Score : 18 AM-PAC Inpatient T-Scale Score : 43.63 Mobility Inpatient CMS 0-100% Score: 46.58 Mobility Inpatient CMS G-Code Modifier : CK Goals Short Term Goals Time Frame for Short Term Goals: 14 visits Short Term Goal 1: Pt to ambulate 200 ft mod I with least AD Short Term Goal 2: Pt to transfer from alternate surface heights with Mod I demonstrating safety with AD Short Term Goal 3: Pt to ascend/descend 4 steps with Mod I and rigth railing Short Term Goal 4: Pt to be provided verbal, written and practical instruction in bilateral LE ROM exercises to improve general strength and activity tolerance. Patient Goals Patient Goals : To return home Education Patient Education Education Given To: Patient Education Provided: Role of Therapy;Plan of Care;Precautions;Transfer Training;Equipment;Fall Prevention Strategies Education Method: Verbal Barriers to Learning: None Education Outcome: Verbalized understanding;Continued education needed Therapy Time Individual Concurrent Group Co-treatment Time In 0920 Time Out 0957 Minutes 37 Timed Code Treatment Minutes: 23 Minutes (Partial Co tx with OT) Co- treatment with OT warranted secondary to decreased patient safety and independence with functional mobility requiring skilled physical assistance of two professionals to simultaneously address individualized discipline goals. PT is addressing progressive gait and safety with AD, while OT is addressing their individualized functional mobility/self-care task. Krissy Tsai PT, DPT Neurosurgery PAPA/Resident Daily Progress Note Chief Complaint Patient presents with Back Pain 08/24/2024 8:18 AM Chart reviewed. No acute events overnight. Patient complaining of significant back pain but states that this is the back pain he has been having. Has not gotten out of bed yet. Tolerating a regular diet. Blood cultures positive for gram negative rods. OR cultures NGTD. Vitals: 08/24/24 0427 08/24/24 0445 08/24/24 0603 08/24/24 0818 BP: (!) 162/94 (!) 152/92 (!) 151/95 Pulse: 100 97 Resp: 18 22 Temp: 97.9 F (36.6 C) TempSrc: Oral SpO2: 93% Weight: Height: PE: AOx3 CNII-XII intact PERRL, EOMI Motor L deltoid 5/5; R deltoid 5/5 L biceps 5/5; R biceps 5/5 L triceps 5/5; R triceps 5/5 L wrist extension 5/5; R wrist extension 5/5 L intrinsics 5/5; R intrinsics 5/5 L iliopsoas 5/5 , R iliopsoas 5/5 L quadriceps 5/5; R quadriceps 5/5 L Dorsiflexion 5/5; R dorsiflexion 4/5 L Plantarflexion 5/5; R plantarflexion 5/5 L EHL 5/5; R EHL 5/5 Sensation: patient denies any numbness to BLE at this time Incision: CDI Lab Results Component Value Date WBC 12.1 (H) 08/23/2024 HGB 11.6 (L) 08/23/2024 HCT 35.8 (L) 08/23/2024 PLT See Reflexed IPF Result 08/23/2024 ALT 34 08/23/2024 AST 32 08/23/2024 NA 140 08/23/2024 K 4.2 08/23/2024 CL 98 08/23/2024 CREATININE 0.9 08/23/2024 BUN 27 (H) 08/23/2024 CO2 24 08/23/2024 TSH 0.42 08/23/2024 INR 0.9 08/23/2024 CRP 412.0 (H) 08/23/2024 SEDRATE 79 (H) 08/23/2024 A/P 68 y.o. male who presents with concerns for epidural abscess. POD #1 s/p L3-L5 lumbar laminectomy for abscess Will consult ID Patient on vanco and zosyn Continue with pain regimen Scheduled Flexeril Lovenox for DVT prophylaxis Follow up OR cultures- negative to date Activity and diet as tolerated -- NO ACUTE NEUROSURGICAL INTERVENTION AT THIS TIME NEUROSURGERY TO SIGN OFF Please contact Neurosurgery with any questions. PATIENT TO FOLLOW UP IN CLINIC: --- Follow-up with Neurosurgery [facility] [address] (Medical Office Building [address]) [address] Call [phone] for an appointment. -- Please contact neurosurgery with any changes in patients neurologic status. blood sugar 213 mg/dl Relayed to thu Lennon new order given Neurosurgery Post op Progress Note SUBJECTIVE: Status post: 1. L4-5 lumbar laminectomy for possible epidural abscess. Patient seen while in recovery. Patient appears to be oriented to person but not place or time. He also has some uncontrolled, intermittent twitching. to the right lower extremity. Patient states that this is not a new finding. He is able to move all 4 extremities upon command. Patient states his back pain is significantly better since undergoing surgery. He denies any numbness, tingling or paresthesia pains to either lower extremity. OBJECTIVE Physical exam VITALS: Vitals: 08/23/24 1900 BP: (!) 141/82 Pulse: (!) 102 Resp: 21 Temp: SpO2: 94% INTAKE: Intake/Output Summary (Last 24 hours) at 08/23/2024 1924 Last data filed at 08/23/2024 1853 Gross per 24 hour Intake 1750 ml Output 675 ml Net 1075 ml URINARY CATHETER OUTPUT (Johnson): No Johnson catheter. DRAIN/TUBE OUTPUT: No drains to the surgical site. No evidence of DVT seen on physical exam. Neurological exam reveals Responds to voice and Responds to tactile stimuli moves all extremities well cranial nerves II through XII intact. He continues to have abnormal sensations to both lower extremities. Wound Post op wound: posterior lumbar spine well approximated incision clean, dry, and no drainage Closed w/ subcuticular Monocryl and Dermabond. No dressing overlying incision site. Data LABS: Lab Results Component Value Date WBC 12.1 (H) 08/23/2024 HGB 11.6 (L) 08/23/2024 HCT 35.8 (L) 08/23/2024 MCV 94.8 08/23/2024 PLT See Reflexed IPF Result 08/23/2024 Lab Results Component Value Date NA 140 08/23/2024 K 4.2 08/23/2024 CL 98 08/23/2024 CO2 24 08/23/2024 Lab Results Component Value Date BUN 27 (H) 08/23/2024 Lab Results Component Value Date CREATININE 0.9 08/23/2024 Micro: Both aerobic and anaerobic cultures obtained of the L4-5 epidural space area. ASSESSMENT AND PLAN 1. Okay to transfer patient to floor from recovery if stable. 2. Continue IV antibiotics and appropriate analgesics for pain. Await results of intraoperative cultures. 3. Occupational Therapy and physical therapy on board. Patient can be weightbearing as tolerated. No restrictions. 4. Will start chemical DVT prophylaxis, i.e. Lovenox postop day 1 if okayed with other consultants. 5. Hospitalist managing hyperglycemia. 6. No further imaging is required at this point. 7. We will continue to closely follow this patient while he remains in house. Limited information obtained of home medicine because pt doesn't know. Electronic Organ Mechanic asked whether someone can bring home medicine but pt said he lives alone. Spiritual Health History and Assessment/Progress Note [facility] Advance Care Planning, , , Name: Freddy Panchal Age: 68 y.o. 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 Patient states that he had a pain shot last and could not walk well since. States that he is in pain when he moves his legs a certain way or does something. 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 Feels that the doctor did not do something right which has resulted in his current situation. Family/Friends Other: Has an ex- bedside for support. Patient also has a son and brother. States that the son struggles with alcohol and would not be a reliable support person. Patient states that the brother has very strong political opinions that can cause difficulties in communication. Patient seems to indicate that he relies on his ex- as a support system. Importance and Influence: Patient Other: Patient did not indicate any specific beliefs but appears to take pride in his work. Seems that it is difficult for him to not be able to engage in the normal everyday things as well as the responsibilities he feels he has to the work he does. Family/Friends Other: Appears to be concerned about the patient's condition and possible severity. Is concerned that the condition of the patient may progress to a point that she would need to be called upon to assist. Community: Patient Other: Not mentioned specifically but seems that the patient knows a lot of people through his work. Family/Friends Other: Not discussed. Assessment and Plan of Care: Patient Interventions include: Facilitated expression of thoughts and feelings, Explored spiritual coping/struggle/distress, and Assisted in Advance Care Planning conversation Family/Friends Interventions include: Affirmed coping skills/support systems Patient Plan of Care: Spiritual Care available upon further referral Family/Friends Plan of Care: Spiritual Care available upon further referral 08/23/24 6890 Encounter Summary Encounter Overview/Reason Advance Care Planning Service Provided For Patient and family together Referral/Consult From Other dry goods clerk Support System Significant other Last Encounter 08/23/24 Complexity of Encounter Moderate Begin Time 1425 End Time 1500 Total Time Calculated 35 min Advance Care Planning Type ACP conversation Assessment/Intervention/Outcome Assessment Calm;Tearful;Stress overload Intervention Active listening;Discussed illness injury and it s impact;Explored/Affirmed feelings, thoughts, concerns Outcome Engaged in conversation;Expressed feelings, needs, and concerns;Venting emotion [facility] Pharmacokinetic Monitoring Service - Vancomycin Freddy Panchal is a 68 y.o. male starting on vancomycin therapy for epidural abscess. Pharmacy consulted by Olesya for monitoring and adjustment. Target Concentration: Goal AUC/LETHA 400-600 mg*hr/L Additional Antimicrobials: zosyn Pertinent Laboratory Values: Wt Readings from Last 1 Encounters: 08/23/24 88.5 kg (195 lb) Temp Readings from Last 1 Encounters: 08/23/24 99.7 F (37.6 C) (Oral) Estimated Creatinine Clearance: 84 mL/min (based on SCr of 0.9 mg/dL). Recent Labs 08/23/24 0312 08/23/24 0542 CREATININE 0.9 0.9 BUN 25* 27* WBC 12.1* -- Procalcitonin: na Pertinent Cultures: Culture Date Source Results 08/23 Blood Pending MRSA Nasal Swab: N/A. Non-respiratory infection. Plan: Dosing recommendations based on Bayesian software Start vancomycin 1250 mg IVPB followed by 1000 mg IVPB q12h Anticipated AUC of 460 and trough concentration of 15 at steady state Renal labs as indicated Vancomycin concentration not ordered yet Pharmacy will continue to monitor patient and adjust therapy as indicated Thank you for the consultHanane RPH 08/23/2024 10:50 AM documented in this encounter [facility] 08-24-2024 Hospital Discharg Paulina Beatty APRN - [facility] - 08/24/2024 8:22 AM EDT Images from the original note were not included. Lumbar Spine Surgery Discharge Instructions Thank you for choosing [facility] for your surgical needs. The following instructions will help to ensure your comfort and that you are well prepared after your surgery. Post-Operative Visit: The office is located at: [facility] [place] [address], [address], main floor [place] [id number] Please also call your primary care physician to schedule an appointment for further evaluation and care. Diet: You may resume your regular diet. Be sure to eat a well-balanced diet. Protein promotes wound healing. Pain medication and decreased activity can cause constipation. Drink 8-10 glasses of water a day, eat fresh fruits and vegetables, and add prunes, raisins and bran cereals to your diet if you do become constipated. A stool softener taken 1-2 times a day is helpful. Dulcolax suppositories or Fleets enemas are also available without a prescription. Call our office if the problem continues. Activity and Exercise: No driving until you are seen in the office. Avoid riding in a car for the first two weeks until you come to the office for your scheduled follow-up. Start taking short, frequent walks in the beginning. [place], more frequent walks throughout the day are more beneficial than one long walk each day. You may gradually increase the distance; as tolerated. If your pain increases, you may be walking too much or too far. Try backing off for a day or two and then resume slowly. No lifting greater than 5 lbs (gallon of milk). No bending at the waist. Instead, bend at the knees and squat to pick something up. If physical therapy has been prescribed, you are not to perform range of motion, flexion, extension or lateral bending. No baths, swimming or hot tub until you discuss this with your doctor. Incision Care and Hygiene: Your incision may be may be closed with sutures Steri-strips, gideon, or glue. - The Steri-strips will fall off on their own in 7-10 days - The gideon or sutures should be removed about 2 weeks after surgery. If they are not removed please call the clinic to have them removed. - The glue will dissolve over time No ointments or lotions on the incision It is OK to shower 3-4 days after surgery. Let water run over the incision. Gently pat the incision dry with a clean towel, do not rub. Leave incision site open to air. Pain Management: Do not take NSAID medications (Ibuprofen, Naprosyn, etc.) or Bean-2 inhibitors (Celebrex, etc.) for 1 weeks following surgery. You will be given a prescription for pain medication. Our hope is that you will eventually be weaned off all pain medications. Try not take the pain medicine unless you need to. If you feel that you do not need something that strong, you may use regular or extra-strength Tylenol instead. DO NOT drink alcohol, drive or operate heavy machinery while taking your pain medications. Notify the office if your pain is not controlled or you need a medication refill before your appointment. Blood Thinning Medication: If you were previously on any blood thinning medications (Clopidogrel, Warfarin, aspirin, etc.) that haven t been restarted, you may resume in 1 weeks following your surgery. YOU SHOULD CALL THE OFFICE AT [phone] IF YOU HAVE ANY OF THE FOLLOWING: Increased pain or pain not relieved with current medications If you notice any signs of infection such as bleeding, redness, swelling, tenderness, odor, drainage or opening of the incision. Please check your incisions twice daily. Fevers greater than 101.5 degrees Flu-like symptoms, chills, shakes, chest pain, shortness of breath, nausea, vomiting, diarrhea New or increased pain, numbness or tingling in the legs, as well as new or increased balance or coordination issues. New difficulty with urinating or holding your bladder or your bowels *If you are unable to contact someone at the office and your symptoms persist or increase, call 911 or go to the emergency department. documented in this encounter [facility] 12-15-2023 Miscellaneous Notes Scheduled pt for CTA of cors on 01/23/24 at [facility] arrive at 1:30. All instructions given pt verbalizes understanding.slm [facility] encounter [facility]-15-[facility]23 Telephone encounter Note Scheduled pt for CTA of cors on 01/23/24 at [facility] arrive at 1:30. All instructions given pt verbalizes understanding.slm [facility] 12-15-2023 History of Presen t illness Narrative Freddy Panchal Date of visit: 12/15/2023 Date of : 1955 Age: 68 y.o. There is no problem list on file for this patient. Allergies Allergen Reactions Codeine GI Disturbance Tylenol [Acetaminophen] Other (See Comments) sweating Current Outpatient Medications Medication Sig Dispense Refill atorvastatin (LIPITOR) 40 mg tablet Take 1 tablet (40 mg total) by mouth in the morning. baclofen (LIORESAL) 10 mg tablet Take 1 tablet (10 mg total) by mouth once daily at bedtime. BELBUCA 900 mcg film 1 film to the gum Bucally every 12 hrs cetirizine (ZyrTEC) 10 mg tablet Take 1 tablet (10 mg total) by mouth in the morning. hydrOXYzine (VISTARIL) 25 mg capsule Take 1 capsule (25 mg total) by mouth in the morning and at bedtime. lidocaine (LIDODERM) 5 % Place 1 patch on the skin daily. losartan-hydroCHLOROthiazide (HYZAAR) 100-12.5 mg per tablet Take 1 tablet by mouth in the morning. OZEMPIC 0.25 mg or 0.5 mg (2 mg/3 mL) pen injector PEPCID 20 mg tablet Take 1 tablet (20 mg total) by mouth 2 (two) times a day as needed. PERCOCET 5-325 mg per tablet Take 1 tablet by mouth 4 (four) times a day. traZODone (DESYREL) 50 mg tablet Take 1 tablet (50 mg total) by mouth nightly. amLODIPine (NORVASC) 2.5 mg tablet Take 1 tablet (2.5 mg total) by mouth in the morning. 90 tablet 3 aspirin 81 mg Take 1 tablet (81 mg total) by mouth in the morning. 30 tablet 3 buprenorphine HCl (BELBUCA) 300 mcg film Apply 3 Film (900 mcg total) to cheek in the morning and 3 Film (900 mcg total) before bedtime. metoprolol tartrate (LOPRESSOR) 50 mg tablet Take 1 tablet (50 mg total) by mouth as needed (As instructed for CTA coronary test). 4 tablet 0 nitroglycerin (NITROSTAT) 0.4 MG SL tablet 1 under the tongue as needed for angina, may repeat q5mins for up three doses 100 tablet 11 No current facility-administered medications for this visit. Chief Complaint Patient presents with 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 LUCY LANDRY, POSITIVE CARDIAC STRESS TEST JO, SCHED W/PT History of Present Illness 68-year-old male with history of type 2 diabetes mellitus, COPD, BPH, hypertension, hyperlipidemia. New to our practice. Referred for evaluation abnormal exercise treadmill stress test 10/2023. Patient stated that for the last couple of months has been having on and off chest discomfort described as an ache that occurs in the center of his chest, not related to exertion, can occur once or twice per week, can last for minutes up to half an hour. Not associated with nausea or sweats. Denied shortness of breath or dyspnea with exertion. No palpitations or dizziness orthopnea or edema. No syncope or presyncope. EKG 04/11/2020: Sinus tachycardia, anteroseptal infarct, ST depression in the lateral leads suggesting ischemia. Possible old inferior infarct. Past Medical History: Diagnosis Date BPH (benign prostatic hyperplasia) COPD (chronic obstructive pulmonary disease) [place] Decreased hearing Diabetes mellitus type 2, controlled ([facility]) AYALA (dyspnea on exertion) ED (erectile dysfunction) Hyperlipidemia Hypertension Injury of back Neuropathy Sciatica Visual impairment glasses No data recorded No data recorded No data recorded Past Surgical History: Procedure Laterality Date COLONOSCOPY N/A 02/19/2019 Performed by Gaudencio Hung MD at [facility] EPIDURAL BLOCK INJECTION for back pain LAPAROSCOPIC REPAIR HERNIA VENTRAL N/A 02/19/2019 Performed by Gaudencio Hung MD at [facility] NECK SURGERY 2013 cyst removed RESECTION SMALL BOWEL 02/19/2019 Performed by Gaudencio Hung MD at [facility] Family History Problem Relation Age of Onset Diabetes Mother Heart disease Mother COPD Mother Heart disease Father Heart attack Father COPD Father Social History Socioeconomic History Marital status: Spouse name: Not on file Number of children: Not on file Years of education: Not on file Highest education level: Not on file Occupational History Not on file Tobacco Use Smoking status: Former Smokeless tobacco: Never Tobacco comments: quit at age 16 Vaping Use Vaping Use: Never used Substance and Sexual Activity Alcohol use: Yes Comment: occassional Drug use: Not Currently Sexual activity: Defer Other Topics Concern Caffeine Use Yes Social History Narrative Not on file Social Determinants of Health Financial Resource Strain: Not on file Food Insecurity: No Food Insecurity (12/15/2023) Hunger Screening Food Insecurity - Worry: Never True Food Insecurity - Inability: Never True Transportation Needs: Not on file Physical Activity: Not on file Stress: Not on file Social Connections: Not on file Interpersonal Safety: Not on file Housing Instability: Not on file Review of Systems Review of Systems Respiratory: Negative for cough, hemoptysis and wheezing. Gastrointestinal: Negative for abdominal pain, change in bowel habit and hematochezia. Genitourinary: Negative for dysuria and hematuria. Neurological: Negative for focal weakness, headaches and paresthesias. CARDIOVASCULAR: Please review HPI. Physical Examination General appearance: Alert, oriented and cooperative. In no acute distress. Skin: Warm and dry to touch. Head: Normocephalic, without obvious abnormality, atraumatic. Ears, Nose, Mouth, Throat: Throat clear without erythema or exudate. Dentition intact. Eyes: Conjunctivae unremarkable, EOM intact. Neck: No JVD, No carotid bruit. Neck supple, trachea midline. Respiratory: Clear to auscultation bilaterally, no use of accessory muscles. Cardiovascular: RRR with normal S1 and S2 with no murmurs. Gastrointestinal: Soft, non-tender. Bowel sounds normal. Musculoskeletal: No peripheral edema. Neurologic: Oriented to time, person and place, affect appropriate. No focal/major motor defects noted. Psychiatric: Appropriate mood, memory and judgement. VITAL SIGNS: BP 130/70 (BP Site: Left Arm, BP Postition: Sitting) Pulse 88 Ht 177.8 cm (5' 10 ) Wt 91.6 kg (202 lb) SpO2 95% BMI 28.98 kg/m Orders Placed or Reconciled This Encounter Medications PEPCID 20 mg tablet Sig: Take 1 tablet (20 mg total) by mouth 2 (two) times a day as needed. PERCOCET 5-325 mg per tablet Sig: Take 1 tablet by mouth 4 (four) times a day. lidocaine (LIDODERM) 5 % Sig: Place 1 patch on the skin daily. baclofen (LIORESAL) 10 mg tablet Sig: Take 1 tablet (10 mg total) by mouth once daily at bedtime. BELBUCA 900 mcg film Si film to the gum Bucally every 12 hrs hydrOXYzine (VISTARIL) 25 mg capsule Sig: Take 1 capsule (25 mg total) by mouth in the morning and at bedtime. losartan-hydroCHLOROthiazide (HYZAAR) 100-12.5 mg per tablet Sig: Take 1 tablet by mouth in the morning. OZEMPIC 0.25 mg or 0.5 mg (2 mg/3 mL) pen injector nitroglycerin (NITROSTAT) 0.4 MG SL tablet Si under the tongue as needed for angina, may repeat q5mins for up three doses Dispense: 100 tablet Refill: 11 aspirin 81 mg Sig: Take 1 tablet (81 mg total) by mouth in the morning. Dispense: 30 tablet Refill: 3 amLODIPine (NORVASC) 2.5 mg tablet Sig: Take 1 tablet (2.5 mg total) by mouth in the morning. Dispense: 90 tablet Refill: 3 metoprolol tartrate (LOPRESSOR) 50 mg tablet Sig: Take 1 tablet (50 mg total) by mouth as needed (As instructed for CTA coronary test). Dispense: 4 tablet Refill: 0 Medications Discontinued During This Encounter Medication Reason amitriptyline (ELAVIL) 50 mg tablet Therapy completed gabapentin (NEURONTIN) 300 mg capsule Therapy completed metFORMIN (GLUCOPHAGE) 1000 mg tablet Therapy completed lisinopril-hydroCHLOROthiazide (PRINZIDE,ZESTORETIC) 20-12.5 mg per tablet Dose adjustment tiZANidine (ZANAFLEX) 2 mg tablet Therapy completed IMPRESSIONS/PLAN 1. Abnormal ECG during exercise stress test - CT angiogram coronary arteries with or without scoring; Future - Creatinine includes GFR, serum; Future 2. LVH (left ventricular hypertrophy) 3. Diastolic dysfunction 4. Mixed hyperlipidemia 5. Positive cardiac stress test - Ambulatory referral to Cardiology ([facility]) 6. Chest discomfort 7. Chest pain, unspecified type - CT angiogram coronary arteries with or without scoring; Future Previous cardiac related labs and test results were reviewed and discussed with the patient. Atypical chest pain Abnormal exercise treadmill stress test 10/2023 Normal EF with grade 1 diastolic dysfunction TTE 12/2018 Mild concentric LVH TTE 2019 Hypertension Hyperlipidemia - 12/2023: Total cholesterol 212, HDL 64, LDL 105, triglycerides 213 Diabetes mellitus COPD BPH Patient new to our practice. Complaining of atypical type chest pain. Had an abnormal exercise treadmill stress test 10/2023. I ordered CTA coronaries to assess coronary anatomy. If significant coronary stenosis, plan for cardiac catheterization at [facility]. Patient agreeable. Repeat echocardiogram to reassess cardiac structure and function. Started on baby aspirin. I added Norvasc 2.5 mg daily to his regimen for better blood pressure control and antianginal effect. P.r.n. sublingual nitro also prescribed and patient educated how to use it. No change in the rest of his cardiac meds. Recommended avoiding any strenuous activities until CTA results are back in no concern for significant coronary disease. Follow-up in 6 months or sooner if needed per test results. Patient to call us with any cardiac questions or concerns. TODAYS ORDERS Orders Placed This Encounter Procedures CT angiogram coronary arteries with or without scoring Creatinine includes GFR, serum FOLLOW UP Return in about 6 months (around 06/14/2024). PCP: Leti Cespedes PA-C Referring Physician: Leti Cespedes PA-C [address] [place] [address] documented in this encounter [facility] 12-14-2023 Miscellaneous Notes Called patient to remind them to bring their most current copy of their medication list with them to their appt. Patient verbalizes understanding. documented in this encounter [facility] 12-14-2023 Telephone encounter Note Called patient to remind them to bring their most current copy of their medication list with them to their appt. Patient verbalizes understanding. 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 Tachycardia Tachycardia, unspecified Abscess in epidural space of lumbar spine Acute congestive heart failure, unspecified heart failure type (HCC) 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 Other and unspecified disc disorder of lumbar region Gram-neg septicemia (HCC) Septicemia due to gram-negative organism, unspecified Alcohol dependence with withdrawal with complication (HCC) Abscess in epidural space of lumbar spine Bandemia CRP elevated Elevated C-reactive protein (CRP) Sepsis due to Klebsiella (HCC) Klebsiella pneumoniae [facility]* Diagnosis Sepsis due to Klebsiella (HCC)- Primary Klebsiella pneumoniae Abscess in epidural space of lumbar spine documented in this encounter [facility] filed[facility]ed in this encounter [facility] SystemInstructionsNot on filedocumented in this encounter [facility] on filedocumented in this encounter [facility] Summary Purpose Family History No Family History Records FoundNo Family History Records FoundNo Family History Records FoundNo Family History Records Found Advance Directives No Advanced Directives Records Found Date Activated Date Inactivated Comments 08/23/2024 5:37 AM Documents on File Type Date Recorded Patient Director Trust Expl anation ACP-Advance Directive 08/31/2024 6:51 PM Date Activated Date Inactivated Comments 08/23/2024 5:37 AM 08/30/2024 3:13 PM Reason for Referral Specialty Diagnoses / Procedures Referred By Contac t Referred To Contact Diagnoses Abnormal ECG during exercise stress test LVH (left ventricular hypertrophy) Diastolic dysfunction Chest discomfort Procedures Echo complete W/O contrast Osiris Banegas MD [address] [place] [address] [address] Phone: [phone] Referral ID Status Reason Start Date Expiration Date V isits Requested Visits Authorized [id number] Pending Review 12/15/2023 12/14/2024 1 1 Specialty Diagnoses / Procedures [facility] Referred To Contact Radiology Diagnoses Abnormal ECG during exercise stress test Chest pain, unspecified type Procedures CT angiogram coronary arteries with or without scoring Osiris Banegas MD [address] [place] [address] [address] Referral ID Status Reason Start Date Expiration Date V isits Requested Visits Authorized [id number] Pending Review 12/15/2023 12/14/2024 1 1 Additional Source Comments (unrecognized sect ion and content) No Status Records FoundNo Status Records FoundNo Status Records FoundNo Status Records Found INFORMATION SOURCE (unrecogn ized section and content) DATE CREATED AUTHOR 11/30/2021 [facility] DATE CREATED AUTHOR AUTHOR'S ORGANIZ ATION 01/20/2024 [facility] DATE CREATED AUTHOR AUTHOR'S ORGANIZ ATION 01/27/[address] [facility] DATE CREATED AUTHOR AUTHOR'S ORGANIZ ATION 09/08/2024 [facility] Care Teams (unrecognized sec tion and content) Market Consultant Relationship Specialty Start Date End Date Leti Cespedes PA-C [address] [place] [address] PCP - General Physician Front Edger 12/21/19 Market Consultant Relationship Specialty Start Date End Date Leti Cespedes PA-C [address] [place] [id number] PCP - General Physician Front Edger 12/21/19 Market Consultant Relationship Specialty Start Date End Date Leti Cespedes PA-C [address] [place] [id number] PCP - General Physician Front Edger 12/21/19 Reason for Visit (unrecogniz ed section and content) Reason Comments 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 LUCY JOSHUA, POSITIVE CARDIAC STRESS TEST JO, SCHED W/PT Specialty Diagnoses / Procedures Referred By Contac t Referred To Contact Cardiology Diagnoses Positive cardiac stress test Leti Cespedes PA-C [address] [place] [address] [facility] [address] [place] [address] Referral ID Status Reason Start Date Expiration Date Visits Requested Visits Authorized [id number] Pending Review Specialty Services Required 11/17/2023 11/16/2024 1 1 Reason Comments Back Pain Specialty Diagnoses / Procedures Referred By Contac t Referred To Contact Diagnoses Epidural abscess Tachycardia Catherine Guaman MD [address] [place] [address] [facility] [address] [place] [address] Referral ID Status Reason Start Date Expiration Date Visits Re quested Visits Authorized [id number] 1 1 Specialty Diagnoses / Procedures Referred By Kirby t Referred To Contact Diagnoses Epidural abscess Tachycardia Catherine Guaman MD [address] [place] [address] [facility] [address] [place] [address] Ordered Prescriptions (unrec ognized section and content) Prescription Sig Dispensed Refills Start Date End Da te levoFLOXacin (LEVAQUIN) 750 MG tablet Take 1 tablet by mouth daily 42 tablet 08/30/2024 10/11/2024 furosemide (LASIX) 40 MG tablet Take 1 tablet by mouth daily 60 tablet 3 08/30/2024 carvedilol (COREG) 6.25 MG tablet Take 1 tablet by mouth 2 times daily (with meals) 60 tablet 3 08/30/2024 oxyCODONE-acetaminophen (PERCOCET) 5-325 MG per tabletIndications:Epidur al abscess Take 1 tablet by mouth every 6 hours as needed for Pain for up to 2 days. Max Daily Amount: 4 tablets 8 tablet 08/30/2024 09/01/2024 Scheduled Active and Recently Administ ered Medications (unrecognized section and content) Medication Order 08/28/2024 08/29/2024 08/30/2024 atorvastatin (LIPITOR) tablet 20 mg 20 mg, Oral, NIGHTLY, First dose on Tue08/25/24 at 2100, Until Discontinued 1953 (Given - Provider: Asif West, DOMINICK) 2004 (Given - Provider: Jeanne Brown, DOMINICK) 2099 (Due) baclofen (LIORESAL) tablet 10 mg 10 mg, Oral, Nightly, First dose on Tue08/28/24 at 2100, Until Discontinued 1953 (Given - Provider: Asif West, DOMINICK) 2004 (Given - Provider: Jeanne Brown, RN) 2099 (Due) carvedilol (COREG) tablet 6.25 mg 6.25 mg, Oral, 2 TIMES DAILY WITH MEALS, First dose on Tue08/24/24 at 1700, Until Discontinued, Administer with food to minimize the risk of orthostatic hypotension 0845 (Given - Provider: Rogelio Hager RN)1614 (Given - Provider: Rogelio Hager RN) 0909 (Given - Provider: Porsche Odell RN)1726 (Given - Provider: Cassi Kolb RN) 1026 (Given - Provider: Cassi Kolb RN)1700 (Due) cefTRIAXone (ROCEPHIN) 2,000 mg in sterile water 20 mL IV syringe 2,000 mg, IntraVENous, EVERY 24 HOURS, First dose on Tue08/25/24 at 1015, Until Discontinued, Antimicrobial Indications: Bone and Joint Infection, Bloodstream Infection, Administer as slow IV Push over 5 mins Reconstitute 2 g vials with 19.2 mL of designated diluent to produce a 100mg/mL solution 1152 (Given - Provider: Rogelio Hager RN) 1434 (Given - Provider: Cassi Kolb RN) 1200 (Due - Provider: Art León [facility]) cyclobenzaprine (FLEXERIL) tablet 10 mg (CANCELED) 10 mg, Oral, 3 TIMES DAILY, First dose on Tue08/24/24 at 0900, Until Discontinued 0337 (Given - Provider: Asif West RN)1152 (Given - Provider: Rogelio Hager RN)1615 (Given - Provider: Rogelio Hager RN) diclofenac sodium (VOLTAREN) 1 % gel 4 g 4 g, Topical, 2 TIMES DAILY, First dose on Tue08/28/24 at 1200, Until Discontinued, Apply to affected areas. 1152 (Given - Provider: Rogelio Hager RN)1999 (Given - Provider: Asif West RN) 0912 (Given - Provider: Porsche Odell RN)2004 (Not Given - Provider: Jeanne Brown RN - Reason: Patient/family refused) 1029 (Not Given - Provider: Cassi Kolb RN - Reason: Patient/family refused)2100 (Due) docusate sodium (COLACE) capsule 100 mg 100 mg, Oral, 3 TIMES DAILY, First dose on Tue08/28/24 at 1400, Until Discontinued 1318 (Given - Provider: Rogelio Hager RN)1953 (Given - Provider: Asif West RN) 09 (Given - Provider: Porsche Odell RN)143 (Given - Provider: Cassi Kolb, DOMINICK)2004 (Given - Provider: Jeanne Brown RN) 1020 (Given - Provider: Cassi Kolb, DOMINICK)1400 (Due)2100 (Due) enoxaparin (LOVENOX) injection 40 mg 40 mg, SubCUTAneous, DAILY, First dose on Tue08/24/24 at 0900, Until Discontinued, Indication of Use: Prophylaxis-DVT/PE, Administer by deep subCUTAneous injection with pt lying down. Alternate injection sites on abdominal wall. Do not rub site after injection. Check with provider prior to any invasive procedure., On hold since 08/25/2024 at 1609 until manually unheld 0900 (Automatically Held - Provider: Catherine Guaman MD) 0900 (Automatically Held - Provider: Catherine Guaman MD) 0900 (Automatically Held - Provider: Catherine Guaman MD) furosemide (LASIX) injection 40 mg (CANCELED) 40 mg, IntraVENous, DAILY, First dose on Tue08/24/24 at 1730, Until Discontinued 0844 (Given - Provider: Rogelio Hager RN) furosemide (LASIX) tablet 40 mg 40 mg, Oral, DAILY, First dose on Tue08/28/24 at 1000, Until Discontinued 0947 (Not Given - Provider: Rogelio Hager RN - Reason: Other - Comment: IV LSX given, no need to give PO per Cardio) 0907 (Given - Provider: Porsche Odell RN) 1018 (Given - Provider: Cassi Kolb, DOMINICK) insulin glargine (LANTUS) injection vial 13 Units 13 Units, SubCUTAneous, DAILY, First dose (after last modification) on Tue08/24/24 at 1730, Until Discontinued, Do not hold without physician order. 0843 (Given - Provider: Rogelio Hager RN) 0900 (Not Given - Provider: Cassi Kolb RN - Reason: Pt NPO - Comment: Patient NPO. Unknown when patient will get to eat.) 1018 (Not Given - Provider: Cassi Kolb RN - Reason: Patient/family refused - Comment: Patient states that he will take him home medicaiton when he gets home this afternoon, stating that stuff really does nothing for my blood sugar anyway. ) insulin lispro (HUMALOG,ADMELOG) injection vial 0-8 Units 0-8 Units, SubCUTAneous, 4 TIMES DAILY BEFORE MEALS & NIGHTLY, First dose on Tue08/24/24 at 2100, Until Discontinued, Medium Dose Corrective Algorithm Glucose: Dose: 70-179 No Insulin 180-249 2 Units 250-299 4 Units 300-349 6 Units Over 349 8 Units and notify physician Administer as soon as possible within 60 minutes of last blood glucose check 0837 (Not Given - Provider: Rogelio Hager RN - Reason: Order parameters not met)1158 (Given - Provider: Rogelio Hager RN)1639 (Given - Provider: Rogelio Hager RN)2029 (Not Given - Provider: Asif West RN - Reason: Order parameters not met - Comment: bs 122) 0821 (Not Given - Provider: Cassi Kolb RN - Reason: Order parameters not met - Comment: Blood sugar 118. Coverage not required.)1253 (Not Given - Provider: Cassi Kolb RN - Reason: Order parameters not met - Comment: Blood sugar 126. Coverage not required.)1725 (Given - Provider: Cassi Kolb RN)2029 (Not Given - Provider: Jeanne Brown RN - Reason: Order parameters not met) 0952 (Not Given - Provider: Cassi Kolb RN - Reason: Order parameters not met - Comment: Blood sugar 146. Coverage not required.)1100 (Due)1700 (Due)2099 (Due) lactulose (CHRONULAC) 10 GM/15ML solution 20 g (COMPLETED) 20 g, Oral, 2 TIMES DAILY, 2 doses, First dose on Tue08/28/24 at 1145, Last dose on Tue08/28/24 at 2100 1153 (Given - Provider: Rogelio Hager RN)1953 (Given - Provider: Asif West RN) lidocaine 4 % external patch 1 patch 1 patch, TransDERmal, Administer over 12 Hours, DAILY, First dose on Tue08/27/24 at 1515, Apply patch to back. Patch may remain in place for up to 12 hours in any 24 hour period. 0605 (Patch Removed - Provider: Asif West RN)1727 (Patch Applied - Provider: Rogelio Hager RN) 0530 (Patch Removed - Provider: Asif West RN)2030 (Not Given - Provider: Jeanne Brown RN - Reason: Other - Comment: pt changed his mind) 1019 (Not Given - Provider: Cassi Kolb RN - Reason: Patient/family refused) sodium chloride flush 0.9 % injection 5-40 mL 5-40 mL, IntraVENous, EVERY 12 HOURS SCHEDULED (2 times per day), First dose on Coco 08/23/24 at 0900, Until Discontinued, For Line Patency: Peripheral IV = 5 mL; Midline or Central Line = 10 mL/lumen. If following IV push medication, administer flush at same rate as the IV push. Flush volume is determined by type of infusion therapy being given. For non-viscous solutions use: Peripheral IV = 5 mL Midline or Central Line = 10 mL/lumen For viscous solutions (i.e. blood components, parenteral nutrition, contrast media, or after obtaining blood sample) use: Peripheral IV = 10 mL Midline or Central Line = 20 mL/lumen 0848 (Not Given - Provider: Rogelio Hager RN - Reason: IV Fluid Infusing)2001 (Given - Provider: Asif West RN) 0922 (Given - Provider: Porsche Odell RN)2006 (Given - Provider: Jeanne Brown RN) 1029 (Given - Provider: Cassi Kolb RN)2100 (Due) sodium chloride flush 0.9 % injection 5-40 mL 5-40 mL, IntraVENous, EVERY 12 HOURS SCHEDULED (2 times per day), First dose on Coco 08/23/24 at 0900, Until Discontinued, For Line Patency: Peripheral IV = 5 mL; Midline or Central Line = 10 mL/lumen. If following IV push medication, administer flush at same rate as the IV push. Flush volume is determined by type of infusion therapy being given. For non-viscous solutions use: Peripheral IV = 5 mL Midline or Central Line = 10 mL/lumen For viscous solutions (i.e. blood components, parenteral nutrition, contrast media, or after obtaining blood sample) use: Peripheral IV = 10 mL Midline or Central Line = 20 mL/lumen 0846 (Given - Provider: Rogelio Hager RN)2000 (Given - Provider: Asif West RN) 09 (Given - Provider: Porsche Odell RN)2006 (Not Given - Provider: Jeanne Brown RN - Reason: Other) 1022 (Given - Provider: Cassi Kolb, DOMINICK)2100 (Due) thiamine tablet 100 mg 100 mg, Oral, DAILY, First dose (after last modification) on Coco 08/23/24 at 0345, Until Discontinued 0845 (Given - Provider: Rogelio Hager RN) 09 (Given - Provider: Porsche Odell RN) 101 (Given - Provider: Cassi Kolb RN) PRN Medication Order 08/28/2024 08/29/2024 08/30/2024 0.9 % sodium chloride infusion IntraVENous, at 5-250 mL/hr, PRN, if patient receiving piggyback infusions and maintenance fluids are not ordered, Starting on Coco 08/23/24 at 0343, For piggyback infusion, administer at same rate as piggyback for a total of 25 mL. Enter 25 mL into dose field and piggyback rate into rate field of order. If piggyback is infusing at a rate less than 100 mL/hr, enter 25 mL into dose field and 100 mL/hr into rate field of order. 0.9 % sodium chloride infusion IntraVENous, at 5-250 mL/hr, PRN, if patient receiving piggyback infusions and maintenance fluids are not ordered, Starting on Coco 08/23/24 at 0537, For piggyback infusion, administer at same rate as piggyback for a total of 25 mL. Enter 25 mL into dose field and piggyback rate into rate field of order. If piggyback is infusing at a rate less than 100 mL/hr, enter 25 mL into dose field and 100 mL/hr into rate field of order. acetaminophen (TYLENOL) suppository 650 mg(Linked Group 1) 650 mg, Rectal, EVERY 6 HOURS PRN, Starting on Coco 08/23/24 at 0537, Until Discontinued, Pain Mild (1-3), Fever, For temp greater than 100.4 F (38 C), Administer if oral route cannot be used. 1152 (See Alternative - Provider: Rogelio Hager, DOMINICK) acetaminophen (TYLENOL) tablet 650 mg(Linked Group 1) 650 mg, Oral, EVERY 6 HOURS PRN, Starting on Coco 08/23/24 at 0537, Until Discontinued, Pain Mild (1-3), Fever, For temp greater than 100.4 F (38 C), Maximum dose of acetaminophen is 4000 mg from all sources in 24 hours. 1152 (Given - Provider: Rogelio Hager RN) albuterol (PROVENTIL) (2.5 MG/3ML) 0.083% nebulizer solution 2.5 mg 2.5 mg, Nebulization, EVERY 6 HOURS PRN, Starting on Tue08/26/24 at 1111, Until Discontinued, Wheezing, Shortness of Breath, Initiate RT Bronchodilator Protocol: No bisacodyl (DULCOLAX) suppository 10 mg 10 mg, Rectal, DAILY PRN, Starting on Tue08/27/24 at 1813, Until Discontinued, Constipation dextrose 10 % infusion IntraVENous, at 100 mL/hr, CONTINUOUS PRN, if blood glucose remains LESS THAN 70 mg/dL after 2 dextrose 10% intravenous boluses or administration of glucagon, Starting on Tue08/24/24 at 1707, If blood glucose fails to stabilize after 2 dextrose 10% intravenous boluses or glucagon administration, start dextrose 10% infusion at 100 mL/hour and repeat blood glucose at 30 and 60 minutes. If blood glucose is GREATER THAN 70 mg/dL after 60 minutes, discontinue dextrose 10% infusion. dextrose bolus 10% 125 mL(Linked Group 2) 125 mL, IntraVENous, at 937.5 mL/hr, Administer over 8 Minutes, PRN, Other, Blood glucose 40 - 69 mg/dL and patient NOT ALERT or NPO, Starting on Tue08/24/24 at 1707, Repeat blood glucose in 15 minutes. If blood glucose remains LESS THAN 70 mg/dL, repeat treatment and recheck blood glucose in 15 minutes x 2. If using glycemic management system, dose as instructed per system. If blood glucose remains LESS THAN 70 mg/dL after 2 intravenous boluses start dextrose 10% at 100 mL/hour and notify provider. dextrose bolus 10% 250 mL(Linked Group 2) 250 mL, IntraVENous, at 937.5 mL/hr, Administer over 16 Minutes, PRN, Other, Blood glucose LESS THAN 40 mg/dL and patient NOT ALERT or NPO, Starting on Tue08/24/24 at 1707, Repeat blood glucose in 15 minutes. If blood glucose remains LESS THAN 70 mg/dL, repeat treatment and recheck blood glucose in 15 minutes x 2. If using glycemic management system, dose as instructed per system. If blood glucose remains LESS THAN 70 mg/dL after 2 intravenous boluses start dextrose 10% at 100 mL/hour and notify provider. glucagon injection 1 mg 1 mg, SubCUTAneous, PRN, Starting on Tue08/24/24 at 1707, Until Discontinued, Low blood sugar, Blood glucose LESS THAN 70 mg/dL and patient NOT ALERT or NPO and does not have IV access., After administration, attempt intravenous access and start dextrose 10% at 100 mL/hr. Repeat blood glucose in 15 minutes x 2 and notify provider. glucose chewable tablet 16 g 16 g (4 tablet), Oral, PRN, Starting on Tue08/24/24 at 1707, Until Discontinued, Low blood sugar, If blood glucose is LESS THAN 70 mg/dL and patient is alert and tolerating oral. Give 4 tablets (16g) Repeat blood glucose in 15 minutes. If blood glucose is LESS THAN 70 mg/dL, repeat treatment and recheck blood glucose in 15 minutes x 2. If blood glucose remains LESS THAN 70 mg/dL, notify provider. LORazepam (ATIVAN) injection 1 mg(Linked Group 3) 1 mg, IntraVENous, EVERY 1 HOUR PRN (WITHDRAWAL), Starting on Coco 08/23/24 at 0343, Until Discontinued, Withdrawal, For alcohol withdrawal., For CIWA score 8 to 10. If both oral and intravenous CIWA medications ordered, use intravenous if unable to tolerate oral equivalent. Reassess CIWA one hour after each dose of medication and as needed. Immediately prior to intravenous use, lorazepam Injection must be diluted with at least an equal volume of compatible solution (NS or D5W). LORazepam (ATIVAN) injection 2 mg(Linked Group 3) 2 mg, IntraVENous, EVERY 1 HOUR PRN (WITHDRAWAL), Starting on Coco 08/23/24 at 0343, Until Discontinued, Withdrawal, For alcohol withdrawal., For CIWA score 11 to 15. If both oral and intravenous CIWA medications ordered, use intravenous if unable to tolerate oral equivalent. Reassess CIWA one hour after each dose of medication and as needed. Immediately prior to intravenous use, lorazepam Injection must be diluted with at least an equal volume of compatible solution (NS or D5W). LORazepam (ATIVAN) injection 3 mg(Linked Group 3) 3 mg, IntraVENous, EVERY 1 HOUR PRN (WITHDRAWAL), Starting on Coco 24 at 0343, Until Discontinued, Withdrawal, For alcohol withdrawal., For CIWA score 16 to 20. If both oral and intravenous CIWA medications ordered, use intravenous if unable to tolerate oral equivalent. Reassess CIWA one hour after each dose of medication and as needed. Immediately prior to intravenous use, lorazepam Injection must be diluted with at least an equal volume of compatible solution (NS or D5W). LORazepam (ATIVAN) injection 4 mg(Linked Group 3) 4 mg, IntraVENous, EVERY 1 HOUR PRN (WITHDRAWAL), Starting on Coco 08/23/24 at 0343, Until Discontinued, Withdrawal, For alcohol withdrawal., For CIWA score greater than 20. If both oral and intravenous CIWA medications ordered, use intravenous if unable to tolerate oral equivalent. Reassess CIWA one hour after each dose of medication and as needed. Immediately prior to intravenous use, lorazepam Injection must be diluted with at least an equal volume of compatible solution (NS or D5W). LORazepam (ATIVAN) tablet 1 mg(Linked Group 3) 1 mg, Oral, EVERY 1 HOUR PRN (WITHDRAWAL), Starting on Coco 08/23/24 at 0343, Until Discontinued, Withdrawal, For alcohol withdrawal., For CIWA score 8 to 10. Reassess CIWA one hour after each dose of medication and as needed. LORazepam (ATIVAN) tablet 2 mg(Linked Group 3) 2 mg, Oral, EVERY 1 HOUR PRN (WITHDRAWAL), Starting on Coco 24 at 0343, Until Discontinued, Withdrawal, For alcohol withdrawal., For CIWA score 11 to 15. Reassess CIWA one hour after each dose of medication and as needed. LORazepam (ATIVAN) tablet 3 mg(Linked Group 3) 3 mg, Oral, EVERY 1 HOUR PRN (WITHDRAWAL), Starting on Coco 24 at 0343, Until Discontinued, Withdrawal, For alcohol withdrawal., For CIWA score 16 to 20. Reassess CIWA one hour after each dose of medication and as needed. LORazepam (ATIVAN) tablet 4 mg(Linked Group 3) 4 mg, Oral, EVERY 1 HOUR PRN (WITHDRAWAL), Starting on Tue08/23/24 at 0343, Until Discontinued, Withdrawal, For alcohol withdrawal., For CIWA score greater than 20. Reassess CIWA one hour after each dose of medication and as needed. magnesium sulfate 1000 mg in dextrose 5% 100 mL IVPB 1,000 mg, IntraVENous, at 100 mL/hr, Administer over 1 Hours, PRN, Other, Per IV Magnesium Replacement Protocol, Starting on Tue08/23/24 at 0537, Mg Lab Replacement Action 1.4-1.6 1 gram IVPB x 2 doses (2 gram Total) 1.0-1.3 1 gram IVPB x 4 doses (4 gram Total) <1.0 CALL PHYSICIAN and 1 gram IVPB x 4 doses (4 gram Total) Infuse at 1 gram/hr Repeat Mag level next AM Protocol not for use in Patients with CrCl<30ml/min morphine (PF) injection 2 mg 2 mg, IntraVENous, EVERY 4 HOURS PRN, Starting on Tue08/29/24 at 1641, Until Discontinued, Allowed for higher pain score per patient request, breakthrough pain, If oral and IV narcotics ordered, use oral first and only use IV if oral is ineffective or cannot take oral. Do Not give oral and IV within 1 hour of each other unless specifically ordered. 1725 (Given - Provider: Cassi Kolb RN)2248 (Given - Provider: Jeanne Brown RN) 0407 (Given - Provider: Jeanne Brown RN)1018 (Given - Provider: Cassi Kolb RN) morphine injection 2 mg (CANCELED) 2 mg, IntraVENous, EVERY 4 HOURS PRN, Starting on Coco 08/23/24 at 1029, Until Tue08/29/24 at 1643, Allowed for higher pain score per patient request, breakthrough pain, If oral and IV narcotics ordered, use oral first and only use IV if oral is ineffective or cannot take oral. Do Not give oral and IV within 1 hour of each other unless specifically ordered. 0647 (Given - Provider: Asif West RN)1152 (Given - Provider: Rogelio Hager RN)1615 (Given - Provider: Rogelio Hager RN)2042 (Given - Provider: Asif West RN) 0202 (Given - Provider: Asif West RN)1053 (Given - Provider: Porsche Odell RN) ondansetron (ZOFRAN) injection 4 mg(Linked Group 4) 4 mg, IntraVENous, EVERY 6 HOURS PRN, Starting on Coco 08/23/24 at 0537, Until Discontinued, Nausea, Vomiting, Administer if oral route cannot be used. ondansetron (ZOFRAN-ODT) disintegrating tablet 4 mg(Linked Group 4) 4 mg, Oral, EVERY 8 HOURS PRN, Starting on Coco 08/23/24 at 0537, Until Discontinued, Nausea, Vomiting oxyCODONE-acetaminophen (PERCOCET) 5-325 MG per tablet 1 tablet 1 tablet, Oral, EVERY 4 HOURS PRN, Starting on Coco 08/23/24 at 2003, Until Discontinued, Pain Moderate (4-6), Maximum dose of acetaminophen is 4000 mg from all sources in 24 hours. oxyCODONE-acetaminophen (PERCOCET) 5-325 MG per tablet 2 tablet 2 tablet, Oral, EVERY 4 HOURS PRN, Starting on Coco 08/23/24 at 2003, Until Discontinued, Pain Severe (7-10), Maximum dose of acetaminophen is 4000 mg from all sources in 24 hours. 0336 (Given - Provider: Asif West RN)0844 (Given - Provider: Rogelio Hager RN)1318 (Given - Provider: Rogelio Hager RN)1757 (Given - Provider: Rogelio Hager RN)2317 (Given - Provider: Asif West RN) 0521 (Given - Provider: Asif West RN)0915 (Given - Provider: Porsche Odell RN)1429 (Given - Provider: Cassi Kolb RN)2004 (Given - Provider: Jeanne Brown RN) 0301 (Given - Provider: Jeanne Brown RN)0734 (Given - Provider: Jeanne Brown RN) polyethylene glycol (GLYCOLAX) packet 17 g 17 g, Oral, DAILY PRN, Starting on Coco 08/23/24 at 0537, Until Discontinued, Constipation, First line therapy for constipation potassium bicarb-citric acid (EFFER-K) effervescent tablet 40 mEq(Linked Group 5) 40 mEq, Oral, PRN, Starting on Coco 08/23/24 at 0537, Until Discontinued, Per Potassium Replacement Protocol, Administer as alternative if patient unable to tolerate oral tablet. K Lab Replacement Action 3.1 to 3.5 40 mEq ORAL x 1 Under 3.1 Refer to IV replacement protocol Recheck K level in AM. Protocol not for use in patients with CrCl less than 30 mL/min. Do not chew or crush. Dissolve flavored tablets completely in 3 to 4 ounces of cold water; unflavored tablets may be dissolved in 3 to 4 ounces of cold juice. Patient to sip slowly over a 5 to 10 minute period. May further dilute if GI adverse effects occur. 0844 (See Alternative - Provider: Rogelio Hager RN) potassium chloride (KLOR-CON M) extended release tablet 40 mEq(Linked Group 5) 40 mEq, Oral, PRN, Starting on Coco 08/23/24 at 0537, Until Discontinued, Potassium Replacement, May give alternative linked oral order (ordered as effervescent, packet, or liquid solution) if patient unable to tolerate tablet. K Lab Replacement Action 3.1 to 3.5 40 mEq ORAL x 1 Under 3.1 Refer to IV replacement protocol Recheck K level in AM. Protocol not for use in patients with CrCl less than 30 mL/min. Do not crush, chew, or suck on tablet. Tablet may also be broken in half and each half swallowed separately. 0844 (Given - Provider: Rogelio Hager RN) potassium chloride 10 mEq/100 mL IVPB (Peripheral Line)(Linked Group 5) 10 mEq, IntraVENous, PRN, Starting on Coco 08/23/24 at 0537, Until Discontinued, at 100 mL/hr, Potassium Replacement, K Lab Replacement Action 2.7-3.0 10 mEq IVPB x 6 doses (60 mEq Total) < 2.7 CALL PHYSICIAN and 10 mEq IVPB x 6 doses (60 mEq Total) Infuse at 10 mEq/hr Repeat Potassium lab 1 hour after final administration. Not for use in patients with CrCl less than 30 mL/min. 0844 (See Alternative - Provider: Rogelio Hager RN) sodium chloride flush 0.9 % injection 10 mL 10 mL, IntraVENous, PRN, Starting on Coco 08/23/24 at 0537, Until Discontinued, Line Care, After every IV line use 0647 (Given - Provider: Asif West RN) sodium chloride flush 0.9 % injection 10 mL 10 mL, IntraVENous, PRN, Starting on Coco 08/23/24 at 1038, Until Discontinued, Line Care 2044 (Given - Provider: Asif West RN) 0204 (Given - Provider: Asif West RN) sodium chloride flush 0.9 % injection 5-40 mL 5-40 mL, IntraVENous, PRN, Starting on Coco 08/23/24 at 0343, Until Discontinued, Line Care, After every IV line use, For Line Patency: Peripheral IV = 5 mL; Midline or Central Line = 10 mL/lumen. If following IV push medication, administer flush at same rate as the IV push. Flush volume is determined by type of infusion therapy being given. For non-viscous solutions use: Peripheral IV = 5 mL Midline or Central Line = 10 mL/lumen For viscous solutions (i.e. blood components, parenteral nutrition, contrast media, or after obtaining blood sample) use: Peripheral IV = 10 mL Midline or Central Line = 20 mL/lumen traZODone (DESYREL) tablet 50 mg 50 mg, Oral, NIGHTLY PRN, Starting on 08/26/24 at 0919, Until Discontinued, Sleep 2318 (Given - Provider: Asif West RN) 2248 (Given - Provider: Jeanne Brown RN) Linked Groups Order Group 1: acetaminophen (TYLENOL) tablet 650 mgJump to med 650 mg, Oral, EVERY 6 HOURS PRN, Starting on Coco 08/23/24 at 0537, Until Discontinued, Pain Mild (1-3), Fever, For temp greater than 100.4 F (38 C), Maximum dose of acetaminophen is 4000 mg from all sources in 24 hours. Or acetaminophen (TYLENOL) suppository 650 mgJump to med 650 mg, Rectal, EVERY 6 HOURS PRN, Starting on Coco 08/23/24 at 0537, Until Discontinued, Pain Mild (1-3), Fever, For temp greater than 100.4 F (38 C), Administer if oral route cannot be used. Group 2: dextrose bolus 10% 125 mLJump to med 125 mL, IntraVENous, at 937.5 mL/hr, Administer over 8 Minutes, PRN, Other, Blood glucose 40 - 69 mg/dL and patient NOT ALERT or NPO, Starting on Tue08/24/24 at 1707, Repeat blood glucose in 15 minutes. If blood glucose remains LESS THAN 70 mg/dL, repeat treatment and recheck blood glucose in 15 minutes x 2. If using glycemic management system, dose as instructed per system. If blood glucose remains LESS THAN 70 mg/dL after 2 intravenous boluses start dextrose 10% at 100 mL/hour and notify provider. Or dextrose bolus 10% 250 mLJump to med 250 mL, IntraVENous, at 937.5 mL/hr, Administer over 16 Minutes, PRN, Other, Blood glucose LESS THAN 40 mg/dL and patient NOT ALERT or NPO, Starting on Tue08/24/24 at 1707, Repeat blood glucose in 15 minutes. If blood glucose remains LESS THAN 70 mg/dL, repeat treatment and recheck blood glucose in 15 minutes x 2. If using glycemic management system, dose as instructed per system. If blood glucose remains LESS THAN 70 mg/dL after 2 intravenous boluses start dextrose 10% at 100 mL/hour and notify provider. Group 3: LORazepam (ATIVAN) tablet 1 mgJump to med 1 mg, Oral, EVERY 1 HOUR PRN (WITHDRAWAL), Starting on Tue08/23/24 at 0343, Until Discontinued, Withdrawal, For alcohol withdrawal., For CIWA score 8 to 10. Reassess CIWA one hour after each dose of medication and as needed. Or LORazepam (ATIVAN) injection 1 mgJump to med 1 mg, IntraVENous, EVERY 1 HOUR PRN (WITHDRAWAL), Starting on Tue08/23/24 at 0343, Until Discontinued, Withdrawal, For alcohol withdrawal., For CIWA score 8 to 10. If both oral and intravenous CIWA medications ordered, use intravenous if unable to tolerate oral equivalent. Reassess CIWA one hour after each dose of medication and as needed. Immediately prior to intravenous use, lorazepam Injection must be diluted with at least an equal volume of compatible solution (NS or D5W). Or LORazepam (ATIVAN) tablet 2 mgJump to med 2 mg, Oral, EVERY 1 HOUR PRN (WITHDRAWAL), Starting on Tue08/23/24 at 0343, Until Discontinued, Withdrawal, For alcohol withdrawal., For CIWA score 11 to 15. Reassess CIWA one hour after each dose of medication and as needed. Or LORazepam (ATIVAN) injection 2 mgJump to med 2 mg, IntraVENous, EVERY 1 HOUR PRN (WITHDRAWAL), Starting on Coco 08/23/24 at 0343, Until Discontinued, Withdrawal, For alcohol withdrawal., For CIWA score 11 to 15. If both oral and intravenous CIWA medications ordered, use intravenous if unable to tolerate oral equivalent. Reassess CIWA one hour after each dose of medication and as needed. Immediately prior to intravenous use, lorazepam Injection must be diluted with at least an equal volume of compatible solution (NS or D5W). Or LORazepam (ATIVAN) tablet 3 mgJump to med 3 mg, Oral, EVERY 1 HOUR PRN (WITHDRAWAL), Starting on Coco 08/23/24 at 0343, Until Discontinued, Withdrawal, For alcohol withdrawal., For CIWA score 16 to 20. Reassess CIWA one hour after each dose of medication and as needed. Or LORazepam (ATIVAN) injection 3 mgJump to med 3 mg, IntraVENous, EVERY 1 HOUR PRN (WITHDRAWAL), Starting on Coco 08/23/24 at 0343, Until Discontinued, Withdrawal, For alcohol withdrawal., For CIWA score 16 to 20. If both oral and intravenous CIWA medications ordered, use intravenous if unable to tolerate oral equivalent. Reassess CIWA one hour after each dose of medication and as needed. Immediately prior to intravenous use, lorazepam Injection must be diluted with at least an equal volume of compatible solution (NS or D5W). Or LORazepam (ATIVAN) tablet 4 mgJump to med 4 mg, Oral, EVERY 1 HOUR PRN (WITHDRAWAL), Starting on Coco 08/23/24 at 0343, Until Discontinued, Withdrawal, For alcohol withdrawal., For CIWA score greater than 20. Reassess CIWA one hour after each dose of medication and as needed. Or LORazepam (ATIVAN) injection 4 mgJump to med 4 mg, IntraVENous, EVERY 1 HOUR PRN (WITHDRAWAL), Starting on Coco 24 at 0343, Until Discontinued, Withdrawal, For alcohol withdrawal., For CIWA score greater than 20. If both oral and intravenous CIWA medications ordered, use intravenous if unable to tolerate oral equivalent. Reassess CIWA one hour after each dose of medication and as needed. Immediately prior to intravenous use, lorazepam Injection must be diluted with at least an equal volume of compatible solution (NS or D5W). Group 4: ondansetron (ZOFRAN-ODT) disintegrating tablet 4 mgJump to med 4 mg, Oral, EVERY 8 HOURS PRN, Starting on Coco 08/23/24 at 0537, Until Discontinued, Nausea, Vomiting Or ondansetron (ZOFRAN) injection 4 mgJump to med 4 mg, IntraVENous, EVERY 6 HOURS PRN, Starting on Coco 08/23/24 at 0537, Until Discontinued, Nausea, Vomiting, Administer if oral route cannot be used. Group 5: potassium chloride (KLOR-CON M) extended release tablet 40 mEqJump to med 40 mEq, Oral, PRN, Starting on Coco 08/23/24 at 0537, Until Discontinued, Potassium Replacement, May give alternative linked oral order (ordered as effervescent, packet, or liquid solution) if patient unable to tolerate tablet. K Lab Replacement Action 3.1 to 3.5 40 mEq ORAL x 1 Under 3.1 Refer to IV replacement protocol Recheck K level in AM. Protocol not for use in patients with CrCl less than 30 mL/min. Do not crush, chew, or suck on tablet. Tablet may also be broken in half and each half swallowed separately. Or potassium bicarb-citric acid (EFFER-K) effervescent tablet 40 mEqJump to med 40 mEq, Oral, PRN, Starting on Coco 08/23/24 at 0537, Until Discontinued, Per Potassium Replacement Protocol, Administer as alternative if patient unable to tolerate oral tablet. K Lab Replacement Action 3.1 to 3.5 40 mEq ORAL x 1 Under 3.1 Refer to IV replacement protocol Recheck K level in AM. Protocol not for use in patients with CrCl less than 30 mL/min. Do not chew or crush. Dissolve flavored tablets completely in 3 to 4 ounces of cold water; unflavored tablets may be dissolved in 3 to 4 ounces of cold juice. Patient to sip slowly over a 5 to 10 minute period. May further dilute if GI adverse effects occur. Or potassium chloride 10 mEq/100 mL IVPB (Peripheral Line)Jump to med 10 mEq, IntraVENous, PRN, Starting on Coco 08/23/24 at 0537, Until Discontinued, at 100 mL/hr, Potassium Replacement, K Lab Replacement Action 2.7-3.0 10 mEq IVPB x 6 doses (60 mEq Total) < 2.7 CALL PHYSICIAN and 10 mEq IVPB x 6 doses (60 mEq Total) Infuse at 10 mEq/hr Repeat Potassium lab 1 hour after final administration. Not for use in patients with CrCl less than 30 mL/min. FOR RECORDS PERTAINING TO PATIENTS WHO ARE OR HAVE BEEN ENROLLED IN A CHEMICAL DEPENDENCY/SUBSTANCEABUSE PROGRAM, SOME INFORMATION MAY BE OMITTED. This clinical summary was aggregated from multiple sources. Caution should be exercised in using it in the provision of clinical care. This summary normalizes information from multiple sources, and as a consequence, information in this document may materially change the coding, format and clinical context of patient data. In addition, data may be omitted in some cases. CLINICAL DECISIONS SHOULD BE BASED ON THE PRIMARY CLINICAL RECORDS. [employer] [facility]. provides no warranty or guarantee of the accuracy or completeness of information in this document.
[2024-09-18 17:44] VITALS: BP 158/93; PULSE 76; TEMP 37.1; O2SAT 96; BMI 25.1
--- NOTE | 2024-09-18 18:08 | ED.GENADUL1 ---
HPI HPI - General Adult General Chief complaint: Back Pain/Injury Stated complaint: Back Pain Time Seen by Provider: 09/18/24 17:32 Source: patient Mode of arrival: walk-in Limitations: no limitations History of Present Illness HPI narrative: Patient presents to ED complaining of low back pain. Patient had lumbar spine surgery on August 23. He has been seeing a pain management doctor for back pain and he had an injection into his spine shortly before the . He was having pain after the injection so he came into the ER for evaluation. CT scan at that time showed possible discitis because there was air in the lumbar region where the injection went in. Patient was transferred up to [facility] and they did surgery. The patient told me that there was an osteophyte that was removed during the surgery. He did not say that there was any abscess. Patient states that since the surgery he is still had continued pain. He spoke to his pain management doctor who told him to increase his medication which she did do but patient states it still not helping and it is hard to sleep at night. He called his pain management doctor again today and his pain management doctor told him to come in to the ER and get an MRI if he was in that much pain. This was according to the patient. Patient ambulated into the ER in no acute distress. He is neurologically intact. No loss of bowel or bladder habits. He is able to get in the bed and out of the bed on his own and he was able to dress and undress himself on his own. Patient denies any abdominal pain or fevers. He has chronic neuropathy but no new weakness or numbness in his legs. Related Data Home Medications ?Medication ?Instructions ?Recorded ?Confirmed atorvastatin 40 mg tablet 40 mg PO DAILY 08/22/24 09/18/24 baclofen 10 mg oral granules in 10 mg PO DAILY 08/22/24 09/18/24 packet buprenorphine HCl 900 mcg buccal 900 mcg buccal .Q 12 08/22/24 08/22/24 film (Belbuca) lidocaine 5 % topical patch 1 patch topical Q24H 08/22/24 09/18/24 nitroglycerin 0.4 mg sublingual 0.4 mg sublingual Q5M PRN chest 08/22/24 08/22/24 tablet pain oxycodone-acetaminophen 5 mg-325 2 tab PO BID 08/22/24 09/18/24 mg tablet trazodone 50 mg tablet 50 mg PO DAILY 08/22/24 09/18/24 Allergies Allergy/AdvReac Type Severity Reaction Status Date / Time acetaminophen (From Tylenol) AdvReac sweating Verified 08/22/24 19:43 codeine AdvReac Nausea Verified 08/22/24 19:43 Opioid HPI Opioid Management Most Recent Opioid Data: No Data to Display Review of Systems ROS Status of ROS 10 or more systems reviewed and unremarkable except as noted in history and below PFSH PFSH Social History Little interest or pleasure in doing things: not at all Feeling down, depressed, or hopeless: not at all Exam Narrative Exam Narrative: Time Seen: [] Vital Signs: [Per nurse's notes.] General: [Alert] Skin: [Warm, dry, no rash.] Head: [Normocephalic, atraumatic.] Neck: [Supple, trachea midline.] Eye: [Pupils are equal, round and reactive to light, extraocular movements are intact, normal conjunctiva.] Ears, nose, mouth and throat: oral mucosa moist. Cardiovascular: [Regular rate and rhythm, no murmur.] Respiratory: [Lungs are clear to auscultation, respirations are non-labored, breath sounds are equal.] Chest wall: [No tenderness, no deformity.] Gastrointestinal: [Soft, nontender, non distended, normal bowel sounds.] MSK: 5 out of 5 muscle strength x 4 extremities no calf pain or edema. Normal distal pulses and baseline sensation intact. Normal dorsiflexion and plantarflexion of feet bilaterally. Hip extension and flexion. No weakness in the lower extremities. Back incision looks clean dry and intact. No erythema no abscess. Lymphatics: [No lymphadenopathy.] Psychiatric: [Cooperative, appropriate mood & affect.] Neurological: [Alert and oriented to person, place, time, and situation, no focal neurological deficit observed.] Constitutional Vital Signs, click to edit/add: Last Vital Signs Temp 98.8 F 09/18/24 17:44 Pulse 76 09/18/24 17:44 Resp 20 09/18/24 17:44 BP 158/93 H 09/18/24 17:44 Pulse Ox 96 09/18/24 17:44 O2 Del Method Room Air 09/18/24 17:44 Course Vital Signs Vital signs: Vital Signs Temperature 98.8 F 09/18/24 17:44 Pulse Rate 76 09/18/24 17:44 Respiratory Rate 20 09/18/24 17:44 Blood Pressure 158/93 H 09/18/24 17:44 Pulse Oximetry 96 09/18/24 17:44 Oxygen Delivery Method Room Air 09/18/24 17:44 Temperature 98.8 F 09/18/24 17:44 Pulse Rate 76 09/18/24 17:44 Respiratory Rate 20 09/18/24 17:44 Blood Pressure 158/93 H 09/18/24 17:44 Pulse Oximetry 96 09/18/24 17:44 Oxygen Delivery Method Room Air 09/18/24 17:44 Medical Decision Making MDM Narrative Medical decision making narrative: Patient said he was supposed to get an MRI according to his pain management doctor. He said he was supposed to set up outpatient but it has not been done yet so the office told him to come here to get 1. I explained that we do not have MRI at this time and we cannot get one here tonight. I told him I would page his pain management doctor and come up with a different plan for him. I did call the office and they are closed and there is no one covering on-call for the pain management office. They said they could leave a message but they would not get it until tomorrow. When I went back to the room to tell the patient he was already up and getting dressed. He said if we cannot do an MRI here then he just wants to go home and he can make phone calls tomorrow. I also offered to call his neurosurgeon at [facility] and he declined at this time. He was just getting dressed and walked out of the emergency room and states he will work on it tomorrow. I told him if he really feels like he needs an MRI then to go to [facility] where they did the surgery or a bigger facility such as that that has more capabilities especially during the evening. The patient was neurologically intact ambulated out of the ED and was of sound decision-making capacity. He states he will return if worsening symptoms or he will go to a different ER and he will follow-up with his doctor as scheduled. Differential Diagnosis Differential Diagnosis: Lumbar strain, postoperative pain, sciatica Discharge Plan Discharge Chief Complaint: Back Pain/Injury Clinical Impression: Sciatica, Postoperative back pain Patient Disposition: Home, Self-Care Time of Disposition Decision: 18:08 Condition: Good Mode of Transportation: Private Vehicle Prescriptions / Home Meds: No Action atorvastatin 40 mg tablet 40 mg PO DAILY buprenorphine HCl [Belbuca] 900 mcg film 900 mcg BUCCAL .Q 12 lidocaine 5 % adhesive patch,medicated 1 patch topical Q24H nitroglycerin 0.4 mg tablet, sublingual 0.4 mg sublingual Q5M PRN (Reason: chest pain) oxycodone-acetaminophen 5-325 mg tablet 2 tab PO BID trazodone 50 mg tablet 50 mg PO DAILY baclofen 10 mg granules in packet 10 mg PO DAILY Rx Instructions: takes at bedtime Print Language: Mohawk Instructions: Acute Low Back Pain (ED) Referrals: [facility] [Primary Care Provider] - 1 week
== END 2024-09-18 18:14 | disposition home or self-care (01) ==
PROVIDERS: Emergency Provider Emergency Medicine
DX: M54.40 Lumbago with sciatica, unspecified side (principal); G89.18 Other acute postprocedural pain
CPT/HCPCS: 99281